=== PATIENT | male | born 1950 | race Caucasian/White ===

== ENCOUNTER 2020-08-09 09:41 | Outpatient (REF) | payer MEDICARE, BC, SELFPAY ==
[2020-08-09 11:31] LABS: Hematocrit 39.2 % (42-52); Hemoglobin 12.5 g/dl (14.0-18.0); Mean Corpuscular HGB Conc 31.9 g/dl (31.0-36.0); Mean Corpuscular Hemoglobin 31.5 pg (27.0-33.0); Mean Corpuscular Volume 98.7 fL (80-98); Mean Platelet Volume 10.5 fL (9.4-12.4); Platelet Count 257 X10*3/uL (160-400); Red Blood Count 3.97 X10*6/uL (4.60-5.80); Red Cell Distribution Width 12.1 % (11.0-16.0); White Blood Count 5.3 X10*3/uL (4.8-10.8)
[2020-08-09 11:50] LABS: Alanine Aminotransferase 38 U/L (0-40); Albumin Level 4.2 g/dL (3.5-5.0); Alkaline Phosphatase 61 U/L (39-117); Anion Gap 13 (12-20); Aspartate Amino Transferase 34 U/L (5-37); Bilirubin Direct 0.3 mg/dL (0.0-0.5); Bilirubin Total 0.7 mg/dL (0.0-1.0); Blood Urea Nitrogen 16 mg/dL (9-16); Calcium 8.5 mg/dL (8.4-10.2); Carbon Dioxide 27 mmol/L (22-29); Chloride 103 mmol/L (96-108); Cholesterol 158 mg/dL; Estimated Glomerular Filt Rate > 60; Glucose Random 93 mg/dL (60-115); HDL Cholesterol 24 mg/dL; LDL Cholesterol Calculated 118 mg/dl; Potassium 4.4 mmol/l (3.3-5.1); Sodium 139 mmol/L (135-145); Total Protein 7.1 g/dL (6.5-8.0); Triglycerides 84 mg/dL
[2020-08-09 11:52] LABS: SARS COV2 IgG Negative (Negative)
== END 2020-08-09 09:42 | disposition home or self-care (01) ==
LOC: HO.HMGCLDS 09:41
PROVIDERS: PCP Internal Medicine; Visit Provider Internal Medicine
DX: Z11.9 Encounter for screening for infectious and parasitic diseases, unspecified (principal); Z01.84 Encounter for antibody response examination
CPT/HCPCS: 36415; 80048; 80061; 80076; 85027; 86769

== ENCOUNTER 2021-02-05 09:47 | Outpatient (REF) | payer MEDICARE, BC, SELFPAY ==
[2021-02-05 11:51] LABS: Hematocrit 37.4 % (42-52); Hemoglobin 12.2 g/dl (14.0-18.0); Mean Corpuscular HGB Conc 32.6 g/dl (31.0-36.0); Mean Corpuscular Hemoglobin 31.9 pg (27.0-33.0); Mean Corpuscular Volume 97.9 fL (80-98); Mean Platelet Volume 10.1 fL (9.4-12.4); Platelet Count 296 X10*3/uL (160-400); Red Blood Count 3.82 X10*6/uL (4.60-5.80); Red Cell Distribution Width 12.6 % (11.0-16.0); White Blood Count 5.7 X10*3/uL (4.8-10.8)
[2021-02-05 12:05] LABS: Alanine Aminotransferase 31 U/L (0-40); Albumin Level 4.4 g/dL (3.5-5.0); Alkaline Phosphatase 57 U/L (39-117); Anion Gap 14 (12-20); Aspartate Amino Transferase 28 U/L (5-37); Bilirubin Direct 0.3 mg/dL (0.0-0.5); Bilirubin Total 0.8 mg/dL (0.0-1.0); Blood Urea Nitrogen 18 mg/dL (9-16); Calcium 9.1 mg/dL (8.4-10.2); Carbon Dioxide 27 mmol/L (22-29); Chloride 105 mmol/L (96-108); Cholesterol 160 mg/dL; Estimated Glomerular Filt Rate > 60; Glucose Random 94 mg/dL (60-115); HDL Cholesterol 26 mg/dL; LDL Cholesterol Calculated 118 mg/dl; Sodium 142 mmol/L (135-145); Total Protein 7.4 g/dL (6.5-8.0); Triglycerides 84 mg/dL
== END 2021-02-05 09:48 | disposition home or self-care (01) ==
LOC: HO.HMGCLDS 09:47
PROVIDERS: PCP Internal Medicine; Visit Provider Internal Medicine
DX: I10 Essential (primary) hypertension (principal)
CPT/HCPCS: 36415; 80048; 80061; 80076; 85027

== ENCOUNTER 2021-05-09 09:13 | Outpatient (REF) | payer MEDICARE, BC, SELFPAY ==
[2021-05-09 11:33] LABS: Cholesterol 157 mg/dL; HDL Cholesterol 28 mg/dL; LDL Cholesterol Calculated 115 mg/dl; Triglycerides 72 mg/dL
== END 2021-05-09 09:14 | disposition home or self-care (01) ==
LOC: HO.HMGCLDS 09:13
PROVIDERS: PCP Internal Medicine; Visit Provider Internal Medicine
DX: I10 Essential (primary) hypertension (principal)
CPT/HCPCS: 36415; 80061

== ENCOUNTER 2021-05-24 13:12 | Outpatient (REF) | payer MEDICARE, BC, SELFPAY ==
--- NOTE | ~2021-05-24 | US_ITS ---
EXAMINATION: US EXTRACRANIAL CAROTID DUPLEX, BILATERAL CLINICAL INFORMATION: Amaurosis fugax COMPARISON: None TECHNIQUE: Real-time ultrasound and Doppler techniques (integrating B-mode 2-D vascular images, Doppler spectral analysis and color-flow Doppler imaging) were utilized to interrogate the extracranial carotid arteries, the vertebral arteries and proximal subclavian arteries bilaterally. The degree of stenosis is determined by criteria similar to NASCET. FINDINGS: Right Side: 1. There is mild atherosclerotic plaque seen in the bifurcation/proximal ICA region. 2. The common carotid artery PSV proximally is 87 cm/s and distally 76 cm/s. 3. The proximal internal carotid artery velocities are 49 cm/s systolic and 15 cm/s diastolic. 4. The proximal external carotid artery PSV is 108 cm/s. 5. The vertebral artery shows antegrade flow. Left Side: 1. There is no atherosclerotic plaque seen in the bifurcation/proximal ICA region. 2. The common carotid artery PSV proximally is 99 cm/s and distally 73 cm/s. 3. The proximal internal carotid artery velocities are 55 cm/s systolic and 13 cm/s diastolic. 4. The proximal external carotid artery PSV is 108 cm/s. 5. The vertebral artery shows antegrade flow. US/US carotid duplex BI IMPRESSION: 1. RIGHT: Minimal, non-hemodynamically significant stenosis of the proximal right internal carotid artery corresponding to a 0-49% stenosis by velocity criteria. 2. LEFT: Normal left internal carotid artery without atherosclerotic plaque or hemodynamically significant stenosis.
== END 2021-05-24 13:13 | disposition home or self-care (01) ==
LOC: HO.US 13:12
PROVIDERS: PCP Internal Medicine; Visit Provider Internal Medicine
DX: G45.3 Amaurosis fugax (principal)
CPT/HCPCS: 93880

== ENCOUNTER → 2021-06-12 13:57 | Outpatient (REF) | payer MEDICARE, BC, SELFPAY ==
--- NOTE | 2021-06-12 13:59 | CA_ITS ---
Transthoracic Echocardiogram Patient (Last, First, Middle): Stuart Zavala S Gender: Male Date of : 1950 Age: 70 Procedure Date: 06/12/2021 Procedure Type: Transthoracic Echocardiogram Location: S3W Height: 172.72 cm Weight: 73.94 kg BSA: 1.87 m2 Heart Rate: bpm BP: 120 / 80 mmHg Porcelain Enamel Laborer: Karoline MD: Angel Rosales MD Ticker Maintainer: Ben Jimenez MD Symptoms: G45.3 - Amaurosis fugax Study Quality: Fair ECG Rhythm: Sinus Conclusions: - 1. Normal LV systolic function with grade 1 diastolic dysfunction 2. Normal cardiac valvular Doppler 3. Normal RV systolic pressure 4. No pericardial effusion Findings Procedure Information The patient receives contrast. Left Ventricle Normal left ventricular size, thickness, and systolic function. The visually estimated ejection fraction is between 60-65%. Spectral Doppler is indicative of an impaired relaxation filling pattern. E/E prime ratio is <8, consistent with normal filling pressures. Evidence suggests grade I (mild) diastolic dysfunction. Right Ventricle Normal right ventricular cavity size and systolic function. Atria The left atrium is normal in size. Interatrial shunt cannot be excluded. The right atrium is normal in size. Aortic Valve There is mild calcification of the aortic valve. There is no aortic valve stenosis. There is no aortic valve regurgitation. Mitral Valve Likely normal mitral valve structure and function. There is trace mitral valve regurgitation. There is no mitral valve stenosis. Pulmonic Valve The pulmonic valve was not well visualized. Tricuspid Valve Likely normal tricuspid valve structure and function. There is trace tricuspid valve regurgitation. The right ventricular systolic pressure is normal. The right ventricular systolic pressure is 30 mmHg. Normal right atrial pressure. There is no evidence of pulmonary hypertension. Great Vessels All visible segments of the aorta are normal in size. The pulmonary artery was not well visualized. Venous The inferior vena cava is normal in size and collapses greater than 50% with inspiration. Pericardium/Pleural There is no evidence of pericardial effusion. Prior Study Comparison No prior study available for comparison. Recommendations, Care & Conclusions Recommend contrast study to evaluate intracardiac shunting. Measurements 2D Linear Measurements RVIDd: 3.34 RVIDd Index: 1.79 IVSd: 0.94 0.6-0.9/0.6-1.0 cm LVIDd: 5.41 3.9-5.3/4.2-5.9 cm LVIDd Index: 2.89 2.4-3.2/2.2-3.1 cm/m2 LVIDs: 3.92 2.0-3.6 cm LVPWd: 0.92 0.7-1.1 cm Ao Root: 3.90 2.1-3.5 cm LA Diam: 4.10 2.7-3.8/3.0-4.0 cm LAIDs Index: 2.19 1.5-2.3 cm/m2 LV Mass: 235.27 67-162/88-224 g LV Mass Index: 125.81 43-95/49-115 g/m2 LVOT Diam: 2.10 3.0+(-)1.3 cm 2D Systolic Function EF 4C: 51.20 >55% EF 2C: 69.80 >55% EF BiP: 61.80 >55% Mitral Valve MV Pk E: 0.50 MV PK A: 0.77 MV Decel Time: 349.00 E/A: 0.70 E'Lateral: 11.90 E'Medial: 6.53 E/E' Med: 7.70 E/E' Lat: 4.20 Aortic Valve AoV Pk Sid: 1.29 AoV Mn Sid: 1.02 AoV VTI: 0.33 AoV Pk Grad: 7.00 Aov Mn Grad: 5.00 FELA Cont.VTI: 2.47 LVOT LVOT Pk Sid: 1.13 LVOT Mn Sid: 0.68 LVOT VTI: 0.23 LVOT Pk Grad: 5.00 LVOT Mn Grad: 2.00 LVOT Diam: 2.10 LVOT Area: 3.46 Diastolic Function MV Pk E: 0.50 MV Pk A: 0.77 E/A: 0.70 E'Medial: 6.53 E/E' Med: 7.70 E' Laterial: 11.90 E/E' Lat: 4.20 Right Ventricle TAPSE (mm): 18.00 TVS' Sid: 8.01 Tricuspid Valve TR Pk Sid: 2.34 TR Pk Grad: 22.00 RA Press: 8.00 RVSP: 30.00 Great Vessels Aorta Ao Root-2D: 3.90 2.0-3.7 cm Ao Asc: 3.90 2.1-3.4 cm Ao Arch: 3.50 Updated in Other Vendor System with Status of Final Ben Jimenez MD electronically signed on 06/12/2021 4:01:16 PM with status of Final
== END ==
LOC: HO.CARD 13:57
PROVIDERS: PCP Internal Medicine; Visit Provider Internal Medicine
DX: G45.3 Amaurosis fugax (principal)
CPT/HCPCS: 93306; Q9957

== ENCOUNTER 2021-08-23 09:00 | Outpatient (REF) | payer MEDICARE, BC, SELFPAY ==
[2021-08-23 10:12] LABS: Hematocrit 33.6 % (42.0-52.0); Hemoglobin 11.2 g/dl (14.0-18.0); Mean Corpuscular HGB Conc 33.3 g/dl (31.0-36.0); Mean Platelet Volume 9.9 fL (9.4-12.4); Platelet Count 295 X10*3/uL (160-400); Red Cell Distribution Width 12.2 % (11.0-16.0); White Blood Count 7.1 X10*3/uL (4.8-10.8)
[2021-08-23 10:22] LABS: Estimated Average Glucose 97 mg/dL
[2021-08-23 10:54] LABS: Alanine Aminotransferase 54 U/L (0-40); Alkaline Phosphatase 60 U/L (39-117); Anion Gap 10 (12-20); Aspartate Amino Transferase 48 U/L (5-37); Bilirubin Direct 0.4 mg/dL (0.0-0.5); Bilirubin Total 1.1 mg/dL (0.0-1.0); Blood Urea Nitrogen 17 mg/dL (9-16); Calcium 8.7 mg/dL (8.4-10.2); Carbon Dioxide 28 mmol/L (22-29); Chloride 104 mmol/L (96-108); Cholesterol 94 mg/dL; Estimated Glomerular Filt Rate > 60; Glucose Random 96 mg/dL (60-115); HDL Cholesterol 21 mg/dL; LDL Cholesterol Calculated 61 mg/dl; Potassium 4.4 mmol/L (3.3-5.1); Sodium 138 mmol/L (135-145); Total Protein 6.8 g/dL (6.5-8.0); Triglycerides 61 mg/dL
[2021-08-23 11:07] LABS: Thyroid Stimulating Hormone 0.98 uIU/mL (0.32-4.0)
== END 2021-08-23 09:01 | disposition home or self-care (01) ==
LOC: HO.LAB 09:00
PROVIDERS: PCP Internal Medicine; Visit Provider Internal Medicine
DX: G45.3 Amaurosis fugax (principal); I10 Essential (primary) hypertension
CPT/HCPCS: 36415; 80048; 80061; 80076; 83036; 84443; 85027; 86900; 86901

== ENCOUNTER 2021-12-28 10:50 | Outpatient (REF) | payer MEDICARE, BC, SELFPAY ==
[2021-12-28 12:53] LABS: Alanine Aminotransferase 44 U/L (0-40); Alkaline Phosphatase 59 U/L (39-117); Aspartate Amino Transferase 36 U/L (5-37); Bilirubin Direct 0.2 mg/dL (0.0-0.5); Bilirubin Total 0.5 mg/dL (0.0-1.0); Total Protein 6.9 g/dL (6.5-8.0)
[2021-12-31 16:26] LABS: Transglutaminase Ab IgG 1.1 U/mL; Transglutaminase IgA >250.0 U/mL
== END 2021-12-28 10:51 | disposition home or self-care (01) ==
LOC: HO.LAB 10:50
PROVIDERS: PCP Internal Medicine; Referring Provider Internal Medicine; Visit Provider Nurse Practitioner Family
DX: Z01.818 Encounter for other preprocedural examination (principal); R10.11 Right upper quadrant pain; R14.0 Abdominal distension (gaseous)
CPT/HCPCS: 36415; 80076; 86364; 99202

== ENCOUNTER 2022-01-29 10:00 | Outpatient (REF) | payer MEDICARE, BC, SELFPAY ==
[2022-01-29 11:55] LABS: Hemoglobin 11.6 g/dl (14.0-18.0); Mean Corpuscular HGB Conc 32.2 g/dl (31.0-36.0); Mean Corpuscular Hemoglobin 31.4 pg (27.0-33.0); Mean Corpuscular Volume 97.6 fL (80.0-98.0); Mean Platelet Volume 10.4 fL (9.4-12.4); Platelet Count 325 X10*3/uL (160-400); Red Blood Count 3.69 X10*6/uL (4.60-5.80); Red Cell Distribution Width 12.3 % (11.0-16.0)
[2022-01-29 12:02] LABS: Alanine Aminotransferase 46 U/L (0-40); Albumin Level 4.1 g/dL (3.5-5.0); Alkaline Phosphatase 55 U/L (39-117); Anion Gap 13 (12-20); Aspartate Amino Transferase 38 U/L (5-37); Bilirubin Direct 0.3 mg/dL (0.0-0.5); Bilirubin Total 0.8 mg/dL (0.0-1.0); Blood Urea Nitrogen 20 mg/dL (9-16); Calcium 9.2 mg/dL (8.4-10.2); Carbon Dioxide 27 mmol/L (22-29); Chloride 104 mmol/L (96-108); Cholesterol 107 mg/dL; Estimated Glomerular Filt Rate > 60; Glucose Random 104 mg/dL (60-115); HDL Cholesterol 25 mg/dL; LDL Cholesterol Calculated 71 mg/dl; Sodium 140 mmol/L (135-145); Total Protein 7.1 g/dL (6.5-8.0); Triglycerides 59 mg/dL
[2022-01-29 12:12] LABS: Appearance Urine CLEAR; Color Urine YELLOW; Glucose Urine UA NEG (NEG); Leukocyte Esterase Urine NEG (NEG); Nitrite Urine NEG (NEG); PH 5.5 (5.0-8.0); Specific Gravity - Urine 1.025 (1.005-1.025); Urine Blood 2+ (NEG); Urine Ketones NEG (NEG); Urine Protein NEG (NEG-TRACE)
[2022-01-29 12:24] LABS: Thyroid Stimulating Hormone 1.29 uIU/mL (0.32-4.0)
[2022-01-29 12:38] LABS: WBC Urine 0 /HPF (0-4)
== END 2022-01-29 10:01 | disposition home or self-care (01) ==
LOC: HO.HMGCLDS 10:00
PROVIDERS: Visit Provider Internal Medicine
DX: I10 Essential (primary) hypertension (principal)
CPT/HCPCS: 36415; 80048; 80061; 80076; 81001; 81003; 84443; 85027

== ENCOUNTER 2022-06-18 08:11 | Day surgery (SDC) | payer MEDICARE, BC, SELFPAY ==
[2022-02-01 12:40] VITALS: BMI 25.0
--- NOTE | 2022-06-14 12:31 | HO.ANESPROP2 ---
Documented by User: Kate Rosenberg NP 06/14/22 12:32 HPI - Anesthesia Eval Consult details Narrative: 71yo M for Upper Endoscopy and Colonoscopy PMF Active Problems Active Problems: All Active Problems (Updated 06/12/22 @ 14:55 by Ksenia Arriaga RN) Screening examination for infectious disease (Acute) Encounter for other general examination (Acute) Screening for colon cancer (Acute) Essential (primary) hypertension (Acute) Amaurosis fugax (Acute) Past Medical History Medical History Amaurosis fugax Essential (primary) hypertension Screening for colon cancer Family History Family History Father No problems noted. Mother Liver problem Surgical History Surgical History H/O hand surgery H/O right knee surgery History of colonoscopy History of endoscopy History of excision of pilonidal cyst History of tonsillectomy History of umbilical hernia repair Social History Social History Housing: House Alcohol intake: current Alcohol intake frequency: holidays/special occasions only Patient Tobacco Use Status: Never used Tobacco e-Cigarette/Vaping Use: Never Used Second Hand Smoke Exposure: No Advance Directives: No Advance Directives Information Provided: Yes service: No Current occupational status: retired Cognitive needs: No Hearing needs: No Vision needs: Yes (Glasses) Meds Allergies Allergy/AdvReac Type Severity Reaction Status Date / Time Penicillins [PENICILLINS] Allergy Unknown UNK Verified 12/28/21 11:01 Home Medications Medication Instructions Recorded Confirmed Last Taken Type naproxen 500 mg tablet 500 mg PO BID PRN 09/18/20 05/07/21 Unknown History Exam Exam Date and Time: June 14, 2022 1231 Height,Weight and Vital Signs: Height 5 ft 8 in Weight 74.843 kg Pertinent Lab Results Pertinent Lab Results: Laboratory Tests 01/29/22 01/29/22 10:07 10:07 WBC 7.0 Hgb 11.6 L Hct 36.0 L Plt Count 325 Sodium 140 Potassium 4.0 Chloride 104 Carbon Dioxide 27 BUN 20 H Creatinine 0.84 Narrative Narrative: ECHO 2020 Conclusions: - 1. Normal LV systolic function with grade 1 diastolic? dysfunction? 2. Normal cardiac valvular Doppler ? 3. Normal RV systolic pressure ? 4. No pericardial effusion ? Assessment and Plan Assessment Anesthesia Assessment: Chart Reviewed Documented by User: Eder Stern MD 06/18/22 08:51 PMFSH Past Medical History Medical History Amaurosis fugax Essential (primary) hypertension Screening for colon cancer Family History Family History Father No problems noted. Mother Liver problem Family history of problems with anesthesia: No Surgical History Surgical History H/O hand surgery H/O right knee surgery History of colonoscopy History of endoscopy History of excision of pilonidal cyst History of tonsillectomy History of umbilical hernia repair History of Problems with Anesthesia: No Social History Social History Housing: House Alcohol intake: current Alcohol intake frequency: holidays/special occasions only Patient Tobacco Use Status: Never used Tobacco e-Cigarette/Vaping Use: Never Used Second Hand Smoke Exposure: No Advance Directives: No Advance Directives Information Provided: Yes service: No Current occupational status: retired Cognitive needs: No Hearing needs: No Vision needs: Yes (Glasses) Meds Allergies Allergy/AdvReac Type Severity Reaction Status Date / Time Penicillins [PENICILLINS] Allergy Unknown UNK Verified 12/28/21 11:01 Home Medications Medication Instructions Recorded Confirmed Last Taken Type naproxen 500 mg tablet 500 mg PO BID PRN 09/18/20 05/07/21 Unknown History Exam Airway Mallampati Class: IV TM Dist: >3cm Neck ROM: Full Loose/Missing/Broken Teeth: No (Rrr) Heart: rrr Lungs: clear Assessment and Plan Final Anesthetic Review Family History of Problems with Anesthesia: No History of Problems with Anesthesia: No NPO: Yes ASA Class: II Final Preanesthetic Review: No Changes in Pt Med Stat, Meds/Allgs Chart Reviewed, Consent Obtained/Reviewed and Anes Risks/Benef Reviewed Patient Risk: Intermediate Procedure Risk: Low Anesthetic Plan Anesthetic Plan: MAC: Disposition: Standard PACU
[2022-06-18 08:27] VITALS: BP 119/62; PULSE 84; RESP 16; TEMP 36.3; O2SAT 98; BMI 24.5
[2022-06-18] MEDS: Lactated Ringers 1,000 ML 100 ML IVCONT (09:01)
--- NOTE | 2022-06-18 09:07 | P.HPSUR_ITS ---
Pre-Procedural Eval Section A Date of Service: 06/18/22 Section B Chief Complaint: screening,celiac disease Relevant Family History (Specify if Yes): No Relevant Social History: None Present Medications: see Short Stay Collaborative assessment Medical History: Significant History (Amaurosis fugax Essential (primary) hypertension Screening for colon cancer) History of Previous Operations: Relevant previous surgery/procedure and date(s) (H/O hand surgery H/O right knee surgery History of colonoscopy History of endoscopy History of excision of pilonidal cyst History of tonsillectomy History of umbilical hernia repair) Allergies: Allergies Allergy/AdvReac Type Severity Reaction Status Date / Time Penicillins [PENICILLINS] Allergy Unknown UNK Verified 12/28/21 11:01 Review of Systems Sugical H&P ROS: Negative: Constitution, Cardiovascular, Respiratory, N eurological, Psychiatric, Hem-Onc, Allergic/Immunologic, Gastrointestinal, Genitourinary, Musculoskeletal, Integumentary, Endocrine and Eyes/Ears/Nose/Throat Exam Surgical H&P Exam: Normal: HEENT, Normal: Heart, Normal: Lungs, Normal: Extremities, Normal: Abdomen, Normal: Skin and Normal: Neurological Plan Diagnosis/Plan: Unchanged I have reviewed the history and physical and performed a pertinent physical examination on my patient. No changes have occurred unless specified. He said he was told 10 yrs ago he had celiac and saw Dr Garcia in past but has never adhered to a celiac diet
--- NOTE | 2022-06-18 09:09 | W.PM.OPN ---
Operative Note Operative Note Date of Service: 06/18/22 Narrative: Operative Information Procedure Description: EGD, Colonoscopy Indication: celiac disease, screening colonoscopy Anesthesia: MAC FLEXIBLE TRANSORAL UPPER GASTROINTESTINAL ENDOSCOPY AND COLONOSCOPY PROCEDURE NOTE UPPER ENDOSCOPY Consent: Indications for the procedure and potential complications of bleeding, perforation, reaction to medications and missed diagnosis were discussed with the patient and informed consent was obtained. Instrument: Olympus GIF H 190 J mid size upper endoscope Monitoring: Vital signs and clinical assessment, continuous EKG monitoring, Pulse oximetry, Carbon Dioxide monitoring and blood pressure monitoring were done throughout the procedure. Procedure: The patient was placed in the left lateral decubitis position and pre-procedure medications were administered and a bite block was placed. The endoscope was inserted into the mouth and advanced under direct vision to the third part of duodenum. A careful inspection was made as the upper endoscope was withdrawn including a retroflexed examination of the proximal stomach; Findings and interventions are described below. Findings: Larynx:normal Esophagus: GE junction at 37 cm, diaphragm hiatus at 37 cm, esophagitis noted, bx taken from GEJ and random esophagus Stomach: Normal mucosa. Biopsies were obtained. Grade 2 flap valve on retroflexed examination of the cardia. Duodenum: erosive duodenitis in bulb with flattened and atrophic mucosa in second part of duodenum, bx taken Intervention: Biopsies as noted above COLONOSCOPY Instrument: Olympus variable stiffness pediatric scope 190L Colonoscopy Monitoring: Vital signs and clinical assessment, continuous EKG monitoring, Pulse oximetry, Carbon Dioxide monitoring and blood pressure monitoring were done throughout the procedure. Colon withdrawal time was 12 minutes. Procedure: The patient was placed in the left lateral decubitis position and pre-procedure medications were administered. After a digital rectal examination of the ano-rectum, the video colonoscope was inserted into the rectum and advanced through the colon to the cecum/TI. The colonoscope was slowly withdrawn in a retrograde panoramic fashion and the colon mucosa was carefully examined including a retroflexed view of the rectum. Findings and interventions are described below. Procedure Difficulty: moderate due to looping Findings: Terminal Ileum-not intubated Cecum: 6-8 mm sessile polyp removed with cold forceps Ascending Colon: normal Transverse Colon -normal Descending Colon:normal Sigmoid Colon: moderate diverticular disease Rectum: Retroflexion with small internal hemorrhoids, grade I, 5-7 mm sessile polyp removed with cold forceps, distal rectum with erythema, bx taken Anorectum - normal Colon preparation: Norman Bowel Preparation Scale Right colon; 1 Transverse colon: 2 Left colon; 1 (0 = Unprepared colon segment with mucosa not seen due to solid stool that cannot be cleared. 1 = Portion of mucosa of the colon segment seen, but other areas of the colon segment not well seen due to staining, residual stool and/or opaque liquid. 2 = Minor amount of residual staining, small fragments of stool and/or opaque liquid, but mucosa of colon segment seen well. 3 = Entire mucosa of colon segment seen well with no residual staining, small fragments of stool or opaque liquid) Impression and Post Procedure Diagnosis: Endoscopy Findings: erosive duodenitis esophagitis Colonoscopy Findings: polyps internal hemorrhoids diverticular disease Plan: Await Pathology results Repeat Colonoscopy in 1 year due to prep or earlier if clinically indicated High fiber diet leaflet avoid straining at stool, epsom salts and sitz bath, anusol supps or cream needs compliance with celiac diet Above findings were reviewed with the patient and relevant handouts were provided if indicated.
[2022-06-18 09:55] VITALS: BP 93/56; PULSE 55; RESP 16; TEMP 37.1; O2SAT 98
[2022-06-18 10:10] VITALS: BP 104/59; PULSE 50; RESP 16; O2SAT 97
[2022-06-18 10:25] VITALS: BP 103/61; PULSE 50; RESP 16; TEMP 36.5; O2SAT 97
== END 2022-06-18 10:53 | disposition home or self-care (01) ==
PROVIDERS: PCP Internal Medicine; Visit Provider Internal Medicine Gastroenterology
PROC: (CPT 45380; principal; 2022-06-18 09:20)
DX: Z12.11 Encounter for screening for malignant neoplasm of colon (principal); K63.5 Polyp of colon; K62.1 Rectal polyp; K57.30 Diverticulosis of large intestine without perforation or abscess without bleeding; K90.0 Celiac disease; G45.3 Amaurosis fugax; R10.11 Right upper quadrant pain; R14.0 Abdominal distension (gaseous); K20.80 Other esophagitis without bleeding; K29.80 Duodenitis without bleeding; K44.9 Diaphragmatic hernia without obstruction or gangrene; I10 Essential (primary) hypertension; Z79.82 Long term (current) use of aspirin; Z79.899 Other long term (current) drug therapy; Z88.0 Allergy status to penicillin; K64.0 First degree hemorrhoids
CPT/HCPCS: 45380; 43239; 88300; 88305; 88342

== ENCOUNTER → 2022-07-02 11:58 | Outpatient (BNVA) | payer MEDICARE, BC, SELFPAY | PROVIDERS: PCP Internal Medicine; Referring Provider Internal Medicine; Visit Provider Nurse Practitioner Family | DX: D12.0 Benign neoplasm of cecum (principal); K57.30 Diverticulosis of large intestine without perforation or abscess without bleeding; K21.9 Gastro-esophageal reflux disease without esophagitis; K90.0 Celiac disease; Z98.890 Other specified postprocedural states | CPT/HCPCS: 99212 ==

== ENCOUNTER 2022-08-30 09:20 | Outpatient (REF) | payer MEDICARE, BC, SELFPAY ==
[2022-08-30 11:47] LABS: Hematocrit 37.3 % (42.0-52.0); Hemoglobin 11.8 g/dl (14.0-18.0); Mean Corpuscular HGB Conc 31.6 g/dl (31.0-36.0); Mean Corpuscular Hemoglobin 31.4 pg (27.0-33.0); Mean Corpuscular Volume 99.2 fL (80.0-98.0); Mean Platelet Volume 10.8 fL (9.4-12.4); Platelet Count 311 X10*3/uL (160-400); Red Blood Count 3.76 X10*6/uL (4.60-5.80); Red Cell Distribution Width 12.4 % (11.0-16.0); White Blood Count 6.4 X10*3/uL (4.8-10.8)
[2022-08-30 12:01] LABS: Alanine Aminotransferase 41 U/L (0-40); Alkaline Phosphatase 67 U/L (39-117); Anion Gap 16 (12-20); Aspartate Amino Transferase 33 U/L (5-37); Bilirubin Direct 0.3 mg/dL (0.0-0.5); Bilirubin Total 0.5 mg/dL (0.0-1.0); Blood Urea Nitrogen 16 mg/dL (9-16); C Reactive Protein 0.02 mg/dL (< or = 0.50); Calcium 8.8 mg/dL (8.4-10.2); Carbon Dioxide 26 mmol/L (22-29); Chloride 105 mmol/L (96-108); Cholesterol 100 mg/dL; Estimated Glomerular Filt Rate > 60; Glucose Random 94 mg/dL (60-115); HDL Cholesterol 26 mg/dL; LDL Cholesterol Calculated 64 mg/dl; Potassium 4.6 mmol/L (3.3-5.1); Sodium 142 mmol/L (135-145); Total Protein 7.1 g/dL (6.5-8.0); Triglycerides 54 mg/dL
[2022-08-30 12:28] LABS: Thyroid Stimulating Hormone 1.11 uIU/mL (0.32-4.0)
[2022-08-30 12:56] LABS: Albumin Level 4.2 g/dL (3.5-5.0)
== END 2022-08-30 09:21 | disposition home or self-care (01) ==
LOC: HO.HMGCLDS 09:20
PROVIDERS: PCP Internal Medicine; Visit Provider Internal Medicine
DX: I10 Essential (primary) hypertension (principal)
CPT/HCPCS: 36415; 80048; 80061; 80076; 84443; 85027; 86140

== ENCOUNTER 2023-02-13 09:41 | Outpatient (REF) | payer MEDICARE, BC, SELFPAY ==
[2023-02-13 10:24] LABS: Hematocrit 36.9 % (42.0-52.0); Hemoglobin 11.9 g/dl (14.0-18.0); Mean Corpuscular HGB Conc 32.2 g/dl (31.0-36.0); Mean Corpuscular Hemoglobin 31.2 pg (27.0-33.0); Mean Corpuscular Volume 96.6 fL (80.0-98.0); Mean Platelet Volume 9.5 fL (9.4-12.4); Platelet Count 284 X10*3/uL (160-400); Red Blood Count 3.82 X10*6/uL (4.60-5.80); Red Cell Distribution Width 12.3 % (11.0-16.0); White Blood Count 5.8 X10*3/uL (4.8-10.8)
[2023-02-13 11:19] LABS: Alanine Aminotransferase 36 U/L (0-40); Albumin Level 4.1 g/dL (3.5-5.0); Alkaline Phosphatase 62 U/L (39-117); Anion Gap 13 (12-20); Aspartate Amino Transferase 34 U/L (5-37); Bilirubin Direct 0.3 mg/dL (0.0-0.5); Bilirubin Total 0.9 mg/dL (0.0-1.0); Blood Urea Nitrogen 17 mg/dL (9-16); Calcium 8.9 mg/dL (8.4-10.2); Carbon Dioxide 27 mmol/L (22-29); Chloride 108 mmol/L (96-108); Cholesterol 104 mg/dL; Estimated Glomerular Filt Rate > 60; Glucose Random 94 mg/dL (60-115); HDL Cholesterol 23 mg/dL; LDL Cholesterol Calculated 71 mg/dl; Potassium 4.5 mmol/L (3.3-5.1); Prostate Specific Antigen Scr 1.12 ng/mL (<0.05-4.0); Sodium 143 mmol/L (135-145); Thyroid Stimulating Hormone 1.86 uIU/mL (0.32-4.0); Total Protein 6.9 g/dL (6.5-8.0); Triglycerides 54 mg/dL
== END 2023-02-13 09:42 | disposition home or self-care (01) ==
LOC: HO.LAB 09:41
PROVIDERS: Visit Provider Internal Medicine
DX: I10 Essential (primary) hypertension (principal); G45.3 Amaurosis fugax; Z12.5 Encounter for screening for malignant neoplasm of prostate
CPT/HCPCS: 36415; 80048; 80061; 80076; 84153; 84443; 85027

== ENCOUNTER → 2023-03-03 11:57 | Outpatient (BNVA) | payer MEDICARE, BC, SELFPAY | PROVIDERS: PCP Internal Medicine; Visit Provider Nurse Practitioner Family | DX: Z01.818 Encounter for other preprocedural examination (principal) | CPT/HCPCS: 99212 ==

== ENCOUNTER 2023-07-02 11:20 | Outpatient (AMB) | payer MEDICARE, BC, SELFPAY ==
[2023-07-02 12:12] VITALS: BP 110/64; PULSE 70; TEMP 36.6; O2SAT 97; BMI 24.3
--- NOTE | 2023-07-02 12:12 | AM.OFFWIN_ITS ---
Intake Vital Signs 07/02/23 12:12 Height 5 ft 8 in Weight 160 lb BMI 24.3 BP 110/64 Blood Pressure Location Rt brachial Position Sitting Pulse 70 Pulse Source Pulse Oximeter Temp 97.8 F Temp Source Temporal Artery Scan Pulse Oximetry (%) 97 Intake Visit Reasons: EST/right thumb swelling couple weeks Intake Note: pt is here for c/o right thumb swelling for a few weeks, denies injury Patient Tobacco Use Status: Never used Tobacco Allergies Penicillins [PENICILLINS] Allergy (Unknown, Verified 07/02/23 13:00) UNK Medication List - Last Reconciled 07/02/23 by Angel Rosales MD aspirin (Aspirin Childrens) 81 mg PO DAILY atorvastatin 10 mg PO BEDTIME fluticasone propionate 50 mcg/actuation (Flonase Allergy Relief) 1 spray intranasal DAILY lorazepam 0.5 mg PO DAILY 30 days naproxen 500 mg PO BID PRN pantoprazole 40 mg PO DAILY sildenafil 100 mg PO DAILY telmisartan-hydrochlorothiazid 40-12.5 mg 1 tab PO DAILY Do you need a note to return to daycare/school/sports/work: Yes HPI EST/right thumb swelling couple weeks HPI Details 72-year-old male presents to the office for a sick visit. Patient is having pain in the left hand. Cannot recall any fall or injury. Symptoms are mostly around the thumb. [facility], [facility] Medical History Amaurosis fugax Celiac disease Essential (primary) hypertension Screening for colon cancer Surgical History H/O hand surgery H/O right knee surgery History of colonoscopy History of endoscopy History of excision of pilonidal cyst History of tonsillectomy History of umbilical hernia repair Family History Father No problems noted. Mother Liver problem Social History Housing: House Alcohol intake: current Alcohol intake frequency: holidays/special occasions only Patient Tobacco Use Status: Never used Tobacco e-Cigarette/Vaping Use: Never Used Second Hand Smoke Exposure: No service: No Current occupational status: retired Cognitive needs: No Hearing needs: Yes Vision needs: Yes (Glasses) Physical Exam Vital Signs: Last Vital Signs Temp 97.8 F 07/02/23 12:12 Pulse 70 07/02/23 12:12 BP 110/64 07/02/23 12:12 Pulse Ox 97 07/02/23 12:12 BMI result Body Mass Index 24.3 Extrem Other: Left hand: Pain at the base of the 1st MCP joint. Heberdens nodules are tender. Assessment & Plan Assessment & Plan (1) Osteoarthritis of hand: Code(s): M19.049 - Primary osteoarthritis, unspecified hand Qualifiers: Osteoarthritis type: primary Laterality: left Qualified Code(s): M19.042 - Primary osteoarthritis, left hand Plan: X-ray images were personally reviewed by me. Osteoarthritis. Meloxicam called in. If symptoms do not improve to follow-up here. Orders: Orders XR hand LT min 3V Today M19.049 - Primary osteoarthritis, unspecified hand Coding Level of Care Code Est Pt Level 4 (13435) Diagnoses Primary osteoarthritis of left hand M19.042 Osteoarthritis type: primary Laterality: left
== END 2023-07-02 13:29 | disposition home or self-care (01) ==
PROVIDERS: PCP Internal Medicine; Visit Provider Internal Medicine
DX: M19.042 Primary osteoarthritis, left hand (principal)
CPT/HCPCS: 99214

== ENCOUNTER 2023-07-02 12:48 | Outpatient (REF) | payer MEDICARE, BC, SELFPAY ==
--- NOTE | ~2023-07-02 | XR_ITS ---
EXAMINATION: XR HAND, LEFT CLINICAL INFORMATION: Primary osteoarthritis, left hand. COMPARISON: None available. TECHNIQUE: PA, lateral, and oblique views of the left hand. FINDINGS: Bones are osteopenic. Moderate osteoarthritis at the 1st CMC joint is characterized by non-uniform joint space narrowing and marginal osteophytes. More mild and [id number] degrees of osteoarthritis are noted in the other joints including the thumb and index finger MCP joints, thumb IP joint, DIP joints, and triscaphe joint. No erosions. Soft tissues are unremarkable. No fracture or malalignment. XR/XR hand LT min 3V IMPRESSION: [id number] multifocal osteoarthritis in the left hand, most notably at the 1st CMC joint.
== END 2023-07-02 12:49 | disposition home or self-care (01) ==
LOC: HO.HMGCX 12:48
PROVIDERS: Visit Provider Internal Medicine
DX: M19.042 Primary osteoarthritis, left hand (principal)
CPT/HCPCS: 73130

== ENCOUNTER 2023-08-21 08:58 | Outpatient (AMB) | payer MEDICARE, BC, SELFPAY ==
--- NOTE | 2023-08-21 09:00 | A.OFFPC_ITS ---
Vital Signs 08/21/23 09:02 Height 5 ft 8 in Weight 154 lb 2 oz BMI 23.4 BP 130/78 Blood Pressure Location Lt brachial Position Sitting Pulse 71 Pulse Source Pulse Oximeter Pulse Oximetry (%) 98 Oxygen Delivery Method Room Air Intake Visit Reasons: 6mth f/u Intake Note: Patient is here to follow up on HTN, Celiac disease. Architectural Administrative Assistant Required: No Laundry Attendant: Not Required per policy Accompanied by: Self / Same As Patient Allergies Penicillins [PENICILLINS] Allergy (Unknown, Verified 08/21/23 09:56) UNK Medication List - Last Reconciled 08/21/23 by Angel Rosales MD aspirin (Aspirin Childrens) 81 mg PO DAILY atorvastatin 10 mg PO BEDTIME fluticasone propionate 50 mcg/actuation (Flonase Allergy Relief) 1 spray intranasal DAILY lorazepam 0.5 mg PO DAILY 30 days meloxicam 15 mg PO DAILY pantoprazole 40 mg PO DAILY sildenafil 100 mg PO DAILY telmisartan-hydrochlorothiazid 40-12.5 mg 1 tab PO DAILY Tobacco use date assessed: 08/21/23 Fall risk assessment: No Falls in past year Last assessed Fall Risk: 08/21/23 Dental Screening Dental Screen Date: 08/21/23 Did you have a dental visit in the last 12 months?: Yes Did you have a dental problem in the last 6 months where you did not have access to dental care?: No Was dental information given to patient?: Patient has dentist HPI 6mth f/u HPI Details 72-year-old male presents to the office to discuss his chronic medical conditions. Patient was seen at the walk-in clinic for osteoarthritis in his hand. He was given NSAIDs to which he responded very well. He is requesting a refill on the medication. Compliant with medications and reporting no side effects. He is able to function and do activities of daily living. 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 [facility] Medical History Celiac disease Screening for colon cancer Amaurosis fugax Essential (primary) hypertension Surgical History History of endoscopy History of colonoscopy H/O right knee surgery History of excision of pilonidal cyst History of umbilical hernia repair H/O hand surgery History of tonsillectomy Family History Father No problems noted. Mother Liver problem Social History Housing: House Alcohol intake: current Alcohol intake frequency: holidays/special occasions only Patient Tobacco Use Status: Never used Tobacco e-Cigarette/Vaping Use: Never Used Second Hand Smoke Exposure: No service: No Current occupational status: retired Cognitive needs: No Hearing needs: Yes Vision needs: Yes (Glasses) Questionnaire PHQ-9 Over the last 2 weeks, how often have you been bothered by any of the following problems? Depression Screening Interpretation: Negative Depression Screening Done: Yes Source: Developed by Drs. Lopez Tang, Rosalva Otoole, Marcellus Gunn and colleagues, with an educational darvin from [employer]. Thrive Questionnaire Date Thrive assessed: 02/13/23 REYNOLD-7 AMB Questionnaire REYNOLD-7 Date REYNOLD - 7 assessed: 02/13/23 Source: Developed by Drs. Lopez Tang, Rosalva Otoloe, Marcellus Gunn and colleagues, with an educational darvin from [employer]. Physical exam (Primary Care) Vital Signs: Last Vital Signs Pulse 71 08/21/23 09:02 BP 130/78 08/21/23 09:02 Pulse Ox 98 08/21/23 09:02 Oxygen Delivery Method Room Air 08/21/23 09:02 Care Plan Goal for BP management: Blood pressure is in range. Continue current medications. BMI result Body Mass Index 23.4 Tobacco/Smoking Status: Tobacco use Status Tobacco use date assessed 08/21/23 08/21/23 09:17 Patient Tobacco Use Status Never used Tobacco 08/21/23 09:17 e-Cigarette/Vaping Use Never Used 08/21/23 09:17 Depression Screening Interpretation: Negative Thrive Assessment: Date of Thrive Assessment Date Thrive assessed 02/13/23 08/21/23 09:17 Advance Care Planning discussion: Exists, not on file Date of discussion: 08/21/23 Forms completed: Health Care Proxy and MOLST Time spent: 1-15 minutes, not on file Const General: cooperative and healthy appearing Nutritional Appearance: well nourished Orientation/consciousness: patient oriented x3 Limitations: no limitations HENMT Head: Yes normal to inspection Eyes General: appearance normal, both eyes and all related structures Neck Neck: Yes normal visual inspection Chest Chest palpation & inspection: normal palpation of entire chest wall Resp Effort & Inspection: normal respiratory effort Neuro General: patient oriented x3 Assessment and Plan Assessment & Plan (1) Osteoarthritis of hand: Code(s): M19.049 - Primary osteoarthritis, unspecified hand Qualifiers: Osteoarthritis type: primary Laterality: left Qualified Code(s): M19.042 - Primary osteoarthritis, left hand Plan: Patient was advised to take extra-strength Tylenol every day. To use the meloxicam only for breakthrough pain. (2) Essential (primary) hypertension: Code(s): I10 - Essential (primary) hypertension Plan: Blood pressure is in range. Continue current medications. Medications: Refilled meloxicam 15 mg PO DAILY 14 tabs 0RF Coding Level of Care Code Est Pt Level 4 (47179) Diagnoses Primary osteoarthritis of left hand M19.042 Osteoarthritis type: primary Laterality: left Essential (primary) hypertension I10 Additional Codes Vital Signs *Quality* - Advance Care Planning discussion: Exists, not on file ([id number]) Vital Signs *Quality* - Time spent: 1-15 minutes, not on file ([id number])
[2023-08-21 09:02] VITALS: BP 130/78; PULSE 71; O2SAT 98; BMI 23.4
== END 2023-08-21 09:49 | disposition home or self-care (01) ==
PROVIDERS: Visit Provider Internal Medicine
DX: M19.042 Primary osteoarthritis, left hand (principal); I10 Essential (primary) hypertension; Z00.00 Encounter for general adult medical examination without abnormal findings
CPT/HCPCS: 1123F; 1124F; 99214

== ENCOUNTER 2023-08-29 09:55 | Outpatient (REF) | payer MEDICARE, BC, SELFPAY ==
[2023-08-29 13:38] LABS: Appearance Urine Clear; Color Urine Yellow; Glucose Urine UA Negative (Negative); Leukocyte Esterase Urine Negative (Negative); Nitrite Urine Negative (Negative); Specific Gravity - Urine 1.015 (1.005-1.025); UMIC TRIGGER UA YES; Urine Blood Trace (Negative); Urine Ketones Negative (Negative); Urine Protein Negative (Neg-Trace)
[2023-08-29 13:43] LABS: Bacteria Urine None Seen (None Seen); Hyaline Casts Urine 0-2 /LPF (0-2); RBC Urine 0-2 /HPF (0-2); Squamous Epithelial Cell Urine 0-2 /HPF (0-2); WBC Urine 0-5 /HPF (0-5)
[2023-08-29 13:52] LABS: Hemoglobin 12.1 g/dl (14.0-18.0); Mean Corpuscular HGB Conc 32.7 g/dl (31.0-36.0); Mean Corpuscular Hemoglobin 32.2 pg (27.0-33.0); Mean Corpuscular Volume 98.4 fL (80.0-98.0); Mean Platelet Volume 10.4 fL (9.4-12.4); Platelet Count 294 X10*3/uL (160-400); Red Blood Count 3.76 X10*6/uL (4.60-5.80); Red Cell Distribution Width 12.3 % (11.0-16.0); White Blood Count 6.1 X10*3/uL (4.8-10.8)
[2023-08-29 14:16] LABS: Alanine Aminotransferase 53 U/L (0-40); Albumin Level 3.9 g/dL (3.5-5.0); Alkaline Phosphatase 66 U/L (39-117); Anion Gap 11 (12-20); Aspartate Amino Transferase 51 U/L (5-37); Bilirubin Direct 0.3 mg/dL (0.0-0.5); Bilirubin Total 0.6 mg/dL (0.0-1.0); Blood Urea Nitrogen 15 mg/dL (9-16); Calcium 8.8 mg/dL (8.4-10.2); Carbon Dioxide 26 mmol/L (22-29); Chloride 108 mmol/L (96-108); Cholesterol 83 mg/dL (<200); Estimated Glomerular Filt Rate > 60; Glucose Random 92 mg/dL (60-115); HDL Cholesterol 21 mg/dL (>40); LDL Cholesterol Calculated 53 mg/dL (<100); Potassium 4.6 mmol/L (3.3-5.1); Sodium 140 mmol/L (135-145); Total Protein 7.2 g/dL (6.5-8.0); Triglycerides 48 mg/dL (<150)
[2023-08-29 14:21] LABS: Prostate Specific Antigen Scr 0.98 ng/mL (<0.05-4.0)
[2023-08-29 14:22] LABS: Thyroid Stimulating Hormone 1.45 uIU/mL (0.32-4.0)
== END 2023-08-29 09:56 | disposition home or self-care (01) ==
LOC: HO.HMGCLDS 09:55
PROVIDERS: PCP Internal Medicine; Visit Provider Internal Medicine
DX: Z12.5 Encounter for screening for malignant neoplasm of prostate (principal); I10 Essential (primary) hypertension
CPT/HCPCS: 36415; 80048; 80061; 80076; 81001; 84153; 84443; 85027

== ENCOUNTER 2023-10-02 10:52 | Outpatient (AMB) | payer MEDICARE, BC, SELFPAY ==
--- NOTE | 2023-10-02 10:54 | A.OFFPC_ITS ---
Vital Signs 10/02/23 11:07 Height 5 ft 8 in Weight 159 lb BMI 24.2 BP 120/70 Blood Pressure Location Lt brachial Position Sitting Pulse 63 Pulse Source Pulse Oximeter Pulse Oximetry (%) 98 Oxygen Delivery Method Room Air Intake Visit Reasons: Annual Exam Intake Note: Patient is here today for a physical. 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 Mother Liver problem Social History Housing: House Alcohol intake: current Alcohol intake frequency: holidays/special occasions only Patient Tobacco Use Status: Never used Tobacco e-Cigarette/Vaping Use: Never Used Second Hand Smoke Exposure: No service: No Current occupational status: retired Cognitive needs: No Hearing needs: Yes Vision needs: Yes (Glasses) Questionnaire Thrive Questionnaire Date Thrive assessed: 02/13/23 REYNOLD-7 AMB Questionnaire REYNOLD-7 Date REYNOLD - 7 assessed: 02/13/23 Source: Developed by Drs. Lopez Tang, Rosalva Otoole, Marcellus Gunn and colleagues, with an educational darvin from [employer]. Physical exam (Primary Care) Vital Signs: Last Vital Signs Pulse 63 10/02/23 11:07 BP 120/70 10/02/23 11:07 Pulse Ox 98 10/02/23 11:07 Oxygen Delivery Method Room Air 10/02/23 11:07 BMI result Body Mass Index 24.2 Tobacco/Smoking Status: Tobacco use Status Tobacco use date assessed 08/21/23 10/02/23 10:54 Patient Tobacco Use Status Never used Tobacco 10/02/23 10:54 e-Cigarette/Vaping Use Never Used 10/02/23 10:54 Thrive Assessment: Date of Thrive Assessment Date Thrive assessed 02/13/23 10/02/23 10:54 Const General: cooperative and healthy appearing Nutritional Appearance: well nourished Orientation/consciousness: patient oriented x3 Limitations: no limitations HENMT Head: Yes normal to inspection Eyes General: appearance normal, both eyes and all related structures Neck Neck: Yes normal visual inspection Chest Chest palpation & inspection: normal palpation of entire chest wall Resp Effort & Inspection: normal respiratory effort Neuro General: patient oriented x3 Assessment and Plan Assessment & Plan (1) Encounter for other general examination: Code(s): Z00.8 - Encounter for other general examination Plan: Blood work reviewed. PSA added to the regimen. Orders: Orders Prostate Specific Antigen Scr Today Z12.5 - Encounter for screening for malignant neoplasm of prostate Medications: New triamcinolone acetonide 0.5% 1 appl topical DAILY 60 grams 0RF Refilled lorazepam 0.5 mg PO DAILY 30 days 30 tabs 0RF telmisartan-hydrochlorothiazid 40-12.5 mg 1 tab PO DAILY 90 tabs 1RF Coding Level of Care Code Est Pt Prev Care >65y(43724) Diagnoses Encounter for other general examination Z00.8
[2023-10-02 11:07] VITALS: BP 120/70; PULSE 63; O2SAT 98; BMI 24.2
== END 2023-10-02 11:53 | disposition home or self-care (01) ==
PROVIDERS: Visit Provider Internal Medicine
DX: Z00.00 Encounter for general adult medical examination without abnormal findings (principal)
CPT/HCPCS: 99397

== ENCOUNTER 2023-10-08 14:32 | Outpatient (REF) | payer MEDICARE, BC, SELFPAY ==
[2023-10-08 17:19] LABS: Prostate Specific Antigen Scr 1.35 ng/mL (<0.05-4.0)
== END 2023-10-08 14:33 | disposition home or self-care (01) ==
LOC: HO.HMGCLDS 14:32
PROVIDERS: PCP Internal Medicine; Visit Provider Internal Medicine
DX: Z12.5 Encounter for screening for malignant neoplasm of prostate (principal)
CPT/HCPCS: 36415; 84153

== ENCOUNTER 2023-12-14 13:41 | Emergency (ER) | payer MEDICARE, BC, SELFPAY ==
--- NOTE | ~2023-12-14 | XR_ITS ---
EXAMINATION: XR LUMBOSACRAL SPINE CLINICAL INFORMATION: Lower back pain COMPARISON: X-ray lumbar spine from 12/11/2018 TECHNIQUE: Three views of the lumbosacral spine. FINDINGS: Bones are osteopenic. Age indeterminant compression fractures seen of the L1 vertebral body. This is new compared to the prior exam from 2019. Normal vertebral body alignment seen otherwise. Degenerative disc disease seen at L5/S1 XR/XR lumbar spine 2-3V IMPRESSION: Age-indeterminate compression fracture of the L1 vertebral body. Further evaluation with MRI may be useful
--- NOTE | ~2023-12-14 | XR_ITS ---
EXAMINATION: XR THORACOLUMBAR SPINE CLINICAL INFORMATION: Mid back pain COMPARISON: 2 view chest x-ray from 05/05/2016 TECHNIQUE: AP, lateral and swimmer's lateral view of the thoracic spine FINDINGS: Bones are osteopenic. Age-indeterminate compression fractures are seen of the T12 and L1 vertebral bodies. There is 50-75% loss of the vertebral body height in the T12 level. There is less than 25% loss of the vertebral body height in the L1 level. No significant retropulsed bony fragments or subluxation. Kyphosis is seen of the thoracic spine. Degenerative disc disease is seen through the mid and lower thoracic spine XR/XR thoracic spine 2V IMPRESSION: Age-indeterminate compression fractures of the T12 and L1 vertebral bodies.
[2023-12-14 14:05] VITALS: BP 126/77; PULSE 114; RESP 16; TEMP 37.1; O2SAT 94; BMI 24.3
--- NOTE | 2023-12-14 14:12 | ED.GENADULT ---
HPI - General Adult General Chief complaint: Back Pain/Injury Stated complaint: Back pain Time Seen by Provider: 12/14/23 15:40 Source: patient Mode of arrival: ambulatory Limitations: no limitations History of Present Illness HPI narrative: Patient is a 73 yo assigned male at with a history of amaurosis fugax, HTN, previous compression fracture of T12 & L1, and kyphosis presents to the ED with a 12 hour history of lower back pain after a fall last night. Patient reports he was drying off after getting out the shower when he slipped and fell backwards into the tub. Patient reports his back struck a hand rail inside of the tub. Patient denies feeling dizzy or lightheaded prior to fall and denies head trauma, LOC, numbness, tingling, pain radiation, urinary/bowel incontinence. MD complaint: Low back pain Onset (ago): hour(s) (12) Location: back (low back) Radiation: non-radiation Severity: mild Severity scale (1-10): 4 Quality: aching Pain Consistency: intermittent Relieving factors: none Exacerbating factors: movement Associated symptoms: denies other symptoms Treatments prior to arrival: none Related Data Previous Rx's Medication Instructions Recorded fluticasone propionate 50 1 spray intranasal DAILY #9.9 mL 08/30/21 mcg/actuation nasal spray,suspension (Flonase Allergy Relief) pantoprazole 40 mg tablet,delayed 40 mg PO DAILY #30 tabs 09/04/22 release sildenafil 100 mg tablet 100 mg PO DAILY #8 tabs 09/04/22 meloxicam 15 mg tablet 15 mg PO DAILY #14 tabs 08/21/23 atorvastatin 10 mg tablet 10 mg PO BEDTIME #90 tabs 08/28/23 triamcinolone acetonide 0.5 % 1 appl topical DAILY #60 grams 10/02/23 topical ointment telmisartan 40 1 tab PO DAILY #90 tabs 10/04/23 mg-hydrochlorothiazide 12.5 mg tablet aspirin 81 mg chewable tablet 81 mg PO DAILY #90 tabs 12/08/23 (Aspirin Childrens) lorazepam 0.5 mg tablet 0.5 mg PO DAILY 30 days #30 tabs 12/10/23 cyclobenzaprine 5 mg tablet 5 mg PO TID PRN muscle spasm 7 12/14/23 days #21 tabs Allergies Allergy/AdvReac Type Severity Reaction Status Date / Time Penicillins [PENICILLINS] Allergy Unknown UNK Verified 10/02/23 10:54 Review of Systems Constitutional: Constitutional: Reports no additional constitutional complaints, Denies chills, Denies fever(s) and Denies night sweats Eyes: Eyes: Reports no additional eye complaints, Denies blurry vision, Denies change in vision, Denies diplopia, Denies eye discharge, Denies loss of vision and Denies eye pain ENT: Denies dizziness Cardiovascular: Cardiovascular: Reports no additional cardiovascular complaints, Denies chest pain, Denies lightheadedness, Denies Loss of Consciousness and Denies dyspnea Respiratory: Respiratory: Reports no additional respiratory complaints and Denies dyspnea Gastrointestinal: Gastrointestinal: Reports no additional gastrointestinal complaints, Denies abdominal pain, Denies melena, Denies hematochezia, Denies change in bowel habits and Denies change in stool character Genitourinary: Genitourinary: Reports no additional male genitourinary complaints, Denies hematuria, Denies oliguria, Denies difficulty urinating, Denies dysuria, Denies urinary frequency, Denies urinary hesitancy, Denies urinary incontinence and Denies urinary urgency Musculoskeletal: Musculoskeletal: Reports no additional musculoskeletal complaints, Reports back pain, Denies numbness and Denies tingling Neurologic: Denies dizziness, Denies loss of vision, Denies numbness and Denies tingling Psychiatric: Psychiatric: Reports no additional psychiatric complaints Endocrine: Endocrine: Reports no additional endocrine complaints Hematologic/Lymphatic: Hematologic/Lymphatic: Reports no additional hematologic/lymphatic complaints Allergic/Immunologic: Allergic/Immunologic: Reports no additional allergic/immunologic complaints [facility] Past Medical History Attestation statement: The following information was validated with the patient. Source: old records reviewed and nursing notes reviewed Medical History Celiac disease Screening for colon cancer Amaurosis fugax Essential (primary) hypertension Surgical History History of endoscopy History of colonoscopy H/O right knee surgery History of excision of pilonidal cyst History of umbilical hernia repair H/O hand surgery History of tonsillectomy Family History Family History Father No problems noted. Mother Liver problem Social History Social History Housing: House Alcohol intake: current Alcohol intake frequency: holidays/special occasions only Patient Tobacco Use Status: Never used Tobacco Smoked in Last 30 Days: No e-Cigarette/Vaping Use: Never Used Second Hand Smoke Exposure: No Use of substances other than those prescribed or required for medical reasons: No Advance Directives: No Advance Directives Information Provided: No service: No Current occupational status: retired Cognitive needs: No Hearing needs: Yes Vision needs: Yes (Glasses) Physical Exam ED Vital Signs: Vital Signs - 24 hr 12/14/23 14:05 12/14/23 16:00 Temperature 98.7 F 98.2 F Pulse Rate 114 H 108 H Respiratory Rate 16 18 Blood Pressure 126/77 105/79 Pulse Oximetry 94 98 Oxygen Delivery Method Room Air Room Air BMI result Body Mass Index 24.3 Const General: cooperative, alert, awake and in distress Nutritional Appearance: well nourished Orientation/consciousness: patient oriented x3 Limitations: no limitations HENMT Head: Yes normal to inspection Ears: hearing grossly normal bilaterally General nose exam: Normal external nose present, no nasal discharge noted and no epistaxis Face and sinus: Yes normal facial exam, No abrasion and No laceration Mouth: Normal oral and palatal mucosa present, no drooling and no muffled voice Eyes General: appearance normal, both eyes and all related structures Periorbital: periorbital findings normal Eyelids: Yes eyelids normal Conjunctivae: conjunctivae normal Pupils: Equal, round and reactive pupils present EOM: EOMs intact bilaterally Neck Neck: Yes normal visual inspection Chest Chest palpation & inspection: normal inspection of the chest Resp Effort & Inspection: normal respiratory effort and able to speak in complete sentences Auscultation: clear to auscultation bilaterally Cardio Jugular venous distension: no JVD Palpation: normal PMI Rate: regular rate Rhythm: regular rhythm GI Inspection: Yes normal to inspection General: Yes no CVA tenderness Back/Spine/Pelvis Back: no CVA tenderness and No back tenderness (Negative point tenderness) Thoracic/Lumbar Spine: straight leg raise negative bilaterally, kyphosis, pain with thoraco-lumbar ROM, paraspinal muscle tenderness (No point tenderness), No thoracic spinal tenderness (No point tenderness) and No lumbar spinal tenderness (No point tenderness) Neuro General: patient oriented x3 Cranial nerves: Yes Equal, round and reactive pupils present Cognition (Neuro): normal cognition Motor exam (neuro): 5/5 motor strength present throughout Sensory Exam: Normal double simultaneous stimulation for sensation Coordination: [id number] test normal Extrem Other: kyphosis present General: Yes full ROM and Yes capillary refill normal Psych Appearance: grossly normal Mental Status: mental status grossly normal Affect: normal affect Attitude: cooperative Thought process: Normal thought process present Thought content: Normal thought content present Insight: Good insight present (Psych) Course Course Course Narrative: RME- 73 year old male presents for evaluation of mid back pain after slipping and falling back into the bath tub earlier today. Plan for x-rays. No head strike, no anticoagulation. Medical Decision Making Medical Decision Making MDM Narrative: Patient is a 73 year old assigned male at with a history of kyphosis and previous L1+T12 fractures presenting to the emergency department today with back pain after a slip and fall. Patient's physical exam was as noted in the physical exam portion of this note. Patient's lumbar and thoracic x-rays showed the previously known T12 and L1 fractures but were otherwise unremarkable. I explained my physical exam findings as well as all test results to the patient. I answered all questions asked by the patient. I stressed the importance of the patient taking his medication as prescribed. I stressed the importance of the patient following up with his primary care provider. I stressed the importance of the patient returning to the emergency department immediately if his symptoms were to worsen or if he were to develop any dizziness, shortness of breath, difficulty breathing, chest pain, blurry vision, loss of vision, nausea, vomiting, abdominal pain, fever, chills, back pain, or any other complaints. Patient verbalized agreement and understanding with this treatment plan and discharge. Differential Diagnosis Differential Diagnoses: The differential diagnosis associated with the presentation includes Back pain Fall T12 and L1 compression fractures Admission/Observation Consideration of admission/observation: Escalation of care including admission/observation considered Patient would have been admitted to the hospital had his work up had any findings where hospital admission was appropriate and his clinical presentation warranted hospital admission. Independent Interpretation I performed an independent interpretation of an: Plain X-Ray Interpretation: My interpretation is in agreement with the radiologist's impression of these imaging studies. EXAMINATION: XR THORACOLUMBAR SPINE CLINICAL INFORMATION: Mid back pain COMPARISON: 2 view chest x-ray from 05/05/2016 TECHNIQUE: AP, lateral and swimmer's lateral view of the thoracic spine FINDINGS: Bones are osteopenic. Age-indeterminate compression fractures are seen of the T12 and L1 vertebral bodies. There is 50-75% loss of the vertebral body height in the T12 level. There is less than 25% loss of the vertebral body height in the L1 level. No significant retropulsed bony fragments or subluxation. Kyphosis is seen of the thoracic spine. Degenerative disc disease is seen through the mid and lower thoracic spine XR/XR thoracic spine 2V IMPRESSION: Age-indeterminate compression fractures of the T12 and L1 vertebral bodies. Dictated By: Saleem Mcduffie MD Signed By: Electronically signed by Saleem Mcduffie MD 12/14/23 1545 EXAMINATION: XR LUMBOSACRAL SPINE CLINICAL INFORMATION: Lower back pain COMPARISON: X-ray lumbar spine from 12/11/2018 TECHNIQUE: Three views of the lumbosacral spine. FINDINGS: Bones are osteopenic. Age indeterminant compression fractures seen of the L1 vertebral body. This is new compared to the prior exam from 2019. Normal vertebral body alignment seen otherwise. Degenerative disc disease seen at L5/S1 XR/XR lumbar spine 2-3V IMPRESSION: Age-indeterminate compression fracture of the L1 vertebral body. Further evaluation with MRI may be useful Dictated By: Saleem Mcduffie MD Signed By: Electronically signed by Saleem Mcduffie MD 12/14/23 [id number] Radiology Impression Discussion of test interpretation with radiology: I have reviewed the radiologist's reading. Tests considered The following testing was considered but not selected: CT of the head and c-spine where considered however, the patient refused them stating he did not strike his head and does not think they are necessary. Prescription Management I considered prescription management with: Pain Medication (patient prescribed pain medication.) Discharge Plan Discharge Clinical Impression: Back pain Patient Disposition: Home, Self-Care Instructions: Back Pain (ED) Additional Instructions: Follow up with your primary care provider. Return to the emergency department immediately if your symptoms worsen or if you develop any dizziness, shortness of breath, difficulty breathing, chest pain, blurry vision, loss of vision, nausea, vomiting, abdominal pain, fever, chills, back pain, or any other complaints. Prescriptions: New cyclobenzaprine 5 mg tablet 5 mg PO TID PRN (Reason: muscle spasm) 7 Days Qty: 21 0RF No Action atorvastatin 10 mg tablet 10 mg PO BEDTIME Qty: 90 1RF telmisartan-hydrochlorothiazid 40-12.5 mg tablet 1 tab PO DAILY Qty: 90 1RF aspirin [Aspirin Childrens] 81 mg tablet,chewable 81 mg PO DAILY Qty: 90 0RF lorazepam 0.5 mg tablet 0.5 mg PO DAILY 30 Days Qty: 30 0RF fluticasone propionate [Flonase Allergy Relief] 50 mcg/actuation spray,suspension 1 spray intranasal DAILY Qty: 9.9 1RF Rx Instructions: administer into each nostril pantoprazole 40 mg tablet,delayed release (DR/EC) 40 mg PO DAILY Qty: 30 2RF Rx Instructions: take one tablet half an hour before breakfast sildenafil 100 mg tablet 100 mg PO DAILY Qty: 8 0RF triamcinolone acetonide 0.5 % ointment 1 appl topical DAILY Qty: 60 0RF meloxicam 15 mg tablet 15 mg PO DAILY Qty: 14 0RF Referrals: Angel Rosales MD [Primary Care Provider] - Interventions: ED Discharge Assessment Last Done: 12/14/23 16:34 Discharge Date/Time: 12/14/23 16:34 Print Language: Tamazight
[2023-12-14 16:00] VITALS: BP 105/79; PULSE 108; RESP 18; TEMP 36.8; O2SAT 98
== END 2023-12-14 16:34 | disposition home or self-care (01) ==
PROVIDERS: Emergency Provider Student in an Organized Health Care Education/Training Program; PCP Internal Medicine
DX: M54.50 Low back pain, unspecified (principal); M54.6 Pain in thoracic spine
CPT/HCPCS: 72070; 72100; 99283; 99284

== ENCOUNTER 2024-02-04 06:51 | Day surgery (SDC) | payer MEDICARE, BC, SELFPAY ==
--- NOTE | 2024-02-03 10:38 | HO.ANESPROP2 ---
Documented by User: Kate Rosenberg NP 02/03/24 10:39 HPI - Anesthesia Eval Consult details Narrative: 73yo M for Upper Endoscopy and Colonoscopy PMFSH Active Problems Active Problems: All Active Problems Osteoarthritis of hand (Acute) Generalized anxiety disorder (Acute) Encounter for other general examination (Acute) Screening examination for infectious disease (Acute) Celiac disease (Acute) Screening for colon cancer (Acute) Essential (primary) hypertension (Acute) Amaurosis fugax (Acute) Past Medical History Medical History Celiac disease Screening for colon cancer Amaurosis fugax Essential (primary) hypertension Family History Family History Father No problems noted. Mother Liver problem Family history of problems with anesthesia: No Surgical History Surgical History History of endoscopy History of colonoscopy H/O right knee surgery History of excision of pilonidal cyst History of umbilical hernia repair H/O hand surgery History of tonsillectomy History of Problems with Anesthesia: No Social History Social History Housing: House Alcohol intake: current Alcohol intake frequency: holidays/special occasions only Patient Tobacco Use Status: Never used Tobacco e-Cigarette/Vaping Use: Never Used Second Hand Smoke Exposure: No Use of substances other than those prescribed or required for medical reasons: No Are you DNR?: No Advance Directives: No Advance Directives Information Provided: Yes service: No Current occupational status: retired Cognitive needs: No Hearing needs: Yes Vision needs: Yes (Glasses) Meds Allergies Allergy/AdvReac Type Severity Reaction Status Date / Time Penicillins [PENICILLINS] Allergy Unknown UNK Verified 10/02/23 10:54 Exam Height,Weight and Vital Signs: Height 5 ft 8 in Assessment and Plan Assessment Anesthesia Assessment: Chart Reviewed Final Anesthetic Review Family History of Problems with Anesthesia: No History of Problems with Anesthesia: No Documented by User: Cynthia Velarde MD 02/04/24 07:54 [facility] Active Problems Active Problems: All Active Problems Osteoarthritis of hand (Acute) Generalized anxiety disorder (Acute) Encounter for other general examination (Acute) Screening examination for infectious disease (Acute) Celiac disease (Acute) Screening for colon cancer (Acute) Essential (primary) hypertension (Acute) Amaurosis fugax (Acute) about 4 years ago. Happened twice. No episodes since he was started on aspirin and atorvastatin No use of sildenafil for several months Past Medical History Medical History Celiac disease Screening for colon cancer Amaurosis fugax Essential (primary) hypertension Family History Family History Father No problems noted. Mother Liver problem Family history of problems with anesthesia: No Surgical History Surgical History History of endoscopy History of colonoscopy H/O right knee surgery History of excision of pilonidal cyst History of umbilical hernia repair H/O hand surgery History of tonsillectomy History of Problems with Anesthesia: No Social History Social History Housing: House Alcohol intake: current Alcohol intake frequency: holidays/special occasions only Patient Tobacco Use Status: Never used Tobacco e-Cigarette/Vaping Use: Never Used Second Hand Smoke Exposure: No Use of substances other than those prescribed or required for medical reasons: No Are you DNR?: No Advance Directives: No Advance Directives Information Provided: Yes service: No Current occupational status: retired Cognitive needs: No Hearing needs: Yes Vision needs: Yes (Glasses) Meds Allergies Allergy/AdvReac Type Severity Reaction Status Date / Time Penicillins [PENICILLINS] Allergy Unknown UNK Verified 10/02/23 10:54 Exam Height,Weight and Vital Signs: Height 5 ft 7 in Weight 68.266 kg Vital Signs Temp Pulse Resp BP Pulse Ox O2 Del Method 02/04/24 07:21 98.0 F 61 16 118/66 97 Room Air Airway Mallampati Class: III (Small mouth. Permanent bridge top 4 front. Overbite) TM Dist: >3cm Neck ROM: Full Loose/Missing/Broken Teeth: No (Denies broken, loose, missing teeth) Heart: RRR Lungs: CTAB Assessment and Plan Assessment Anesthesia Assessment: Anesthesia Plan Discussed and Chart Reviewed Final Anesthetic Review Family History of Problems with Anesthesia: No History of Problems with Anesthesia: No NPO: Yes ASA Class: III Final Preanesthetic Review: No Changes in Pt Med Stat, Meds/Allgs Chart Reviewed, Consent Obtained/Reviewed and Anes Risks/Benef Reviewed Patient Risk: Intermediate Procedure Risk: Intermediate Anesthetic Plan Anesthetic Plan: MAC: and TIVA
[2024-02-04 07:06] VITALS: BMI 23.6
[2024-02-04 07:21] VITALS: BP 118/66; PULSE 61; RESP 16; TEMP 36.7; O2SAT 97
[2024-02-04] MEDS: Lactated Ringers 1,000 ML 100 ML IVCONT (07:31)
--- NOTE | 2024-02-04 08:28 | MHC.SHP ---
Pre-Procedural Eval Section A - 24 Hr Update-Section A only Date of Service: 02/04/24 Section B - Complete if H&P > 30 days Chief Complaint: screening,celiac disease Relevant Family History (Specify if Yes): No Relevant Social History: None Present Medications: see Short Stay Collaborative assessment Medical History: Significant History (Celiac disease Screening for colon cancer Amaurosis fugax Essential (primary) hypertension) History of Previous Operations: Relevant previous surgery/procedure and date(s) (History of endoscopy History of colonoscopy H/O right knee surgery History of excision of pilonidal cyst History of umbilical hernia repair H/O hand surgery History of tonsillectomy) Allergies: Allergies Allergy/AdvReac Type Severity Reaction Status Date / Time Penicillins [PENICILLINS] Allergy Unknown UNK Verified 10/02/23 10:54 Review of Systems Sugical H&P ROS: Negative: Constitution, Cardiovascular, Respiratory, Neurological, Psychiatric, Hem-Onc, Allergic/Immunologic, Gastrointestinal, Genitourinary, Musculoskeletal, Integumentary, Endocrine and Eyes/Ears/Nose/Throat Exam Surgical H&P Exam: Normal: HEENT, Normal: Heart, Normal: Lungs, Normal: Extremities, Normal: Abdomen, Normal: Skin and Normal: Neurological Plan Diagnosis/Plan: Unchanged I have reviewed the history and physical and performed a pertinent physical examination on my patient. No changes have occurred unless specified. EGD being added due to concern for celiac disease, patient non compliant with gluten free diet Time Spent With Patient Time: Total time managing care of this patient today ____ minutes.
--- NOTE | 2024-02-04 08:29 | W.PM.OPN ---
Operative Note Operative Note Date of Service: 02/04/24 Narrative: Operative Information Procedure Description: EGD, Colonoscopy Indication: colon screening and suspected celiac diease Anesthesia: MAC FLEXIBLE TRANSORAL UPPER GASTROINTESTINAL ENDOSCOPY AND COLONOSCOPY PROCEDURE NOTE UPPER ENDOSCOPY Consent: Indications for the procedure and potential complications of bleeding, perforation, reaction to medications and missed diagnosis were discussed with the patient and informed consent was obtained. Instrument: Olympus GIF H 190 J mid size upper endoscope Monitoring: Vital signs and clinical assessment, continuous EKG monitoring, Pulse oximetry, Carbon Dioxide monitoring and blood pressure monitoring were done throughout the procedure. Procedure: The patient was placed in the left lateral decubitis position and pre-procedure medications were administered and a bite block was placed. The endoscope was inserted into the mouth and advanced under direct vision to the third part of duodenum. A careful inspection was made as the upper endoscope was withdrawn including a retroflexed examination of the proximal stomach; Findings and interventions are described below. Findings: Larynx:normal Esophagus: GE junction at 38 cm, diaphragm hiatus at 38 cm, normal mucosa Stomach: Patchy erythema and pallor. Biopsies were obtained. Grade 2 flap valve on retroflexed examination of the cardia. Duodenum: flattened mucosa, bx taken Intervention: Biopsies as noted above, COLONOSCOPY Instrument: Olympus variable stiffness pediatric scope 190L Colonoscopy Monitoring: Vital signs and clinical assessment, continuous EKG monitoring, Pulse oximetry, Carbon Dioxide monitoring and blood pressure monitoring were done throughout the procedure. Colon withdrawal time was 11 minutes. Procedure: The patient was placed in the left lateral decubitis position and pre-procedure medications were administered. After a digital rectal examination of the ano-rectum, the video colonoscope was inserted into the rectum and advanced through the colon to the cecum/TI. The colonoscope was slowly withdrawn in a retrograde panoramic fashion and the colon mucosa was carefully examined including a retroflexed view of the rectum. Findings and interventions are described below. Procedure Difficulty:moderate Findings: Terminal Ileum-normal Cecum:normal Ascending Colon: normal Transverse Colon -normal Descending Colon:normal Sigmoid Colon: moderate diverticulosis Rectum: Retroflexion with small internal hemorrhoids, grade I Anorectum - normal Colon preparation: [place] Bowel Preparation Scale Right colon; 1-2 Transverse colon: 2 Left colon; 2 (0 = Unprepared colon segment with mucosa not seen due to solid stool that cannot be cleared. 1 = Portion of mucosa of the colon segment seen, but other areas of the colon segment not well seen due to staining, residual stool and/or opaque liquid. 2 = Minor amount of residual staining, small fragments of stool and/or opaque liquid, but mucosa of colon segment seen well. 3 = Entire mucosa of colon segment seen well with no residual staining, small fragments of stool or opaque liquid) Impression and Post Procedure Diagnosis: Endoscopy Findings: enteropathy Colonoscopy Findings: diverticulosis internal hemorrhoids Plan: Await Pathology results Repeat Colonoscopy in 5 years if health allows due to fair prep on right or earlier if clinically indicated High fiber diet leaflet avoid straining at stool, epsom salts and sitz bath, anusol supps or cream if celiac markers pos recommend gluten free diet adherence Above findings were reviewed with the patient and relevant handouts were provided if indicated.
[2024-02-04 09:21] VITALS: BP 87/54; PULSE 90; RESP 16; TEMP 36.1; O2SAT 97
[2024-02-04 09:36] VITALS: BP 104/70; PULSE 76; RESP 16; TEMP 36.1; O2SAT 98
== END 2024-02-04 10:34 | disposition home or self-care (01) ==
PROVIDERS: PCP Internal Medicine; Visit Provider Internal Medicine Gastroenterology
PROC: 0DJD8ZZ Inspection of Lower Intestinal Tract, Via Natural or Artificial Opening Endoscopic (ICD-10-PCS; CPT 45378; principal; 2024-02-04 08:30)
DX: Z12.11 Encounter for screening for malignant neoplasm of colon (principal); K57.30 Diverticulosis of large intestine without perforation or abscess without bleeding; K64.0 First degree hemorrhoids; K90.0 Celiac disease; K29.50 Unspecified chronic gastritis without bleeding; K63.9 Disease of intestine, unspecified; K44.9 Diaphragmatic hernia without obstruction or gangrene; Z88.0 Allergy status to penicillin
CPT/HCPCS: 43239; G0121; 88305; 88313; 88342; J2704

== ENCOUNTER → 2024-02-04 06:51 | Outpatient (BNV) | payer MEDICARE, BC, SELFPAY | PROVIDERS: PCP Internal Medicine; Visit Provider Internal Medicine Gastroenterology | DX: K29.70 Gastritis, unspecified, without bleeding (principal); K90.0 Celiac disease; K57.30 Diverticulosis of large intestine without perforation or abscess without bleeding; K64.0 First degree hemorrhoids | CPT/HCPCS: 43239; 45378 ==

== ENCOUNTER 2024-02-18 10:08 | Outpatient (AMB) | payer MEDICARE, BC, SELFPAY ==
--- NOTE | 2024-02-18 10:19 | A.OFFVIS_ITS ---
Vital Signs 02/18/24 10:25 Height 5 ft 7 in Weight 152 lb BMI 23.8 BP 114/63 Blood Pressure Location Lt brachial Position Sitting Pulse 72 Intake Visit Reasons: S/P Allergies Penicillins [PENICILLINS] Allergy (Unknown, Verified 02/18/24 10:18) [facility] Medical History Celiac disease Screening for colon cancer Amaurosis fugax Essential (primary) hypertension Surgical History History of endoscopy History of colonoscopy H/O right knee surgery History of excision of pilonidal cyst History of umbilical hernia repair H/O hand surgery History of tonsillectomy Family History Father No problems noted. Mother Liver problem Social History Housing: House Alcohol intake: current Alcohol intake frequency: holidays/special occasions only Patient Tobacco Use Status: Never used Tobacco e-Cigarette/Vaping Use: Never Used Second Hand Smoke Exposure: No service: No Current occupational status: retired Cognitive needs: No Hearing needs: Yes Vision needs: Yes (Glasses) Physical Exam Vital Signs: Last Vital Signs Pulse 72 02/18/24 10:25 BP 114/63 02/18/24 10:25 BMI result Body Mass Index 23.8 Assessment & Plan Assessment & Plan Medications: Refilled pantoprazole take one tablet half an hour before breakfast 40 mg PO DAILY 90 tabs 2RF K21.9 - Gastro-esophageal reflux disease without esophagitis Discontinued bisacodyl (Dulcolax (bisacodyl)) take 4 tabs at noon the day before your colonoscopy Discontinued Reason: Patient no longer taking 20 mg (4 x 5 mg) PO ONCE 1 day 4 tabs 0RF Z12.11 - Encounter for screening for malignant neoplasm of colon peg 3350-electrolytes 236-22.74-6.74 -5.86 gram Refer to prep instructions given/ mailed to you from GI OFFICE. until fecal effluent is clear Discontinued Reason: Patient no longer taking 240 mL PO Q10M 4,000 mL 0RF Coding
--- NOTE | 2024-02-18 10:21 | A.OFFVIS_ITS ---
Vital Signs 02/18/24 10:25 Height 5 ft 7 in Weight 152 lb BMI 23.8 BP 114/63 Blood Pressure Location Lt brachial Position Sitting Pulse 72 Intake Visit Reasons: S/P Intake Note: Patient follow up for Colonoscopy /EGD results. Patient denies any GI issues and needed Pantoprazole refill. Speaking Unit Assembler Required: No Accompanied by: Self / Same As Patient Allergies Penicillins [PENICILLINS] Allergy (Unknown, Verified 02/18/24 10:18) UNK HPI HPI S/P: Details: LAST VISIT: Screening for colon cancer Patient denies any issues with anesthesia in the past. Will change his prep to GoLYTELY. Patient is aware of what to expect before during and after the procedure. Denies any cardiac or respiratory symptoms. Patient is on low dose aspirin. Clear liquid diet day before procedure discussed with patient. I will see him after the procedure, sooner on as needed basis. Patient is agreeable to this plan and verbalizes understanding of instructions. He was given the opportunity to ask questions and all questions answered. ? Thank you for allowing me to participate in his care Plan Medications New peg 3350-electrolytes 227.1-21.5-6.36 gram until fecal effluent is clear; do not exceed a total volume [id number] mL 240 mL PO Q10M 1 ea 0RF UPPER ENDOSCOPY AND COLONOSCOPY Upper endoscopy Findings: Larynx:normal Esophagus: GE junction at 38 cm, diaphragm hiatus at 38 cm, normal mucosa Stomach: Patchy erythema and pallor. Biopsies were obtained. Grade 2 flap valve on retroflexed examination of the cardia. Duodenum: flattened mucosa, bx taken Intervention: Biopsies as noted above, Colonoscopy Findings: Terminal Ileum-normal Cecum:normal Ascending Colon: normal Transverse Colon -normal Descending Colon:normal Sigmoid Colon: moderate diverticulosis Rectum: Retroflexion with small internal hemorrhoids, grade I Anorectum - normal Colon preparation: [place] Bowel Preparation Scale Right colon; 1-2 Transverse colon: 2 Left colon; 2 (0 = Unprepared colon segment with mucosa not seen due to solid stool that cannot be cleared. 1 = Portion of mucosa of the colon segment seen, but other areas of the colon segment not well seen due to staining, residual stool and/or opaque liquid. 2 = Minor amount of residual staining, small fragments of stool and/or opaque liquid, but mucosa of colon segment seen well. 3 = Entire mucosa of colon segment seen well with no residual staining, small fragments of stool or opaque liquid) Impression and Post Procedure Diagnosis: Endoscopy Findings: enteropathy Colonoscopy Findings: diverticulosis internal hemorrhoids Plan: Await Pathology results Repeat Colonoscopy in 5 years if health allows due to fair prep on right or earlier if clinically indicated High fiber diet leaflet avoid straining at stool, epsom salts and sitz bath, anusol supps or cream if celiac markers pos recommend gluten free diet adherence PATHOLOGY RESULTS Diagnosis A. Duodenum, biopsy: Duodenal mucosa with flattened villi, increased intraepithelial lymphocytes, and mild active inflammation, consistent with the patient's known celiac disease. B. Stomach, biopsy: Gastric body mucosa with minimal chronic inactive gastritis; negative for H pylori, intestinal metaplasia and dysplasia TODAY'S VISIT Patient is here today for follow-up and to discuss upper endoscopy and colonoscopy. Patient denies any ill effects from the prep, anesthesia or procedure itself patient reports that he has been feeling well. He continues to take pantoprazole and reports that it is working well. Patient denies any abdominal pain or discomfort. Denies any melena, hematochezia, unintentional weight loss or ribbon like stools. Patient denies any dyspepsia, dysphagia or odynophagia. Biopsy results discussed with patient. Patient is aware that he has celiac disease, however for the last 10 years he has not been following gluten free diet and is not planning on doing so. Patient reports that he has been feeling well, denies any GI concerning symptoms. [facility] Medical History Celiac disease Screening for colon cancer Amaurosis fugax Essential (primary) hypertension Surgical History History of endoscopy History of colonoscopy H/O right knee surgery History of excision of pilonidal cyst History of umbilical hernia repair H/O hand surgery History of tonsillectomy Family History Father No problems noted. Mother Liver problem Social History Housing: House Alcohol intake: current Alcohol intake frequency: holidays/special occasions only Patient Tobacco Use Status: Never used Tobacco e-Cigarette/Vaping Use: Never Used Second Hand Smoke Exposure: No service: No Current occupational status: retired Cognitive needs: No Hearing needs: Yes Vision needs: Yes (Glasses) Physical Exam Vital Signs: Last Vital Signs Pulse 72 02/18/24 10:25 BP 114/63 02/18/24 10:25 BMI result Body Mass Index 23.8 Const General: healthy appearing, no acute distress and well developed Nutritional Appearance: well nourished Orientation/consciousness: patient oriented x3 Resp Effort & Inspection: normal respiratory effort, able to speak in complete sentences, no tracheal deviation and symmetric chest movement Auscultation: clear to auscultation bilaterally Cardio Rate: regular rate GI Inspection: Yes normal to inspection and No distended Palpation (GI): Soft to palpation, not firm, nontender and No hepatosplenomegaly present Auscultation: normal bowel sounds General: Yes no CVA tenderness Back/Spine/Pelvis Back: no CVA tenderness Skin General skin exam: elasticity normal, turgor normal and dry skin Neuro General: patient oriented x3 Psych Appearance: grossly normal Mental Status: mental status grossly normal Assessment & Plan Assessment & Plan (1) Celiac disease: Code(s): K90.0 - Celiac disease Category: Medical (2) GERD (gastroesophageal reflux disease): Code(s): K21.9 - Gastro-esophageal reflux disease without esophagitis Qualifiers: Esophagitis presence: without esophagitis Qualified Code(s): K21.9 - Gastro-esophageal reflux disease without esophagitis (3) Status post colonoscopy: Code(s): Z98.890 - Other specified postprocedural states Plan Colonoscopy in 5 years, sooner if clinically necessary. Patient had no polyps found, however he had suboptimal prep to right side of his colon. Upper endoscopy biopsy consistent with celiac disease. Patient reports that he is aware of that was told that several years ago, however patient is not planning on to staying away from gluten. Script for pantoprazole refilled. Patient reports that it is working well for him. Patient denies any dyspepsia, dysphagia or odynophagia. No trouble after anesthesia or procedure itself. Patient will follow-up in the office on as needed basis. He is agreeable to this plan and verbalizes understanding of instructions. He was given the opportunity to ask questions and all questions answered. Thank you for allowing me to participate in his care Medications: Refilled pantoprazole take one tablet half an hour before breakfast 40 mg PO DAILY 90 tabs 2RF K21.9 - Gastro-esophageal reflux disease without esophagitis Discontinued bisacodyl (Dulcolax (bisacodyl)) take 4 tabs at noon the day before your colonoscopy Discontinued Reason: Patient no longer taking 20 mg (4 x 5 mg) PO ONCE 1 day 4 tabs 0RF Z12.11 - Encounter for screening for malignant neoplasm of colon peg 3350-electrolytes 236-22.74-6.74 -5.86 gram Refer to prep instructions given/ mailed to you from GI OFFICE. until fecal effluent is clear Discontinued Reason: Patient no longer taking 240 mL PO Q10M 4,000 mL 0RF Coding Level of Care Code Est Pt Level 3 (92498) Diagnoses Celiac disease K90.0 Gastroesophageal reflux disease without esophagitis K21.9 Esophagitis presence: without esophagitis Status post colonoscopy Z98.890 Time Spent (min) 30 Comment 20 minutes spent with patient and additional 10 minutes spent reviewing his records
[2024-02-18 10:25] VITALS: BP 114/63; PULSE 72; BMI 23.8
== END 2024-02-18 10:40 | disposition home or self-care (01) ==
LOC: HO.HGI 10:08
PROVIDERS: PCP Internal Medicine; Visit Provider Nurse Practitioner Family
DX: K90.0 Celiac disease (principal); K21.9 Gastro-esophageal reflux disease without esophagitis; Z98.890 Other specified postprocedural states
CPT/HCPCS: 99213

== ENCOUNTER → 2024-02-18 10:08 | Outpatient (BNVA) | payer MEDICARE, BC, SELFPAY | PROVIDERS: PCP Internal Medicine; Visit Provider Nurse Practitioner Family | DX: K21.9 Gastro-esophageal reflux disease without esophagitis (principal); K90.0 Celiac disease; Z98.890 Other specified postprocedural states | CPT/HCPCS: 99212 ==

== ENCOUNTER 2024-03-16 14:58 | Outpatient (AMB) | payer MEDICARE, BC, SELFPAY ==
[2024-03-16 14:59] VITALS: BP 102/62; PULSE 67; TEMP 36.9; O2SAT 98; BMI 23.2
--- NOTE | 2024-03-16 14:59 | AM.OFFWIN_ITS ---
Intake Vital Signs 03/16/24 14:59 Height 5 ft 7 in Weight 148 lb BMI 23.2 BP 102/62 Blood Pressure Location Rt brachial Position Sitting Pulse 67 Pulse Source Pulse Oximeter Temp 98.5 F Temp Source Oral Pulse Oximetry (%) 98 Oxygen Delivery Method Room Air Intake Visit Reasons: EP LT side pain due to fall Intake Note: pt here for left side pain. Fell Wednesday 03/14. No bruising. Some abrasions on left arm/wrist. Patient Tobacco Use Status: Never used Tobacco Allergies Penicillins [PENICILLINS] Allergy (Unknown, Verified 03/16/24 15:21) UNK Do you need a note to return to daycare/school/sports/work: No HPI EP LT side pain due to fall HPI Details 73-year-old male presents to the office for a sick visit. Patient was clearing Rubble when he slipped over a brick. He stretched the left side of his chest to avoid a fall. Complaining of pain on the left side of the chest, worse on lifting the left arm over the shoulder level. Taking deep breaths cause discomfort on the left side of the chest. No shortness a breath. [facility] Medical History Celiac disease Screening for colon cancer Amaurosis fugax Essential (primary) hypertension Surgical History History of endoscopy History of colonoscopy H/O right knee surgery History of excision of pilonidal cyst History of umbilical hernia repair H/O hand surgery History of tonsillectomy Family History Father No problems noted. Mother Liver problem Social History Housing: House Alcohol intake: current Alcohol intake frequency: holidays/special occasions only Patient Tobacco Use Status: Never used Tobacco e-Cigarette/Vaping Use: Never Used Second Hand Smoke Exposure: No service: No Current occupational status: retired Cognitive needs: No Hearing needs: Yes Vision needs: Yes (Glasses) Physical Exam Vital Signs: Last Vital Signs Temp 98.5 F 03/16/24 14:59 Pulse 67 03/16/24 14:59 BP 102/62 03/16/24 14:59 Pulse Ox 98 03/16/24 14:59 Oxygen Delivery Method Room Air 03/16/24 14:59 BMI result Body Mass Index 23.2 Const General: cooperative and healthy appearing Nutritional Appearance: well nourished Orientation/consciousness: patient oriented x3 Limitations: no limitations HEENT Head: Yes normal to inspection Eyes General: appearance normal, both eyes and all related structures Neck Neck: Yes normal visual inspection Chest Other: Discomfort on palpation over the 10th 11th and 12th rib laterally on the left side. No visible bruising. Resp Effort & Inspection: normal respiratory effort Neuro General: patient oriented x3 Assessment & Plan Assessment & Plan (1) Contusion, chest wall: Code(s): S20.219A - Contusion of unspecified front wall of thorax, initial encounter Plan: Rib series was personally reviewed by me. No fractures seen. Meloxicam added to the regimen. Orders: Orders XR ribs LT min 3V w CXR1V Today S20.219A - Contusion of unspecified front wall of thorax, initial encounter Coding Level of Care Code Est Pt Level 4 (24876) Diagnoses Contusion, chest wall S20.219A
== END 2024-03-16 16:09 | disposition home or self-care (01) ==
PROVIDERS: PCP Internal Medicine; Visit Provider Internal Medicine
DX: S20.219A Contusion of unspecified front wall of thorax, initial encounter (principal)
CPT/HCPCS: 99214

== ENCOUNTER 2024-03-16 15:17 | Outpatient (REF) | payer MEDICARE, BC, SELFPAY ==
--- NOTE | ~2024-03-16 | XR_ITS ---
EXAMINATION: XR RIBS, LEFT CLINICAL INFORMATION: Contusion of unspecified front wall of the thorax. Initial encounter. COMPARISON: Chest x-ray dated 05/15/2016 and 05/06/2016. Thoracic spine films dated 12/14/2023. TECHNIQUE: Frontal view of the chest and 3 views of the left ribs were obtained. FINDINGS: CHEST AND LEFT RIBS: The cardiomediastinal silhouette is within normal limits in size. There is some linear areas of atelectasis in the left lung base. No focal consolidation, effusion or pneumothorax seen. Diffuse osteopenia, convex left thoracolumbar scoliosis and vertebroplasty changes of the T12 vertebral body seen. Evaluation of the ribs is limited given the degree of osteopenia. There is a possible subtle nondisplaced fracture of the anterolateral left seventh rib, though this is difficult to confirm a normal the images obtained. XR/XR ribs LT min 3V w CXR1V IMPRESSION: * Evaluation of the left ribs is limited given the degree of osteopenia. There is a possible subtle nondisplaced fracture of the anterolateral left seventh rib. Close clinical correlation is requested. If clinical level of suspicion is high, CT scan of the chest is recommended for more sensitive assessment. * No pneumothorax or pleural effusion. * Mild linear atelectasis in left lung base.
== END 2024-03-16 15:18 | disposition home or self-care (01) ==
LOC: HO.HMGCX 15:17
PROVIDERS: PCP Internal Medicine; Visit Provider Internal Medicine
DX: S20.212D Contusion of left front wall of thorax, subsequent encounter (principal)
CPT/HCPCS: 71101

== ENCOUNTER 2024-03-24 09:43 | Outpatient (REF) | payer MEDICARE, BC, SELFPAY ==
[2024-03-24 13:43] LABS: Hematocrit 35.1 % (42.0-52.0); Hemoglobin 11.6 g/dl (14.0-18.0); Mean Corpuscular Hemoglobin 32.2 pg (27.0-33.0); Mean Corpuscular Volume 97.5 fL (80.0-98.0); Mean Platelet Volume 10.1 fL (9.4-12.4); Platelet Count 360 X10*3/uL (160-400); Red Cell Distribution Width 11.9 % (11.0-16.0); White Blood Count 5.7 X10*3/uL (4.8-10.8)
[2024-03-24 13:51] LABS: Appearance Urine Turbid; Color Urine Yellow; Glucose Urine UA Negative (Negative); Leukocyte Esterase Urine Negative (Negative); Nitrite Urine Negative (Negative); PH 5.5 (5.0-9.0); Urine Blood Negative (Negative); Urine Ketones Negative (Negative); Urine Protein Negative (Neg-Trace)
[2024-03-24 13:59] LABS: Alanine Aminotransferase 36 U/L (0-40); Albumin Level 3.9 g/dL (3.5-5.0); Alkaline Phosphatase 72 U/L (39-117); Anion Gap 9 (12-20); Aspartate Amino Transferase 42 U/L (5-37); Bilirubin Direct 0.3 mg/dL (0.0-0.5); Bilirubin Total 0.7 mg/dL (0.0-1.0); Blood Urea Nitrogen 24 mg/dL (9-16); Carbon Dioxide 29 mmol/L (22-29); Chloride 106 mmol/L (96-108); Cholesterol 88 mg/dL (<200); Estimated Glomerular Filt Rate > 60; Glucose Random 96 mg/dL (60-115); HDL Cholesterol 22 mg/dL (>40); LDL Cholesterol Calculated 57 mg/dL (<100); Potassium 4.7 mmol/L (3.3-5.1); Sodium 139 mmol/L (135-145); Triglycerides 47 mg/dL (<150)
== END 2024-03-24 09:44 | disposition home or self-care (01) ==
LOC: HO.HMGCLDS 09:43
PROVIDERS: PCP Internal Medicine; Visit Provider Internal Medicine
DX: I10 Essential (primary) hypertension (principal)
CPT/HCPCS: 36415; 80048; 80061; 80076; 81003; 85027

== ENCOUNTER 2024-03-31 10:51 | Outpatient (REF) | payer MEDICARE, BC, SELFPAY ==
--- NOTE | ~2024-03-31 | MM_ITS ---
EXAMINATION: BONE DENSITOMETRY CLINICAL INDICATION: Age-related osteoporosis without current pathological fracture. COMPARISON: This is the patient's baseline examination. TECHNIQUE: Using a [employer] DXA System (software version: 13.1) manufactured by [employer], dual-energy x-ray absorptiometry was performed of the lumbar spine and left hip. The images are of good technical quality. Summary results are attached. FINDINGS: AP SPINE L2-L4 (excluding L1): The data of L1-L4 has been changed to exclude the L1 vertebral body, because kyphoplasty at this level may cause overestimation of lumbar spine density. BMD 0.753 g/cm2, Z-score -3.1, T-score -4.1, osteoporosis. LEFT FEMUR, NECK: BMD 0.756 g/cm2, Z-score -0.8, T-score -2.4, osteopenia. LEFT FEMUR, TOTAL: BMD 0.720 g/cm2, Z-score -1.6, T-score -2.6, osteoporosis. IDENTIFIED RISK FACTORS: History of adult fracture. Height loss. Parental hip fracture. Thiazide. HISTORY OF FRACTURE: Spine. Other. MEDICATIONS: Calcium supplement and/or multivitamin. Vitamin D. MM/XR DEXA axial skeleton IMPRESSION: 1. DIAGNOSIS: Severe osteoporosis based on the lowest T-score value of -4.1 in the lumbar spine and the prior history of fracture applying World Health Organization criteria. 2. 10-YEAR FRACTURE RISK PREDICTION, FRAX: According to the guidelines, FRAX calculation should only be performed on patients in the osteopenia bone density category.?Therefore, FRAX was not performed on this patient.? 3. Treatment Recommendations: NOF guidelines recommend consideration for treatment in postmenopausal women and men age 50 and older presenting with the following: -A hip or vertebral (clinical or morphometric) fracture. -T-score less than or equal to -2.5 at the femoral neck or spine after appropriate evaluation to exclude secondary causes. -Low bone mass at the hip or spine and a 10-year fracture probability by FRAX of greater than or equal to 3% for hip fracture or greater than or equal to 20% for major osteoporotic fracture based on the [place] adapted WHO algorithm. 4. Other Recommendations: All treatment decisions require clinical judgment and consideration of individual patient factors, including patient preferences, comorbidities, previous drug use, risk factors not captured in the FRAX model (e.g. frailty, falls, vitamin D deficiency, increased bone turnover, interval significant decline in bone density) and possible under or overestimation of fracture risk by FRAX. Additional medical evaluation for secondary cause of low bone mineral density may be appropriate. FUTURE SCAN RECOMMENDATION: People with diagnosed cases of osteoporosis or at high risk for fracture should have regular bone mineral density tests. For patients eligible for Medicare, routine testing is allowed once every 2 years. The testing frequency can be increased to one year for patients who have rapidly progressing disease, those who are receiving or discontinuing medical therapy to restore bone mass, or have additional risk factors.
== END 2024-03-31 10:52 | disposition home or self-care (01) ==
LOC: HO.MAMMO 10:51
PROVIDERS: PCP Internal Medicine; Visit Provider Internal Medicine
DX: M81.0 Age-related osteoporosis without current pathological fracture (principal)
CPT/HCPCS: 77080

== ENCOUNTER 2024-04-01 10:17 | Outpatient (AMB) | payer MEDICARE, BC, SELFPAY ==
--- NOTE | 2024-04-01 10:21 | A.OFFPC_ITS ---
Vital Signs 04/01/24 10:23 Height 5 ft 3.5 in Weight 151 lb 2 oz BMI 26.3 BP 134/60 Blood Pressure Location Lt brachial Position Sitting Pulse 74 Pulse Source Pulse Oximeter Pulse Oximetry (%) 96 Oxygen Delivery Method Room Air Intake Visit Reasons: 6mth f/u Intake Note: Patient is here to follow up on HTN, Osteoarthritis. 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 Accompanied by: Self / Same As Patient Allergies Penicillins [PENICILLINS] Allergy (Unknown, Verified 04/02/24 15:06) UNK Medication List - Last Reconciled 04/02/24 by Angel Rosales MD aspirin (Aspirin Childrens) 81 mg PO DAILY atorvastatin 10 mg PO BEDTIME cyclobenzaprine 5 mg PO TID PRN 7 days lorazepam 0.5 mg PO DAILY 30 days meloxicam 15 mg PO DAILY sildenafil 100 mg PO DAILY PRN telmisartan-hydrochlorothiazid 40-12.5 mg 1 tab PO DAILY triamcinolone acetonide 0.5% 1 appl topical DAILY Tobacco use date assessed: 04/01/24 Fall risk assessment: 1 Fall in past year Last assessed Fall Risk: 04/01/24 Dental Screening Dental Screen Date: 04/01/24 Did you have a dental visit in the last 12 months?: Yes Did you have a dental problem in the last 6 months where you did not have access to dental care?: No Was dental information given to patient?: Patient has dentist HPI 6mth f/u HPI Details 73-year-old male presents to the office to discuss his chronic medical conditions. At baseline state of health. Able to function and do activities of daily living. He was seen at the walk-in recently for a fall. His injuries and symptoms have improved. [facility] Medical History Celiac disease Screening for colon cancer Amaurosis fugax Essential (primary) hypertension Surgical History History of endoscopy History of colonoscopy H/O right knee surgery History of excision of pilonidal cyst History of umbilical hernia repair H/O hand surgery History of tonsillectomy Family History Father No problems noted. Mother Liver problem Social History Housing: House Alcohol intake: current Alcohol intake frequency: holidays/special occasions only Patient Tobacco Use Status: Never used Tobacco e-Cigarette/Vaping Use: Never Used Second Hand Smoke Exposure: No service: No Current occupational status: retired Cognitive needs: No Hearing needs: Yes Vision needs: Yes (Glasses) Questionnaire PHQ-9 Over the last 2 weeks, how often have you been bothered by any of the following problems? 1. Little interest or pleasure in doing things: not at all 2. Feeling down, depressed, or hopeless: not at all 3. Trouble falling or staying asleep, or sleeping too much: not at all 4. Feeling tired or having little energy: not at all 5. Poor appetite or overeating: not at all 6. Feeling bad about yourself - or that you are a failure or have let yourself or your family down: not at all 7. Trouble concentrating on things, such as reading the newspaper or watching television: not at all 8. Moving or speaking so slowly that other people could have noticed. Or the opposite - being so fidgety or restless that you have been moving around a lot more than usual: not at all 9. Thoughts that you would be better off or of hurting yourself in some way: not at all Total score: 0 Depression Screening Interpretation: Negative Depression Screening Done: Yes Source: Developed by Drs. Lopez Tang, Rosalva Otoole, Marcellus Gunn and colleagues, with an educational darvin from [employer]. Thrive Questionnaire Date Thrive assessed: 04/01/24 I am a: Patient What is your living situation today?: I have a steady place to live Within the past 12 months, did the food you bought not last and you didn't have the money to get more?: Never true Within the past 12 months, did you worry whether your food would run out before you got money to buy more?: Never true Do you have trouble paying for medicines?: No Do you have trouble getting transportation to medical appointments?: No Do you have trouble paying your heating and electricity bill?: No Do you have trouble taking care of your child, family member or friend?: No Do you have trouble with day-to-day activities such as bathing, preparing meals, shopping, managing finances, etc.?: No Are you currently unemployed and looking for a job?: No Are you interested in more education?: No Currently or been in a relationship where the following occur: no concerns reported THRIVE Score: 0 AUDIT C Alcohol Use Questionnaire (AUDIT-C) 1. How often do you have a drink containing alcohol?: Monthly or less 2. How many drinks containing alcohol do you have on a typical day when you are drinking?: 1 or 2 Total Score: 1 REYNOLD-7 AMB Questionnaire REYNOLD-7 Date REYNOLD - 7 assessed: 04/01/24 Feeling nervous, anxious, or on edge: 0 = Not at all Not being able to stop or control worryin = Not at all Worrying too much about different things: 0 = Not at all Trouble relaxin = Not at all Being so restless that it is hard to sit still: 0 = Not at all Becoming easily annoyed or irritable: 0 = Not at all Feeling afraid as if something awful might happen: 0 = Not at all Total REYNOLD-7 score (0-4 normal; 5-9 mild; 10-14 moderate; 15-21 severe): 0 Source: Developed by Drs. Lopez Tang, Rosalva Otoole, Marcellus Gunn and colleagues, with an educational darvin from [employer]. Physical exam (Primary Care) Vital Signs: Last Vital Signs Pulse 74 04/01/24 10:23 BP 134/60 04/01/24 10:23 Pulse Ox 96 04/01/24 10:23 Oxygen Delivery Method Room Air 04/01/24 10:23 BMI result Body Mass Index 26.3 Tobacco/Smoking Status: Tobacco use Status Tobacco use date assessed 04/01/24 04/01/24 10:30 Patient Tobacco Use Status Never used Tobacco 04/01/24 10:30 e-Cigarette/Vaping Use Never Used 04/01/24 10:30 PHQ-9: PHQ-9 Score PHQ-9: Total score 0 04/02/24 15:03 Depression Screening Interpretation: Negative Thrive Assessment: Date of Thrive Assessment Date Thrive assessed 04/01/24 04/01/24 10:30 Currently or been in a relationship where the following occur: no concerns reported Const General: cooperative and healthy appearing Nutritional Appearance: well nourished Orientation/consciousness: patient oriented x3 Limitations: no limitations HENMT Head: Yes normal to inspection Eyes General: appearance normal, both eyes and all related structures Neck Neck: Yes normal visual inspection Chest Chest palpation & inspection: normal palpation of entire chest wall Resp Effort & Inspection: normal respiratory effort Neuro General: patient oriented x3 Assessment and Plan Assessment & Plan (1) Osteoarthritis of hand: Code(s): M19.049 - Primary osteoarthritis, unspecified hand Qualifiers: Osteoarthritis type: primary Laterality: left Qualified Code(s): M19.042 - Primary osteoarthritis, left hand Plan: Patient has osteoarthritis in the hand, knees and in the spine. Stretching exercises and use of meloxicam judiciously. Medications: Refilled lorazepam 0.5 mg PO DAILY 30 tabs 0RF 30 days meloxicam 15 mg PO DAILY 14 tabs 0RF Coding Level of Care Code Est Pt Level 3 (80516) Diagnoses Primary osteoarthritis of left hand M19.042 Osteoarthritis type: primary Laterality: left
[2024-04-01 10:23] VITALS: BP 134/60; PULSE 74; O2SAT 96; BMI 26.3
== END 2024-04-01 11:01 | disposition home or self-care (01) ==
PROVIDERS: PCP Internal Medicine; Visit Provider Internal Medicine
DX: M19.042 Primary osteoarthritis, left hand (principal)
CPT/HCPCS: 99213

== ENCOUNTER 2024-04-20 08:42 | Outpatient (AMB) | payer MEDICARE, BC, SELFPAY ==
--- NOTE | 2024-04-20 08:50 | MHC.PC.OV ---
Vital Signs 04/20/24 08:52 Height 5 ft 3.5 in Weight 152 lb BMI 26.5 BP 120/60 Blood Pressure Location Lt brachial Position Sitting Pulse 52 Pulse Source Pulse Oximeter Pulse Oximetry (%) 95 Oxygen Delivery Method Room Air Intake Visit Reasons: ? Infusion vs injection for Osteoporosis Intake Note: Patient is here to follow up on Bone density results, ?infusion vs injection for Osteoporosis. 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 Infusion vs injection for Osteoporosis HPI Details 73-year-old male presents to the office to discuss his medical condition. Patient had a bone density testing which showed he had osteoporosis of the spine. Patient has reduced height in the past few years and has had a few broken ribs. He would like to begin pharmaceutical treatment. [facility] Medical History (Updated 04/20/24 @ 09:18 by Angel Rosales MD) Osteoporosis Celiac disease Screening for colon cancer Amaurosis fugax Essential (primary) hypertension Surgical History History of endoscopy History of colonoscopy H/O right knee surgery History of excision of pilonidal cyst History of umbilical hernia repair H/O hand surgery History of tonsillectomy Family History Father No problems noted. Mother Liver problem Social History Housing: House Alcohol intake: current Alcohol intake frequency: holidays/special occasions only Patient Tobacco Use Status: Never used Tobacco e-Cigarette/Vaping Use: Never Used Second Hand Smoke Exposure: No service: No Current occupational status: retired Cognitive needs: No Hearing needs: Yes Vision needs: Yes (Glasses) Questionnaire Thrive Questionnaire Date Thrive assessed: 04/01/24 REYNOLD-7 AMB Questionnaire REYNOLD-7 Date REYNOLD - 7 assessed: 04/01/24 Source: Developed by Drs. Lopez Tang, Rosalva Otoole, Marcellus Gunn and colleagues, with an educational darvin from [employer]. Physical exam (Primary Care) Vital Signs: Last Vital Signs Pulse 52 04/20/24 08:52 BP 120/60 04/20/24 08:52 Pulse Ox 95 04/20/24 08:52 Oxygen Delivery Method Room Air 04/20/24 08:52 BMI result Body Mass Index 26.5 Tobacco/Smoking Status: Tobacco use Status Tobacco use date assessed 04/20/24 04/20/24 08:56 Patient Tobacco Use Status Never used Tobacco 04/20/24 08:56 e-Cigarette/Vaping Use Never Used 04/20/24 08:56 Thrive Assessment: Date of Thrive Assessment Date Thrive assessed 04/01/24 04/20/24 08:56 Const General: cooperative and healthy appearing Nutritional Appearance: well nourished Orientation/consciousness: patient oriented x3 Limitations: no limitations HENMT Head: Yes normal to inspection Eyes General: appearance normal, both eyes and all related structures Neck Neck: Yes normal visual inspection Chest Chest palpation & inspection: normal palpation of entire chest wall Resp Effort & Inspection: normal respiratory effort Neuro General: patient oriented x3 Assessment and Plan Assessment & Plan (1) Osteoporosis: Code(s): M81.0 - Age-related osteoporosis without current pathological fracture Plan: 20 minutes spent on discussing the bone density report. Patient has osteoporosis in the spine. He wanted infusion treatment. I informed him that I have no expertise in it and he should consider taking a weekly tablet of alendronate. Patient has agreed for the same. Medications: New alendronate 70 mg PO QWEEK 14 tabs 0RF Coding Level of Care Code Est Pt Level 4 (72261) Complex EM visit Add On G2211 Diagnoses Osteoporosis M81.0 Time Spent (min) 20
[2024-04-20 08:52] VITALS: BP 120/60; PULSE 52; O2SAT 95; BMI 26.5
== END 2024-04-20 10:09 | disposition home or self-care (01) ==
PROVIDERS: PCP Internal Medicine; Visit Provider Internal Medicine
DX: M81.0 Age-related osteoporosis without current pathological fracture (principal)
CPT/HCPCS: 99214; G2211

== ENCOUNTER 2024-09-13 09:52 | Inpatient (IN) | payer MEDICARE, BC, SELFPAY ==
[2024-09-13] VITALS (14 sets, daily range): BP systolic 71–150; BP diastolic 50–94; PULSE 101–119; RESP 18–24; TEMP 36.5–37.3; O2SAT 91–98; BMI 25.2
--- NOTE | 2024-09-13 | ECG_ITS ---
Test Reason : TACHY Blood Pressure : / mmHG Vent. Rate : 118 BPM Atrial Rate : 118 BPM P-R Int : 168 ms QRS Dur : 134 ms QT Int : 330 ms P-R-T Axes : 040 -39 005 degrees QTc Int : 462 ms Sinus tachycardia Left axis deviation Right bundle branch block Abnormal ECG No previous ECGs available Referred By: Generic ED Physician Electronically Signed By:Amor Pinon
--- NOTE | ~2024-09-13 | CT_ITS ---
EXAMINATION: CT ABDOMEN AND PELVIS WITH CONTRAST CLINICAL INFORMATION: Lower abdominal pain. COMPARISON: None available. TECHNIQUE: Multidetector volumetric images were obtained from the superior aspect of the liver through the pubic symphysis following administration 85 mL of Omnipaque 350 intravenous contrast. Sagittal and coronal reformatted images were obtained on the technologist's workstation. Oral contrast: No This CT examination was performed using dose optimization techniques as appropriate, variously including the following: *Automated exposure control *Adjustment of mA and/or kV according to patient size (this includes techniques or standardized protocols for targeted exams where dose is matched to indication/reason for exam; i.e. extremities or head) *Use of iterative reconstruction technique DLP: 431 mGy-cm FINDINGS: LUNG BASES: No acute airspace disease in the included lungs. Calcified plaques in the coronary arteries. LIVER, GALLBLADDER, AND BILIARY TREE: Liver measures 13 cm. No focal mass. Main portal veins, hepatic veins and intrahepatic portion of the IVC are patent. Multiple layering hyperdensities in the gallbladder lumen. No gross pericholecystic fluid collection or gallbladder wall thickening. Common bile duct measures 5 mm. PANCREAS: No focal mass. No peripancreatic fluid collection. No main pancreatic ductal dilatation. SPLEEN: 7 cm. No focal mass. ADRENAL GLANDS: No nodular lesions. KIDNEYS AND URETERS: 1 cm exophytic low density lesion in the posterior upper pole left kidney with questionable septation versus nodular component. 2.5 cm exophytic simple cyst, lower pole/midportion junction left kidney. No hydronephrosis in either kidney. No gross masses in the right kidney. BLADDER: Fluid-filled. GASTROINTESTINAL TRACT: Segmental areas of gas and fluid-filled prominent small bowel loops with segmental areas of concentric wall thickening and likely air-fluid levels in the left hemiabdomen. Ascites, moderate volume. No pneumoperitoneum. No pneumatosis intestinalis. Abundant stool in the large intestine. I do not see the appendix. ABDOMINAL WALL: Focal mass, periumbilical with diastases abdominal rectus muscles. LYMPH NODES: Nonspecific prominent lymph nodes, retroperitoneum and mesentery and. VASCULAR: Tortuosity abdominal aorta and iliac arteries. Calcified plaques throughout the abdominal aorta wall and iliac arteries. No aneurysm or dissection. Calcified plaques in the origin of the mesenteric arteries. PELVIC VISCERA: Prominent, 5 cm prostate gland. OSSEOUS STRUCTURES: Kyphoplasty procedure, L1 vertebra. Superior endplate compression deformity at representing 70% volume loss and 4 mm retropulsion upon central canal at T12 likely old. Multilevel thoracolumbar spondylosis. Osteopenia versus osteoporosis. Degenerative changes in the hips and sacroiliac joints. S-shaped curvature of the thoracolumbar spine. CT/CT abdomen pelvis w IV con IMPRESSION: Concerning partial/intermittent mid to distal small bowel obstruction. Superimposed inflammatory process cannot be excluded. Cholelithiasis. Ascites, moderate volume. Atherosclerosis and coronary artery disease. Complex cystic lesion, left kidney. Osteopenia versus osteoporosis. Multilevel thoracolumbar spondylosis. Ankylosis spondylitis, thoracic spine cannot be excluded. Fleischner guidelines were followed. Electronically signed by: Cole Benjamin MD 09/13/2024 01:37 PM [facility]
--- NOTE | ~2024-09-13 | FL_ITS ---
EXAMINATION: FLUORO GUIDANCE IN OR CLINICAL INFORMATION: ERCP. COMPARISON: None available. TECHNIQUE: Fluoroscopy supervised by: Dr. Earlene Maldonado. Fluoroscopy time: 1.6 minutes. Cumulative Dose: 26.8 mGy. DAP: 7.32 Gy-cm2 (lange-centimeter squared). Images: 15. FINDINGS: An endoscope is present and the common bile duct was cannulated and contrast was injected. Intrahepatic bile ducts do not appear dilated. Final imaging shows a plastic biliary stent in place. FL/FL guidance in OR IMPRESSION: Fluoroscopy during procedure. Please see procedure report for additional information. Electronically signed by: Denver Cuevas MD 11/10/2024 04:44 PM [facility] [place]
--- NOTE | ~2024-09-13 | NM_ITS ---
HEPATOBILIARY IMAGING - INPATIENTS CLINICAL HISTORY: 73 years old Male with cholecystectomy recently, persistent bilious output from TUSHAR drain TECHNIQUE: 5 mCi Tc-99m Mebrofenin was injected intravenously, dynamic planar images of the abdomen were obtained in the anterior view for 60 minutes. COMPARISON: Abdominal ultrasound on 12-24 FINDINGS: There is prompt liver uptake of radiotracer and prompt excretion of radiotracer. Radiotracer. Within the gallbladder fossa and then extends into the region of the right abdomen/right lower quadrant. NM/NM hepatobiliary wo pharm IMPRESSION: Excretion of radiotracer into the gallbladder fossa and right lower quadrant suspicious for bile leak. The common bile duct is not visualized. Electronically signed by: Katherine Adams MD 09/16/2024 08:39 PM EST
--- NOTE | ~2024-09-13 | US_ITS ---
EXAMINATION: US ABDOMEN LIMITED CLINICAL INFORMATION: Abdominal pain. COMPARISON: CT scan of the abdomen and pelvis performed same day TECHNIQUE: Real-time imaging of the right upper quadrant abdominal viscera. Exam is limited to the liver and gallbladder prior request FINDINGS: LIVER: The liver is normal in size. The liver contour is normal. Parenchymal echogenicity is normal. No focal hepatic lesion. There is no intrahepatic biliary duct dilatation seen. GALLBLADDER: The gallbladder wall is thickened measuring 5 mm with some edema and/or fluid within the gallbladder wall. There are multiple nodular foci within the gallbladder wall which could reflect a combination of multiple gallstones and adenomyomatosis CT demonstrates multiple calcified gallstones. No definite pericholecystic fluid COMMON BILE DUCT: Normal in caliber measuring 0.2 cm in diameter. FREE FLUID: There is a small amount of free fluid accession ascites noted. US/US abdomen limited IMPRESSION: Cholelithiasis seen on CT and possible concomitant adenomyomatosis Findings in the gallbladder wall indeterminant given patient's ascites and possible hypoalbuminemic state. Concomitant Cholecystitis remains in the differential diagnosis Electronically signed by: Constantin San MD 09/13/2024 04:41 PM [facility] [place]
--- NOTE | 2024-09-13 10:19 | ED.GENADULT ---
HPI - General Adult General Chief complaint: Abdominal Pain Stated complaint: ABD PAIN,FEVER,SOB 95% RA PER EMS Time Seen by Provider: 09/13/24 10:18 Source: patient, EMS and RN notes reviewed Mode of arrival: EMS Limitations: no limitations History of Present Illness ED Provider: Daniel HPI narrative: Patient is a 73-year-old male with history of celiac disease, HTN, anxiety, osteoporosis presenting to the emergency department with complaint of abdominal pain which began yesterday morning after he woke up. Reports some nausea but denies vomiting, diarrhea or constipation. Denies fevers. States pain begins in the left in radiates to the right. He reports that he is not compliant with the celiac diet. Pain denies any urinary symptoms, though does note that he did have some mild dysuria upon providing a urine specimen in the ED. denies hematochezia or melena. Prior history of umbilical hernia repair. MD complaint: abdominal pain Onset (ago): day(s) Location: abdomen Severity: severe Pain Consistency: constant Associated symptoms: nausea/vomiting Treatments prior to arrival: none Related Data Home Medications ?Medication ?Instructions ?Recorded ?Confirmed sildenafil 100 mg tablet 100 mg PO DAILY PRN 03/16/24 Previous Rx's ?Medication ?Instructions ?Recorded triamcinolone acetonide 0.5 % 1 appl topical DAILY #60 grams 10/02/23 topical ointment cyclobenzaprine 5 mg tablet 5 mg PO TID PRN muscle spasm 7 12/14/23 days #21 tabs alendronate 70 mg tablet 70 mg PO QWEEK #14 tabs 04/20/24 atorvastatin 10 mg tablet 10 mg PO BEDTIME #90 tabs 08/18/24 aspirin 81 mg chewable tablet 81 mg PO DAILY #90 tabs 09/04/24 (Aspirin Childrens) telmisartan 40 1 tab PO DAILY #90 tabs 09/04/24 mg-hydrochlorothiazide 12.5 mg tablet lorazepam 0.5 mg tablet 0.5 mg PO DAILY 30 days #30 tabs 09/07/24 meloxicam 15 mg tablet 15 mg PO DAILY #14 tabs 09/08/24 Allergies Allergy/AdvReac Type Severity Reaction Status Date / Time Penicillins [PENICILLINS] Allergy Unknown UNK Verified 09/13/24 10:01 Review of Systems Review of Systems: As per HPI Yes all other systems are reviewed and are negative Constitutional: Constitutional: Reports as per [facility] Past Medical History Medical History (Updated 09/13/24 @ 14:31 by Ami Sanchez NP) Osteoporosis Celiac disease Screening for colon cancer Amaurosis fugax Essential (primary) hypertension Surgical History History of endoscopy History of colonoscopy H/O right knee surgery History of excision of pilonidal cyst History of umbilical hernia repair H/O hand surgery History of tonsillectomy Family History Family History Father No problems noted. Mother Liver problem Social History Social History Housing: House Alcohol intake: current Alcohol intake frequency: holidays/special occasions only Patient Tobacco Use Status: Never used Tobacco Smoked in Last 30 Days: No e-Cigarette/Vaping Use: Never Used Second Hand Smoke Exposure: No Use of substances other than those prescribed or required for medical reasons: No Advance Directives: No Advance Directives Information Provided: Yes Do you have a plan to hurt others: No Plan service: No Current occupational status: retired Cognitive needs: No Hearing needs: Yes Vision needs: Yes (Glasses) Physical Exam ED Vital Signs: Vital Signs - 24 hr 09/13/24 10:00 09/13/24 10:06 09/13/24 10:50 Temperature 98.2 F 98.2 F Pulse Rate 117 H 117 H Respiratory Rate 18 18 20 Blood Pressure 138/80 138/80 Pulse Oximetry 94 94 Oxygen Delivery Method Room Air Room Air 09/13/24 12:12 Temperature 99.2 F Pulse Rate 108 H Respiratory Rate 20 Blood Pressure 117/74 Pulse Oximetry 94 Oxygen Delivery Method Room Air BMI result Body Mass Index 25.2 Vital signs have been reviewed and appear to be correct. Blood pressure normal. Heart rate tachycardic. Respiratory rate normal. Temperature normal. Oxygen saturation normal. Const General: cooperative, healthy appearing and no acute distress Orientation/consciousness: oriented to person, oriented to place, oriented to time and patient oriented x3 Limitations: no limitations HENMT Head: Yes normocephalic and Yes atraumatic Ears: external ears normal General nose exam: Normal external nose present Face and sinus: Yes face symmetric Mouth: oropharynx normal and moist mucous membranes Throat: Yes uvula midline Eyes Pupils: Equal, round and reactive pupils present Neck Neck: Yes normal visual inspection and Yes supple Resp Effort & Inspection: normal respiratory effort and able to speak in complete sentences Auscultation: clear to auscultation bilaterally Cardio Rate: regular rate Rhythm: regular rhythm Heart sounds: S1 normal heart sound present and S2 normal heart sound present GI Palpation (GI): Soft to palpation, Tenderness to palpation present (GI) in the LLQ and in the RLQ, no guarding and No Rebound tenderness present Auscultation: normoactive bowel sounds General: Yes no CVA tenderness Back/Spine/Pelvis Back: no CVA tenderness Skin General skin exam: elasticity normal and turgor normal Neuro General: oriented to person, oriented to place, oriented to time, patient oriented x3, moves all extremities, no focal motor deficits and CN's II-XI intact bilaterally Cranial nerves: Yes Equal, round and reactive pupils present Cognition (Neuro): normal cognition Extrem General: Yes full ROM, Yes no pedal edema and Yes no calf tenderness Psych Mental Status: mental status grossly normal Affect: normal affect Thought process: Normal thought process present Medications Administered Discontinued Medications Generic Name Dose Route Start Last Admin Trade Name Freq PRN Reason Stop Dose Admin Sodium Chloride 1,000 mls @ 999 mls/hr 09/13/24 10:30 09/13/24 13:34 Ns IV 09/13/24 11:30 Infused .Q1H1M RENAE Infusion Iohexol 85 ml 09/13/24 11:26 09/13/24 11:27 Iohexol 350 Mg/Ml 100 Ml Infus..Btl IV 09/13/24 11:27 85 ml ONCE ONE Administration Morphine Sulfate 4 mg 09/13/24 10:27 09/13/24 10:50 Morphine Sulfate 4 Mg/Ml Cartridge IVPUSH 09/13/24 10:28 4 mg ONCE ONE Administration Protocol Ondansetron HCl 4 mg 09/13/24 10:27 09/13/24 10:50 Ondansetron Hcl 4 Mg/2 Ml Vial IVPUSH 09/13/24 10:28 4 mg ONCE ONE Administration Medical Decision Making Medical Decision Making MDM Narrative: Patient is a 73-year-old male with history of celiac disease, HTN, anxiety, osteoporosis presenting to the emergency department with complaint of abdominal pain which began yesterday morning after he woke up. On exam patient is awake, A+Ox3, tachycardic, VS otherwise WNL, afebrile, normal neurological exam without focal deficits, physical exam findings as above. Given reported symptoms and physical exam findings, initial differential includes diverticulitis, appendicitis, obstruction, inflammatory bowel disease, UTI. EKG shows sinus tachycardia, RBBB. Labs notable for leukocytosis with left shift, elevated transaminases with elevated Tbili. CT notable for partial/intermittent small bowel obstruction. My interpretation is in agreement with the radiologist's interpretation. Case discussed with Dr. Rob who accepts admission, requesting liver and GB ultrasound. Differential Diagnosis Differential Diagnoses: The differential diagnosis associated with the presentation includes As per [facility] Admission/Observation Consideration of admission/observation: Escalation of care including admission/observation considered Consult Healthcare Provider Management of the patient was discussed with: Price Checker (Dr. Rob) Lab Data [facility] Lab Attestation statement: I reviewed the patient's lab results. As per [facility] 09/13/24 10:40 09/13/24 10:40 Labs: Lab Results 09/13/24 09/13/24 Range/Units 10:18 10:40 WBC 13.2 H (4.8-10.8) X10*3/uL RBC 4.00 L (4.60-5.80) X10*6/uL Hgb 12.9 L (14.0-18.0) g/dl Hct 38.0 L (42.0-52.0) % MCV 95.0 (80.0-98.0) fL MCH 32.3 (27.0-33.0) pg MCHC 33.9 (31.0-36.0) g/dl RDW 12.2 (11.0-16.0) % Plt Count 320 (160-400) X10*3/uL MPV 9.3 L (9.4-12.4) fL Immature Gran % (Auto) 0.5 H (0.0-0.4) % Neut % (Auto) 88.7 H (45-73) % Lymph % (Auto) 3.6 L (20-40) % [place] % (Auto) 7.0 (2-11) % Eos % (Auto) 0.0 (0-4) % Baso % (Auto) 0.2 (0-2) % Lymph # (Auto) 0.5 L (1.2-4.9) X10*3/uL [place] # (Auto) 0.9 (0.1-1.2) X10*3/uL Eos # (Auto) 0.0 (0.0-0.4) X10*3/uL Baso # (Auto) 0.0 (0.0-0.2) X10*3/uL Abs Immat Gran (auto) 0.07 H (0.00-0.03) X10*3/uL Absolute Neuts (auto) 11.7 H (2.0-8.3) x10*3/uL Absolute Nucleated RBC 0.000 (0.0-0.012) X10*3/uL Nucleated RBC % (auto) 0.0 (0.0-0.2) /100WBC Sodium 136 (135-145) mmol/L Potassium 4.9 (3.3-5.1) mmol/L Chloride 106 (96-108) mmol/L Carbon Dioxide 23 (22-29) mmol/L Anion Gap 12 (12-20) BUN 19 H (9-16) mg/dL Creatinine 1.04 (0.5-1.4) mg/dL Estim Creat Clear Calc 57.0 Estimated GFR > 60 Random Glucose 205 H (60-115) mg/dL Calcium 8.9 (8.4-10.2) mg/dL Total Bilirubin 1.7 H (0.0-1.0) mg/dL AST 137 H (5-37) U/L ALT 102 H (0-40) U/L Alkaline Phosphatase 75 (39-117) U/L Total Protein 7.1 (6.5-8.0) g/dL Albumin 3.9 (3.5-5.0) g/dL Lipase 22 (8-78) U/L Urine Color Dark Yellow Urine Appearance Cloudy Urine pH 5.0 (5.0-9.0) Ur Specific Levan 1.020 (1.005-1.025) Urine Protein 100 (2+) H (Neg-Trace) mg/dL Urine Glucose (UA) Negative (Negative) mg/dL Urine Ketones 15 (Negative) mg/dL Urine Blood Moderate (2+) H (Negative) Urine Nitrite Negative (Negative) Ur Leukocyte Esterase Trace H (Negative) Urine RBC 3-5 H (0-2) /HPF Urine WBC 0-5 (0-5) /HPF Ur Squamous Epith Cells 0-2 (0-2) /HPF Urine Bacteria None Seen (None Seen) Hyaline Casts 3-5 (0-2) /LPF Granular Casts Present Independent Interpretation I performed an independent interpretation of an: EKG (sinus tachycardia with RBBB, rate 118bpm, normal CA interval) and CT Scan Interpretation: CT A/P shows partial/intermittent small bowel obstruction Radiology Impression Discussion of test interpretation with radiology: I have reviewed the radiologist's reading. Radiologist Impression: CT/CT abdomen pelvis w IV con IMPRESSION: Concerning partial/intermittent mid to distal small bowel obstruction. Superimposed inflammatory process cannot be excluded. Cholelithiasis. Ascites, moderate volume. Atherosclerosis and coronary artery disease. Complex cystic lesion, left kidney. Osteopenia versus osteoporosis. Multilevel thoracolumbar spondylosis. Ankylosis spondylitis, thoracic spine cannot be excluded. External Record Review External record reviewed: Inpatient record, Office record and Outpatient record Prescription Management I considered prescription management with: Pain Medication Discharge Plan Discharge Patient Disposition: Admitted As Inpatient Prescriptions: No Action atorvastatin 10 mg tablet 10 mg PO BEDTIME Qty: 90 1RF telmisartan-hydrochlorothiazid 40-12.5 mg tablet 1 tab PO DAILY Qty: 90 1RF aspirin [Aspirin Childrens] 81 mg tablet,chewable 81 mg PO DAILY Qty: 90 0RF lorazepam 0.5 mg tablet 0.5 mg PO DAILY 30 Days Qty: 30 0RF meloxicam 15 mg tablet 15 mg PO DAILY Qty: 14 0RF cyclobenzaprine 5 mg tablet 5 mg PO TID PRN (Reason: muscle spasm) 7 Days Qty: 21 0RF sildenafil 100 mg tablet 100 mg PO DAILY PRN alendronate 70 mg tablet 70 mg PO QWEEK Qty: 14 0RF triamcinolone acetonide 0.5 % ointment 1 appl topical DAILY Qty: 60 0RF Print Language: Amharic
[2024-09-13 10:35] LABS: Appearance Urine Cloudy; Color Urine Dark Yellow; Glucose Urine UA Negative (Negative); Leukocyte Esterase Urine Trace (Negative); Nitrite Urine Negative (Negative); UMIC TRIGGER UACC YES; Urine Blood Moderate (2+) (Negative); Urine Ketones 15 mg/dL (Negative); Urine Protein 100 (2+) mg/dL (Neg-Trace)
[2024-09-13 10:47] LABS: MANUAL DIFF FLAG NO
[2024-09-13] MEDS: Morphine Sulfate 4 MG/ML CARTRIDGE IVPUSH ×2 (10:50→14:34)
[2024-09-13] MEDS: ondansetron HCL 4 MG/2 ML VIAL IVPUSH (10:50)
[2024-09-13 10:51] LABS: Basophils Percent Auto 0.2 % (0-2); Hemoglobin 12.9 g/dl (14.0-18.0); Imm Gran Abs Auto 0.07 X10*3/uL (0.00-0.03); Imm Gran Pct Auto 0.5 % (0.0-0.4); Lymphocytes Absolute Auto 0.5 X10*3/uL (1.2-4.9); Lymphocytes Percent Auto 3.6 % (20-40); Mean Corpuscular HGB Conc 33.9 g/dl (31.0-36.0); Mean Corpuscular Hemoglobin 32.3 pg (27.0-33.0); Mean Platelet Volume 9.3 fL (9.4-12.4); Monocytes Absolute Auto 0.9 X10*3/uL (0.1-1.2); Neutrophils Absolute Auto 11.7 x10*3/uL (2.0-8.3); Neutrophils Percent Auto 88.7 % (45-73); Platelet Count 320 X10*3/uL (160-400); Red Cell Distribution Width 12.2 % (11.0-16.0); White Blood Count 13.2 X10*3/uL (4.8-10.8)
[2024-09-13] MEDS: 0.9 % Sodium Chloride 1,000 ML 999 ML IV ×3 (10:52→18:16)
[2024-09-13 10:57] LABS: Bacteria Urine None Seen (None Seen); Granular Casts Urine Present; Squamous Epithelial Cell Urine 0-2 /HPF (0-2); WBC Urine 0-5 /HPF (0-5)
[2024-09-13 11:09] LABS: Alanine Aminotransferase 102 U/L (0-40); Albumin Level 3.9 g/dL (3.5-5.0); Alkaline Phosphatase 75 U/L (39-117); Anion Gap 12 (12-20); Aspartate Amino Transferase 137 U/L (5-37); Bilirubin Total 1.7 mg/dL (0.0-1.0); Blood Urea Nitrogen 19 mg/dL (9-16); Calcium 8.9 mg/dL (8.4-10.2); Carbon Dioxide 23 mmol/L (22-29); Chloride 106 mmol/L (96-108); Estimated Glomerular Filt Rate > 60; Glucose Random 205 mg/dL (60-115); Lipase 22 U/L (8-78); Potassium 4.9 mmol/L (3.3-5.1); Sodium 136 mmol/L (135-145); Total Protein 7.1 g/dL (6.5-8.0)
[2024-09-13] MEDS: iohexoL 350 MG/ML 100 ML INFUS..BTL 85 ML IV (11:27)
--- NOTE | 2024-09-13 14:28 | P.HPGS_ITS ---
History of Present Illness History of Present Illness Date of Service: 09/13/24 Chief complaint: Partial Small Bowel Obstruction Narrative: Stuart Zavala is a 73 year old male presenting with complaints of abdominal pain which began on Friday after eating pizza. The pain was intermittent and occasionally quite sharp and severe located in the lower abdomen. The pain was associated with nausea and dry heaves. He has been having normal bowel movements without any change in his abdominal pain. The pain seemed to increase in severity this morning therefore he presented to the emergency department for further evaluation. He denies a previous history of similar symptoms. He previ ously underwent an umbilical hernia repair with mesh and also underwent colonoscopy in January this year. He denies a previous history of similar symptoms. Workup in the emergency department revealed diffuse tenderness in his abdomen. CT abdomen and pelvis revealed some dilated loops of proximal small bowel suggestive of a partial small-bowel obstruction. He is admitted to the surgical service for further management of this partial small-bowel obstruction. Review of Systems Review of Systems: Yes all other systems are reviewed and are negative Constitutional: Constitutional: Reports fever(s), Denies night sweats and Reports poor appetite ENT: Reports dry mouth Cardiovascular: Cardiovascular: Reports rapid heart rate Gastrointestinal: Gastrointestinal: Reports abdominal pain, Denies hematochezia, Denies change in bowel habits, Denies constipation, Reports nausea and Denies vomiting PMFSH Past Medical History Medical History (Updated 09/13/24 @ 14:31 by Ami Sanchez NP) Osteoporosis Celiac disease Screening for colon cancer Amaurosis fugax Essential (primary) hypertension Family History Family History Father No problems noted. Mother Liver problem Surgical History Surgical History History of endoscopy History of colonoscopy H/O right knee surgery History of excision of pilonidal cyst History of umbilical hernia repair H/O hand surgery History of tonsillectomy Social History Social History Housing: House Alcohol intake: current Alcohol intake frequency: holidays/special occasions only Patient Tobacco Use Status: Never used Tobacco Smoked in Last 30 Days: No e-Cigarette/Vaping Use: Never Used Second Hand Smoke Exposure: No Use of substances other than those prescribed or required for medical reasons: No Advance Directives: No Advance Directives Information Provided: Yes Do you have a plan to hurt others: No Plan service: No Current occupational status: retired Cognitive needs: No Hearing needs: Yes Vision needs: Yes (Glasses) Meds Allergies Allergy/AdvReac Type Severity Reaction Status Date / Time Penicillins [PENICILLINS] Allergy Unknown UNK Verified 09/13/24 10:01 Active Medications: Current Medications Acetaminophen (Acetaminophen 325 Mg Tablet) 650 mg PO Q6H PRN PRN Reason: Pain, Mild (Pain Scale 1-3), fever or headache Acetaminophen (Acetaminophen Supp 650 Mg Supp.Rect) 650 mg SC Q6H PRN PRN Reason: Pain, Mild (Pain Scale 1-3), fever or headache Calcium Carbonate (Calcium Carbonate 750 Mg Tab.Chew) 750 mg PO Q4H PRN PRN Reason: Heartburn Enoxaparin Sodium (Enoxaparin Sodium 40 Mg/0.4 Ml Syringe) 40 mg SUBCUT Q24H [facility] Hydromorphone HCl (Hydromorphone Hcl 0.5 Mg/0.5 Ml Syringe) 0.5 mg IVPUSH Q3H PRN; Protocol PRN Reason: Pain, Severe (Pain Scale 7-10) Dextrose/Lactated Ringer's (D5lr) 1,000 mls @ 125 mls/hr IVCONT .Q8H [facility] Magnesium Hydroxide (Milk Of Magnesia 30 Ml Oral.Susp) 30 ml PO DAILY PRN PRN Reason: Constipation Ondansetron HCl (Ondansetron Hcl 4 Mg/2 Ml Vial) 4 mg IVPUSH QID PRN PRN Reason: Nausea Sodium Chloride (0.9 % Sodium Chloride Flush 3 Ml Syringe) 3 ml IVFLUSH QSHIFT [facility] Zolpidem Tartrate (Zolpidem Tartrate 5 Mg Tablet) 5 mg PO BEDTIME PRN PRN Reason: Insomnia Home Medications ?Medication ?Instructions ?Recorded ?Confirmed ?Last Taken ?Type sildenafil 100 mg tablet 100 mg PO DAILY PRN 03/16/24 Unknown History Physical Exam Vital Signs: Vital Signs: Last Vital Signs Temp 99.2 F 09/13/24 12:12 Pulse 108 H 09/13/24 12:12 Resp 20 09/13/24 12:12 BP 117/74 09/13/24 12:12 Pulse Ox 94 09/13/24 12:12 O2 Del Method Room Air 09/13/24 12:12 BMI result Body Mass Index 25.2 Const: General: cooperative and no acute distress Nutritional Appearance: well nourished Orientation/consciousness: patient oriented x3 Limitations: no limitations HEENT: Head: Yes normocephalic and Yes atraumatic Ears: hearing grossly normal bilaterally Resp: Effort & Inspection: normal respiratory effort, no audible wheezes, no cough and no respiratory distress Cardio: Jugular venous distension: no JVD GI: Other: Soft, tender in all 4 quadrants without rebound, guarding or rigidity. There is a positive Callahan sign. Well-healed umbilical incision with a previous hernia repair. Inspection: Yes normal to inspection Skin: Other: Warm, dry, no rash Neuro: General: patient oriented x3 Extrem: General: Yes no clubbing, cyanosis or edema Results Results Labs: Short CBC 09/13/24 Range/Units 10:40 WBC 13.2 H (4.8-10.8) X10*3/uL Hgb 12.9 L (14.0-18.0) g/dl Hct 38.0 L (42.0-52.0) % Plt Count 320 (160-400) X10*3/uL BMP 09/13/24 10:40 Sodium 136 Potassium 4.9 Chloride 106 Carbon Dioxide 23 BUN 19 H Creatinine 1.04 Calcium 8.9 Liver Function 09/13/24 Range/Units 10:40 Total Bilirubin 1.7 H (0.0-1.0) mg/dL AST 137 H (5-37) U/L ALT 102 H (0-40) U/L Alkaline Phosphatase 75 (39-117) U/L Albumin 3.9 (3.5-5.0) g/dL Urine 09/13/24 Range/Units 10:18 Urine Color Dark Yellow Urine Appearance Cloudy Urine pH 5.0 (5.0-9.0) Ur Specific [place] 1.020 (1.005-1.025) Urine Protein 100 (2+) H (Neg-Trace) mg/dL Urine Glucose (UA) Negative (Negative) mg/dL Assessment and Plan (1) Small bowel obstruction: Status: Acute Plan 73-year-old male patient presenting with a several day history of episodic abdominal pain found to have dilated loops of small bowel suggestive of a p artial small-bowel obstruction. There is stool in the colon extending into the rectal vault. Also of note on the CT is multiple gallstones within the gallbladder with surrounding ascitic fluid. Patient does seem to have a positive Callahan sign which could suggest acute cholecystitis as well. An ultrasound of the abdomen with the obtained today. He will be admitted to the surgical service for further management of the small-bowel obstruction. If he is not improved by tomorrow morning, a small-bowel follow-through may be helpful to determine the site of obstruction. Findings were discussed in detail with the patient and his family; they expressed understanding and agrees with the plan. Quality Stroke Does the patient have a stroke diagnosis?: No VTE Prior VTE?: No VTE Risk Level:: Surgical - moderate VTE Device Contraindication: N/A - Device Ordered VTE Drug Contraindication: N/A - Med Ordered Procedures Date of Service Date of Service: 09/13/24
--- NOTE | 2024-09-13 15:23 | PHA.MEDREC ---
Addendum entered by Nurys Segal RPh 09/13/24 15:29: Reviewed by [facility] Original Note: Pharmacy Consult ? Medication Reconciliation Pharmacy has completed the medication reconciliation. Spoke to patent to confirm med list. Patient states he is no longer taking Alendronate 70 mg, and Pantoprazole 40 mg. The last time he took his medications was 09/12/24
[2024-09-13] MEDS: Dextrose 5 % and Lactated Ring 1,000 ML 125 ML IVCONT (16:21)
--- NOTE | 2024-09-13 16:26 | PC.NURSE ---
BP 71/50 (55) - Taisha Boles MD aware of BP. No new orders at this time
--- NOTE | 2024-09-13 16:26 | PC.NURSE ---
Per MD Ramana- 1L NS bolus
--- NOTE | 2024-09-13 17:28 | PC.NURSE ---
BP 85/64 with maintenance fluids and appx. 1/2 of NS bolus infused so far. Taisha Rob MD notified.
--- NOTE | 2024-09-13 17:33 | PC.NURSE ---
Octavia Livingston MD to bedside. MD aware of soft BPs and is ordering an additional L of fluids
--- NOTE | 2024-09-13 17:55 | PM.IMCN ---
History of Present Illness Data of Consult Service Date: 09/13/24 Primary Care Provider: Angel Rosales MD HPI Reason for consult: hypotension A 73 years old male with PMH of anxiety, Celiac disease, HTN among others presenting to the hospital with abdominal pain for 2 days. In ED was found to have partial obstruction based on CT result and evaluated by surgery team who admitted him for close monitoring. Noted to have a drop in his blood pressure. He reports mild abd pain, not passing gas but No chest pain, palpitations, SOB, nausea, vomiting, diarrhea or urinary symptoms. Hospitalist team asked to evaluate the patient for low BP and medical problems. Review of Systems Review of Systems: No fever, chills or weakness No chest pain, palpitation can not take deep breath mild abdominal pain,no nausea or vomiting No urinary symptoms No any rash or wounds PMFSH Medical History Osteoporosis Celiac disease Screening for colon cancer Amaurosis fugax Essential (primary) hypertension Family History Father No problems noted. Mother Liver problem Surgical History History of endoscopy History of colonoscopy H/O right knee surgery History of excision of pilonidal cyst History of umbilical hernia repair H/O hand surgery History of tonsillectomy Social History Housing: House Alcohol intake: current Alcohol intake frequency: holidays/special occasions only Patient Tobacco Use Status: Never used Tobacco Smoked in Last 30 Days: No e-Cigarette/Vaping Use: Never Used Second Hand Smoke Exposure: No Use of substances other than those prescribed or required for medical reasons: No Advance Directives: No Advance Directives Information Provided: Yes Do you have a plan to hurt others: No Plan service: No Current occupational status: retired Cognitive needs: No Hearing needs: Yes Vision needs: Yes (Glasses) Meds Allergies Allergy/AdvReac Type Severity Reaction Status Date / Time Penicillins [PENICILLINS] Allergy Unknown UNK Verified 09/13/24 10:01 Active Medications: Current Medications Acetaminophen (Acetaminophen 325 Mg Tablet) 650 mg PO Q6H PRN PRN Reason: Pain, Mild (Pain Scale 1-3), fever or headache Calcium Carbonate (Calcium Carbonate 750 Mg Tab.Chew) 750 mg PO Q4H PRN PRN Reason: Heartburn Enoxaparin Sodium (Enoxaparin Sodium 40 Mg/0.4 Ml Syringe) 40 mg SUBCUT Q24H [facility] Hydromorphone HCl (Hydromorphone Hcl 0.5 Mg/0.5 Ml Syringe) 0.5 mg IVPUSH Q3H PRN; Protocol PRN Reason: Pain, Severe (Pain Scale 7-10) Dextrose/Lactated Ringer's (D5lr) 1,000 mls @ 125 mls/hr IVCONT .Q8H [facility] Last Admin: 09/13/24 16:21 Dose: 125 mls/hr Magnesium Hydroxide (Milk Of Magnesia 30 Ml Oral.Susp) 30 ml PO DAILY PRN PRN Reason: Constipation Ondansetron HCl (Ondansetron Hcl 4 Mg/2 Ml Vial) 4 mg IVPUSH QID PRN PRN Reason: Nausea Sodium Chloride (0.9 % Sodium Chloride Flush 3 Ml Syringe) 3 ml IVFLUSH QSHIFT [facility] Last Admin: 09/13/24 15:36 Dose: Not Given Zolpidem Tartrate (Zolpidem Tartrate 5 Mg Tablet) 5 mg PO BEDTIME PRN PRN Reason: Insomnia Home Medications ?Medication ?Instructions ?Recorded ?Confirmed ?Last Taken ?Type calcium 315 mg (as 1 tab PO BID 09/13/24 09/13/24 09/12/24 History citrate)-vitamin D3 6.25 mcg (250 unit) tablet Physical Exam Vital Signs and Narrative: Vital Signs: Last Vital Signs Temp 99.2 F 09/13/24 12:12 Pulse 101 H 09/13/24 17:28 Resp 19 09/13/24 16:25 BP 85/64 L 09/13/24 17:28 Pulse Ox 92 09/13/24 16:25 O2 Del Method Room Air 09/13/24 16:25 BMI result Body Mass Index 25.2 Const: Other: Constitutional : Awake, interactive, not in distress Neck : Normal inspection, Supple Cardiovascular : RRR, no JVP, no lower extremity edema Respiratory : good bilateral air entry, no crackles, wheezes or rhonchi Gastrointestinal: soft, lax, decreased bowel sounds, Non tender Skin : Warm, Dry Neurological : Alert & oriented x3, No focal deficit = Results Labs 09/13/24 10:40 09/13/24 10:40 Labs: Laboratory Results - last 24 hr 09/13/24 09/13/24 10:18 10:40 MCV 95.0 MCH 32.3 MCHC 33.9 RDW 12.2 Plt Count 320 MPV 9.3 L Immature Gran % (Auto) 0.5 H Neut % (Auto) 88.7 H Lymph % (Auto) 3.6 L Barnes % (Auto) 7.0 Eos % (Auto) 0.0 Baso % (Auto) 0.2 Lymph # (Auto) 0.5 L Barnes # (Auto) 0.9 Eos # (Auto) 0.0 Baso # (Auto) 0.0 Abs Immat Gran (auto) 0.07 H Absolute Neuts (auto) 11.7 H Absolute Nucleated RBC 0.000 Nucleated RBC % (auto) 0.0 Anion Gap 12 Estim Creat Clear Calc 57.0 Estimated GFR > 60 Random Glucose 205 H Calcium 8.9 Total Bilirubin 1.7 H AST 137 H ALT 102 H Alkaline Phosphatase 75 Total Protein 7.1 Albumin 3.9 Lipase 22 Urine Color Dark Yellow Urine Appearance Cloudy Urine pH 5.0 Ur Specific [place] 1.020 Urine Protein 100 (2+) H Urine Glucose (UA) Negative Urine Ketones 15 Urine Blood Moderate (2+) H Urine Nitrite Negative Ur Leukocyte Esterase Trace H Urine RBC 3-5 H Urine WBC 0-5 Ur Squamous Epith Cells 0-2 Urine Bacteria None Seen Hyaline Casts 3-5 Granular Casts Present Imaging Radiologist's Impressions: Impressions Abdomen/Pelvis CT 09/13/24 11:15 IMPRESSION: Concerning partial/intermittent mid to distal small bowel obstruction. Superimposed inflammatory process cannot be excluded. Cholelithiasis. Ascites, moderate volume. Atherosclerosis and coronary artery disease. Complex cystic lesion, left kidney. Osteopenia versus osteoporosis. Multilevel thoracolumbar spondylosis. Ankylosis spondylitis, thoracic spine cannot be excluded. Fleischner guidelines were followed. Electronically signed by: Cole Benjamin MD 09/13/2024 01:37 PM [facility] [place] Abdomen Ultrasound 09/13/24 15:02 IMPRESSION: Cholelithiasis seen on CT and possible concomitant adenomyomatosis Findings in the gallbladder wall indeterminant given patient's ascites and possible hypoalbuminemic state. Concomitant Cholecystitis remains in the differential diagnosis Electronically signed by: Constantin San MD 09/13/2024 04:41 PM EST Assessment and Plan (1) Small bowel obstruction: Status: Acute Plan A 73 years old male with PMH of anxiety, Celiac disease, HTN among others presenting to the hospital with abdominal pain for 2 days. Partial SBO bowel rest IVF pain control surgery team following Hypotension Hold BP medications give IV bolus, no evidence of bleeding Keep on IV maintenance monitor BP HLD on Statin Thank you for the consult will continue to follow the patient with you.
[2024-09-13] MEDS: 0.9 % Sodium Chloride 500 ML 999 ML IV (22:39)
[2024-09-14] VITALS (27 sets, daily range): BP systolic 78–123; BP diastolic 53–81; PULSE 77–120; RESP 10–26; TEMP 36.3–37.2; O2SAT 91–96
[2024-09-14] MEDS: Dextrose 5 % and Lactated Ring 1,000 ML 125 ML IVCONT ×2 (01:14→09:28)
--- NOTE | 2024-09-14 01:58 | MHC.EDTECH ---
Assisted patient with urinal. urine is very dark, RN aware
[2024-09-14] MEDS: Midodrine HCl 10 MG TABLET PO (02:31)
[2024-09-14] MEDS: Morphine Sulfate 2 MG/ML CARTRIDGE IVPUSH (02:32)
[2024-09-14] MEDS: 0.9 % Sodium Chloride 500 ML 999 ML IV (02:37)
[2024-09-14 05:07] LABS: MANUAL DIFF FLAG NO
[2024-09-14 05:08] LABS: Basophils Percent Auto 0.2 % (0-2); Hematocrit 39.5 % (42.0-52.0); Hemoglobin 13.1 g/dl (14.0-18.0); Imm Gran Abs Auto 0.04 X10*3/uL (0.00-0.03); Imm Gran Pct Auto 0.3 % (0.0-0.4); Lymphocytes Absolute Auto 0.9 X10*3/uL (1.2-4.9); Lymphocytes Percent Auto 7.4 % (20-40); Mean Corpuscular HGB Conc 33.2 g/dl (31.0-36.0); Mean Corpuscular Hemoglobin 31.8 pg (27.0-33.0); Mean Corpuscular Volume 95.9 fL (80.0-98.0); Mean Platelet Volume 9.9 fL (9.4-12.4); Monocytes Absolute Auto 0.8 X10*3/uL (0.1-1.2); Monocytes Percent Auto 6.4 % (2-11); Neutrophils Absolute Auto 10.3 x10*3/uL (2.0-8.3); Neutrophils Percent Auto 85.7 % (45-73); Platelet Count 323 X10*3/uL (160-400); Red Blood Count 4.12 X10*6/uL (4.60-5.80); Red Cell Distribution Width 12.5 % (11.0-16.0); White Blood Count 12.1 X10*3/uL (4.8-10.8)
[2024-09-14 05:33] LABS: Anion Gap 10 (12-20); Blood Urea Nitrogen 26 mg/dL (9-16); Calcium 7.1 mg/dL (8.4-10.2); Carbon Dioxide 19 mmol/L (22-29); Chloride 113 mmol/L (96-108); Estimated Glomerular Filt Rate > 60; Glucose Random 211 mg/dL (60-115); Potassium 4.7 mmol/L (3.3-5.1); Sodium 137 mmol/L (135-145)
--- NOTE | 2024-09-14 07:44 | P.PNGS_ITS ---
Subjective Subjective Date of Service: 09/14/24 Interval history: Patient continues with abdominal pain both left and right lower quadrants. Denies any need nausea or vomiting. Physical Exam 2 Vital Signs: Vital Signs: Last Vital Signs Temp 98.3 F 09/14/24 04:15 Pulse 107 H 09/14/24 04:15 Resp 21 H 09/14/24 04:15 BP 91/62 09/14/24 04:15 Pulse Ox 93 09/14/24 04:15 O2 Del Method Nasal Cannula 09/14/24 04:15 O2 Flow Rate 2 09/14/24 04:15 BMI result Body Mass Index 25.2 Const: General: ill appearing Nutritional Appearance: well nourished O rientation/consciousness: patient oriented x3 Eyes: Sclerae: sclerae normal (Nonicteric) GI: Palpation (GI): Soft to palpation and Tenderness to palpation present (GI) in the LLQ, in the RLQ, in the LUQ, in the RUQ and Callahan's sign positive; with no rebound tenderness Percussion: Yes tympanic to percussion Skin: Other: Normal color, warm and dry Neuro: General: patient oriented x3 Objective Data Active Medications Acetaminophen (Acetaminophen 325 Mg Tablet) 650 mg PO Q6H PRN PRN Reason: Pain, Mild (Pain Scale 1-3), fever or headache Calcium Carbonate (Calcium Carbonate 750 Mg Tab.Chew) 750 mg PO Q4H PRN PRN Reason: Heartburn Enoxaparin Sodium (Enoxaparin Sodium 40 Mg/0.4 Ml Syringe) 40 mg SUBCUT Q24H [facility] Hydromorphone HCl (Hydromorphone Hcl 0.5 Mg/0.5 Ml Syringe) 0.5 mg IVPUSH Q3H PRN; Protocol PRN Reason: Pain, Severe (Pain Scale 7-10) Dextrose/Lactated Ringer's (D5lr) 1,000 mls @ 125 mls/hr IVCONT .Q8H [facility] Last Admin: 09/14/24 01:14 Dose: 125 mls/hr Documented By: RANDY Magnesium Hydroxide (Milk Of Magnesia 30 Ml Oral.Susp) 30 ml PO DAILY PRN PRN Reason: Constipation Ondansetron HCl (Ondansetron Hcl 4 Mg/2 Ml Vial) 4 mg IVPUSH QID PRN PRN Reason: Nausea Sodium Chloride (0.9 % Sodium Chloride Flush 3 Ml Syringe) 3 ml IVFLUSH QSHIFT [facility] Last Admin: 09/14/24 00:06 Dose: Not Given Documented By: DANILO Non-Admin Reason: IV Running Zolpidem Tartrate (Zolpidem Tartrate 5 Mg Tablet) 5 mg PO BEDTIME PRN PRN Reason: Insomnia Labs 09/14/24 04:34 09/14/24 04:34 Labs: Laboratory Results - last 24 hr 09/13/24 09/13/24 09/14/24 10:18 10:40 04:34 MCV 95.0 95.9 MCH 32.3 31.8 MCHC 33.9 33.2 RDW 12.2 12.5 Plt Count 320 323 MPV 9.3 L 9.9 Immature Gran % (Auto) 0.5 H 0.3 Neut % (Auto) 88.7 H 85.7 H Lymph % (Auto) 3.6 L 7.4 L [place] % (Auto) 7.0 6.4 Eos % (Auto) 0.0 0.0 Baso % (Auto) 0.2 0.2 Lymph # (Auto) 0.5 L 0.9 L [place] # (Auto) 0.9 0.8 Eos # (Auto) 0.0 0.0 Baso # (Auto) 0.0 0.0 Abs Immat Gran (auto) 0.07 H 0.04 H Absolute Neuts (auto) 11.7 H 10.3 H Absolute Nucleated RBC 0.000 0.000 Nucleated RBC % (auto) 0.0 0.0 Anion Gap 12 10 L Estim Creat Clear Calc 57.0 57.0 Estimated GFR > 60 > 60 Random Glucose 205 H 211 H Calcium 8.9 7.1 L D Total Bilirubin 1.7 H AST 137 H ALT 102 H Alkaline Phosphatase 75 Total Protein 7.1 Albumin 3.9 Lipase 22 Urine Color Dark Yellow Urine Appearance Cloudy Urine pH 5.0 Ur Specific [place] 1.020 Urine Protein 100 (2+) H Urine Glucose (UA) Negative Urine Ketones 15 Urine Blood Moderate (2+) H Urine Nitrite Negative Ur Leukocyte Esterase Trace H Urine RBC 3-5 H Urine WBC 0-5 Ur Squamous Epith Cells 0-2 Urine Bacteria None Seen Hyaline Casts 3-5 Granular Casts Present Procedures Date of Service Date of Service: 09/14/24 Progress Note: A&P Assessment and plan (1) Small bowel obstruction: Status: Acute (2) Acute cholecystitis due to biliary calculus: Status: Acute Plan 73-year-old male patient with continued abdominal pain in all quadrants. Ultrasound confirmed a thickened gallbladder wall with multiple gallstones. Normal common bile duct. Wound the patient also has abundant intraperitoneal fluid possibly ascites. Prep left discussed with proceeding to laparoscopy for laparoscopic or possible open cholecystectomy. After discussion of the procedure, risks, and alternatives, he consents to a laparoscopic or possible open cholecystectomy. He has been added onto to the operative schedule for today. Time Spent With Patient Time: Total time managing care of this patient today ____ minutes. Quality Stroke Does the patient have a stroke diagnosis?: No VTE Prior VTE?: No VTE Risk Level:: Surgical - moderate VTE Device Contraindication: N/A - Device Ordered VTE Drug Contraindication: N/A - Med Ordered
--- NOTE | 2024-09-14 09:13 | MHC.CM.PN ---
PT REPORTS HE LIVES WITH HIS AND IS INDEPENDENT WITH CARE HE HAS NO DME AND NO SERVICES COPY OF HCP REQUESTED PCP: [facility]I ASKEW IMM DELIVERED DCP: HOME NO SERVICES VIA PRIVATE TRANSPORT
--- NOTE | 2024-09-14 09:33 | PC.NURSE ---
Addendum entered by Lara Ramos RN 09/14/24 09:38: pts bowel sounds are hypo Original Note: this nurse took over pt care from [facility] at 9am, pt currently a&ox3, rr equal/non labored, lungs diminished throughout, abd firm/distended- pt c/o 05/22 mid abd pain, ivf D5LR@125 running per order, pt NPO at this time, classroom monitor intact sinus tach on monitor, call garcia within reach, will continue to monitor
[2024-09-14] MEDS: HYDROmorphone HCl 0.5 MG/0.5 ML SYRINGE IVPUSH ×2 (09:36→20:42)
--- NOTE | 2024-09-14 09:37 | PC.NURSE ---
pt medicated for 8 mid abd pain
--- NOTE | 2024-09-14 09:53 | PC.NURSE ---
per Dr Rob, pt should have 2 sets of blood cultures drawn, tech notified
--- NOTE | 2024-09-14 13:27 | HO.ANESPROP2 ---
HPI - Anesthesia Eval Consult details Narrative: 73 yo male patient with Acute cholecystitis secondary to biliary calculi. For Laparoscopic Cholecystectomy PMFSH Active Problems Active Problems: All Active Problems Acute cholecystitis due to biliary calculus (Acute) Small bowel obstruction (Acute) Osteoporosis (Acute) Osteoarthritis of hand (Acute) Generalized anxiety disorder (Acute) Encounter for other general examination (Acute) Screening examination for infectious disease (Acute) Celiac disease (Acute) Screening for colon cancer (Acute) Essential (primary) hypertension (Acute) Amaurosis fugax (Acute) x2 Past Medical History Medical History Osteoporosis Celiac disease Screening for colon cancer Amaurosis fugax Essential (primary) hypertension Family History Family History Father No problems noted. Mother Liver problem Family history of problems with anesthesia: No Surgical History Surgical History History of endoscopy History of colonoscopy H/O right knee surgery History of excision of pilonidal cyst History of umbilical hernia repair H/O hand surgery History of tonsillectomy History of Problems with Anesthesia: No Social History Social History Housing: House Alcohol intake: current Alcohol intake frequency: holidays/special occasions only Patient Tobacco Use Status: Never used Tobacco e-Cigarette/Vaping Use: Never Used Second Hand Smoke Exposure: No service: No Current occupational status: retired Cognitive needs: No Hearing needs: Yes Vision needs: Yes (Glasses) Meds Allergies Allergy/AdvReac Type Severity Reaction Status Date / Time Penicillins [PENICILLINS] Allergy Unknown UNK Verified 09/13/24 10:01 Active Medications: Current Medications Acetaminophen (Acetaminophen 325 Mg Tablet) 650 mg PO Q6H PRN PRN Reason: Pain, Mild (Pain Scale 1-3), fever or headache Calcium Carbonate (Calcium Carbonate 750 Mg Tab.Chew) 750 mg PO Q4H PRN PRN Reason: Heartburn Enoxaparin Sodium (Enoxaparin Sodium 40 Mg/0.4 Ml Syringe) 40 mg SUBCUT Q24H [facility] Hydromorphone HCl (Hydromorphone Hcl 0.5 Mg/0.5 Ml Syringe) 0.5 mg IVPUSH Q3H PRN; Protocol PRN Reason: Pain, Severe (Pain Scale 7-10) Last Admin: 09/14/24 09:36 Dose: 0.5 mg Dextrose/Lactated Ringer's (D5lr) 1,000 mls @ 125 mls/hr IVCONT .Q8H [facility] Last Admin: 09/14/24 09:28 Dose: 125 mls/hr Magnesium Hydroxide (Milk Of Magnesia 30 Ml Oral.Susp) 30 ml PO DAILY PRN PRN Reason: Constipation Ondansetron HCl (Ondansetron Hcl 4 Mg/2 Ml Vial) 4 mg IVPUSH QID PRN PRN Reason: Nausea Sodium Chloride (0.9 % Sodium Chloride Flush 3 Ml Syringe) 3 ml IVFLUSH QSHIFT [facility] Last Admin: 09/14/24 09:28 Dose: Not Given Zolpidem Tartrate (Zolpidem Tartrate 5 Mg Tablet) 5 mg PO BEDTIME PRN PRN Reason: Insomnia Home Medications ?Medication ?Instructions ?Recorded ?Confirmed ?Last Taken ?Type calcium 315 mg (as 1 tab PO BID 09/13/24 09/13/24 09/12/24 History citrate)-vitamin D3 6.25 mcg (250 unit) tablet Exam Height,Weight and Vital Signs: Height 5 ft 6 in Weight 70.7 kg Last Vital Signs Temp 98.2 F 09/14/24 12:21 Pulse 97 09/14/24 12:21 Resp 14 09/14/24 12:21 BP 97/70 09/14/24 12:21 Pulse Ox 93 09/14/24 12:21 O2 Del Method Nasal Cannula 09/14/24 12:21 O2 Flow Rate 2 09/14/24 12:21 Temp Pulse Resp BP Pulse Ox O2 Del Method O2 Flow Rate 99.0 F 120 H 24 H 123/81 93 Nasal Cannula 3 09/14/24 14:24 09/14/24 14:04 09/14/24 14:04 09/14/24 14:04 09/14/24 14:04 09/14/24 14:04 09/14/24 14:04 Pertinent Lab Results Pertinent Lab Results: Laboratory Tests 09/13/24 09/13/24 09/14/24 10:18 10:40 04:34 WBC 13.2 H 12.1 H RBC 4.00 L 4.12 L Hgb 12.9 L 13.1 L Hct 38.0 L 39.5 L MCV 95.0 95.9 MCH 32.3 31.8 MCHC 33.9 33.2 RDW 12.2 12.5 Plt Count 320 323 MPV 9.3 L 9.9 Immature Gran % (Auto) 0.5 H 0.3 Neut % (Auto) 88.7 H 85.7 H Lymph % (Auto) 3.6 L 7.4 L [place] % (Auto) 7.0 6.4 Eos % (Auto) 0.0 0.0 Baso % (Auto) 0.2 0.2 Lymph # (Auto) 0.5 L 0.9 L [place] # (Auto) 0.9 0.8 Eos # (Auto) 0.0 0.0 Baso # (Auto) 0.0 0.0 Abs Immat Gran (auto) 0.07 H 0.04 H Absolute Neuts (auto) 11.7 H 10.3 H Absolute Nucleated RBC 0.000 0.000 Nucleated RBC % (auto) 0.0 0.0 Sodium 136 137 Potassium 4.9 4.7 Chloride 106 113 H Carbon Dioxide 23 19 L Anion Gap 12 10 L BUN 19 H 26 H Creatinine 1.04 1.04 Estim Creat Clear Calc 57.0 57.0 Estimated GFR > 60 > 60 Random Glucose 205 H 211 H Calcium 8.9 7.1 L D Total Bilirubin 1.7 H AST 137 H ALT 102 H Alkaline Phosphatase 75 Total Protein 7.1 Albumin 3.9 Lipase 22 Urine Color Dark Yellow Urine Appearance Cloudy Urine pH 5.0 Ur Specific [place] 1.020 Urine Protein 100 (2+) H Urine Glucose (UA) Negative Urine Ketones 15 Urine Blood Moderate (2+) H Urine Nitrite Negative Ur Leukocyte Esterase Trace H Urine RBC 3-5 H Urine WBC 0-5 Ur Squamous Epith Cells 0-2 Urine Bacteria None Seen Hyaline Casts 3-5 Granular Casts Present Airway Mallampati Class: III (Small mouth opening. Small chin. Overbite. 4 Top front teeth capped) TM Dist: >3cm Neck ROM: Full Loose/Missing/Broken Teeth: No Heart: RRR Lungs: CTAB Other: Peritoneal signs Assessment and Plan Assessment Anesthesia Assessment: Anesthesia Plan Discussed and Chart Reviewed Final Anesthetic Review Family History of Problems with Anesthesia: No History of Problems with Anesthesia: No NPO: Yes ASA Class: III and Emergency Final Preanesthetic Review: No Changes in Pt Med Stat, Meds/Allgs Chart Reviewed, Consent Obtained/Reviewed and Anes Risks/Benef Reviewed Patient Risk: High Procedure Risk: Intermediate Assessment/Block/Sedation in SS: Assess/Block/Sedation-SS Anesthetic Plan Anesthetic Plan: GA Disposition: Standard PACU and Inp. Admit - Standard Bed (Possible ICU admission )
--- NOTE | 2024-09-14 13:44 | PC.NURSE ---
report given to short stay
--- NOTE | 2024-09-14 13:46 | PC.NURSE ---
called [facility] to tell them the patient is going to the OR and will need a post ob bed
--- NOTE | 2024-09-14 14:26 | PC.NURSE ---
both iv #20 left and right patent
--- NOTE | 2024-09-14 14:47 | PC.NURSE ---
prior to going to or ngtube inserted placement will be verified in the or pt able to talk with ngtube no wheezing noted
[2024-09-14] MEDS: metroNIDAZOLE/NS 500 MG/100 ML PIGGYBACK 100 MG IV ×2 (15:05→23:25)
--- NOTE | 2024-09-14 16:37 | P.OP_ITS ---
Operative Note Operative Note Date of Service: 09/14/24 Narrative: Preoperative diagnosis: Acute cholecystitis, cholelithiasis Postoperative diagnosis: Acute gangrenous cholecystitis, cholelithiasis with obstructing gallstone, perforation of gallbladder, bile peritonitis Procedure: Laparoscopic converted to open cholecystectomy, open fenestration technique, drainage of gallbladder, drainage of peritoneal fluid (3 L). Surgeon: Stuart Rob MD Engine Head Repairer: Yoli Hernández PA-C Anesthesia: General endotracheal Indications for procedure: 73-year-old male patient presenting with acute onset of abdominal pain over 2 day. Presenting to the emergency department found to have evidence of a small-bowel obstruction by CT. Examination of the CT also revealed inflammatory changes around the gallbladder as well as gallstones. Subsequent ultrasound confirmed a thickened gallbladder wall as well as a large amount of peritoneal fluid. Operative findings: Extensive gangrene of gallbladder with perforation and a large collection of intraperitoneal bile, 3 L with bile peritonitis and surrounding phlegmon. Specimen: Gallbladder with gallstones Estimated blood loss: 10 mL Complications: None Drains: 10. Wilbert-Pillai drain to bulb suction Procedure details: Patient was brought to the OR placed in a supine position. After administering general anesthesia the patient's abdomen was prepped with ChloraPrep and draped in a sterile fashion. A surgical time-out was called the consent confirmed. Patient received preoperative antibiotics and Venodyne boots were in place. Local anesthesia was infiltrated in a periumbilical location. Incision was then made just above the umbilicus and a Veress needle attempted to be inserted. Resistance was met due to a hernia mesh. A 2nd incision was made slightly higher in the midline above the umbilicus and the Veress needle inserted while elevating the abdominal cavity with towel clips. After a positive drop test the abdomen was insufflated to pressure 15 mmHg. A 5 mm trocar was then inserted in the abdomen explored. A large amount of peritoneal fluid was identified in the gallbladder gangrene was identified immediately. A 12 mm trocar was then placed in the epigastrium under direct vision and 2 5 mm trocars placed in the right upper quadrant. The gallbladder was grasped at the fundus however due to the gangrene of the wall dissection was not possible laparoscopically. The decision was made to convert to an open procedure. A Rachel incision was then made with a scalpel and carried out through subcutaneous tissue through the anterior rectus sheath, passed the rectus muscle and the superior oblique muscles. The abdominal cavity was then entered and a bowel for retractor placed. The gallbladder was grasped with a Denisa clamp and brought up close to the incision. Lap pads were placed to protect the stomach and colon. A tonsil clamp was then used to dissect the peritoneum off the gallbladder about in a retrograde manner. Dissection was continued down along the gallbladder fossa. Unfortunately the gallbladder wall was very gangrenous and difficult to retract. The decision was made to perform a fenestration technique to avoid injury to the common bile duct. The gallbladder was dissected as far down as safely possible and excised. This was sent to pathology for further examination. All gallstones within the gallbladder removed with a forceps. The gallbladder and gallbladder fossa were then irrigated copiously with saline solution. A large 10. Wilbert-Pillai drain was then placed into the gallbladder fossa. The abdomen was then thoroughly irrigated with saline solution and suctioned dry. Additional L of bilious fluid was evacuated from the abdominal cavity. The TUSHAR was brought out through a separate stab wound in the right upper quadrant. This was secured in place using a 3-0 nylon suture. Peritoneum was then closed using a running 0 Polysorb suture. Oblique muscles were reapproximated using a running 0 Polysorb suture. Anterior rectus sheath was then closed using a running 0 Polysorb suture. Radhika's fashion dermis reapproximated using interrupted 3-0 Polysorb sutures and skin closed with skin sin in all incisions. The midline trocar incision was closed in the fascia using a 0 Polysorb suture in skin closed with skin sin. Sterile dressings were then applied. A Tripp catheter was placed while the patient was in the operating room. The patient was awoken from anesthesia and brought to the PACU in stable condition. Sponge, instrument, and needle counts reported as correct.
[2024-09-14] MEDS: levoFLOXacin/D5W 500 MG/100 ML PIGGYBACK 100 MG IV (18:14)
[2024-09-14] MEDS: Lactated Ringers 1,000 ML 100 ML IVCONT (20:27)
[2024-09-14] MEDS: Acetaminophen 1,000 MG/100 ML PIGGYBACK 400 MG IV (23:22)
[2024-09-15] MEDS: Dextrose 5 % and Lactated Ring 1,000 ML 125 ML IVCONT ×3 (02:36→17:09)
[2024-09-15 03:26] VITALS: BP 106/59; PULSE 72; RESP 18; TEMP 36.1; O2SAT 99
[2024-09-15] MEDS: Acetaminophen 1,000 MG/100 ML PIGGYBACK 400 MG IV ×3 (05:19→17:15)
[2024-09-15] MEDS: metroNIDAZOLE/NS 500 MG/100 ML PIGGYBACK 100 MG IV ×3 (06:46→22:42)
[2024-09-15 07:24] VITALS: BP 102/58; PULSE 72; RESP 16; TEMP 36.3; O2SAT 99
--- NOTE | 2024-09-15 08:14 | PM.PNGS ---
Subjective Subjective Date of Service: 09/15/24 Patient reports: feels better Interval history: Pod 1 following open cholecystectomy with fenestration technique, drainage of large peritoneal bile collection. Patient feels improved with mainly incisional pain in the right upper quadrant. Physical Exam Vital Signs: Vital Signs: Last Vital Signs Temp 97.3 F 09/15/24 07:24 Pulse 72 09/15/24 07:24 Resp 16 09/15/24 07:24 BP 102/58 L 09/15/24 07:24 Pulse Ox 99 09/15/24 07:24 O2 Del Method Nasal Cannula 09/15/24 07:24 O2 Flow Rate 2 09/15/24 07:24 BMI result Body Mass Index 25.2 Const: General: alert and awake Nutritional Appearance: well nourished Orientation/consciousness: patient oriented x3 Resp: Effort & Inspection: normal respiratory effort and no cough GI: Other: TUSHAR producing mainly bilious fluid. Wounds are clean and intact. Neuro: General: patient oriented x3 Extrem: General: Yes no clubbing, cyanosis or edema Objective Data Active Medications Calcium Carbonate (Calcium Carbonate 750 Mg Tab.Chew) 750 mg PO Q4H PRN PRN Reason: Heartburn Hydromorphone HCl (Hydromorphone Hcl 0.5 Mg/0.5 Ml Syringe) 0.5 mg IVPUSH Q3H PRN; Protocol PRN Reason: Pain, Severe (Pain Scale 7-10) Last Admin: 09/14/24 20:42 Dose: 0.5 mg Documented By: LARISA Dextrose/Lactated Ringer's (D5lr) 1,000 mls @ 125 mls/hr IVCONT .Q8H [facility] Last Admin: 09/15/24 02:36 Dose: 125 mls/hr Documented By: LARISA Lactated Ringer's (Lr) 1,000 mls @ 100 mls/hr IVCONT .Q10H [facility] Last Infusion: 09/15/24 06:55 Dose: Infused Documented By: LARISA Levofloxacin (Levaquin) 500 mg in 100 mls @ 100 mls/hr IV Q24H [facility] Last Infusion: 09/14/24 20:19 Dose: Infused Documented By: LARISA Acetaminophen (Ofirmev) 1,000 mg in 100 mls @ 400 mls/hr IV Q6H [facility] Stop: 09/15/24 17:14 Last Infusion: 09/15/24 06:09 Dose: Infused Documented By: LARISA Metronidazole (Flagyl) 500 mg in 100 mls @ 100 mls/hr IV Q8H [facility] Last Infusion: 09/15/24 08:06 Dose: Infused Documented By: MEHDI Ondansetron HCl (Ondansetron Hcl 4 Mg/2 Ml Vial) 4 mg IVPUSH QID PRN PRN Reason: Nausea Oxycodone HCl (Oxycodone Hcl Immed Release 5 Mg Tablet) 5 mg PO Q6H PRN PRN Reason: Pain, Moderate(Pain Scale 4-6) Sodium Chloride (0.9 % Sodium Chloride Flush 3 Ml Syringe) 3 ml IVFLUSH QSHIFT [facility] Last Admin: 09/15/24 00:19 Dose: Not Given Documented By: LARISA Non-Admin Reason: IV Running Zolpidem Tartrate (Zolpidem Tartrate 5 Mg Tablet) 5 mg PO BEDTIME PRN PRN Reason: Insomnia Labs 09/14/24 04:34 09/14/24 04:34 Procedures Date of Service Date of Service: 09/15/24 Progress Note: A&P Assessment and plan (1) Acute gangrenous cholecystitis: Status: Acute (2) Bile peritonitis: Status: Acute Plan 73-year-old male patient pod 1 following laparoscopic converted to open cholecystectomy for gangrenous perforated appendicitis with bile peritonitis and phlegmon. Overall patient is much improved this morning but does report some incisional pain. His wounds are clean and intact. We will continue TUSHAR drainage, IV antibiotics, clear liquid diet. Encourage incentive spirometry and out of bed to chair today. Time Spent With Patient Time: Total time managing care of this patient today ____ minutes. Quality Stroke Does the patient have a stroke diagnosis?: No VTE Prior VTE?: No VTE Risk Level:: Surgical - moderate VTE Device Contraindication: N/A - Device Ordered VTE Drug Contraindication: N/A - Med Ordered
[2024-09-15] MEDS: HYDROmorphone HCl 0.5 MG/0.5 ML SYRINGE IVPUSH ×2 (08:37→23:33)
[2024-09-15] MEDS: 0.9 % Sodium Chloride Flush 3 ML SYRINGE IVFLUSH ×3 (08:38→19:53)
[2024-09-15 09:34] LABS: Anion Gap 7 (12-20); Blood Urea Nitrogen 39 mg/dL (9-16); Calcium 6.6 mg/dL (8.4-10.2); Carbon Dioxide 23 mmol/L (22-29); Chloride 110 mmol/L (96-108); Creatinine Clr Calc Pharmacy 48.2; Estimated Glomerular Filt Rate 58; Glucose Random 125 mg/dL (60-115); Potassium 4.4 mmol/L (3.3-5.1); Sodium 136 mmol/L (135-145)
--- NOTE | 2024-09-15 09:39 | HO.POSTANES ---
Post Anesthesia Evaluation Post Anesthesia Evaluation Date of Service: 09/15/24 Vital Signs: Vital Signs Temp Pulse Resp BP Pulse Ox O2 Del Method O2 Flow Rate 09/15/24 07:24 97.3 F 72 16 102/58 L 99 Nasal Cannula 2 09/15/24 03:26 96.9 F 72 18 106/59 L 99 Nasal Cannula 2 Anesthesia: General Mental Status: Awake Pain Control: Satisfactory Nausea/Vomiting: None Hydration: Adequate Anesthesia-Related Issues: No Anes. Related Issues
--- NOTE | 2024-09-15 11:08 | HO.PM.IMPN ---
Subjective Subjective Date of Service: 09/15/24 Interval History: seen and evaluated this morning feels little better POD1 post CCY passing gas Cr mildly elevated Review of Systems No fever, chills or weakness No chest pain, palpitation can not take deep breath mild abdominal pain,no nausea or vomiting No urinary symptoms No any rash or wounds Physical Exam Vital Signs: Vital Signs: Last Vital Signs Temp 97.3 F 09/15/24 07:24 Pulse 72 09/15/24 07:24 Resp 16 09/15/24 07:24 BP 102/58 L 09/15/24 07:24 Pulse Ox 99 09/15/24 07:24 O2 Del Method Nasal Cannula 09/15/24 07:24 O2 Flow Rate 2 09/15/24 07:24 BMI result Body Mass Index 25.2 Const: Other: Constitutional : Awake, interactive, not in distress Neck : Normal inspection, Supple Cardiovascular : RRR, no JVP, no lower extremity edema Respiratory : good bilateral air entry, no crackles, wheezes or rhonchi Gastrointestinal: soft, lax, decreased bowel sounds, Non tender, surgical site covered with dressing Skin : Warm, Dry Neurological : Alert & oriented x3, No focal deficit = Objective Data Active Medications Calcium Carbonate (Calcium Carbonate 750 Mg Tab.Chew) 750 mg PO Q4H PRN PRN Reason: Heartburn Hydromorphone HCl (Hydromorphone Hcl 0.5 Mg/0.5 Ml Syringe) 0.5 mg IVPUSH Q3H PRN; Protocol PRN Reason: Pain, Severe (Pain Scale 7-10) Last Admin: 09/15/24 08:37 Dose: 0.5 mg Documented By: MEHDI Dextrose/Lactated Ringer's (D5lr) 1,000 mls @ 125 mls/hr IVCONT .Q8H [facility] Last Admin: 09/15/24 08:37 Dose: 125 mls/hr Documented By: MEHDI Lactated Ringer's (Lr) 1,000 mls @ 100 mls/hr IVCONT .Q10H [facility] Last Infusion: 09/15/24 06:55 Dose: Infused Documented By: LARISA Levofloxacin (Levaquin) 500 mg in 100 mls @ 100 mls/hr IV Q24H [facility] Last Infusion: 09/14/24 20:19 Dose: Infused Documented By: LARISA Acetaminophen (Ofirmev) 1,000 mg in 100 mls @ 400 mls/hr IV Q6H [facility] Stop: 09/15/24 17:14 Last Infusion: 09/15/24 06:09 Dose: Infused Documented By: LARISA Metronidazole (Flagyl) 500 mg in 100 mls @ 100 mls/hr IV Q8H [facility] Last Infusion: 09/15/24 08:06 Dose: Infused Documented By: MEHDI Ondansetron HCl (Ondansetron Hcl 4 Mg/2 Ml Vial) 4 mg IVPUSH QID PRN PRN Reason: Nausea Oxycodone HCl (Oxycodone Hcl Immed Release 5 Mg Tablet) 5 mg PO Q6H PRN PRN Reason: Pain, Moderate(Pain Scale 4-6) Sodium Chloride (0.9 % Sodium Chloride Flush 3 Ml Syringe) 3 ml IVFLUSH QSHIFT [facility] Last Admin: 09/15/24 08:38 Dose: 3 ml Documented By: MEHDI Zolpidem Tartrate (Zolpidem Tartrate 5 Mg Tablet) 5 mg PO BEDTIME PRN PRN Reason: Insomnia Labs 09/14/24 04:34 09/15/24 08:05 Labs: Laboratory Results - last 24 hr 09/15/24 08:05 Anion Gap 7 L Estim Creat Clear Calc 48.2 Estimated GFR 58 Random Glucose 125 H Calcium 6.6 L D Assessment and Plan (1) Bile peritonitis: Status: Acute (2) Acute gangrenous cholecystitis: Status: Acute (3) Small bowel obstruction: Status: Acute (4) Acute kidney injury: Status: Acute Plan A 73 years old male with PMH of anxiety, Celiac disease, HTN among others presenting to the hospital with abdominal pain for 2 days. Acute cholecystitis complicated with Partial SBO POD 1 CCY start clears IVF pain control surgery team following Acute kidney injury Cr up to 1.2 from baseline around 0.8 likely from dehydration and possible hypotension IVF monitor BP follow BMP Hypotension Not due to sepsis Hold BP medications Keep on IV maintenance monitor BP HLD on Statin Thank you for the consult will continue to follow the patient with you as needed. Quality Stroke Does the patient have a stroke diagnosis?: No VTE Prior VTE?: No VTE Risk Level:: Surgical - moderate VTE Device Contraindication: N/A - Device Ordered VTE Drug Contraindication: N/A - Med Ordered
[2024-09-15 15:03] VITALS: BP 101/57; PULSE 73; RESP 18; TEMP 36.7; O2SAT 95
[2024-09-15 17:05] VITALS: O2SAT 95
[2024-09-15] MEDS: levoFLOXacin/D5W 500 MG/100 ML PIGGYBACK 100 MG IV (18:07)
[2024-09-15 19:10] VITALS: BP 103/62; PULSE 89; RESP 18; TEMP 37; O2SAT 95
[2024-09-15] MEDS: oxyCODONE HCl Immed Release 5 MG TABLET PO (19:50)
[2024-09-16] MEDS: Dextrose 5 % and Lactated Ring 1,000 ML 125 ML IVCONT (01:27)
[2024-09-16 03:16] VITALS: BP 102/59; PULSE 76; RESP 18; TEMP 36.9; O2SAT 94
[2024-09-16] MEDS: metroNIDAZOLE/NS 500 MG/100 ML PIGGYBACK 100 MG IV ×3 (05:58→22:20)
[2024-09-16 07:17] VITALS: BP 103/67; PULSE 100; RESP 18; TEMP 36.9; O2SAT 93
[2024-09-16] MEDS: 0.9 % Sodium Chloride Flush 3 ML SYRINGE IVFLUSH ×2 (07:33→17:15)
[2024-09-16 07:38] LABS: MANUAL DIFF FLAG NO
--- NOTE | 2024-09-16 07:44 | PM.PNGS ---
Subjective Subjective Date of Service: 09/16/24 <Yoli Hernández PA-C - Last Filed: 09/16/24 07:49> 09/16/24 <Stuart Rob MD - Last Filed: 09/16/24 07:53> Interval history: Feeling better, mild incisional pain. Ambulating to bathroom. Passing flatus. Tolerating clear liquids but does not feel quite ready for solids yet. <Yoli Hernández PA-C - Last Filed: 09/16/24 07:49> Physical Exam Vital Signs: Vital Signs: Last Vital Signs Temp 98.4 F 09/16/24 07:17 Pulse 100 09/16/24 07:17 Resp 18 09/16/24 07:17 BP 103/67 09/16/24 07:17 Pulse Ox 93 09/16/24 07:17 O2 Del Method Room Air 09/16/24 07:17 O2 Flow Rate 2 09/15/24 07:24 BMI result Body Mass Index 25.2 <Yoli Hernández PA-C - Last Filed: 09/16/24 07:49> Const: General: comfortable, no acute distress and alert <Yoli Hernández PA-C - Last Filed: 09/16/24 07:49> Orientation/consciousness: patient oriented x3 <Yoli Hernández PA-C - Last Filed: 09/16/24 07:49> Resp: Effort & Inspection: normal respiratory effort <Yoli Hernández PA-C - Last Filed: 09/16/24 07:49> Skin: General skin exam: no rashes or lesions noted and no jaundice <Yoli Hernández PA-C - Last Filed: 09/16/24 07:49> Neuro: General: patient oriented x3 <NIKA Schmitt Last Filed: 09/16/24 07:49> Objective Data Active Medications Calcium Carbonate (Calcium Carbonate 750 Mg Tab.Chew) 750 mg PO Q4H PRN PRN Reason: Heartburn Hydromorphone HCl (Hydromorphone Hcl 0.5 Mg/0.5 Ml Syringe) 0.5 mg IVPUSH Q3H PRN; Protocol PRN Reason: Pain, Severe (Pain Scale 7-10) Last Admin: 12/04/24 23:33 Dose: 0.5 mg Documented By: JOURDAN Dextrose/Lactated Ringer's (D5lr) 1,000 mls @ 125 mls/hr IVCONT .Q8H [facility] Last Admin: 09/16/24 01:27 Dose: 125 mls/hr Documented By: JOURDAN Levofloxacin (Levaquin) 500 mg in 100 mls @ 100 mls/hr IV Q24H [facility] Last Infusion: 09/15/24 19:33 Dose: Infused Documented By: EVELIO Metronidazole (Flagyl) 500 mg in 100 mls @ 100 mls/hr IV Q8H [facility] Last Infusion: 09/16/24 07:26 Dose: Infused Documented By: JAMES Ondansetron HCl (Ondansetron Hcl 4 Mg/2 Ml Vial) 4 mg IVPUSH QID PRN PRN Reason: Nausea Oxycodone HCl (Oxycodone Hcl Immed Release 5 Mg Tablet) 5 mg PO Q6H PRN PRN Reason: Pain, Moderate(Pain Scale 4-6) Last Admin: 09/15/24 19:50 Dose: 5 mg Documented By: JOURDAN Sodium Chloride (0.9 % Sodium Chloride Flush 3 Ml Syringe) 3 ml IVFLUSH QSHIFT [facility] Last Admin: 09/16/24 07:33 Dose: 3 ml Documented By: JAMES Zolpidem Tartrate (Zolpidem Tartrate 5 Mg Tablet) 5 mg PO BEDTIME PRN PRN Reason: Insomnia <Yoli Hernández PA-C - Last Filed: 09/16/24 07:49> Labs CBC & Chem 7: 09/14/24 04:34 09/15/24 08:05 <Yoli Hernández PA-C - Last Filed: 09/16/24 07:49> Labs: Laboratory Results - last 24 hr 09/15/24 08:05 Anion Gap 7 L Estim Creat Clear Calc 48.2 Estimated GFR 58 Random Glucose 125 H Calcium 6.6 L D <Yoli Hernández PA-C - Last Filed: 09/16/24 07:49> Microbiology Microbiology Results: Microbiology 09/14/24 10:07 Blood Culture - Preliminary Blood - Venous No growth after 24 hours. 09/14/24 10:07 Blood Culture - Preliminary Blood - Venous No growth after 24 hours. <Yoli Hernández PA-C - Last Filed: 09/16/24 07:49> Procedures Date of Service Date of Service: 09/16/24 <Yoli Hernández PA-C - Last Filed: 09/16/24 07:49> 09/16/24 <Stuart Rob MD - Last Filed: 09/16/24 07:53> Progress Note: A&P Assessment and plan (1) Bile peritonitis: Status: Acute <Yoli Hernández PA-C - Last Filed: 09/16/24 07:49> (2) Acute gangrenous cholecystitis: Status: Acute <Yoli Hernández PA-C - Last Filed: 09/16/24 07:49> Assessment and Plan: 73-year-old male patient pod 2 following laparoscopic converted to open cholecystectomy for gangrenous perforated cholecystitis with bile peritonitis and phlegmon. Patient doing well post op, abd benign. TUSHAR continues with high output. LFTs pending. Switch to gravity bag, consult GI for possible stent placement. Advance to full liquids. Encourage incentive spirometry and ambulation, increasing activity today. Cont IVF, IV abx. <Yoli Hernández PA-C - Last Filed: 09/16/24 07:49> 73-year-old male patient pod 2 following laparoscopic converted to open cholecystectomy for gangrenous perforated cholecystitis with bile peritonitis and phlegmon. Patient doing well post op, abd benign. TUSHAR continues with high output. LFTs pending. Switch to gravity bag, consult GI for possible stent placement. Advance to full liquids. Encourage incentive spirometry and ambulation, increasing activity today. Cont IVF, IV abx. Patient seen and examined and I agree with the above assessment and plan. Morning labs pending. Patient mainly complains of incisional pain. No BM yet. Agree with advancing diet slowly. Patient will need continued hospitalization for antibiotics and management of perforated gallbladder/peroitonitis. <Stuart Rob MD - Last Filed: 09/16/24 07:53> Time Spent With Patient Time: Total time managing care of this patient today ____ minutes. <NIKA Schmitt Last Filed: 09/16/24 07:49> Quality Stroke Does the patient have a stroke diagnosis?: No <Yoli Hernández PA-C - Last Filed: 09/16/24 07:49> VTE Prior VTE?: No <Yoli Hernández PA-C - Last Filed: 09/16/24 07:49> VTE Risk Level:: Surgical - moderate <Yoli Hernández PA-C - Last Filed: 09/16/24 07:49> VTE Device Contraindication: N/A - Device Ordered <Yoli Hernández PA-C - Last Filed: 09/16/24 07:49> VTE Drug Contraindication: N/A - Med Ordered <Yoli Hernández PA-C - Last Filed: 09/16/24 07:49>
[2024-09-16] MEDS: oxyCODONE HCl Immed Release 5 MG TABLET PO (07:45)
[2024-09-16 08:00] LABS: Basophils Percent Auto 0.3 % (0-2); Eosinophils Absolute Auto 0.1 X10*3/uL (0.0-0.4); Eosinophils Percent Auto 1.1 % (0-4); Hematocrit 30.7 % (42.0-52.0); Hemoglobin 10.2 g/dl (14.0-18.0); Imm Gran Abs Auto 0.04 X10*3/uL (0.00-0.03); Imm Gran Pct Auto 0.4 % (0.0-0.4); Lymphocytes Absolute Auto 0.9 X10*3/uL (1.2-4.9); Lymphocytes Percent Auto 9.7 % (20-40); Mean Corpuscular HGB Conc 33.2 g/dl (31.0-36.0); Mean Corpuscular Hemoglobin 32.4 pg (27.0-33.0); Mean Corpuscular Volume 97.5 fL (80.0-98.0); Mean Platelet Volume 9.8 fL (9.4-12.4); Monocytes Absolute Auto 0.7 X10*3/uL (0.1-1.2); Monocytes Percent Auto 7.1 % (2-11); Neutrophils Absolute Auto 7.6 x10*3/uL (2.0-8.3); Neutrophils Percent Auto 81.4 % (45-73); Platelet Count 258 X10*3/uL (160-400); Red Blood Count 3.15 X10*6/uL (4.60-5.80); Red Cell Distribution Width 12.8 % (11.0-16.0); White Blood Count 9.3 X10*3/uL (4.8-10.8)
[2024-09-16 08:32] LABS: Alanine Aminotransferase 64 U/L (0-40); Albumin Level 2.3 g/dL (3.5-5.0); Alkaline Phosphatase 56 U/L (39-117); Anion Gap 10 (12-20); Aspartate Amino Transferase 52 U/L (5-37); Bilirubin Direct 0.4 mg/dL (0.0-0.5); Bilirubin Total 0.6 mg/dL (0.0-1.0); Blood Urea Nitrogen 20 mg/dL (9-16); Calcium 7.3 mg/dL (8.4-10.2); Carbon Dioxide 25 mmol/L (22-29); Chloride 111 mmol/L (96-108); Creatinine Clr Calc Pharmacy 57.6; Estimated Glomerular Filt Rate > 60; Glucose Random 128 mg/dL (60-115); Potassium 4.5 mmol/L (3.3-5.1); Sodium 141 mmol/L (135-145); Total Protein 4.5 g/dL (6.5-8.0)
[2024-09-16] MEDS: Dextrose 5 % and Lactated Ring 1,000 ML 80 ML IVCONT (10:16)
--- NOTE | 2024-09-16 13:30 | HO.PM.IMPN ---
Subjective Subjective Date of Service: 09/16/24 Interval History: seen and evaluated this morning feels little better POD2 post CCY passing gas Cr improving Review of Systems Review of Systems: Yes all other systems are reviewed and are negative Physical Exam Vital Signs: Vital Signs: Last Vital Signs Temp 98.4 F 09/16/24 07:17 Pulse 100 09/16/24 07:17 Resp 18 09/16/24 07:17 BP 103/67 09/16/24 07:17 Pulse Ox 93 09/16/24 07:17 O2 Del Method Room Air 09/16/24 07:17 O2 Flow Rate 2 09/15/24 07:24 BMI result Body Mass Index 25.2 Const: Other: Constitutional : Awake, interactive, not in distress Neck : Normal inspection, Supple Cardiovascular : RRR, no JVP, no lower extremity edema Respiratory : good bilateral air entry, no crackles, wheezes or rhonchi Gastrointestinal: soft, lax, improving bowel sounds, Non tender, surgical site covered with dressing Skin : Warm, Dry Neurological : Alert & oriented x3, No focal deficit = Objective Data Active Medications Calcium Carbonate (Calcium Carbonate 750 Mg Tab.Chew) 750 mg PO Q4H PRN PRN Reason: Heartburn Hydromorphone HCl (Hydromorphone Hcl 0.5 Mg/0.5 Ml Syringe) 0.5 mg IVPUSH Q3H PRN; Protocol PRN Reason: Pain, Severe (Pain Scale 7-10) Last Admin: 09/15/24 23:33 Dose: 0.5 mg Documented By: JOURDAN Dextrose/Lactated Ringer's (D5lr) 1,000 mls @ 60 mls/hr IVCONT .[id number] [facility] Last Admin: 09/16/24 10:16 Dose: 80 mls/hr Documented By: AJMES Levofloxacin (Levaquin) 500 mg in 100 mls @ 100 mls/hr IV Q24H [facility] Last Infusion: 09/15/24 19:33 Dose: Infused Documented By: EVELIO Metronidazole (Flagyl) 500 mg in 100 mls @ 100 mls/hr IV Q8H [facility] Last Infusion: 09/16/24 07:26 Dose: Infused Documented By: JAMES Ondansetron HCl (Ondansetron Hcl 4 Mg/2 Ml Vial) 4 mg IVPUSH QID PRN PRN Reason: Nausea Oxycodone HCl (Oxycodone Hcl Immed Release 5 Mg Tablet) 5 mg PO Q6H PRN PRN Reason: Pain, Moderate(Pain Scale 4-6) Last Admin: 09/16/24 07:45 Dose: 5 mg Documented By: JAMES Sodium Chloride (0.9 % Sodium Chloride Flush 3 Ml Syringe) 3 ml IVFLUSH QSHIFT [facility] Last Admin: 09/16/24 07:33 Dose: 3 ml Documented By: JAMES Zolpidem Tartrate (Zolpidem Tartrate 5 Mg Tablet) 5 mg PO BEDTIME PRN PRN Reason: Insomnia Labs 09/16/24 05:46 09/16/24 05:46 Labs: Laboratory Results - last 24 hr 09/16/24 05:46 MCV 97.5 MCH 32.4 MCHC 33.2 RDW 12.8 Plt Count 258 MPV 9.8 Immature Gran % (Auto) 0.4 Neut % (Auto) 81.4 H Lymph % (Auto) 9.7 L [place] % (Auto) 7.1 Eos % (Auto) 1.1 Baso % (Auto) 0.3 Lymph # (Auto) 0.9 L [place] # (Auto) 0.7 Eos # (Auto) 0.1 Baso # (Auto) 0.0 Abs Immat Gran (auto) 0.04 H Absolute Neuts (auto) 7.6 Absolute Nucleated RBC 0.000 Nucleated RBC % (auto) 0.0 Anion Gap 10 L Estim Creat Clear Calc 57.6 Estimated GFR > 60 Random Glucose 128 H Calcium 7.3 L D Total Bilirubin 0.6 Direct Bilirubin 0.4 AST 52 H ALT 64 H Alkaline Phosphatase 56 Total Protein 4.5 L Albumin 2.3 L Microbiology Microbiology Results: Microbiology 09/14/24 10:07 Blood Culture - Preliminary Blood - Venous No growth after 48 hours. 09/14/24 10:07 Blood Culture - Preliminary Blood - Venous No growth after 48 hours. Assessment and Plan (1) Acute kidney injury: Status: Acute Plan A 73 years old male with PMH of anxiety, Celiac disease, HTN among others presenting to the hospital with abdominal pain for 2 days. Acute cholecystitis complicated with Partial SBO POD 2 CCY advanced diet IVF pain control surgery team following Acute kidney injury Cr trending down IVF monitor BP follow BMP Hypotension resolved Hold BP medications, can be restarted upon discharge monitor BP HLD on Statin Thank you for the consult will sign off for now. contact hospitalist team as needed Quality Stroke Does the patient have a stroke diagnosis?: No VTE Prior VTE?: No VTE Risk Level:: Surgical - moderate VTE Device Contraindication: N/A - Device Ordered VTE Drug Contraindication: N/A - Med Ordered
--- NOTE | 2024-09-16 14:08 | P.CNGI_ITS ---
History of Present Illness Data of Consult Service Date: 09/16/24 Requesting physician: Stuart Rob Primary Care Provider: Angel Rosales MD [facility] Reason for consult: Question bile leak This is a 73-year-old gentleman with past medical history of celiac disease, osteoporosis, hypertension, who presented to the hospital over the weekend for severe abdominal pain and was found to have partial SBO secondary to for ferritin gangrenous gallbladder. He is status post open cholecystectomy with drainage of gallbladder as well as drainage of copious bilious peritoneal fluid. Gastroenterology has been consulted this morning for persistent bilious output from his TUSHAR drain that is placed in the gallbladder fossa. Pt seen at bedside and reports marked improvement since day of admission but has persistent RUQ pain. Not asociated with nausea or vomiting. Trialed full liquid diet this morning and did not think that aggravated the pain. Currently drainage bag is to gravity and has accumulated almost 20 cc in the past 2 h. Laboratory Tests 09/14/24 09/15/24 09/16/24 04:34 08:05 05:46 WBC 12.1 H 9.3 Hgb 10.2 L D Hct 30.7 L D Plt Count 258 BUN 20 H Creatinine 1.23 1.03 Total Bilirubin 0.6 AST 52 H ALT 64 H Alkaline Phosphatase 56 Review of Systems 2 Review of Systems: Yes all other systems are reviewed and are negative [facility] Past Medical History Medical History (Updated 09/15/24 @ 11:12 by Analia Livingston MD) Bile peritonitis Acute gangrenous cholecystitis Osteoporosis Celiac disease Screening for colon cancer Amaurosis fugax Essential (primary) hypertension Family History Family History Father No problems noted. Mother Liver problem Surgical History Surgical History History of endoscopy History of colonoscopy H/O right knee surgery History of excision of pilonidal cyst History of umbilical hernia repair H/O hand surgery History of tonsillectomy Social History Social History Household Members: Spouse Housing: House Do you presently have visiting nurse or other home services: No Alcohol intake: current Alcohol intake frequency: holidays/special occasions only Patient Tobacco Use Status: Never used Tobacco e-Cigarette/Vaping Use: Never Used Second Hand Smoke Exposure: No service: No Current occupational status: retired Cognitive needs: No Hearing needs: Yes Vision needs: Yes (Glasses) Meds Allergies Allergy/AdvReac Type Severity Reaction Status Date / Time Penicillins [PENICILLINS] Allergy Unknown UNK Verified 09/13/24 10:01 Active Medications: Current Medications Calcium Carbonate (Calcium Carbonate 750 Mg Tab.Chew) 750 mg PO Q4H PRN PRN Reason: Heartburn Hydromorphone HCl (Hydromorphone Hcl 0.5 Mg/0.5 Ml Syringe) 0.5 mg IVPUSH Q3H PRN; Protocol PRN Reason: Pain, Severe (Pain Scale 7-10) Last Admin: 09/15/24 23:33 Dose: 0.5 mg Dextrose/Lactated Ringer's (D5lr) 1,000 mls @ 60 mls/hr IVCONT .[id number] [facility] Last Infusion: 09/16/24 14:02 Dose: 60 mls/hr Levofloxacin (Levaquin) 500 mg in 100 mls @ 100 mls/hr IV Q24H [facility] Last Infusion: 09/15/24 19:33 Dose: Infused Metronidazole (Flagyl) 500 mg in 100 mls @ 100 mls/hr IV Q8H [facility] Last Infusion: 09/16/24 07:26 Dose: Infused Ondansetron HCl (Ondansetron Hcl 4 Mg/2 Ml Vial) 4 mg IVPUSH QID PRN PRN Reason: Nausea Oxycodone HCl (Oxycodone Hcl Immed Release 5 Mg Tablet) 5 mg PO Q6H PRN PRN Reason: Pain, Moderate(Pain Scale 4-6) Last Admin: 09/16/24 07:45 Dose: 5 mg Sodium Chloride (0.9 % Sodium Chloride Flush 3 Ml Syringe) 3 ml IVFLUSH QSHIFT [facility] Last Admin: 09/16/24 07:33 Dose: 3 ml Zolpidem Tartrate (Zolpidem Tartrate 5 Mg Tablet) 5 mg PO BEDTIME PRN PRN Reason: Insomnia Home Medications ?Medication ?Instructions ?Recorded ?Confirmed ?Last Taken ?Type calcium 315 mg (as 1 tab PO BID 09/13/24 09/13/24 09/12/24 History citrate)-vitamin D3 6.25 mcg (250 unit) tablet Physical Exam 2 Vital Signs: Vital Signs: Last Vital Signs Temp 98.4 F 09/16/24 07:17 Pulse 100 09/16/24 07:17 Resp 18 09/16/24 07:17 BP 103/67 09/16/24 07:17 Pulse Ox 93 09/16/24 07:17 O2 Del Method Room Air 09/16/24 07:17 O2 Flow Rate 2 09/15/24 07:24 BMI result Body Mass Index 25.2 Elderly male No acute distress Able to provide complete history Abdomen soft, mildly distended, tender in right upper quadrant with guarding No respiratory distress Mild pitting lower extremity edema Results Labs 09/16/24 05:46 09/16/24 05:46 Labs: Short CBC 09/16/24 Range/Units 05:46 WBC 9.3 (4.8-10.8) X10*3/uL Hgb 10.2 L D (14.0-18.0) g/dl Hct 30.7 L D (42.0-52.0) % Plt Count 258 (160-400) X10*3/uL BMP 09/16/24 05:46 Sodium 141 Potassium 4.5 Chloride 111 H Carbon Dioxide 25 BUN 20 H Creatinine 1.03 Calcium 7.3 L D Liver Function 09/16/24 Range/Units 05:46 Total Bilirubin 0.6 (0.0-1.0) mg/dL Direct Bilirubin 0.4 (0.0-0.5) mg/dL AST 52 H (5-37) U/L ALT 64 H (0-40) U/L Alkaline Phosphatase 56 (39-117) U/L Albumin 2.3 L (3.5-5.0) g/dL Microbiology Microbiology Results: Microbiology 09/14/24 10:07 Blood - Venous Blood Culture - Preliminary No growth after 48 hours. 09/14/24 10:07 Blood - Venous Blood Culture - Preliminary No growth after 48 hours. Assessment and Plan (1) Acute gangrenous cholecystitis: Status: Acute (2) Bile peritonitis: Status: Acute (3) Acute kidney injury: Status: Acute (4) Acute cholecystitis due to biliary calculus: Status: Acute Plan Pt with persistent abd pain and bilious drainage from GB fossa drain in the context of fenestrating subtotal kasandra. While the risk of bile leak with fenestrating subtotal kasandra is relatively higher, most cases tend to resolve spontaneously within 4-10 days and ERCP is needed <10% of the cases. Plan: - Monitor drain output - HIDA scan to determine extent of the leak - Decision re ERCP contingent on results of the HIDA and clinical course. Thank you for allowing me to participate in her care. Please do not hesitate to reach out for any questions or concerns. Procedures Date of Service Date of Service: 09/16/24
[2024-09-16 15:33] VITALS: BP 108/57; PULSE 84; RESP 20; TEMP 36.9; O2SAT 94
[2024-09-16] MEDS: levoFLOXacin/D5W 500 MG/100 ML PIGGYBACK 100 MG IV (17:13)
[2024-09-16] MEDS: Dextrose 5 % and Lactated Ring 1,000 ML 60 ML IVCONT (17:26)
[2024-09-16 19:51] VITALS: BP 105/62; PULSE 92; RESP 20; TEMP 37.1; O2SAT 96
[2024-09-16] MEDS: HYDROmorphone HCl 0.5 MG/0.5 ML SYRINGE IVPUSH (22:25)
[2024-09-17 03:34] VITALS: BP 119/63; PULSE 73; RESP 18; TEMP 36.9; O2SAT 94
[2024-09-17] MEDS: HYDROmorphone HCl 0.5 MG/0.5 ML SYRINGE IVPUSH ×2 (03:58→21:08)
[2024-09-17] MEDS: metroNIDAZOLE/NS 500 MG/100 ML PIGGYBACK 100 MG IV ×3 (06:29→22:44)
[2024-09-17 07:15] VITALS: BP 115/63; PULSE 78; RESP 12; TEMP 37.4; O2SAT 92
--- NOTE | 2024-09-17 07:48 | PM.PNGS ---
Subjective Subjective Date of Service: 09/17/24 Interval history: Overall feels improved. Incisional pain improving. Tolerating full liquids. No BM. Drainage ~200cc to gravity bag, over 300cc total in 24 h. Physical Exam Vital Signs: Vital Signs: Last Vital Signs Temp 99.3 F 09/17/24 07:15 Pulse 78 09/17/24 07:15 Resp 12 09/17/24 07:15 BP 115/63 09/17/24 07:15 Pulse Ox 92 09/17/24 07:15 O2 Del Method Room Air 09/17/24 07:15 O2 Flow Rate 2 09/15/24 07:24 BMI result Body Mass Index 25.2 Const: General: comfortable, no acute distress and alert Orientation/consciousness: patient oriented x3 Resp: Effort & Inspection: normal respiratory effort Skin: General skin exam: no rashes or lesions noted and no jaundice Neuro: General: patient oriented x3 and moves all extremities Objective Data Active Medications Calcium Carbonate (Calcium Carbonate 750 Mg Tab.Chew) 750 mg PO Q4H PRN PRN Reason: Heartburn Hydromorphone HCl (Hydromorphone Hcl 0.5 Mg/0.5 Ml Syringe) 0.5 mg IVPUSH Q3H PRN; Protocol PRN Reason: Pain, Severe (Pain Scale 7-10) Last Admin: 09/17/24 03:58 Dose: 0.5 mg Documented By: JOURDAN Dextrose/Lactated Ringer's (D5lr) 1,000 mls @ 60 mls/hr IVCONT .[id number] [facility] Last Infusion: 09/16/24 17:26 Dose: Infused Documented By: JAMES Levofloxacin (Levaquin) 500 mg in 100 mls @ 100 mls/hr IV Q24H [facility] Last Infusion: 09/16/24 18:15 Dose: Infused Documented By: JAMES Metronidazole (Flagyl) 500 mg in 100 mls @ 100 mls/hr IV Q8H [facility] Last Admin: 09/17/24 06:29 Dose: 100 mls/hr Documented By: JOURDAN Ondansetron HCl (Ondansetron Hcl 4 Mg/2 Ml Vial) 4 mg IVPUSH QID PRN PRN Reason: Nausea Oxycodone HCl (Oxycodone Hcl Immed Release 5 Mg Tablet) 5 mg PO Q6H PRN PRN Reason: Pain, Moderate(Pain Scale 4-6) Last Admin: 09/16/24 07:45 Dose: 5 mg Documented By: JAMES Sodium Chloride (0.9 % Sodium Chloride Flush 3 Ml Syringe) [facility] Last Admin: 09/17/24 00:04 Dose: Not Given Documented By: JOURDAN Non-Admin Reason: Previously Administered Zolpidem Tartrate (Zolpidem Tartrate 5 Mg Tablet) 5 mg PO BEDTIME PRN PRN Reason: Insomnia Labs 09/16/24 05:46 09/16/24 05:46 Labs: Laboratory Results - last 24 hr 09/16/24 05:46 MCV 97.5 MCH 32.4 MCHC 33.2 RDW 12.8 Plt Count 258 MPV 9.8 Immature Gran % (Auto) 0.4 Neut % (Auto) 81.4 H Lymph % (Auto) 9.7 L [place] % (Auto) 7.1 Eos % (Auto) 1.1 Baso % (Auto) 0.3 Lymph # (Auto) 0.9 L [place] # (Auto) 0.7 Eos # (Auto) 0.1 Baso # (Auto) 0.0 Abs Immat Gran (auto) 0.04 H Absolute Neuts (auto) 7.6 Absolute Nucleated RBC 0.000 Nucleated RBC % (auto) 0.0 Anion Gap 10 L Estim Creat Clear Calc 57.6 Estimated GFR > 60 Random Glucose 128 H Calcium 7.3 L D Total Bilirubin 0.6 Direct Bilirubin 0.4 AST 52 H ALT 64 H Alkaline Phosphatase 56 Total Protein 4.5 L Albumin 2.3 L Microbiology Microbiology Results: Microbiology 09/14/24 10:07 Blood Culture - Preliminary Blood - Venous No growth after 48 hours. 09/14/24 10:07 Blood Culture - Preliminary Blood - Venous No growth after 48 hours. Procedures Date of Service Date of Service: 09/17/24 Progress Note: A&P Assessment and plan (1) Acute gangrenous cholecystitis: Status: Acute (2) Bile peritonitis: Status: Acute Plan 73-year-old male patient pod 3 following laparoscopic converted to open cholecystectomy for gangrenous perforated cholecystitis with bile peritonitis and phlegmon. Overall he is well appearing and improving. VSS. Abd exam benign, soft, clean incision. Drain output remains high and bilious even with gravity bag. LFTs improving. Keep NPO for now, await GI input regarding ERCP. Will advance diet if no plan for intervention. Patient comfortable with plan. Time Spent With Patient Time: Total time managing care of this patient today ____ minutes. Quality Stroke Does the patient have a stroke diagnosis?: No VTE Prior VTE?: No VTE Risk Level:: Surgical - moderate VTE Device Contraindication: N/A - Device Ordered VTE Drug Contraindication: N/A - Med Ordered
[2024-09-17] MEDS: 0.9 % Sodium Chloride Flush 3 ML SYRINGE IVFLUSH (08:44)
[2024-09-17] MEDS: Dextrose 5 % and Lactated Ring 1,000 ML 60 ML IVCONT ×2 (08:44→15:36)
--- NOTE | 2024-09-17 14:58 | MHC.CM.PN ---
PT NOT YET MEDICALLY CLEARED DCP HOME NO SERVICES VIA PRIVATE TRANSPORT
[2024-09-17 15:01] VITALS: BP 120/69; PULSE 81; RESP 16; TEMP 36.5; O2SAT 97
--- NOTE | 2024-09-17 15:11 | P.PNGI_ITS ---
Subjective Subjective Date of Service: 09/17/24 Interval History: no abdominal pain managing PO well passing gas HIDA pos for bile leak Critical Care Time (minutes): 0 Physical Exam 2 Vital Signs: Vital Signs: Last Vital Signs Temp 97.7 F 09/17/24 15:01 Pulse 81 09/17/24 15:01 Resp 16 09/17/24 15:01 BP 120/69 09/17/24 15:01 Pulse Ox 97 09/17/24 15:01 O2 Del Method Room Air 09/17/24 15:01 O2 Flow Rate 2 09/15/24 07:24 BMI result Body Mass Index 25.2 EXAM: GENERAL: The patient is well developed and nontoxic. VITAL SIGNS:see workflow HEENT: Nonicteric sclerae, PERRLA, EOMI. Oropharynx clear. Moist mucous membranes. Conjunctivae appear well perfused. No thyroid mass. CHEST: Chest wall is nontender. HEART: Regular rate and rhythm without murmurs. LUNGS: Clear to auscultation bilaterally. ABDOMEN: Soft, positive bowel sounds, nontender, no organomegaly.no flank tenderness--banadages noted SKIN: No rash, no excessive bruising, petechiae, or purpura. NEUROLOGIC: Cranial nerves II-XII intact without motor/sensory deficit. Psych: normal affect Objective Data Labs 09/16/24 05:46 09/16/24 05:46 Microbiology Microbiology Results: Microbiology 09/14/24 10:07 Blood - Venous Blood Culture - Preliminary No growth after 48 hours. 09/14/24 10:07 Blood - Venous Blood Culture - Preliminary No growth after 48 hours. Procedures Date of Service Date of Service: 09/17/24 Progress Note: A&P Assessment and plan (1) Bile peritonitis: Status: Acute Plan 1/ S/p cholecystectomy, with bile leak PLAN: 1/ Follow TUSHAR drain o/p if starts to reduce and < 200 can hold off ercp, if remains high then ERCP on Friday Time Spent With Patient Time: Total time managing care of this patient today ____ minutes. Quality Stroke Does the patient have a stroke diagnosis?: No VTE Prior VTE?: No VTE Risk Level:: Surgical - moderate VTE Device Contraindication: N/A - Device Ordered VTE Drug Contraindication: N/A - Med Ordered
[2024-09-17] MEDS: oxyCODONE HCl Immed Release 5 MG TABLET PO (16:06)
[2024-09-17] MEDS: polyethylene glycoL 3350 17 GM POWD.PACK PO (16:08)
[2024-09-17] MEDS: Docusate Sodium 100 MG CAPSULE PO (16:08)
[2024-09-17] MEDS: levoFLOXacin/D5W 500 MG/100 ML PIGGYBACK 100 MG IV (18:20)
[2024-09-17 18:57] VITALS: BP 103/60; PULSE 98; RESP 15; TEMP 37.3; O2SAT 96
[2024-09-18] MEDS: HYDROmorphone HCl 0.5 MG/0.5 ML SYRINGE IVPUSH ×2 (02:48→19:37)
[2024-09-18 03:12] VITALS: BP 125/69; PULSE 73; RESP 16; TEMP 36.7; O2SAT 95
[2024-09-18] MEDS: metroNIDAZOLE/NS 500 MG/100 ML PIGGYBACK 100 MG IV ×3 (06:20→22:42)
[2024-09-18 07:22] VITALS: BP 123/74; PULSE 76; RESP 16; TEMP 37.1; O2SAT 94
--- NOTE | 2024-09-18 07:44 | P.PNGS_ITS ---
Subjective Subjective Date of Service: 09/18/24 Interval history: Patient denies any new symptoms this morning. Was able to sleep on his side. Still has not had a bowel movement despite MiraLax and Colace. We will try again today. Physical Exam 2 Vital Signs: Vital Signs: Last Vital Signs Temp 98.7 F 09/18/24 07:22 Pulse 76 09/18/24 07:22 Resp 16 09/18/24 07:22 BP 123/74 09/18/24 07:22 Pulse Ox 94 09/18/24 07:22 O2 Del Method Room Air 09/18/24 07:22 O2 Flow Rate 2 09/15/24 07:24 BMI result Body Mass Index 25.2 Const: General: comfortable, no acute distress and alert O rientation/consciousness: patient oriented x3 Resp: Effort & Inspection: normal respiratory effort GI: Other: Incision clean, dry, and intact. TUSHAR drain connected to gravity bag with bilious discharge. Palpation (GI): Soft to palpation Skin: General skin exam: no rashes or lesions noted and no jaundice Neuro: General: patient oriented x3 and moves all extremities Objective Data Active Medications Calcium Carbonate (Calcium Carbonate 750 Mg Tab.Chew) 750 mg PO Q4H PRN PRN Reason: Heartburn Docusate Sodium (Docusate Sodium 100 Mg Capsule) 100 mg PO BID PRN PRN Reason: Constipation Last Admin: 09/17/24 16:08 Dose: 100 mg Documented By: BYRON Hydromorphone HCl (Hydromorphone Hcl 0.5 Mg/0.5 Ml Syringe) 0.5 mg IVPUSH Q3H PRN; Protocol PRN Reason: Pain, Severe (Pain Scale 7-10) Last Admin: 09/18/24 02:48 Dose: 0.5 mg Documented By: JI Levofloxacin (Levaquin) 500 mg in 100 mls @ 100 mls/hr IV Q24H [facility] Last Infusion: 09/17/24 19:21 Dose: Infused Documented By: JI Metronidazole (Flagyl) 500 mg in 100 mls @ 100 mls/hr IV Q8H [facility] Last Infusion: 09/18/24 07:38 Dose: Infused Documented By: PHIL Ondansetron HCl (Ondansetron Hcl 4 Mg/2 Ml Vial) 4 mg IVPUSH QID PRN PRN Reason: Nausea Oxycodone HCl (Oxycodone Hcl Immed Release 5 Mg Tablet) 5 mg PO Q6H PRN PRN Reason: Pain, Moderate(Pain Scale 4-6) Last Admin: 09/17/24 16:06 Dose: 5 mg Documented By: BYRON Polyethylene Glycol (Polyethylene Glycol 3350 17 Gm Powd.Pack) 17 gm PO DAILY PRN PRN Reason: Constipation Last Admin: 09/17/24 16:08 Dose: 17 gm Documented By: BYRON Sodium Chloride (0.9 % Sodium Chloride Flush 3 Ml Syringe) 3 ml IVFLUSH QSHIFT [facility] Last Admin: 09/17/24 23:39 Dose: Not Given Documented By: JI Non-Admin Reason: IV Running Zolpidem Tartrate (Zolpidem Tartrate 5 Mg Tablet) 5 mg PO BEDTIME PRN PRN Reason: Insomnia Labs 09/16/24 05:46 09/16/24 05:46 Procedures Date of Service Date of Service: 09/18/24 Progress Note: A&P Assessment and plan (1) Acute gangrenous cholecystitis: Status: Acute (2) Bile peritonitis: Status: Acute Plan 73-year-old male patient pod 4 following laparoscopic converted to open cholecystectomy for gangrenous perforated cholecystitis with bile peritonitis and phlegmon. Overall he is well appearing and improving. VSS. Abd exam benign, soft, clean incision. Drain output remains high and bilious even with gravity bag. LFTs improving. Continue regular low-fat diet and follow TUSHAR output. He continues to have high output. If greater than 200 mL for 24 hours by Friday, we will need ERCP. Patient understands and agrees with the plan. Time Spent With Patient Time: Total time managing care of this patient today ____ minutes. Quality Stroke Does the patient have a stroke diagnosis?: No VTE Prior VTE?: No VTE Risk Level:: Surgical - moderate VTE Device Contraindication: N/A - Device Ordered VTE Drug Contraindication: N/A - Med Ordered
--- NOTE | 2024-09-18 10:24 | PC.NURSE ---
08- Dressing at drain site saturated in bile colored fluid. Dr. Rob notified and arrive to bedside. Dressing changed by provider and drain connected to bulb suction. Drain patent and draining bile colored fluid- secured to clean hospital gown. Skin cleansed to prevent irritation. Patient tolerated well.
--- NOTE | 2024-09-18 14:51 | P.PNGI_ITS ---
Subjective Subjective Date of Service: 09/18/24 Interval History: He is feeling better finally had a bowel motion no major abdominal pain no n/ has high o/p from TUSHAR still Critical Care Time (minutes): 0 Physical Exam 2 Vital Signs: Vital Signs: Last Vital Signs Temp 98.7 F 09/18/24 07:22 Pulse 76 09/18/24 07:22 Resp 16 09/18/24 07:22 BP 123/74 09/18/24 07:22 Pulse Ox 94 09/18/24 07:22 O2 Del Method Room Air 09/18/24 07:22 O2 Flow Rate 2 09/15/24 07:24 BMI result Body Mass Index 25.2 EXAM: GENERAL: The patient is well developed and nontoxic. VITAL SIGNS:see workflow HEENT: Nonicteric sclerae, PERRLA, EOMI. Oropharynx clear. Moist mucous membranes. Conjunctivae appear well perfused. No thyroid mass. CHEST: Chest wall is nontender. HEART: Regular rate and rhythm without murmurs. LUNGS: Clear to auscultation bilaterally. ABDOMEN: Soft, positive bowel sounds, nontender, no organomegaly.no flank tenderness --TUSHAR drain noted with bile SKIN: No rash, no excessive bruising, petechiae, or purpura. NEUROLOGIC: Cranial nerves II-XII intact without motor/sensory deficit. Psych: normal affect Objective Data Labs 09/16/24 05:46 09/16/24 05:46 Microbiology Microbiology Results: Microbiology 09/14/24 10:07 Blood - Venous Blood Culture - Preliminary No growth after 48 hours. 09/14/24 10:07 Blood - Venous Blood Culture - Preliminary No growth after 48 hours. Procedures Date of Service Date of Service: 09/18/24 Progress Note: A&P Assessment and plan (1) Acute gangrenous cholecystitis: Status: Acute Plan 1/ Cholecystectomy with bile leak PLAN: 1/ ERCP on Friday, NPO Friday night 2/ ok to cont laxatives Time Spent With Patient Time: Total time managing care of this patient today ____ minutes. Quality Stroke Does the patient have a stroke diagnosis?: No VTE Prior VTE?: No VTE Risk Level:: Surgical - moderate VTE Device Contraindication: N/A - Device Ordered VTE Drug Contraindication: N/A - Med Ordered
[2024-09-18 16:00] VITALS: BP 119/71; PULSE 71; RESP 16; TEMP 36.9; O2SAT 97
[2024-09-18] MEDS: levoFLOXacin/D5W 500 MG/100 ML PIGGYBACK 100 MG IV (17:27)
[2024-09-18] MEDS: 0.9 % Sodium Chloride Flush 3 ML SYRINGE IVFLUSH (19:37)
[2024-09-18 19:47] VITALS: BP 103/60; PULSE 87; RESP 18; TEMP 36.8; O2SAT 98
[2024-09-19] MEDS: HYDROmorphone HCl 0.5 MG/0.5 ML SYRINGE IVPUSH ×2 (01:27→20:11)
[2024-09-19 03:51] VITALS: BP 113/64; PULSE 83; RESP 18; TEMP 36.3; O2SAT 97
[2024-09-19] MEDS: metroNIDAZOLE/NS 500 MG/100 ML PIGGYBACK 100 MG IV ×3 (06:06→23:11)
[2024-09-19 07:25] VITALS: BP 109/68; PULSE 73; RESP 16; TEMP 37.1; O2SAT 94
--- NOTE | 2024-09-19 08:12 | PM.PNGS ---
Subjective Subjective Date of Service: 09/19/24 Interval history: Overall patient feels improved this morning with less abdominal pain. TUSHAR continues to drain bilious fluid with a small amount of leaking around the drain. Drain approximately 430 mL the past 24 hours. Physical Exam Vital Signs: Vital Signs: Last Vital Signs Temp 98.8 F 09/19/24 07:25 Pulse 73 09/19/24 07:25 Resp 16 09/19/24 07:25 BP 109/68 09/19/24 07:25 Pulse Ox 94 09/19/24 07:25 O2 Del Method Room Air 09/19/24 07:25 O2 Flow Rate 2 09/15/24 07:24 BMI result Body Mass Index 25.2 Const: General: comfortable, no acute distress and alert Orientation/consciousness: patient oriented x3 Resp: Effort & Inspection: normal respiratory effort GI: Other: Incision clean, dry, and intact. TUSHAR drain connected to gravity bag with bilious discharge. Palpation (GI): Soft to palpation Skin: General skin exam: no rashes or lesions noted and no jaundice Neuro: General: patient oriented x3 and moves all extremities Objective Data Active Medications Calcium Carbonate (Calcium Carbonate 750 Mg Tab.Chew) 750 mg PO Q4H PRN PRN Reason: Heartburn Docusate Sodium (Docusate Sodium 100 Mg Capsule) 100 mg PO BID PRN PRN Reason: Constipation Last Admin: 09/17/24 16:08 Dose: 100 mg Documented By: BYRON Hydromorphone HCl (Hydromorphone Hcl 0.5 Mg/0.5 Ml Syringe) 0.5 mg IVPUSH Q3H PRN; Protocol PRN Reason: Pain, Severe (Pain Scale 7-10) Last Admin: 09/19/24 01:27 Dose: 0.5 mg Documented By: JI Levofloxacin (Levaquin) 500 mg in 100 mls @ 100 mls/hr IV Q24H [facility] Last Infusion: 09/18/24 18:32 Dose: Infused Documented By: PHIL Metronidazole (Flagyl) 500 mg in 100 mls @ 100 mls/hr IV Q8H [facility] Last Infusion: 09/19/24 07:29 Dose: Infused Documented By: PHIL Ondansetron HCl (Ondansetron Hcl 4 Mg/2 Ml Vial) 4 mg IVPUSH QID PRN PRN Reason: Nausea Oxycodone HCl (Oxycodone Hcl Immed Release 5 Mg Tablet) 5 mg PO Q6H PRN PRN Reason: Pain, Moderate(Pain Scale 4-6) Last Admin: 09/17/24 16:06 Dose: 5 mg Documented By: BYRON Polyethylene Glycol (Polyethylene Glycol 3350 17 Gm Powd.Pack) 17 gm PO DAILY PRN PRN Reason: Constipation Last Admin: 09/17/24 16:08 Dose: 17 gm Documented By: BYRON Sodium Chloride (0.9 % Sodium Chloride Flush 3 Ml Syringe) 3 ml IVFLUSH QSHIFT [facility] Last Admin: 09/19/24 07:29 Dose: Not Given Documented By: PHIL Non-Admin Reason: Previously Administered Zolpidem Tartrate (Zolpidem Tartrate 5 Mg Tablet) 5 mg PO BEDTIME PRN PRN Reason: Insomnia Labs 09/16/24 05:46 09/16/24 05:46 Procedures Date of Service Date of Service: 09/19/24 Progress Note: A&P Assessment and plan (1) Acute gangrenous cholecystitis: Status: Acute (2) Bile peritonitis: Status: Acute Plan 73-year-old male patient pod 5 following laparoscopic converted to open cholecystectomy for gangrenous perforated cholecystitis with bile peritonitis and phlegmon. Overall he is well appearing and improving. VSS. Abd exam benign, soft, clean incision. Drain output remains high with 430 mL last 24 hour. Patient was leaking around the tube yesterday therefore he was switched back to a bulb suctioned device. Continue regular low-fat diet today and NPO after midnight in preparation for ERCP on Friday. Patient understands and agrees with the plan. Time Spent With Patient Time: Total time managing care of this patient today ____ minutes. Quality Stroke Does the patient have a stroke diagnosis?: No VTE Prior VTE?: No VTE Risk Level:: Surgical - moderate VTE Device Contraindication: N/A - Device Ordered VTE Drug Contraindication: N/A - Med Ordered
[2024-09-19] MEDS: 0.9 % Sodium Chloride Flush 3 ML SYRINGE IVFLUSH ×2 (15:14→20:10)
[2024-09-19 15:42] VITALS: BP 130/65; PULSE 77; RESP 16; TEMP 36.7; O2SAT 97
[2024-09-19] MEDS: levoFLOXacin/D5W 500 MG/100 ML PIGGYBACK 100 MG IV (17:08)
[2024-09-19 19:43] VITALS: BP 130/74; PULSE 74; RESP 18; TEMP 37.4; O2SAT 96
[2024-09-19 20:11] VITALS: RESP 18
[2024-09-19 20:44] VITALS: RESP 16
[2024-09-20] VITALS (11 sets, daily range): BP systolic 110–131; BP diastolic 60–76; PULSE 60–85; RESP 16–20; TEMP 36.7–37.9; O2SAT 92–96
[2024-09-20] MEDS: HYDROmorphone HCl 0.5 MG/0.5 ML SYRINGE IVPUSH ×3 (00:14→18:39)
[2024-09-20] MEDS: metroNIDAZOLE/NS 500 MG/100 ML PIGGYBACK 100 MG IV ×3 (06:31→22:40)
[2024-09-20] MEDS: 0.9 % Sodium Chloride Flush 3 ML SYRINGE IVFLUSH ×2 (08:13→23:37)
--- NOTE | 2024-09-20 08:19 | PM.PNGS ---
Subjective Subjective Date of Service: 09/20/24 Interval history: Awaiting ERCP this morning. Physical Exam Vital Signs: Vital Signs: Last Vital Signs Temp 98.6 F 09/20/24 07:31 Pulse 72 09/20/24 07:31 Resp 18 09/20/24 07:31 BP 110/67 09/20/24 07:31 Pulse Ox 93 09/20/24 07:31 O2 Del Method Room Air 09/20/24 07:31 O2 Flow Rate 2 09/15/24 07:24 BMI result Body Mass Index 25.2 Const: General: comfortable, no acute distress and alert Orientation/consciousness: patient oriented x3 Resp: Effort & Inspection: normal respiratory effort GI: Other: TUSHAR drain with bilious output Inspection: No distended and Yes incision (clean) Palpation (GI): Soft to palpation and nontender Skin: General skin exam: no rashes or lesions noted and no jaundice Neuro: General: patient oriented x3 Objective Data Active Medications Calcium Carbonate (Calcium Carbonate 750 Mg Tab.Chew) 750 mg PO Q4H PRN PRN Reason: Heartburn Docusate Sodium (Docusate Sodium 100 Mg Capsule) 100 mg PO BID PRN PRN Reason: Constipation Last Admin: 09/17/24 16:08 Dose: 100 mg Documented By: BYRON Hydromorphone HCl (Hydromorphone Hcl 0.5 Mg/0.5 Ml Syringe) 0.5 mg IVPUSH Q3H PRN; Protocol PRN Reason: Pain, Severe (Pain Scale 7-10) Last Admin: 09/20/24 00:14 Dose: 0.5 mg Documented By: GRAY Levofloxacin (Levaquin) 500 mg in 100 mls @ 100 mls/hr IV Q24H [facility] Last Infusion: 09/19/24 18:08 Dose: Infused Documented By: PHIL Metronidazole (Flagyl) 500 mg in 100 mls @ 100 mls/hr IV Q8H [facility] Last Infusion: 09/20/24 08:01 Dose: Infused Documented By: GAGAN Ondansetron HCl (Ondansetron Hcl 4 Mg/2 Ml Vial) 4 mg IVPUSH QID PRN PRN Reason: Nausea Oxycodone HCl (Oxycodone Hcl Immed Release 5 Mg Tablet) 5 mg PO Q6H PRN PRN Reason: Pain, Moderate(Pain Scale 4-6) Last Admin: 09/17/24 16:06 Dose: 5 mg Documented By: BYRON Polyethylene Glycol (Polyethylene Glycol 3350 17 Gm Powd.Pack) 17 gm PO DAILY PRN PRN Reason: Constipation Last Admin: 09/17/24 16:08 Dose: 17 gm Documented By: BYRON Sodium Chloride (0.9 % Sodium Chloride Flush 3 Ml Syringe) 3 ml IVFLUSH QSHIFT [facility] Last Admin: 09/20/24 08:13 Dose: 3 ml Documented By: GAGAN Zolpidem Tartrate (Zolpidem Tartrate 5 Mg Tablet) 5 mg PO BEDTIME PRN PRN Reason: Insomnia Labs 09/16/24 05:46 09/16/24 05:46 Microbiology Microbiology Results: Microbiology 09/14/24 10:07 Blood Culture - Final Blood - Venous No growth after 5 days. 09/14/24 10:07 Blood Culture - Final Blood - Venous No growth after 5 days. Procedures Date of Service Date of Service: 09/20/24 Progress Note: A&P Assessment and plan (1) Bile peritonitis: Status: Acute (2) Acute gangrenous cholecystitis: Status: Acute Plan 73-year-old male patient pod 6 following laparoscopic converted to open cholecystectomy for gangrenous perforated cholecystitis with bile peritonitis and phlegmon. Continues with high amount of bilious output from TUSHAR drain suggestive of persistent bile leak. Plan for ERCP today. Patient understands and agrees with the plan. Time Spent With Patient Time: Total time managing care of this patient today ____ minutes. Quality Stroke Does the patient have a stroke diagnosis?: No VTE Prior VTE?: No VTE Risk Level:: Surgical - moderate VTE Device Contraindication: N/A - Device Ordered VTE Drug Contraindication: N/A - Med Ordered
--- NOTE | 2024-09-20 11:06 | MHC.CM.PN ---
PT NOT YET CLEARED FOR DC, PER SURGERY NOTE, ERCP PLANNED FOR TODAY DCP: HOME VIA PRIVATE TRANSPORT
--- NOTE | 2024-09-20 12:24 | P.PNGI_ITS ---
Subjective Subjective Date of Service: 09/20/24 Interval History: feels well still having high bile o/p from drain no abdominal pain Critical Care Time (minutes): 0 Physical Exam 2 Vital Signs: Vital Signs: Last Vital Signs Temp 98.6 F 09/20/24 07:31 Pulse 72 09/20/24 07:31 Resp 18 09/20/24 07:31 BP 110/67 09/20/24 07:31 Pulse Ox 93 09/20/24 07:31 O2 Del Method Room Air 09/20/24 07:31 O2 Flow Rate 2 09/15/24 07:24 BMI result Body Mass Index 25.2 EXAM: GENERAL: The patient is well developed and nontoxic. VITAL SIGNS:see workflow HEENT: Nonicteric sclerae, PERRLA, EOMI. Oropharynx clear. Moist mucous membranes. Conjunctivae appear well perfused. No thyroid mass. CHEST: Chest wall is nontender. HEART: Regular rate and rhythm without murmurs. LUNGS: Clear to auscultation bilaterally. ABDOMEN: Soft, positive bowel sounds, nontender, no organomegaly.no flank tenderness-- TUSHAR drain noted with bilious fluid SKIN: No rash, no excessive bruising, petechiae, or purpura. NEUROLOGIC: Cranial nerves II-XII intact without motor/sensory deficit. Psych: normal affect Objective Data Labs 09/16/24 05:46 09/16/24 05:46 Microbiology Microbiology Results: Microbiology 09/14/24 10:07 Blood - Venous Blood Culture - Final No growth after 5 days. 09/14/24 10:07 Blood - Venous Blood Culture - Final No growth after 5 days. Procedures Date of Service Date of Service: 09/20/24 Progress Note: A&P Assessment and plan (1) Bile peritonitis: Status: Acute Plan 1/ Concern for bile leak, otherwise well, will arrange ERCP today for assessment Time Spent With Patient Time: Total time managing care of this patient today ____ minutes. Quality Stroke Does the patient have a stroke diagnosis?: No VTE Prior VTE?: No VTE Risk Level:: Surgical - moderate VTE Device Contraindication: N/A - Device Ordered VTE Drug Contraindication: N/A - Med Ordered
--- NOTE | 2024-09-20 12:25 | MHC.SHP ---
Pre-Procedural Eval Section A - 24 Hr Update-Section A only Date of Service: 09/20/24 The patient is an INPATIENT: Yes The patient has been examined within 24 hours of the surgical procedure. The History & Physical has been completed within 30 days and I have reviewed it.: Yes Section B - Complete if H&P > 30 days Chief Complaint: Partial Small Bowel Obstruction Allergies: Allergies Allergy/AdvReac Type Severity Reaction Status Date / Time Penicillins [PENICILLINS] Allergy Unknown UNK Verified 09/13/24 10:01 Plan Diagnosis/Plan: Unchanged I have reviewed the history and physical and performed a pertinent physical examination on my patient. No changes have occurred unless specified. Time Spent With Patient Time: Total time managing care of this patient today ____ minutes.
[2024-09-20] MEDS: Indomethacin 50 MG SUPP.RECT 100 MG PR (12:46)
--- NOTE | 2024-09-20 14:56 | P.CONAN_ITS ---
[facility] Active Problems Active Problems: All Active Problems Acute kidney injury (Acute) Bile peritonitis (Acute) Acute gangrenous cholecystitis (Acute) Acute cholecystitis due to biliary calculus (Acute) Small bowel obstruction (Acute) Osteoporosis (Acute) Osteoarthritis of hand (Acute) Generalized anxiety disorder (Acute) Encounter for other general examination (Acute) Screening examination for infectious disease (Acute) Celiac disease (Acute) Screening for colon cancer (Acute) Essential (primary) hypertension (Acute) Amaurosis fugax (Acute) Past Medical History Medical History Bile peritonitis Acute gangrenous cholecystitis Osteoporosis Celiac disease Screening for colon cancer Amaurosis fugax Essential (primary) hypertension Functional capacity: independent ambulation Family History Family History Father No problems noted. Mother Liver problem Family history of problems with anesthesia: No Surgical History Surgical History History of endoscopy History of colonoscopy H/O right knee surgery History of excision of pilonidal cyst History of umbilical hernia repair H/O hand surgery History of tonsillectomy History of Problems with Anesthesia: No Social History Social History Household Members: Spouse Housing: House Do you presently have visiting nurse or other home services: No Alcohol intake: current Alcohol intake frequency: holidays/special occasions only Patient Tobacco Use Status: Never used Tobacco e-Cigarette/Vaping Use: Never Used Second Hand Smoke Exposure: No service: No Current occupational status: retired Cognitive needs: No Hearing needs: Yes Vision needs: Yes (Glasses) Meds Allergies Allergy/AdvReac Type Severity Reaction Status Date / Time Penicillins [PENICILLINS] Allergy Unknown UNK Verified 09/20/24 14:02 Active Medications: Current Medications Calcium Carbonate (Calcium Carbonate 750 Mg Tab.Chew) 750 mg PO Q4H PRN PRN Reason: Heartburn Docusate Sodium (Docusate Sodium 100 Mg Capsule) 100 mg PO BID PRN PRN Reason: Constipation Last Admin: 09/17/24 16:08 Dose: 100 mg Hydromorphone HCl (Hydromorphone Hcl 0.5 Mg/0.5 Ml Syringe) 0.5 mg IVPUSH Q3H PRN; Protocol PRN Reason: Pain, Severe (Pain Scale 7-10) Last Admin: 09/20/24 08:22 Dose: 0.5 mg Levofloxacin (Levaquin) 500 mg in 100 mls @ 100 mls/hr IV Q24H [facility] Last Infusion: 09/19/24 18:08 Dose: Infused Metronidazole (Flagyl) 500 mg in 100 mls @ 100 mls/hr IV Q8H [facility] Last Infusion: 09/20/24 08:01 Dose: Infused Ondansetron HCl (Ondansetron Hcl 4 Mg/2 Ml Vial) 4 mg IVPUSH QID PRN PRN Reason: Nausea Oxycodone HCl (Oxycodone Hcl Immed Release 5 Mg Tablet) 5 mg PO Q6H PRN PRN Reason: Pain, Moderate(Pain Scale 4-6) Last Admin: 09/17/24 16:06 Dose: 5 mg Polyethylene Glycol (Polyethylene Glycol 3350 17 Gm Powd.Pack) 17 gm PO DAILY PRN PRN Reason: Constipation Last Admin: 09/17/24 16:08 Dose: 17 gm Sodium Chloride (0.9 % Sodium Chloride Flush 3 Ml Syringe) 3 ml IVFLUSH [facility] Last Admin: 09/20/24 08:13 Dose: 3 ml Zolpidem Tartrate (Zolpidem Tartrate 5 Mg Tablet) 5 mg PO BEDTIME PRN PRN Reason: Insomnia Home Medications ?Medication ?Instructions ?Recorded ?Confirmed ?Last Taken ?Type calcium 315 mg (as 1 tab PO BID 09/13/24 09/13/24 09/12/24 History citrate)-vitamin D3 6.25 mcg (250 unit) tablet Exam Height,Weight and Vital Signs: Height 5 ft 6 in Weight 70.7 kg Last Vital Signs Temp 100.3 F 09/20/24 14:09 Pulse 61 09/20/24 14:09 Resp 16 09/20/24 14:09 BP 130/73 09/20/24 14:09 Pulse Ox 95 09/20/24 14:09 O2 Del Method Room Air 09/20/24 14:09 O2 Flow Rate 2 09/15/24 07:24 Pertinent Lab Results Pertinent Lab Results: Laboratory Tests 09/13/24 09/13/24 09/14/24 10:18 10:40 04:34 WBC 13.2 H 12.1 H RBC 4.00 L 4.12 L Hgb 12.9 L 13.1 L Hct 38.0 L 39.5 L MCV 95.0 95.9 MCH 32.3 31.8 MCHC 33.9 33.2 RDW 12.2 12.5 Plt Count 320 323 MPV 9.3 L 9.9 Immature Gran % (Auto) 0.5 H 0.3 Neut % (Auto) 88.7 H 85.7 H Lymph % (Auto) 3.6 L 7.4 L Dixon % (Auto) 7.0 6.4 Eos % (Auto) 0.0 0.0 Baso % (Auto) 0.2 0.2 Lymph # (Auto) 0.5 L 0.9 L Dixon # (Auto) 0.9 0.8 Eos # (Auto) 0.0 0.0 Baso # (Auto) 0.0 0.0 Abs Immat Gran (auto) 0.07 H 0.04 H Absolute Neuts (auto) 11.7 H 10.3 H Absolute Nucleated RBC 0.000 0.000 Nucleated RBC % (auto) 0.0 0.0 Sodium 136 137 Potassium 4.9 4.7 Chloride 106 113 H Carbon Dioxide 23 19 L Anion Gap 12 10 L BUN 19 H 26 H Creatinine 1.04 1.04 Estim Creat Clear Calc 57.0 57.0 Estimated GFR > 60 > 60 Random Glucose 205 H 211 H Calcium 8.9 7.1 L D Total Bilirubin 1.7 H Direct Bilirubin AST 137 H ALT 102 H Alkaline Phosphatase 75 Total Protein 7.1 Albumin 3.9 Lipase 22 Urine Color Dark Yellow Urine Appearance Cloudy Urine pH 5.0 Ur Specific [place] 1.020 Urine Protein 100 (2+) H Urine Glucose (UA) Negative Urine Ketones 15 Urine Blood Moderate (2+) H Urine Nitrite Negative Ur Leukocyte Esterase Trace H Urine RBC 3-5 H Urine WBC 0-5 Ur Squamous Epith Cells 0-2 Urine Bacteria None Seen Hyaline Casts 3-5 Granular Casts Present 09/15/24 09/16/24 08:05 05:46 WBC 9.3 RBC 3.15 L D Hgb 10.2 L D Hct 30.7 L D MCV 97.5 MCH 32.4 MCHC 33.2 RDW 12.8 Plt Count 258 MPV 9.8 Immature Gran % (Auto) 0.4 Neut % (Auto) 81.4 H Lymph % (Auto) 9.7 L Dixon % (Auto) 7.1 Eos % (Auto) 1.1 Baso % (Auto) 0.3 Lymph # (Auto) 0.9 L Dixon # (Auto) 0.7 Eos # (Auto) 0.1 Baso # (Auto) 0.0 Abs Immat Gran (auto) 0.04 H Absolute Neuts (auto) 7.6 Absolute Nucleated RBC 0.000 Nucleated RBC % (auto) 0.0 Sodium 136 141 Potassium 4.4 4.5 Chloride 110 H 111 H Carbon Dioxide 23 25 Anion Gap 7 L 10 L BUN 39 H 20 H Creatinine 1.23 1.03 Estim Creat Clear Calc 48.2 57.6 Estimated GFR 58 > 60 Random Glucose 125 H 128 H Calcium 6.6 L D 7.3 L D Total Bilirubin 0.6 Direct Bilirubin 0.4 AST 52 H ALT 64 H Alkaline Phosphatase 56 Total Protein 4.5 L Albumin 2.3 L Lipase Urine Color Urine Appearance Urine pH Ur Specific [place] Urine Protein Urine Glucose (UA) Urine Ketones Urine Blood Urine Nitrite Ur Leukocyte Esterase Urine RBC Urine WBC Ur Squamous Epith Cells Urine Bacteria Hyaline Casts Granular Casts Airway Mallampati Class: III TM Dist: >3cm Neck ROM: Full Heart: RRR Lungs: CTA Assessment and Plan Assessment Anesthesia Assessment: Anesthesia Plan Discussed and Chart Reviewed Final Anesthetic Review Family History of Problems with Anesthesia: No History of Problems with Anesthesia: No NPO: Yes ASA Class: III Final Preanesthetic Review: Meds/Allgs Chart Reviewed, Consent Obtained/Reviewed and Anes Risks/Benef Reviewed Patient Risk: Intermediate Procedure Risk: Intermediate Anesthetic Plan Anesthetic Plan: GA Disposition: Standard PACU
--- NOTE | 2024-09-20 16:13 | P.OP_ITS ---
Operative Note Operative Note Date of Service: 09/20/24 Narrative: Description:?Endoscopic retrograde cholangiopancreatography (ERCP) PROCEDURE:?Endoscopic retrograde cholangiopancreatography with sphincterotomy, balloon sweep, with stent placement and intra op cholangiogram with interpretation INDICATION FOR THE PROCEDURE:?Patient with a history of cholecystectomy, concern for bile leak with high output MEDICATIONS:?General anesthesia. The risks of the procedure were made aware to the patient and consisted of medication reaction, bleeding, perforation, aspiration, and post ERCP pancreat itis. DESCRIPTION OF PROCEDURE:?After informed consent and appropriate sedation, the duodenoscope was inserted into the oropharynx, down the esophagus, and into the stomach. The scope was then advanced through the pylorus to the ampulla. The tome was angled and immediately entered the CBD with the wire and confirmed by cholangiogram. No obvious leak was seen but there was considerable bowel gas limiting visualization and also the TUSHAR drain was not clipped. A sphincterotomy was performed and a 12 mm balloon was swept without any debris or sludge noted. The wire was reangled as it was suspected to be in the remnant cystic duct. It went into the left hepatic duct. A 10Fr x 9 cm stent was then placed with good bile flow noted. The stomach was decompressed and the scope removed. FINDINGS: 1. sphincterotomy, s/p balloon swepp and stent placement RECOMMENDATIONS: 1. NPO except ice chips today. 2. Advance diet tomorrow. 3. Stent removal in 8-12 weeks
[2024-09-20] MEDS: levoFLOXacin/D5W 500 MG/100 ML PIGGYBACK 100 MG IV (17:32)
[2024-09-21] MEDS: HYDROmorphone HCl 0.5 MG/0.5 ML SYRINGE IVPUSH ×5 (01:43→23:38)
[2024-09-21] MEDS: metroNIDAZOLE/NS 500 MG/100 ML PIGGYBACK 100 MG IV (06:01)
[2024-09-21 07:24] VITALS: BP 124/74; PULSE 78; RESP 18; TEMP 37; O2SAT 92
[2024-09-21] MEDS: 0.9 % Sodium Chloride Flush 3 ML SYRINGE IVFLUSH ×3 (07:28→19:22)
--- NOTE | 2024-09-21 08:21 | P.PNGS_ITS ---
Subjective Subjective Date of Service: 09/21/24 <Yoli Hernández PA-C - Last Filed: 09/21/24 08:27> 09/21/24 <Stuart Rob MD - Last Filed: 09/21/24 10:16> Interval history: Feels well this morning. Tolerated small amount of food yesterday. Reports mild incisional pain. Had BM yesterday. Due to wifes medical issues does not feel comfortable going home today. <Yoli Hernández PA-C - Last Filed: 09/21/24 08:27> Physical Exam 2 Vital Signs: Vital Signs: Last Vital Signs Temp 98.6 F 09/21/24 07:24 Pulse 78 09/21/24 07:24 Resp 18 09/21/24 07:24 BP 124/74 09/21/24 07:24 Pulse Ox 92 09/21/24 07:24 O2 Del Method Room Air 09/21/24 07:24 O2 Flow Rate 2 09/15/24 07:24 BMI result Body Mass Index 25.2 <Yoli Hernández PA-C - Last Filed: 09/21/24 08:27> Const: General: comfortable, no acute distress and alert <NIKA Schmitt Last Filed: 09/21/24 08:27> Resp: Effort & Inspection: normal respiratory effort and able to speak in complete sentences <Yoli Hernández PA-C - Last Filed: 09/21/24 08:27> GI: Other: TUSHAR drain serous output, scant <Yoli Hernández PA-C - Last Filed: 09/21/24 08:27> Inspection: No distended and Yes incision (clean) <Yoli Hernández PA-C - Last Filed: 09/21/24 08:27> Palpation (GI): Soft to palpation, Tenderness to palpation present (GI) (mild incisional) and no guarding <NIKA Schmitt Last Filed: 09/21/24 08:27> Skin: General skin exam: no rashes or lesions noted and no jaundice < NIKA Schmitt Last Filed: 09/21/24 08:27> Objective Data Active Medications Calcium Carbonate (Calcium Carbonate 750 Mg Tab.Chew) 750 mg PO Q4H PRN PRN Reason: Heartburn Docusate Sodium (Docusate Sodium 100 Mg Capsule) 100 mg PO BID PRN PRN Reason: Constipation Last Admin: 09/17/24 16:08 Dose: 100 mg Documented By: BYRON Hydromorphone HCl (Hydromorphone Hcl 0.5 Mg/0.5 Ml Syringe) 0.5 mg IVPUSH Q3H PRN; Protocol PRN Reason: Pain, Severe (Pain Scale 7-10) Last Admin: 09/21/24 07:28 Dose: 0.5 mg Documented By: DARRIAN Levofloxacin (Levofloxacin 500 Mg Tablet) 500 mg PO Q24H RENAE Metronidazole (Metronidazole 500 Mg Tablet) 500 mg PO Q8H RENAE Naloxone HCl (Naloxone Hcl 0.4 Mg/Ml Vial) 0.04 mg IVPUSH Q5M PRN PRN Reason: Excessive sedation or RR < 8 Ondansetron HCl (Ondansetron Hcl 4 Mg/2 Ml Vial) 4 mg IVPUSH QID PRN PRN Reason: Nausea Oxycodone HCl (Oxycodone Hcl Immed Release 5 Mg Tablet) 5 mg PO Q6H PRN PRN Reason: Pain, Moderate(Pain Scale 4-6) Last Admin: 09/17/24 16:06 Dose: 5 mg Documented By: BYRON Polyethylene Glycol (Polyethylene Glycol 3350 17 Gm Powd.Pack) 17 gm PO DAILY PRN PRN Reason: Constipation Last Admin: 09/17/24 16:08 Dose: 17 gm Documented By: BYRON Sodium Chloride (0.9 % Sodium Chloride Flush 3 Ml Syringe) 3 ml IVFLUSH [facility] Last Admin: 09/21/24 07:28 Dose: 3 ml Documented By: DARRIAN Zolpidem Tartrate (Zolpidem Tartrate 5 Mg Tablet) 5 mg PO BEDTIME PRN PRN Reason: Insomnia <Yoli Hernández PA-C - Last Filed: 09/21/24 08:27> Labs CBC & Chem 7: 09/16/24 05:46 09/16/24 05:46 <Yoli Hernández PA-C - Last Filed: 09/21/24 08:27> Procedures Date of Service Date of Service: 09/21/24 <Yoli Hernández PA-C - Last Filed: 09/21/24 08:27> 09/21/24 <Stuart Rob MD - Last Filed: 09/21/24 10:16> Progress Note: A&P Assessment and plan (1) Bile peritonitis: Status: Acute <Yoli Hernández PA-C - Last Filed: 09/21/24 08:27> Assessment and Plan: 73-year-old male patient pod 7 following laparoscopic converted to open cholecystectomy for gangrenous perforated cholecystitis with bile peritonitis and phlegmon. Had persistent bile leak post op now s/p ERCP with stent placement. VSS. Abd exam benign, incision clean, TUSHAR output nonbilious. Does not feel ready for dc today, will plan for tomorrow. Will remove TUSHAR drain prior. Encouraged increasing PO intake, activity today. Patient comfortable with plan. <Yoli Hernández PA-C - Last Filed: 09/21/24 08:27> 73-year-old male patient pod 7 following laparoscopic converted to open cholecystectomy for gangrenous perforated cholecystitis with bile peritonitis and phlegmon. Had persistent bile leak post op now s/p ERCP with stent placement. VSS. Abd exam benign, incision clean, TUSHAR output nonbilious. Does not feel ready for dc today, will plan for tomorrow. Will remove TUSHAR drain prior. Encouraged increasing PO intake, activity today. Patient comfortable with plan. Patient seen and examined, agree with the above assessment and plan. <Stuart Rob MD - Last Filed: 09/21/24 10:16> Time Spent With Patient Time: Total time managing care of this patient today ____ minutes. <Yoli Hernández PA-C - Last Filed: 09/21/24 08:27> Quality Stroke Does the patient have a stroke diagnosis?: No <Yoli Hernández PA-C - Last Filed: 09/21/24 08:27> VTE Prior VTE?: No <Yoli Hernández PA-C - Last Filed: 09/21/24 08:27> VTE Risk Level:: Surgical - moderate <Yoli Hernández PA-C - Last Filed: 09/21/24 08:27> VTE Device Contraindication: N/A - Device Ordered <Yoli Hernández PA-C - Last Filed: 09/21/24 08:27> VTE Drug Contraindication: N/A - Med Ordered <Yoli Hernández PA-C - Last Filed: 09/21/24 08:27>
--- NOTE | 2024-09-21 10:04 | HO.POSTANES ---
Post Anesthesia Evaluation Post Anesthesia Evaluation Date of Service: 09/21/24 Vital Signs: Vital Signs Temp Pulse Resp BP Pulse Ox O2 Del Method 09/21/24 07:24 98.6 F 78 18 124/74 92 Room Air 09/20/24 23:31 98.7 F 73 20 116/63 92 Room Air Anesthesia: General Mental Status: Awake Pain Control: Satisfactory Nausea/Vomiting: None Hydration: Adequate Anesthesia-Related Issues: No Anes. Related Issues
[2024-09-21] MEDS: metroNIDAZOLE 500 MG TABLET PO ×2 (14:20→21:55)
[2024-09-21 15:45] VITALS: BP 117/71; PULSE 80; RESP 16; TEMP 37.1; O2SAT 93
[2024-09-21 15:48] VITALS: O2SAT 93
--- NOTE | 2024-09-21 16:00 | PC.NURSE ---
Pt instructed on phase I diet out of bed ambulating
[2024-09-21] MEDS: levoFLOXacin 500 MG TABLET PO (17:13)
--- NOTE | 2024-09-21 18:52 | P.PNGI_ITS ---
Subjective Subjective Date of Service: 09/21/24 Interval History: doing well s/p ercp and stent bilious fluid in TUSHAR is much less no abdo pain no fever Critical Care Time (minutes): 0 Physical Exam 2 Vital Signs: Vital Signs: Last Vital Signs Temp 98.7 F 09/21/24 15:45 Pulse 80 09/21/24 15:45 Resp 16 09/21/24 15:45 BP 117/71 09/21/24 15:45 Pulse Ox 93 09/21/24 15:48 O2 Del Method Room Air 09/21/24 15:48 O2 Flow Rate 2 09/15/24 07:24 BMI result Body Mass Index 25.2 EXAM: GENERAL: The patient is well developed and nontoxic. VITAL SIGNS:see workflow HEENT: Nonicteric sclerae, PERRLA, EOMI. Oropharynx clear. Moist mucous membranes. Conjunctivae appear well perfused. No thyroid mass. CHEST: Chest wall is nontender. HEART: Regular rate and rhythm without murmurs. LUNGS: Clear to auscultation bilaterally. ABDOMEN: Soft, positive bowel sounds, nontender, no organomegaly.no flank tenderness--TUSHAR drain noted SKIN: No rash, no excessive bruising, petechiae, or purpura. NEUROLOGIC: Cranial nerves II-XII intact without motor/sensory deficit. Psych: normal affect Objective Data Labs 09/16/24 05:46 09/16/24 05:46 Microbiology Microbiology Results: Microbiology 09/14/24 10:07 Blood - Venous Blood Culture - Final No growth after 5 days. 09/14/24 10:07 Blood - Venous Blood Culture - Final No growth after 5 days. Procedures Date of Service Date of Service: 09/21/24 Progress Note: A&P Assessment and plan (1) Bile peritonitis: Status: Acute Plan 1/ Cholecystectomy with bile leak, s/p ERCP and stent placement PLAN: 1/ Remove stent in about 8-12 weeks --if any jaundice, fever, or signs of biliary obstruction would need it taken out earlier Time Spent With Patient Time: Total time managing care of this patient today ____ minutes. Quality Stroke Does the patient have a stroke diagnosis?: No VTE Prior VTE?: No VTE Risk Level:: Surgical - moderate VTE Device Contraindication: N/A - Device Ordered VTE Drug Contraindication: N/A - Med Ordered
[2024-09-21 19:17] VITALS: BP 139/74; PULSE 98; RESP 18; TEMP 36.8; O2SAT 95
[2024-09-21] MEDS: ondansetron HCL 4 MG/2 ML VIAL IVPUSH (19:22)
[2024-09-21 23:34] VITALS: BP 121/77; PULSE 102; RESP 18; TEMP 37.2; O2SAT 94
[2024-09-22 00:05] VITALS: RESP 18
[2024-09-22] MEDS: metroNIDAZOLE 500 MG TABLET PO (06:19)
[2024-09-22 07:03] VITALS: BP 114/71; PULSE 88; RESP 14; TEMP 37.1; O2SAT 91
[2024-09-22 08:02] VITALS: O2SAT 94
[2024-09-22] MEDS: 0.9 % Sodium Chloride Flush 3 ML SYRINGE IVFLUSH (08:07)
--- NOTE | 2024-09-22 08:21 | PM.PNGS ---
Subjective Subjective Date of Service: 09/22/24 Interval history: Feels better. Reports some occasional sharp incisional pains but overall improved. Ambulating without difficulty. WAnts to go home. Tolerating solid diet but appetite minimal. Physical Exam Vital Signs: Vital Signs: Last Vital Signs Temp 98.8 F 09/22/24 07:03 Pulse 88 09/22/24 07:03 Resp 14 09/22/24 07:03 BP 114/71 09/22/24 07:03 Pulse Ox 94 09/22/24 08:02 O2 Del Method Room Air 09/22/24 08:02 O2 Flow Rate 2 09/15/24 07:24 BMI result Body Mass Index 25.2 Const: General: comfortable, no acute distress and alert Orientation/consciousness: patient oriented x3 Resp: Effort & Inspection: normal respiratory effort GI: Other: TUSHAR drain serous Inspection: No distended and Yes incision (clean) Palpation (GI): Soft to palpation, Tenderness to palpation present (GI) (mild incisional) and no guarding Skin: General skin exam: no rashes or lesions noted and no jaundice Neuro: General: patient oriented x3 and moves all extremities Objective Data Active Medications Calcium Carbonate (Calcium Carbonate 750 Mg Tab.Chew) 750 mg PO Q4H PRN PRN Reason: Heartburn Docusate Sodium (Docusate Sodium 100 Mg Capsule) 100 mg PO BID PRN PRN Reason: Constipation Last Admin: 09/17/24 16:08 Dose: 100 mg Documented By: CALITC Hydromorphone HCl (Hydromorphone Hcl 0.5 Mg/0.5 Ml Syringe) 0.5 mg IVPUSH Q3H PRN; Protocol PRN Reason: Pain, Severe (Pain Scale 7-10) Last Admin: 09/21/24 23:38 Dose: 0.5 mg Documented By: YOUSIF Levofloxacin (Levofloxacin 500 Mg Tablet) 500 mg PO Q24H [facility] Last Admin: 09/21/24 17:13 Dose: 500 mg Documented By: CONOR Metronidazole (Metronidazole 500 Mg Tablet) 500 mg PO Q8H [facility] Last Admin: 09/22/24 06:19 Dose: 500 mg Documented By: YOUSIF Naloxone HCl (Naloxone Hcl 0.4 Mg/Ml Vial) 0.04 mg IVPUSH Q5M PRN PRN Reason: Excessive sedation or RR < 8 Ondansetron HCl (Ondansetron Hcl 4 Mg/2 Ml Vial) 4 mg IVPUSH QID PRN PRN Reason: Nausea Last Admin: 09/21/24 19:22 Dose: 4 mg Documented By: DAMON Oxycodone HCl (Oxycodone Hcl Immed Release 5 Mg Tablet) 5 mg PO Q6H PRN PRN Reason: Pain, Moderate(Pain Scale 4-6) Last Admin: 09/17/24 16:06 Dose: 5 mg Documented By: BYRON Polyethylene Glycol (Polyethylene Glycol 3350 17 Gm Powd.Pack) 17 gm PO DAILY PRN PRN Reason: Constipation Last Admin: 09/17/24 16:08 Dose: 17 gm Documented By: BYRON Sodium Chloride (0.9 % Sodium Chloride Flush 3 Ml Syringe) [address] [facility] Last Admin: 09/22/24 08:07 Dose: 3 ml Documented By: KASEY Zolpidem Tartrate (Zolpidem Tartrate 5 Mg Tablet) 5 mg PO BEDTIME PRN PRN Reason: Insomnia Labs 09/16/24 05:46 09/16/24 05:46 Procedures Date of Service Date of Service: 09/22/24 Progress Note: A&P Assessment and plan (1) Acute gangrenous cholecystitis: Status: Acute (2) Bile peritonitis: Status: Acute Plan 73-year-old male patient pod 8 following laparoscopic converted to open cholecystectomy for gangrenous perforated cholecystitis with bile peritonitis and phlegmon. Had persistent bile leak post op now s/p ERCP with stent placement. VSS. Abd exam benign, incision clean, TUSHAR output nonbilious. TUSHAR drain removed uneventfully. Stable for dc to home today with f/u in 1 week, outpatient GI f/u. Patient comfortable with plan. Time Spent With Patient Time: Total time managing care of this patient today ____ minutes. Quality Stroke Does the patient have a stroke diagnosis?: No VTE Prior VTE?: No VTE Risk Level:: Surgical - moderate VTE Device Contraindication: N/A - Device Ordered VTE Drug Contraindication: N/A - Med Ordered
--- NOTE | 2024-09-22 09:06 | MHC.CM.PN ---
pt dcd home self care
--- NOTE | 2024-09-22 09:38 | PM.DS ---
DS: Providers Provider Date of Service: 09/22/24 Date of admission: 09/13/24 14:22 Date of discharge: 09/22/24 Primary care physician: Angel Rosales MD Attending physician on admission: Stuart Rob Consults: 09/13/24 16:39 Consult to Hospitalist Routine Comment: Consulting Provider: [facility] Hospitalists Reason For Exam: Ned Rob MD 09/16/24 07:41 Consult to Gastroenterology Routine Consulting Provider: Shameka Felix Reason for consultation: s/p partial cholecystectomy, ruptured GB, high bilious TUSHAR output, ?stent Has provider been notified: No Attending physician on discharge: Stuart Rob DS: Diagnosis Discharge Diagnosis (1) Acute gangrenous cholecystitis: Status: Acute (2) Bile peritonitis: Status: Acute DS: Summary Hospital Course Hospital Course: HPI AT ADMISSION: Stuart Zavala is a 73 year old male presenting with complaints of abdominal pain which began on Friday after eating pizza. The pain was intermittent and occasionally quite sharp and severe located in the lower abdomen. The pain was associated with nausea and dry heaves. He has been having normal bowel movements without any change in his abdominal pain. The pain seemed to increase in severity this morning therefore he presented to the emergency department for further evaluation. He denies a previous history of similar symptoms. He previously underwent an umbilical hernia repair with mesh and also underwent colonoscopy in January this year. He denies a previous history of similar symptoms. Workup in the emergency department revealed diffuse tenderness in his abdomen. CT abdomen and pelvis showed revealed some dilated loops of proximal small bowel suggestive of a partial small-bowel obstruction. HOSPITAL COURSE: He is admitted to the surgical service for further management of this partial small-bowel obstruction. He had a leukocytosis and CT scan also noted multiple gallstones within the gallbladder with surrounding ascitic fluid with a positive Callahan sign which could suggest acute cholecystitis as well. An ultrasound of the abdomen was also ordered which confirmed a thickened gallbladder wall with multiple gallstones with abundant intraperitoneal fluid. He remained significantly tender in the RUQ and it was therefore recommended to proceed with laparoscopic or possible open cholecystectomy and was added onto to the operative schedule for that day. On 09/14/24, Laparoscopic converted to open cholecystectomy, open fenestration technique, drainage of gallbladder, drainage of peritoneal fluid (3 L) was performed by Dr. Rob without immediate complications. Patient was found to have acute gangrenous cholecystitis, cholelithiasis with obstructing gallstone, perforation of gallbladder, bile peritonitis. He was started on IV flagyl and levaquin post operatively. He had a slow recovery course and his diet was advanced slowly as tolerated. His TUSHAR drain had continued high bilious output which was monitored and had no improvement. GI was consulted and HIDA scan was performed and confirmed bile leak. He therefore underwent endoscopic retrograde cholangiopancreatography with sphincterotomy, balloon sweep, with stent placement and intra op cholangiogram with interpretation on 09/20/[address] Maldonado. His diet was advanced following. His TUSHAR drain output was nonbilious and became scant. On the day of discharge, he was tolerating a solid diet, his incisional pain was mild and well controlled, he was ambulating, he had good GI function. He was hemodynamically stable. His abdomen was benign with clean incisions. His TUSHAR output was serous and scant and removed. He was discharged to home on 09/22/24 in stable condition. He is to follow up in the office in 1 week. He is to follow up with Dr. Maldonado in 6-8 weeks for stent removal. Status at Discharge Functional status at discharge: independent ambulation Overall status at discharge: patient is progressing back to baseline Time Attestation Discharge Coordination Time (in mins): 50 Quality: Safe Use of Opioids Does Pt have an Active Cancer Diagnosis on the Problem List?: No Quality: Stroke Does the patient have a stroke diagnosis?: No Physical Exam Vital Signs: Vital Signs: Last Vital Signs Temp 98.8 F 09/22/24 07:03 Pulse 88 09/22/24 07:03 Resp 14 09/22/24 07:03 BP 114/71 09/22/24 07:03 Pulse Ox 94 09/22/24 08:02 O2 Del Method Room Air 09/22/24 08:02 O2 Flow Rate 2 09/15/24 07:24 BMI result Body Mass Index 25.2 Const: General: comfortable, no acute distress and alert Orientation/consciousness: patient oriented x3 Resp: Effort & Inspection: normal respiratory effort and able to speak in complete sentences GI: Other: incisions clean TUSHAR drain removed mild incisional tenderness, abd soft Skin: General skin exam: no rashes or lesions noted and no jaundice Neuro: General: patient oriented x3 and moves all extremities DS: Data Data Completed and Pending Completed studies during hospitalization [Text1]: 09/14/24 15:59 Surgical [PTH] Routine Gallbladder, cholecystectomy: Gallbladder with mucosal and transmural necrosis; cholelithiasis. Discharge Plan Discharge Anticipated Discharge Date/Time: 09/22/24 07:58 Patient Disposition: Home, Self-Care Discharge Diagnosis: perforated acute cholecystitis Referrals: Earlene Maldonado MD [Physician] - 1 Month Stuart Rob MD [Physician] - 1 Week Angel Rosales MD [Primary Care Provider] - 1 Week Discharge Medications: New oxycodone 5 mg tablet 5 mg PO Q4H PRN (Reason: pain (scale score 7-10)) Qty: 20 0RF Rx Instructions: Partial Fill upon patient request. Continued atorvastatin 10 mg tablet 10 mg PO BEDTIME Qty: 90 1RF telmisartan-hydrochlorothiazid 40-12.5 mg tablet 1 tab PO DAILY Qty: 90 1RF aspirin [Aspirin Childrens] 81 mg tablet,chewable 81 mg PO DAILY Qty: 90 0RF lorazepam 0.5 mg tablet 0.5 mg PO DAILY 30 Days Qty: 30 0RF meloxicam 15 mg tablet 15 mg PO DAILY Qty: 14 0RF calcium citrate-vitamin D3 315 mg-6.25 mcg (250 unit) tablet 1 tab PO BID Discharge Orders: Discharge Order (Routine); Ordered 09/22/24 Ordered By: Yoli Hernández Diet: Advance to usual diet Activity on Discharge: No heavy lifting Stand Alone Forms: Patient Portal Discharge page Print Language: Guatemalan Activity Restrictions/Additional Instructions: If the incision area is tender, you may apply an ice pack for short intervals (No more than 20 minutes on, followed by at least 20 minutes off). Do not apply heat. Do not use creams, lotions, or topical antibiotics. No heavy lifting (>10lbs) or strenuous activity! Take Tylenol Extra-strength 1-2 tabs every 6 hours as needed. Oxycodone every 6-8 hours as needed for pain. Colace 100 mg every day as needed for constipation. Follow up in office with Dr. Rob in 1 week. ([phone]) Follow up with Dr. Maldonado for stent removal. Call Your Doctor If: -Your temperature exceeds 101.5? F -You experience excessive pain or swelling -You have an unexpected reaction to medication -You have excessive bleeding -You experience continued vomiting/nausea -Your incision begins to separate -Your incision shows signs of infection such as increased redness, swelling, excessive pain, drainage (light blood or clear fluid is normal) or heat Care Plan Goals: Return to baseline health and resume normal activities following recovery period. Stent removal. Health Concerns: perforated gangrenous acute cholecystitis bile peritonitis bile leak Plan of Treatment: s/p open cholecystectomy s/p ERCP, stent placement Assessment: Doing well post op
== END 2024-09-22 11:48 | disposition home or self-care (01) | DRG 414 ==
LOC: HO.ED 14:31 → HO.EDOVER 14:33 → HO.S3 09-14 17:17
PROVIDERS: Internal Medicine Gastroenterology; Student in an Organized Health Care Education/Training Program; Admitting Provider Surgery; Emergency Provider Emergency Medicine; PCP Internal Medicine; Visit Provider Surgery
PROC: 0FT44ZZ Resection of Gallbladder, Percutaneous Endoscopic Approach (ICD-10-PCS; CPT 47562; principal; 2024-09-14 14:00)
PROC: 0F798DZ Dilation of Common Bile Duct with Intraluminal Device, Via Natural or Artificial Opening Endoscopic (ICD-10-PCS; CPT 43260; principal; 2024-09-20 14:00)
DX: K80.01 Calculus of gallbladder with acute cholecystitis with obstruction (principal); K65.3 Choleperitonitis; K82.A2 Perforation of gallbladder in cholecystitis; N17.9 Acute kidney failure, unspecified; K91.89 Other postprocedural complications and disorders of digestive system; K82.A1 Gangrene of gallbladder in cholecystitis; K90.0 Celiac disease; E86.0 Dehydration; E78.5 Hyperlipidemia, unspecified; I10 Essential (primary) hypertension; I95.9 Hypotension, unspecified; Z79.82 Long term (current) use of aspirin; Z79.899 Other long term (current) drug therapy
CPT/HCPCS: 36415; 74177; 76705; 78226; 80048; 80053; 80076; 81001; 83690; 85025; 87040; 88304; 93005; 99285; A9537; C1758; C2625; J0131; J0330; J1100; J1171; J1610; J1836; J1956; J2003; J2250; J2270; J2371; J2405; J2704; J2795; J3010; J7120; Q9967

== ENCOUNTER → 2024-09-13 10:20 | Outpatient (BNV) | payer MEDICARE, BC, SELFPAY | PROVIDERS: Admitting Provider Surgery; Emergency Provider Emergency Medicine; PCP Internal Medicine; Visit Provider Internal Medicine Cardiovascular Disease | DX: R94.31 Abnormal electrocardiogram [ECG] [EKG] (principal) | CPT/HCPCS: 93010 ==

== ENCOUNTER → 2024-09-13 10:27 | Outpatient (BNV) | payer MEDICARE, BC, SELFPAY | PROVIDERS: Emergency Provider Emergency Medicine; PCP Internal Medicine; Visit Provider Radiology Diagnostic Radiology | DX: K56.600 Partial intestinal obstruction, unspecified as to cause (principal); R18.8 Other ascites; N28.1 Cyst of kidney, acquired; I25.10 Atherosclerotic heart disease of native coronary artery without angina pectoris | CPT/HCPCS: 74177 ==

== ENCOUNTER → 2024-09-13 14:22 | Outpatient (BNV) | payer MEDICARE, BC, SELFPAY | PROVIDERS: Admitting Provider Surgery; Emergency Provider Emergency Medicine; PCP Internal Medicine; Visit Provider Surgery | DX: K65.3 Choleperitonitis (principal) | CPT/HCPCS: 47600; 99024; 99222; 99232 ==

== ENCOUNTER → 2024-09-13 14:22 | Outpatient (BNV) | payer MEDICARE, BC, SELFPAY | PROVIDERS: Admitting Provider Surgery; Emergency Provider Emergency Medicine; PCP Internal Medicine; Visit Provider Student in an Organized Health Care Education/Training Program | DX: I95.9 Hypotension, unspecified (principal); R79.89 Other specified abnormal findings of blood chemistry; N17.9 Acute kidney failure, unspecified | CPT/HCPCS: 99222; 99231; 99232 ==

== ENCOUNTER → 2024-09-13 14:22 | Outpatient (BNV) | payer MEDICARE, BC, SELFPAY | PROVIDERS: Admitting Provider Surgery; Emergency Provider Emergency Medicine; PCP Internal Medicine; Visit Provider Internal Medicine | DX: K65.3 Choleperitonitis (principal) | CPT/HCPCS: 99222; 99232 ==

== ENCOUNTER 2024-10-01 08:43 | Outpatient (AMB) | payer MEDICARE, BC, SELFPAY ==
--- OUTSIDE RECORDS SUMMARY | 2024-10-01 08:46 | XMS_ITS ---
Author [facility] Address [address] [facility] [address] [place] [address] Care Team Providers Care Reed Cleaner Name Role Phone Angel Rosales Primary Care Provider Black, Rosa Unavailable [phone] Allergies Allergen (clinical drug ingredient) Drug/Non Drug Allergy documented on EMR Reaction Allergy Type Onset Date Status Substance with penicillin structure and antibacterial mechanism of action (substance) Penicillins Unknown Drug Allergy Active REASON FOR VISIT Pcp-03/05, nail issue, Skin problem(s) Medications Medication SIG (Take, Route, Frequency, Duration) Notes Start Date End Date Status Telmisartan-HCTZ 40-12.5 MG 1 tablet Ora lly Once a day Active LORazepam 0.5 MG 1 tablet at bedtime as needed Orally Once a day Active Atorvastatin Calcium 10 MG 1 tablet Oral ly Once a day Active Meloxicam 15 MG 1 tablet Orally Once a day Active Aspirin 81 MG 1 tablet Orally Once a day Active Ammonium Lactate 12 % 1 application Exte rnally to affected areas of dry skin to feet except for between the toes Twice a day for 30 days Active Reclast 5 MG/100ML as directed Intravenous Active Calcium Citrate + D3 Active Reclast 5 MG/100ML as directed Intravenous Active Social History Tobacco Use: Social History Observation Description Date Details (start date - stop date) Never Smoker NA - NA Tobacco use other than smoking: Question Answer Notes Are you an other tobacco user? No Tobacco Control (Standard) Question Answer Notes Tobacco use: Nonsmoker AUDIT-C (Standard) Question Answer Notes Did you have a drink contain ing alcohol in the past year? Yes How often did you have six o r more drinks on one occasion in the past year? Declined to specify (0 point) How many drinks did you have on a typical day when you were drinking in the past year? Declined to specify (0 point) How often did you have a dri nk containing alcohol in the past year? Declined to specify (0 point) Points 0 Interpretation Negative Vital Signs Height 5 ft 5 in in 08/30/2024 Weight 150 lbs 08/30/2024 BMI 24.96 kg/m2 08/30/2024 Blood pressure systolic 120 mm Hg 08/30/20 Blood pressure diastolic 70 mm Hg 024 Encounters Encounter Location Date Provider Diagnosis [facility] [address] [place] [address] 08/30/2024 Rosa Zhao Xerosis of skin L85.3 and Tinea unguium B35.1 Assessments Encounter Date Diagnosis (ICD Code) Assessment Notes Treatment Notes Treatment Clinical Notes Section Notes 08/30/2024 Xerosis of skin (ICD-10 - L85.3) i 08/30/2024 Tinea unguium (ICD-10 - B35.1) i Plan Of Treatment Medication Medication Name Sig Start Date Stop Date Notes Ammonium Lactate 12 % 1 application Exte rnally to affected areas of dry skin to feet except for between the toes Twice a day for 30 days Next Appt Details Follow Up: prn, Reason: Progress Notes * Stuart CARTER SDOB:1950 (73 yo M)Acc No.[id number]:08/30/2024 Progress Notes Patient:?Stuart CARTER Provider:?Rosa Zhao DPM :1950???Age:73 Y???Sex:Male Tulio e:08/30/2024 Address:[address] [place] [address] Pcp:Angel Rosales Subjective: * Chief Complaints: * ???Pcp-03/05Nail Parvin connell(s) * HPI: ???Painful Nails:?Nature:?discolored.?Location:?Great toe, Right foot.?Duration:?several months.?Onset/Cause:?Pt relates he has trauma to the nail which resulted in a discolored nail and eventually the nail fell off.?Skin problems:?Nature:?dryness , scaling.?Location:?B/L .?Duration:?several days.?Course:?worse.? * ROS:?General/Constitutional:?Nausea?denies.?Vomiting?denies.?Hunger Thirst?denies.?Loss appetite?denies.?Chills?denies.?Fatigue?denies.?Fever?denies.?Night Sweats?denies.?Unexplained weight loss?denies.?Unexplained weight gain?denies.?HEENTM:?Dentures?denies.?Dizziness?denies.?Glasses/contacts?admits.?Retinopathy?de nies.?Blurred/double vision?denies.?TMJ?denies.?Discharge/drainage?denies.?Implants?denies.?Sore throat?denies.?Dental implants?admits.?Hard of hearing ?denies.?Difficulty chewing/swallowing/speaking?denies.?Nose bleeds?denies.?Sore mouth?denies.?Respiratory:?On Oxygen?denies.?Pneumonia/pleurisy?denies.?Bronchitis?denies.?Emphysema?denies.?C oughing?denies.?Cough blood?denies.?Shortness of breath?denies.?Wheezing?denies.?Cardiovascular:?Pacemaker?denies.?MVP?denies.?WPW?denies.?CHF?denies.?Heart attack?denies.?Septal defect?denies.?Rapid beat?denies.?Chest pain ?denies.?Atrial Fib.?denies.?Murmur/Palpitations?denies.?Gastrointestinal:?Hemorrhoids?admits.?Stomach/Abdominal pain?denies.?Dark blood stool?denies.?Irritable bowel ?denies.?Constipation?denies.?Diarrhea?denies.?Hematology:?Swelling?denies.?Clots?denies.?Varicose Veins?denies.?Bruising?denies.?Bleeding problem?denies.?Genitourinary:?Blood urine?denies.?Frequent/Painfu/urination/bladder control?denies.?Kidney stones?denies.?Infection (UTI)?denies.?Nephropathy?denies.?sex trans dis (STD)?denies.?Prostate?denies.?Musculoskeletal:?Hammertoes?denies.?Bunions?denies.?Back Pain?admits.?Muscle Cramps/ Resting?denies.?Muscle cramps / walking?denies.?Generalized aches and pains?admits.?Weakness?denies.?Integ.:?Delgado?denies.?Scars?denies.?Corns/calluses?denies.?Ingrown nails?denies.?Painful nails?, denies.?Open Sores?denies.?Rashes?denies.?Neurologic:?Difficulty sleeping?denies.?Brain disorder?denies.?Numbness?denies.?Balance trouble?denies.?Confusion?denies.?Fainting/blackouts?denies.?Tingling?denies.?Tr emors?denies.? * Medical History:? * Surgical History:?knee surge ry back surgery hernia * Hospitalization/Major Diagno stic Procedure:?Denies Past Hospitalization * Family History:?Mother: dece ased.?Father: , diagnosed with Unspecified essential hypertension.? * Social History:?Tobacco Use:?Tobacco use other than smoking?Are you an other tobacco user??No ?Tobacco Control (Standard)?Tobacco use:?Nonsmoker ???Drugs/Alcohol:?Drugs?Have you used drugs other than those for medical reasons in the past 12 months??No ???Miscellaneous:?Caffeine: yes, frequency:. ?Marital status: . ?Occupation: Retired. ???Drug/Alcohol:?AUDIT-C (Standard)?Did you have a drink containing alcohol in the past year??Yes ?How often did you have six or more drinks on one occasion in the past year??Declined to specify (0 point) ?How many drinks did you have on a typical day when you were drinking in the past year??Declined to specify (0 point) ?How often did you have a drink containing alcohol in the past year??Declined to specify (0 point) ?Points?0 ?Interpretation?Negative * Medications:?TakingReclast 5 MG/100ML Solution as directed Intravenous Calcium Citrate + D3 Atorvastatin Calcium 10 MG Tablet 1 tablet Orally Once a day Aspirin 81 MG Tablet Chewable 1 tablet Orally Once a day Meloxicam 15 MG Tablet 1 tablet Orally Once a day LORazepam 0.5 MG Tablet 1 tablet at bedtime as needed Orally Once a day Telmisartan-HCTZ 40-12.5 MG Tablet 1 tablet Orally Once a day Reclast 5 MG/100ML Solution as directed Intravenous Medication List reviewed and reconciled with the patientTaking Reclast 5 MG/100ML Solution as directed Intravenous Taking Calcium Citrate + D3 Taking Atorvastatin Calcium 10 MG Tablet 1 tablet Orally Once a day Taking Aspirin 81 MG Tablet Chewable 1 tablet Orally Once a day Taking Meloxicam 15 MG Tablet 1 tablet Orally Once a day Taking LORazepam 0.5 MG Tablet 1 tablet at bedtime as needed Orally Once a day Taking Telmisartan-HCTZ 40-12.5 MG Tablet 1 tablet Orally Once a day Taking Reclast 5 MG/100ML Solution as directed Intravenous Medication List reviewed and reconciled with the patient * Allergies:?Penicillinsyes[Alphonse montejo Verified] Objective: * Vitals:?Ht:5 ft 5 in, Wt:150 , BMI:24.96, Shoe size:9.5, BP:120/70mm Hg, Ht-cm: 165.1 cm, Wt-k.04 kg. * Examination: ???General Examination: ?GENERAL APPEARANCE:?Reveals a pleasant, alert, well nourished, well- developed, well hydrated individual, who demonstrates proper attention to hygiene/body habitus, and is in no acute distress, Pt serves as own historian for office visit today.?ORIENTED:?person, place, and time.?Vascular: ?DP PULSES(B):?2/4, B/L.?PT PULSES(B):?2/4, B/L.?CAPILLARY FILL TIME:?immediate, all digits, B/L.?TROPHIC CONDITION-TEXTURE/ELASTICITY/TURGOR/HAIR GROWTH(B):?normal, B/L.?TEMPERTURE GRADIENT(C):?normal, warm to cool, proximal to distal, B/L, B/L.?PIGMENTATION:?normal, B/L.?EDEMA(C):?absent, B/L.?Neurological: ?SENSORY:?Neurological exam reveals intact sensorium, pain sensation normal, vibration sensation intact, pinprick sensation is normal in the lower extremities, Pt denies, anesthesia, burning, paresthesia, tingling, B/L.?Dermatologic: ?SKIN FINDINGS:?Skin shows sign(s) of, dryness, scaling, in a stocking fashion, no fissure(s) present, B/L.?Nails: ?NAILS are:?TA, T1, T5, T7?Elongated, overgrown, dystrophic, lytic, greater than 3mm thick, discolored and friable with crumbly malodorous subungual debris, with no pain on palpation.? Assessment: * Assessment: 1.?Tinea unguium - B35.1 (Pr imary)???2.?Xerosis of skin - L85.3???Specify :Acute problem, Uncomplicated (3),Rx Management (4)??? i Plan: * Treatment: * Procedure Codes:? * Preventive Medicine:? ??Counseling:?Discussion:?-03: Office or other outpatient visit for the evaluation and management of a new patient, which required a medically appropriate history and/or examination and LOW level of DECISION MAKING for: 1 STABLE ACUTE UNCOMPLICATED PROBLEM, 2 OR MORE MINOR PROBLEMS, OR 1 STABLE CHRONIC PROBLEM, THAT POSE(S) A LOW RISK FOR MORBIDITY/MORTALITY. The visit on the day of the encounter encompassed interpreting the data and educating the patient as to the nature of their condition, treatment options available according to their individual PMH, meds, allergies, and overall health/living conditions, as well as any potential risks or complications that may occur from a failure to adhere to, and participate in, the recommended course of therapy. The discussion included a complete verbal, and/or written explanation of the examination results, any x-rays taken, the proposed diagnosis, and outline of the treatment plan. A schedule for future care needs was also explained. The patient verbalized an understanding of the instructions at this time and agreed to be an active participant in their treatment. If the patient should think of any questions or concerns after the visit, I have encouraged the patient to call the office.?Fungal Nail Counseling:?The patient was counseled on the diagnosis, potential etiologies (including, but not limited to, environmental factors, genetic, immune deficiency), and the multiple treatment options for Onychomycosis. We discussed the risks and benefits of each option from performing no treatment, to ultraviolet light shoe treatment, to laser nail treatment, to applying topical antifungals, to taking oral antifungal medication, to surgical removal of the involved nail(s) with or without performing a matricectomy, or any combination thereof. We discussed the advantages and disadvantages of each of possible treatment and importance for adherence to all the recommended therapies for optimum success. This includes the necessity for weekly emery board self nail home debridements, and control the nail and skin environment as much as possible by only using a fresh, dry pair of shoes/socks each day, as well as keeping the skin as dry as possible through the use of sprays/powders if necessary. The patient was instructed to discard the emery board after use to prevent reinfection of the involved nail(s). We discussed the mycological and visual clinical effectiveness of topical vs oral antifungal treatments as well as each ones potential side effects and/or any patient- specific medication interactions. We discussed the reasons behind the important requirement of regular liver function testing with oral antifungal therapy for safety. Patient questions regarding use, dosage, successful outcomes, blood tests, and possible pharmaceutical interactions were reviewed and the patient verbalized that all answers were clearly understood, Discussed use of tea tree oil, vicks vaporub and vinegar soaks.?Xerosis:?The patient was counseled on the diagnosis, potential etiologies, and treatment options for their skin condition. We discussed the risks and benefits of each option from performing no treatment, to utilizing OTC topical skin creams/ointments, to utilizing prescription topical creams/ointments, to utilizing customized compounded topical medications and use of nocturnal occlusion with any/all previously detailed therapies. We discussed the advantages and disadvantages of each possible treatment and importance for adherence to all the recommended therapies for optimum success and avoid potential complications such as open sore/infection/possible hospitalization. We discussed the potential effectiveness of each topical preparation as well as each ones possible side effects and/or patient medication interactions. Patient questions re: use, dosage, successful outcomes, and application consistency were reviewed and the patient verbalized that all answers were clearly understood. The patient has decided to apply Rx skin creams to their feet save the interspaces while paying special attention to the heels. Such was sent to their pharmacy at the time of visit.? * Follow Up:?prn * Images: * Sign off status: Completed true * Provider:?Rosa Zhao DPM Date:?2023 Generated for Smooth rankin/Miquel/Bj on:?10/01/2024 08:45 AM EST History and Physical Notes * HPI (History of Present Illness) Category Sub-Category Detail Notes Category Not es Painful Nails Onset/Cause: Pt relates he carson s trauma to the nail which resulted in a discolored nail and eventually the nail fell off Duration: several months Location: Great toe, Right dante t Nature: discolored Skin problems Nature: dryness , scaling Location: B/L Duration: several days Course: worse Examination Category Sub-Category Detail Notes Category Not es Neurological SENSORY: Neurological exa m reveals intact sensorium, pain sensation normal, vibration sensation intact, pinprick sensation is normal in the lower extremities, Pt denies, anesthesia, burning, paresthesia, tingling, B/L Dermatologic SKIN FINDINGS: Skin shows sign( s) of, dryness, scaling, in a stocking fashion, no fissure(s) present, B/L General Examination GENERAL APPEARANCE: Reveals a pleasant, alert, well nourished, well-developed, well hydrated individual, who demonstrates proper attention to hygiene/body habitus, and is in no acute distress, Pt serves as own historian for office visit today ORIENTED: person, place, and t cate Vascular DP PULSES (B): 2/4, B/L PT PULSES (B): 2/4, B/L CAPILLARY FILL TIME: immediate, all digi ts, B/L TEMPERTURE GRADIENT (C): normal, warm to cool, proximal to distal, B/L, B/L TROPHIC CONDITION-TEXTURE/ELASTICITY/TURGOR/HAIR GROWTH (B): normal, B/L EDEMA (C): absent, B/L PIGMENTATION: normal, B/L Nails NAILS are: TA, T1, T5, T7 E longated, overgrown, dystrophic, lytic, greater than 3mm thick, discolored and friable with crumbly malodorous subungual debris, with no pain on palpation
--- OUTSIDE RECORDS SUMMARY | 2024-10-01 08:46 | XMS_ITS | Patient Health Record ---
Author Organization [facility] Address [address] [facility] [place] [address] Care Team Providers Care Preschool Disability Teacher Name Role Phone Angel Rosales Primary Care Provider Black, Rosa Unavailable [phone] Allergies Allergen (clinical drug ingredient) Drug/Non Drug Allergy documented on EMR Reaction Allergy Type Onset Date Status Substance with penicillin structure and antibacterial mechanism of action (substance) Penicillins Unknown Drug Allergy Active Reason For Referral No Information Medications Medication SIG (Take, Route, Frequency, Duration) Notes Start Date End Date Status Ammonium Lactate 12 % 1 application Exte rnally to affected areas of dry skin to feet except for between the toes Twice a day for 30 days Active Reclast 5 MG/100ML as directed Intravenous Active Telmisartan-HCTZ 40-12.5 MG 1 tablet Ora lly Once a day Active LORazepam 0.5 MG 1 tablet at bedtime as needed Orally Once a day Active Calcium Citrate + D3 Active Reclast 5 MG/100ML as directed Intravenous Active Atorvastatin Calcium 10 MG 1 tablet Oral ly Once a day Active Meloxicam 15 MG 1 tablet Orally Once a day Active Aspirin 81 MG 1 tablet Orally Once a day Active Social History Tobacco Use: Social History [...] point) Points 0 Interpretation Negative Vital Signs Blood pressure diastolic 70 mm Hg 08/30/2024 Height 5 ft 5 in in 08/30/2024 Blood pressure systolic 120 mm Hg 08/30/2024 Weight 150 lbs 08/30/2024 BMI 24.96 kg/m2 08/30/2024 Encounters Encounter Location Date Provider Diagnosis [facility] [address] [place] [address] 08/30/2024 Rosa Black Xerosis of skin L85.3 and Tinea unguium B35.1 Assessments Encounter Date Diagnosis (ICD Code) Assessment Notes Treatment Notes Treatment Clinical Notes Section Notes 08/30/2024 Tinea unguium (ICD-10 - B35.1) i 08/30/2024 Xerosis of skin (ICD-10 - L85.3) i Plan Of Treatment No Information Insurance Providers Payer Name Payer Address Payer Phone Subscriber Number Group Number Insured Name Patient Relationship to Insured Coverage Start Date Coverage End Date Medicare National [employer] [address] [facility] [place] [address] [id number] Stuart Zavala Self - patient is the insured [facility] [address] [place] [address] [id number] Stuart Zavala Self - patient is the insured Medical (General) History Medical History History ICD Code Back,Hip,and Knee pain Broken bones covid-19 Hiatal hernia High Blood Pressure Osteoporosis Measles Mumps Chicken pox Surgical History Surgery Date(Month/Year) knee surgery back surgery hernia
--- NOTE | 2024-10-01 09:11 | MHC.OFFVIS ---
Intake Visit Reasons: open cholecystectomy Intake Note: Patient is seen in office for post op assessment post open cholecystectomy. Pt c/o: tenderness along incisions. Still taking rx pain meds as needed. 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: No Accompanied by: Self / Same As Patient Allergies Penicillins [PENICILLINS] Allergy (Unknown, Verified 10/01/24 09:14) UNK Medication List - Last Reconciled 10/01/24 by Stuart Rob MD aspirin (Aspirin Childrens) 81 mg PO DAILY atorvastatin 10 mg PO BEDTIME calcium citrate-vitamin D3 315 mg-6.25 mcg (250 unit) 1 tab PO BID lorazepam 0.5 mg PO DAILY 30 days meloxicam 15 mg PO DAILY oxycodone 5 mg PO Q4H PRN telmisartan-hydrochlorothiazid 40-12.5 mg 1 tab PO DAILY HPI Comments Details: 73-year-old male patient returning 1 week following discharge following a laparoscopic converted to open cholecystectomy for a gangrenous perforated acute cholecystitis due to cholelithiasis. He subsequently underwent ERCP with stent placement returns today for wound check. He reports some [facility] Medical History (Updated 10/01/24 @ 09:32 by Stuart Rob MD) [place] syndrome Bile peritonitis Acute gangrenous cholecystitis Osteoporosis Celiac disease Screening for colon cancer Amaurosis fugax Essential (primary) hypertension Surgical History (Updated 09/29/24 @ 15:40 by Keyla Restrepo Chandler) Hx of cholecystectomy (09/14/24) History of endoscopy History of colonoscopy H/O right knee surgery History of excision of pilonidal cyst History of umbilical hernia repair H/O hand surgery History of tonsillectomy Family History Father No problems noted. Mother Liver problem Social History Household Members: Spouse Housing: House Do you presently have visiting nurse or other home services: No Alcohol intake: current Alcohol intake frequency: holidays/special occasions only Patient Tobacco Use Status: Never used Tobacco e-Cigarette/Vaping Use: Never Used Second Hand Smoke Exposure: No service: No Current occupational status: retired Cognitive needs: No Hearing needs: Yes Vision needs: Yes (Glasses) Physical Exam Const General: no acute distress Nutritional Appearance: well nourished GI Other: Right upper quadrant and trocar incisions are clean, dry, and intact without redness or discharge. No hernia noted with Valsalva maneuver. Pinnacle were removed and wounds found to be well healed. Extrem Other: No edema Assessment & Plan Assessment & Plan (1) Acute gangrenous cholecystitis: Code(s): K81.0 - Acute cholecystitis Category: Medical Plan Status post open cholecystectomy for gangrenous perforated cholecystitis. Patient is much improved in his wounds are healing nicely. He continues to have some catching pain in the incision but there is no evidence of infection or hernia. He should continue to avoid lifting greater than 10 lb and return in 1 month for follow-up examination. Medications: Refilled oxycodone Partial Fill upon patient request. 5 mg PO Q4H PRN 14 tabs 0RF pain (scale score 7-10) Coding Level of Care Code Global (31977) Diagnoses Acute gangrenous cholecystitis K81.0
== END 2024-10-01 09:29 | disposition home or self-care (01) ==
PROVIDERS: PCP Internal Medicine; Visit Provider Surgery
DX: K81.0 Acute cholecystitis (principal)
CPT/HCPCS: 99024

== ENCOUNTER 2024-10-01 09:52 | Outpatient (REF) | payer MEDICARE, BC, SELFPAY ==
[2024-10-01 13:42] LABS: Estimated Average Glucose 94 mg/dL; Hemoglobin A1C 78.5974 umol/L; Hemoglobin A1c % 4.9 % (<6.0); Total Hemoglobin (HGBA1C) 2606.3155 umol/L
[2024-10-01 14:01] LABS: Alanine Aminotransferase 53 U/L (0-40); Albumin Level 3.4 g/dL (3.5-5.0); Alkaline Phosphatase 106 U/L (39-117); Anion Gap 11 (12-20); Aspartate Amino Transferase 55 U/L (5-37); Bilirubin Direct 0.3 mg/dL (0.0-0.5); Bilirubin Total 0.8 mg/dL (0.0-1.0); Blood Urea Nitrogen 12 mg/dL (9-16); Calcium 8.1 mg/dL (8.4-10.2); Carbon Dioxide 31 mmol/L (22-29); Chloride 103 mmol/L (96-108); Cholesterol 136 mg/dL (<200); Estimated Glomerular Filt Rate > 60; Glucose Random 102 mg/dL (60-115); HDL Cholesterol 25 mg/dL (>40); LDL Cholesterol Calculated 94 mg/dL (<100); Potassium 4.4 mmol/L (3.3-5.1); Sodium 141 mmol/L (135-145); Total Protein 6.4 g/dL (6.5-8.0); Triglycerides 85 mg/dL (<150)
== END 2024-10-01 09:53 | disposition home or self-care (01) ==
LOC: HO.HMGCLDS 09:52
PROVIDERS: PCP Internal Medicine; Visit Provider Internal Medicine
DX: I10 Essential (primary) hypertension (principal); K81.0 Acute cholecystitis; Z13.1 Encounter for screening for diabetes mellitus
CPT/HCPCS: 36415; 80048; 80061; 80076; 83036; 99212

== ENCOUNTER 2024-10-07 10:21 | Outpatient (AMB) | payer MEDICARE, BC, SELFPAY ==
--- OUTSIDE RECORDS SUMMARY | 2024-10-07 10:23 | XMS_ITS ---
Author Organization [facility] Address [address] [facility] [place] [address] Care Team Providers Care Car Wash Attendant Automatic Name Role Phone Angel Rosales Primary Care Provider [phone] Black, Rosa Unavailable [phone] Allergies Allergen (clinical drug ingredient) Drug/Non Drug [...] 024 Encounters Encounter Location Date Provider Diagnosis [facility] [place] [address] [place] [address] 08/30/2024 Rosa Zhao Xerosis of skin L85.3 [...] * Stuart CARTER SDOB:1950 (73 yo M)Acc No.[id number]:08/30/2024 Progress Notes Patient:?Stuart CARTER Provider:?Rosa Zhao DPM :1950???Age:73 Y???Sex:Male Tulio e:08/30/2024 Address:[address] [place] [address] Pcp:Angel Rosales Subjective: * Chief Complaints: * [...] Zhao DPM Date:?2023 Generated for Smooth rankin/Miquel/Bj on:?10/07/2024 10:23 AM EST History and Physical Notes * HPI (History of Present Illness) Category Sub-Category Detail Notes Category Not es Painful Nails Onset/Cause: Pt relates he carson s trauma to the nail which resulted in a discolored nail and eventually the nail fell off Duration: several months Location: Great toe, Right datne t Nature: discolored Skin problems Nature: dryness [...]
--- OUTSIDE RECORDS SUMMARY | 2024-10-07 10:23 | XMS_ITS | Patient Health Record ---
Author Organization [facility] [place] Address [address] [facility] [place] [address] Care Team Providers Care Manager Supply Name Role Phone Angel Rosales Primary Care Provider [phone] Black, Rosa Unavailable [phone] Allergies Allergen (clinical drug ingredient) Drug/Non Drug [...] 08/30/2024 Encounters Encounter Location Date Provider Diagnosis [facility] [place] [address] [place] [address] 08/30/2024 Rosa Black Xerosis of skin L85.3 [...] National [employer] [address] [facility] [address] [id number] Stuart Zavala Self - patient is the insured [address] [facility] [address] [place] [address] [id number] Stuart Zavala Self - patient is the insured Medical (General) History Medical History History ICD Code Back,Hip,and Knee pain Broken bones covid-19 Hiatal hernia High Blood Pressure Osteoporosis Measles Mumps Chicken pox Surgical History Surgery Date(Month/Year) knee surgery back surgery hernia
--- NOTE | 2024-10-07 10:25 | MHC.PC.OV ---
Vital Signs 10/07/24 10:27 Height 5 ft 6 in Weight 132 lb BMI 21.3 BP 124/60 Blood Pressure Location Lt brachial Position Sitting Intake Visit Reasons: TCM [facility] [place] [facility] Intake Note: Patient is here for hospital discharge follow up and TCM. Patient was discharged from [facility] on 09/22/24. Telemetry Tech Required: No Janitor Custodian: Not Required per policy Accompanied by: Self / Same As Patient Allergies Penicillins [PENICILLINS] Allergy (Unknown, Verified 10/07/24 10:26) UNK Tobacco use date assessed: 10/07/24 Fall risk assessment: No Falls in past year Last assessed Fall Risk: 10/07/24 Dental Screening Dental Screen Date: 04/01/24 HPI TCM [facility] [place] [facility] HPI Details Date of Admission: 09/13/2024 Date of Discharge: 09/22/2024 TCM TCM Information Date of Discharge 09/22/24 Discharged From [facility] Interactive Contact Date (Reference documentation from this date) 09/23/24 [facility] Medical History Stacia syndrome Bile peritonitis Acute gangrenous cholecystitis Osteoporosis Celiac disease Screening for colon cancer Amaurosis fugax Essential (primary) hypertension Surgical History (Updated 10/07/24 @ 11:01 by Angel Rosales MD) Hx of cholecystectomy (09/14/24) History of endoscopy History of colonoscopy (~06/18/22) H/O right knee surgery History of excision of pilonidal cyst History of umbilical hernia repair H/O hand surgery History of tonsillectomy Family History Father No problems noted. Mother Liver problem Social History Household Members: Spouse Housing: House Do you presently have visiting nurse or other home services: No Alcohol intake: current Alcohol intake frequency: holidays/special occasions only Patient Tobacco Use Status: Never used Tobacco e-Cigarette/Vaping Use: Never Used Second Hand Smoke Exposure: No service: No Current occupational status: retired Cognitive needs: No Hearing needs: Yes Vision needs: Yes (Glasses) Questionnaire Thrive Questionnaire Date Thrive assessed: 09/14/24 REYNOLD-7 AMB Questionnaire REYNOLD-7 Date REYNOLD - 7 assessed: 04/01/24 Source: Developed by DrsEneida Tang, Rosalva Otoole, Marcellus Gunn and colleagues, with an educational darvin from [employer]. Physical exam (Primary Care) Vital Signs: Last Vital Signs BP 124/60 10/07/24 10:27 BMI result Body Mass Index 21.3 Tobacco/Smoking Status: Tobacco use Status Tobacco use date assessed 10/07/24 10/07/24 10:38 Patient Tobacco Use Status Never used Tobacco 10/07/24 10:38 e-Cigarette/Vaping Use Never Used 10/07/24 10:38 Thrive Assessment: Date of Thrive Assessment Date Thrive assessed 09/14/24 10/07/24 10:38 Coding Level of Care Code TCM Mod MDM <= 14 Days Complex EM visit Add On G2211 Diagnoses Abdominal pain R10.9 Assessment & Plan Assessment & Plan (1) Abdominal pain: Code(s): R10.9 - Unspecified abdominal pain Plan: Status post laproscopic /open cholecystectomy. Surgical scar is healing well. Pantoprazole for GERD symptoms. Oxycodone can cause constipation. Stool softners suggested. Plan History of Present Illness Patient presents for a TCM visit. The patient is a 73-year-old male presenting with postoperative concerns following a gallbladder rupture that required surgical intervention. Initially, after consuming pizza, the patient experienced severe abdominal pain described as a burning arrow. This pain resulted in an emergent call to 911 and subsequent hospitalization. During the hospitalization, he underwent gallbladder surgery, initially attempted laparoscopically on Friday, which required conversion to open surgery to remove the ruptured gallbladder. Postoperatively, the patient reports belching and appetite changes, with weight loss due to decreased intake. He describes intermittent abdominal grab sensations and uses oxycodone primarily at night for pain management. Although he experiences belching, he denies issues with bowel movements, reporting regular gas passage. He expresses concerns about the healing of his surgical scar but indicates overall improvement in his condition. Social History - Marital Status: , resides with . - Nutritional Intake: Reduced appetite post-surgery, with cereal in the morning. - Family Dynamics: Attended a family gathering for [employer]; daughter's residence mentioned. - Activity Level: Able to drive short distances without issue. Review of Systems - Gastrointestinal: Reports belching, otherwise denies constipation. - General: Denies significant changes in urine output. - Appetite: Reports decreased appetite. Physical Exam General: Appearance normal, both eyes and all related structures Nutritional Appearance: Lost a lot of weight Orientation/consciousness: Patient oriented x3 Limitations: No limitations Head: Normal to inspection Neck: Normal visual inspection Chest: Normal palpation of entire chest wall Respiratory: Normal respiratory effort Neurology: Patient oriented x3 Abd: Healing surgical scar. Bowel sounds well heard all over. Results Plan - Reassess belching and abdominal discomfort with potential prescription for acid suppression therapy. - Monitor and reduce oxycodone use for pain management as per patient needs. - Emphasize dietary modifications to aid recovery and improve appetite. - Encourage continuation of regular bowel movements with stool softeners if needed. - Follow up regarding surgical wound healing. Patient was informed and verbally consented to the use of an ambient scribe for clinic note documentation during this visit. Discussion Notes I discussed the patient's progress following the open cholecystectomy due to gallbladder rupture. We reviewed the symptoms of belching and abdominal discomfort, acknowledging potential postoperative gas retention. I provided a prescription to address excess belching and advised the patient to cease the medication once symptoms resolve. We also reviewed the pain management plan, emphasizing minimizing oxycodone use to prevent constipation, and I suggested stool softeners as needed. I explained the importance of adhering to a semi-solid diet and abstaining from heavy foods to facilitate recovery. I mentioned the projected two-week timeframe for full recovery and recommended against forcing larger meals. Upon reviewing his concerns about his surgical scar, I reassured him of the normal healing process. We concluded with anticipatory guidance for any recurrence of symptoms and the importance of keeping scheduled follow-ups. Patient Instructions - Take prescribed medication for belching as directed. Discontinue once symptoms resolve. - Gradually reduce oxycodone use; consider stool softeners if necessary to prevent constipation. - Maintain a semi-solid diet to support recovery. - Monitor surgical wound healing and report any concerning changes. - Follow up with physician if recovery concerns arise. - Reached out for any new or worsening symptoms.
[2024-10-07 10:27] VITALS: BP 124/60; BMI 21.3
== END 2024-10-07 10:58 | disposition home or self-care (01) ==
PROVIDERS: PCP Internal Medicine; Visit Provider Internal Medicine
DX: R10.9 Unspecified abdominal pain (principal)

== ENCOUNTER → 2024-10-07 10:21 | Outpatient (BNVA) | payer MEDICARE, BC, SELFPAY | PROVIDERS: PCP Internal Medicine; Visit Provider Internal Medicine | DX: R10.9 Unspecified abdominal pain (principal); K21.9 Gastro-esophageal reflux disease without esophagitis | CPT/HCPCS: 99495 ==

== ENCOUNTER → 2024-11-05 08:59 | Outpatient (BNVA) | payer MEDICARE, BC, SELFPAY | PROVIDERS: PCP Internal Medicine; Visit Provider Surgery | DX: K81.0 Acute cholecystitis (principal) | CPT/HCPCS: 99212 ==

== ENCOUNTER 2024-12-16 08:27 | Day surgery (SDC) | payer MEDICARE, BC, SELFPAY ==
[2024-12-14 14:59] VITALS: BMI 23.8
--- NOTE | 2024-12-15 09:39 | P.CONAN_ITS ---
Documented by User: Kate Rosenberg NP 12/15/24 09:42 HPI - Anesthesia Eval Consult details Narrative: Upper Endoscopy with stent removal s/p ERCP with stent 09/2024 with GA-ETT 7.5 during inpt. Anesthesia record notes small mouth requiring glidescope. [facility] admit 09/2024 HOSPITAL COURSE: He is admitted to the surgical service for further management of this partial small-bowel obstruction. He had a leukocytosis and CT scan also noted multiple gallstones within the gallbladder with surrounding ascitic fluid with a positive Callahan sign which could suggest acute cholecystitis as well. An ultrasound of the abdomen was also ordered which confirmed a thickened gallbladder wall with multiple gallstones with abundant intraperitoneal fluid. He remained significantly tender in the RUQ and it was therefore recommended to proceed with laparoscopic or possible open cholecystectomy and was added onto to the operative schedule for that day. On 09/14/24, Laparoscopic converted to open cholecystectomy, open fenestration technique, drainage of gallbladder, drainage of peritoneal fluid (3 L) was performed by Dr. Rob without immediate complications. Patient was found to have acute gangrenous cholecystitis, cholelithiasis with obstructing gallstone, perforation of gallbladder, bile peritonitis. He was started on IV flagyl and levaquin post operatively. He had a slow recovery course and his diet was advanced slowly as tolerated. His TUSHAR drain had continued high bilious output which was monitored and had no improvement. GI was consulted and HIDA scan was performed and confirmed bile leak. He therefore underwent endoscopic retrograde cholangiopancreatography with sphincterotomy, balloon sweep, with stent placement and intra op cholangiogram with interpretation on 09/20/[address] Maldonado. His diet was advanced following. His TUSHAR drain output was nonbilious and became scant. On the day of discharge, he was tolerating a solid diet, his incisional pain was mild and well controlled, he was ambulating, he had good GI function. He was hemodynamically stable. His abdomen was benign with clean incisions. His TUSHAR output was serous and scant and removed. He was discharged to home on 09/22/24 in stable condition. He is to follow up in the office in 1 week. He is to follow up with Dr. Maldonado in 6-8 weeks for stent removal. PMFSH Active Problems Active Problems: All Active Problems Osteoarthritis of hand (Acute) Generalized anxiety disorder (Acute) Encounter for other general examination (Acute) Screening examination for infectious disease (Acute) Osteoporosis (Acute) Celiac disease (Acute) Screening for colon cancer (Acute) Essential (primary) hypertension (Acute) Amaurosis fugax (Acute) Past Medical History Medical History Blair syndrome Bile peritonitis Acute gangrenous cholecystitis Osteoporosis Celiac disease Screening for colon cancer Amaurosis fugax Essential (primary) hypertension Family History Family History Father No problems noted. Mother Liver problem Family history of problems with anesthesia: No Surgical History Surgical History History of ERCP Hx of cholecystectomy (09/14/24) History of endoscopy History of colonoscopy (~06/18/22) H/O right knee surgery History of excision of pilonidal cyst History of umbilical hernia repair H/O hand surgery History of tonsillectomy History of Problems with Anesthesia: No Social History Social History Household Members: Spouse Housing: House Are you a primary director of home care hospice to a significant other at home: No Do you presently have visiting nurse or other home services: No Alcohol intake: current Alcohol intake frequency: holidays/special occasions only Patient Tobacco Use Status: Never used Tobacco e-Cigarette/Vaping Use: Never Used Second Hand Smoke Exposure: No Have you been hit, kicked, punched, or otherwise hurt by someone within the past year? If so, by whom?: No Are you DNR?: No Advance Directives: No Advance Directives Information Provided: Yes Nutrition Risks: No Nutritional Risk service: No Current occupational status: retired Cognitive needs: No Hearing needs: Yes Vision needs: Yes (Glasses) Meds Allergies Allergy/AdvReac Type Severity Reaction Status Date / Time Penicillins [PENICILLINS] Allergy Unknown UNK Verified 12/16/24 09:30 Home Medications ?Medication ?Instructions ?Recorded ?Confirmed ?Last Taken ?Type calcium 315 mg (as 1 tab PO BID 09/13/24 12/14/24 09/12/24 History citrate)-vitamin D3 6.25 mcg (250 unit) tablet Exam Height,Weight and Vital Signs: Height 5 ft 7 in Weight 68.946 kg Narrative Narrative: EKG 09/2024 Vent. Rate : 118 BPM Atrial Rate : 118 BPM P-R Int : 168 ms QRS Dur : 134 ms QT Int : 330 ms P-R-T Axes : 040 -39 005 degrees QTc Int : 462 ms Sinus tachycardia Left axis deviation Right bundle branch block Abnormal ECG No previous ECGs available Assessment and Plan Assessment Anesthesia Assessment: Chart Reviewed Final Anesthetic Review Family History of Problems with Anesthesia: No History of Problems with Anesthesia: No Documented by User: Andrews Alcaraz MD 12/16/24 10:39 PMFSH Past Medical History Medical History Stacia syndrome Bile peritonitis Acute gangrenous cholecystitis Osteoporosis Celiac disease Screening for colon cancer Amaurosis fugax Essential (primary) hypertension Narrative: Echo from 05/2021 reviewed. Family History Family History Father No problems noted. Mother Liver problem Surgical History Surgical History History of ERCP Hx of cholecystectomy (09/14/24) History of endoscopy History of colonoscopy (~06/18/22) H/O right knee surgery History of excision of pilonidal cyst History of umbilical hernia repair H/O hand surgery History of tonsillectomy Social History Social History Household Members: Spouse Housing: House Are you a primary director of home care hospice to a significant other at home: No Do you presently have visiting nurse or other home services: No Alcohol intake: current Alcohol intake frequency: holidays/special occasions only Patient Tobacco Use Status: Never used Tobacco e-Cigarette/Vaping Use: Never Used Second Hand Smoke Exposure: No Have you been hit, kicked, punched, or otherwise hurt by someone within the past year? If so, by whom?: No Are you DNR?: No Advance Directives: No Advance Directives Information Provided: Yes Nutrition Risks: No Nutritional Risk service: No Current occupational status: retired Cognitive needs: No Hearing needs: Yes Vision needs: Yes (Glasses) Meds Allergies Allergy/AdvReac Type Severity Reaction Status Date / Time Penicillins [PENICILLINS] Allergy Unknown UNK Verified 12/16/24 09:30 Home Medications ?Medication ?Instructions ?Recorded ?Confirmed ?Last Taken ?Type calcium 315 mg (as 1 tab PO BID 09/13/24 12/14/24 09/12/24 History citrate)-vitamin D3 6.25 mcg (250 unit) tablet Exam Airway Mallampati Class: II TM Dist: <=3cm Neck ROM: Full Partial: Upper (fixed) Heart: ok Lungs: ok Assessment and Plan Assessment Anesthesia Assessment: Anesthesia Plan Discussed Final Anesthetic Review NPO: Yes ASA Class: III Final Preanesthetic Review: No Changes in Pt Med Stat, Meds/Allgs Chart Reviewed, Consent Obtained/Reviewed and Anes Risks/Benef Reviewed Patient Risk: Intermediate Procedure Risk: Intermediate Anesthetic Plan Anesthetic Plan: Agree w/ Assess. and Plan and TIVA Disposition: Standard PACU
[2024-12-16 09:10] VITALS: BMI 20.1
[2024-12-16] MEDS: Lactated Ringers 1,000 ML 100 ML IVCONT (09:17)
[2024-12-16 09:27] VITALS: BP 108/59; PULSE 71; RESP 18; TEMP 36.7; O2SAT 97
--- NOTE | 2024-12-16 10:19 | MHC.SHP ---
Pre-Procedural Eval Section A - 24 Hr Update-Section A only Date of Service: 12/16/24 Section B - Complete if H&P > 30 days Chief Complaint: Choleperitonitis,celiac disease Details of Present Illness: stent removal Relevant Family History (Specify if Yes): No Relevant Social History: None Present Medications: see Short Stay Collaborative assessment Medical History: Significant History (Stacia syndrome Bile peritonitis Acute gangrenous cholecystitis Osteoporosis Celiac disease Screening for colon cancer Amaurosis fugax Essential (primary) hypertension) History of Previous Operations: Relevant previous surgery/procedure and date(s) (History of ERCP Hx of cholecystectomy (09/14/24) History of endoscopy History of colonoscopy (~06/18/22) H/O right knee surgery History of excision of pilonidal cyst History of umbilical hernia repair H/O hand surgery History of tonsillectomy) Allergies: Allergies Allergy/AdvReac Type Severity Reaction Status Date / Time Penicillins [PENICILLINS] Allergy Unknown UNK Verified 12/16/24 09:30 Review of Systems Sugical H&P ROS: Negative: Constitution, Cardiovascular, Respiratory, Neurological, Psychiatric, Hem-Onc, Allergic/Immunologic, Gastrointestinal, Genitourinary, Musculoskeletal, Integumentary, Endocrine and Eyes/Ears/Nose/Throat Exam Surgical H&P Exam: Normal: HEENT, Normal: Heart, Normal: Lungs, Normal: Extremities, Normal: Abdomen, Normal: Skin and Normal: Neurological Plan Diagnosis/Plan: Unchanged I have reviewed the history and physical and performed a pertinent physical examination on my patient. No changes have occurred unless specified. Time Spent With Patient Time: Total time managing care of this patient today ____ minutes.
--- NOTE | 2024-12-16 10:51 | W.PM.OPN ---
Operative Note Operative Note Date of Service: 12/16/24 Narrative: Procedure Description: EGD Indication: stetn removal Anesthesia: MAC FLEXIBLE TRANSORAL UPPER GASTROINTESTINAL ENDOSCOPY UPPER ENDOSCOPY Consent: Indications for the procedure and potential complications of bleeding, perforation, reaction to medications and missed diagnosis were discussed with the patient and informed consent was obtained. Instrument: Olympus GIF H 190 J mid size upper endoscope Monitoring: Vital signs and clinical assessment, continuous EKG monitoring, Pulse oximetry, Carbon Dioxide monitoring and blood pressure monitoring were done throughout the procedure. Procedure: The patient was placed in the left lateral decubitis position and pre-procedure medications were administered and a bite block was placed. The endoscope was inserted into the mouth and advanced under direct vision to the third part of duodenum. A careful inspection was made as the upper endoscope was withdrawn including a retroflexed examination of the proximal stomach; Findings and interventions are described below. Findings: Larynx:normal Esophagus: GE junction at 38 cm, diaphragm hiatus at 38 cm, mild esophagitis at GEJ Stomach: normal . Biopsies were obtained. Grade 2 flap valve on retroflexed examination of the cardia. Duodenum: patchy erythema and granular mucosa, stent noted and removed with snare -- there was good flow of bile noted Intervention: stent removal Impression/Findings: esophagitis duodenitis PLAN: compliance with gluten free diet GERD precautions
[2024-12-16 10:59] VITALS: BP 99/52; PULSE 71; RESP 16; TEMP 37.1; O2SAT 94
[2024-12-16 11:14] VITALS: BP 100/62; PULSE 64; RESP 16; O2SAT 98
== END 2024-12-16 12:25 | disposition home or self-care (01) ==
PROVIDERS: PCP Internal Medicine; Visit Provider Internal Medicine Gastroenterology
PROC: 0DJ08ZZ Inspection of Upper Intestinal Tract, Via Natural or Artificial Opening Endoscopic (ICD-10-PCS; CPT 43235; principal; 2024-12-16 11:00)
DX: K21.00 Gastro-esophageal reflux disease with esophagitis, without bleeding (principal); K29.80 Duodenitis without bleeding; Z46.59 Encounter for fitting and adjustment of other gastrointestinal appliance and device; K65.3 Choleperitonitis; K90.0 Celiac disease; G45.3 Amaurosis fugax; I10 Essential (primary) hypertension; Z79.899 Other long term (current) drug therapy
CPT/HCPCS: 43247; J2003; J2704; J3010

== ENCOUNTER → 2024-12-16 08:27 | Outpatient (BNV) | payer MEDICARE, BC, SELFPAY | PROVIDERS: PCP Internal Medicine; Visit Provider Internal Medicine Gastroenterology | DX: K90.0 Celiac disease (principal); K65.3 Choleperitonitis; K20.90 Esophagitis, unspecified without bleeding; K29.80 Duodenitis without bleeding | CPT/HCPCS: 43239; 43247 ==

== ENCOUNTER 2024-12-22 08:35 | Outpatient (AMB) | payer MEDICARE, BC, SELFPAY ==
--- NOTE | 2024-12-22 08:36 | MHC.OFFVIS ---
Vital Signs 12/22/24 08:50 Height 5 ft 7 in Weight 136 lb 10.986 oz BMI 21.4 BP 110/64 Blood Pressure Location Rt brachial Position Sitting Pulse 76 Pulse Source Pulse Oximeter Pulse Oximetry (%) 97 Oxygen Delivery Method Room Air Intake Visit Reasons: ~8 mos FUV. New sx. Intake Note: ESTABLISHED PATIENT for s/p EGD w/ TH. Stent removal. Chief Complaint; Pt denies any sx at this moment. Pt does report that he had cholecystectomy via Dr. Rob in October. Pt has not had any sx since then. Manufacturing Project Engineer Required: No Accompanied by: Self / Same As Patient Allergies Penicillins [PENICILLINS] Allergy (Unknown, Verified 12/22/24 08:37) UNK HPI HPI ~8 mos FUV. New sx.: Details: LAST VISIT: Celiac disease GERD (gastroesophageal reflux disease) Status post colonoscopy Plan Colonoscopy in 5 years, sooner if clinically necessary. Patient had no polyps found, however he had suboptimal prep to right side of his colon. Upper endoscopy biopsy consistent with celiac disease. Patient reports that he is aware of that was told that several years ago, however patient is not planning on to staying away from gluten. Script for pantoprazole refilled. Patient reports that it is working well for him. Patient denies any dyspepsia, dysphagia or odynophagia. No trouble after anesthesia or procedure itself. Patient will follow-up in the office on as needed basis. He is agreeable to this plan and verbalizes understanding of instructions. He was given the opportunity to ask questions and all questions answered. ? Thank you for allowing me to participate in his care Medications Refilled pantoprazole take one tablet half an hour before breakfast 40 mg PO DAILY 90 tabs 2RF K21.9 Discontinued bisacodyl (Dulcolax (bisacodyl)) take 4 tabs at noon the day before your colonoscopy Discontinued Reason: Patient no longer taking 20 mg (4 x 5 mg) PO ONCE 1 day 4 tabs 0RF Z12.11 peg 3350-electrolytes 236-22.74-6.74 -5.86 gram Refer to prep instructions given/ mailed to you from GI OFFICE. until fecal effluent is clear Discontinued Reason: Patient no longer taking 240 mL PO Q10M 4,000 mL 0RF ENDOSCOPY: Findings: Larynx:normal Esophagus: GE junction at 38 cm, diaphragm hiatus at 38 cm, mild esophagitis at GEJ Stomach: normal . Biopsies were obtained. Grade 2 flap valve on retroflexed examination of the cardia. Duodenum: patchy erythema and granular mucosa, stent noted and removed with snare -- there was good flow of bile noted Intervention: stent removal Impression/Findings: esophagitis duodenitis PLAN: compliance with gluten free diet GERD precautions ADDENDUMalso consider changing telmisartan can be assocaited with celiac like enteropathy TODAY'S VISIT Patient is here today for follow-up and to discuss endoscopy results. Patient reports to be feeling well. Patient had abdominal pain and of August of 2024 and was seen in the ER. Patient had acute cholecystitis. Laparoscopic converted to open cholecystectomy for a gangrenous perforated acute cholecystitis due to cholelithiasis. He subsequently underwent ERCP with stent placement. Stent was removed during endoscopy. Patient reports that he has been doing much better now. No longer is taking pantoprazole stay that he is able to take 3 more and starts to increasing weight. Patient is trying to eat more along with doing protein shakes couple times a week. Patient denies dyspepsia, dysphagia or odynophagia. Patient is trying to avoid gluten, however he is still having trouble as he likes pizza and bread. Message sent to PCP about changing telmisartan to different medication as this could be associated with celiac like enteropathy [facility] Medical History Stacia syndrome Bile peritonitis Acute gangrenous cholecystitis Osteoporosis Celiac disease Screening for colon cancer Amaurosis fugax Essential (primary) hypertension Surgical History History of ERCP Hx of cholecystectomy (09/14/24) History of endoscopy History of colonoscopy (~06/18/22) H/O right knee surgery History of excision of pilonidal cyst History of umbilical hernia repair H/O hand surgery History of tonsillectomy Family History Father No problems noted. Mother Liver problem Social History Household Members: Spouse Housing: House Are you a primary rn acute care to a significant other at home: No Do you presently have visiting nurse or other home services: No Alcohol intake: current Alcohol intake frequency: holidays/special occasions only Patient Tobacco Use Status: Never used Tobacco e-Cigarette/Vaping Use: Never Used Second Hand Smoke Exposure: No service: No Current occupational status: retired Cognitive needs: No Hearing needs: Yes Vision needs: Yes (Glasses) Review of Systems Const Denies weight gain and Denies weight loss ENT Reports no additional complaints, Denies dysphagia and Denies odynophagia Card Reports no additional complaints Resp Reports no additional complaints GI Denies abdominal pain, Denies belching, Denies melena, Denies bloating, Denies change in bowel habits, Denies dysphagia, Denies excessive flatus, Denies dyspepsia, Denies heartburn, Denies diarrhea, Denies loose stools, Denies nausea, Denies odynophagia and Denies vomiting Reports no additional complaints Musc Reports no additional complaints Neuro Reports no additional complaints Psych Reports no additional complaints Endo Reports no additional complaints Physical Exam Vital Signs: Last Vital Signs Pulse 76 12/22/24 08:50 BP 110/64 12/22/24 08:50 Pulse Ox 97 12/22/24 08:50 Oxygen Delivery Method Room Air 12/22/24 08:50 BMI result Body Mass Index 21.4 Const General: healthy appearing, no acute distress and well developed Nutritional Appearance: well nourished Orientation/consciousness: patient oriented x3 Resp Effort & Inspection: normal respiratory effort, able to speak in complete sentences, no tracheal deviation and symmetric chest movement Auscultation: clear to auscultation bilaterally Cardio Rate: regular rate GI Inspection: Yes normal to inspection and No distended Palpation (GI): Soft to palpation, not firm, nontender and No hepatosplenomegaly present Auscultation: normal bowel sounds General: Yes no CVA tenderness Back/Spine/Pelvis Back: no CVA tenderness Skin General skin exam: elasticity normal, turgor normal and dry skin Neuro General: patient oriented x3 Psych Appearance: grossly normal Mental Status: mental status grossly normal Assessment & Plan Assessment & Plan (1) Celiac disease: Code(s): K90.0 - Celiac disease Category: Medical Plan Continue avoiding dietary triggers. Patient will try harder watching ruled in reason will 1 year for re-evaluation. You call our office if he will have any GI concerning symptoms. At this point patient is doing well. No longer taking pantoprazole and his symptoms of acid reflux are suppressed. Patient is agreeable to current plan and verbalizes understanding of instructions. He was given the opportunity to ask questions and all questions answered. Thank you for allowing me to participate in his care Coding Level of Care Code Est Pt Level 3 (33651) Diagnoses Celiac disease K90.0 Time Spent (min) 30 Comment 20 minutes spent with patient and additional 10 minutes spent reviewing his records
[2024-12-22 08:50] VITALS: BP 110/64; PULSE 76; O2SAT 97; BMI 21.4
--- OUTSIDE RECORDS SUMMARY | 2024-12-22 09:07 | XMS_ITS ---
[facility] Address [address] [facility] [place] [address] Care Team Providers Care Program Development Manager Name Role Phone Angel Rosales Primary Care Provider Black, Rosa Unavailable [phone] Allergies Allergen (clinical drug ingredient) Drug/Non Drug [...] 024 Encounters Encounter Location Date Provider Diagnosis [facility] [place] [address] [place] [address] 08/30/2024 Rosa Zhao Xerosis of skin L85.3 [...] * Stuart CARTER SDOB:1950 (73 yo M)Acc No.[id number]:08/30/2024 Progress Notes Patient:?Stuart CARTER Provider:?Rosa Zhao DPM :1950???Age:73 Y???Sex:Male Tulio e:08/30/2024 Address:[address] [place] [address] Pcp:Angel Rosales Subjective: * Chief Complaints: * [...] Zhao DPM Date:?2023 Generated for Smooth rankin/Miquel/Bj on:?12/22/2024 09:07 AM EDT History and Physical Notes * HPI (History [...]
--- OUTSIDE RECORDS SUMMARY | 2024-12-22 09:07 | XMS_ITS | Patient Health Record ---
Author Organization [facility] Address [address] [facility] [place] [address] Care Team Providers Care Director Of Hemophilia Name Role Phone Angel Rosales Primary Care Provider [phone] Black, Orsa Unavailable [phone] Allergies Allergen (clinical drug ingredient) Drug/Non Drug [...] 08/30/2024 Encounters Encounter Location Date Provider Diagnosis [facility] [place] [address] [place] [address] 08/30/2024 Rosa Black Xerosis of skin L85.3 [...] [employer] [address] [place] [address] [id number] Stuart Zavala Self - patient is the insured 6 [facility] [address] [place] [address] [id number] Stuart Zavala Self - patient is the insured Medical (General) History Medical History History ICD Code Back,Hip,and Knee pain Broken bones covid-19 Hiatal hernia High Blood Pressure Osteoporosis Measles Mumps Chicken pox Surgical History Surgery Date(Month/Year) knee surgery back surgery hernia
== END 2024-12-22 09:19 | disposition home or self-care (01) ==
LOC: HO.HGI 08:36
PROVIDERS: PCP Internal Medicine; Visit Provider Nurse Practitioner Family
DX: K90.0 Celiac disease (principal)
CPT/HCPCS: 99213

== ENCOUNTER → 2024-12-22 08:35 | Outpatient (BNVA) | payer MEDICARE, BC, SELFPAY | PROVIDERS: PCP Internal Medicine; Visit Provider Nurse Practitioner Family | DX: K90.0 Celiac disease (principal) | CPT/HCPCS: 99212 ==

== ENCOUNTER 2025-01-13 12:58 | Outpatient (REF) | payer MEDICARE, BC, SELFPAY ==
--- NOTE | ~2025-01-13 | XR_ITS ---
EXAMINATION: XR CHEST 2 VIEWS HISTORY: R05.9 - Cough, unspecified COMPARISON: Comparison is made with the prior examination dated 03/16/2024. FINDINGS: PA and lateral views of the chest are submitted. There is gaseous distention of the stomach with resultant elevation of the left hemidiaphragm. There is subsegmental atelectasis at the left lung base. The lungs are otherwise clear. There is no pleural effusion, pneumothorax, or pulmonary vascular congestion. The heart is normal in size. There is degenerative disc disease of the spine. XR/XR chest 2V IMPRESSION: Gaseous distention of the stomach with elevation of the left hemidiaphragm and adjacent subsegmental atelectasis. Electronically signed by: Lopez Soria MD 01/13/2025 02:26 PM EDT
== END 2025-01-13 12:59 | disposition home or self-care (01) ==
LOC: HO.HMGCX 12:58
PROVIDERS: PCP Internal Medicine; Visit Provider Nurse Practitioner Family
DX: Z13.89 Encounter for screening for other disorder (principal)
CPT/HCPCS: 71046

== ENCOUNTER 2025-01-13 12:58 | Outpatient (AMB) | payer MEDICARE, BC, SELFPAY ==
[2025-01-13 13:06] VITALS: BP 110/70; PULSE 81; TEMP 36.7; O2SAT 95; BMI 21.3
--- NOTE | 2025-01-13 13:06 | MHC.OFFWIV ---
Intake Vital Signs 01/13/25 13:06 Height 5 ft 7 in Weight 136 lb BMI 21.3 BP 110/70 Blood Pressure Location Lt brachial Position Sitting Pulse 81 Pulse Source Pulse Oximeter Temp 98.0 F Temp Source Oral Pulse Oximetry (%) 95 Oxygen Delivery Method Room Air Intake Visit Reasons: EP-cold symptoms over 3 weeks Patient Tobacco Use Status: Never used Tobacco Allergies Penicillins [PENICILLINS] Allergy (Unknown, Verified 01/13/25 13:06) UNK Do you need a note to return to daycare/school/sports/work: No HPI HPI Comments History of Present Illness Details 74 y/o male patient who presents to the walk in clinic with c/o URI symptoms for 1 week. Reports in the past 1 week his cough has been getting worse and very productive. Reports that his sometimes started 3 weeks ago, then he briefly improved. Denies fevers, chills, nausea or vomiting. His was admitted in the Hospital ([facility]) for few days for a Procedure. He has been taking care of her ever since. [facility] Medical History (Updated 01/13/25 @ 13:39 by Breanna Quesada NP) Cough Allergies Stacia syndrome Bile peritonitis Acute gangrenous cholecystitis Osteoporosis Celiac disease Screening for colon cancer Amaurosis fugax Essential (primary) hypertension Surgical History History of ERCP Hx of cholecystectomy (09/14/24) History of endoscopy History of colonoscopy (~06/18/22) H/O right knee surgery History of excision of pilonidal cyst History of umbilical hernia repair H/O hand surgery History of tonsillectomy Family History Father No problems noted. Mother Liver problem Social History Household Members: Spouse Housing: House Are you a primary career counselor to a significant other at home: No Do you presently have visiting nurse or other home services: No Alcohol intake: current Alcohol intake frequency: holidays/special occasions only Patient Tobacco Use Status: Never used Tobacco e-Cigarette/Vaping Use: Never Used Second Hand Smoke Exposure: No service: No Current occupational status: retired Cognitive needs: No Hearing needs: Yes Vision needs: Yes (Glasses) Review of Systems Const All systems reviewed & are unremarkable except as noted in HPI and below Physical Exam Vital Signs: Last Vital Signs Temp 98.0 F 01/13/25 13:06 Pulse 81 01/13/25 13:06 BP 110/70 01/13/25 13:06 Pulse Ox 95 01/13/25 13:06 Oxygen Delivery Method Room Air 01/13/25 13:06 BMI result Body Mass Index 21.3 Const General: no acute distress Orientation/consciousness: patient oriented x3 Resp Effort & Inspection: normal respiratory effort and able to speak in complete sentences Auscultation: clear to auscultation bilaterally, no crackles, no rales, no rhonchi and no wheezes Cardio Rhythm: regular rhythm Heart sounds: S1 normal heart sound present and S2 normal heart sound present Neuro General: patient oriented x3 Assessment & Plan Assessment & Plan (1) Cough: Code(s): R05.9 - Cough, unspecified Qualifiers: Cough type: subacute Qualified Code(s): R05.2 - Subacute cough Plan: Ordered Chest Xray OTC cough remedies Rest and hydrate well with warm fluids and Honey. Orders: Orders XR chest 2V Today R05.9 - Cough, unspecified Coding Level of Care Code Est Pt Level 4 (29312) Diagnoses Subacute cough R05.2 Cough type: subacute Time Spent (min) 20
--- OUTSIDE RECORDS SUMMARY | 2025-01-13 14:09 | XMS_ITS | Continuity of Care Document ---
Author Organization [facility] Address [address] [place] [address]- Care Team Providers Care Trolley Operator Name Role Phone Connie SARMIENTO, Angel Dick Primary Care Physic kadi Encounter [facility] Date(s): 12/10/24 - 01/09/25 [facility] [address] [place] [id number] Encounter Type: Triage Allergies, Adverse Reactions, Alerts Substance Criticality Severity Reaction Reaction Severity Status penicillins Active Medications 18 G needles 18 G needles, See Instructions, # 4 each, Refills 11, Tot. Refills 11, Maintenance, to be used withsyringe to draw up the testosterone every 2 weeks, 12/10/24 4:36:00 PM EST, Supply, 161.5, cm, 12/07/24 11:26:00 EST, Height, 69.9, kg, 06/25/24 13:05:00 EDT, Dry Weight Start Date: 12/10/24 Status: Ordered Quantity: 4.0 Unit: each Repeat number: 12 Indication: Testicular hypofunction 3 CC Syringe with 22G 1 inch Syringe 3 CC Syringe with 22G 1 inch Syringe, See Instructions, # 20 each, Refills 11, Tot. Refills 11, Maintenance, Use every 2 weeks for Testosterone, 12/10/24 4:23:00 PM EST, Compound, 161.5, cm, 12/07/24 11:26:00 EST, Height, 69.9, kg, 06/25/24 13:05:00 EDT, Dry Weight Start Date: 12/10/24 Status: Ordered Quantity: 20.0 Unit: each Repeat number: 12 Indication: Testicular hypofunction Aspirin Low Dose 81 mg oral tablet, chewable CHEW AND SWALLOW ONE TABLET BY MOUTH EVERY DAY Start Date: 06/03/24 Status: Ordered Repeat number: 1 atorvastatin 10 mg oral tablet TAKE ONE TABLET BY MOUTH DAILY AT BEDTIME Start Date: 06/03/24 Status: Ordered Repeat number: 1 Citracal Maximum + D oral tablet 1 tablet, By Mouth, 2 times a day, # 60 tablet, 11 Refills, Maintenance, 06/11/24 3:52:00 PM EDT, Tablet, [facility], Partial fill upon patient request if the prescription is for a schedule II opioid drug., 1 tablet By Mouth 2 times a day,x30 days, 161.5, cm, 06/03/24 7:40:00 EDT, Height Start Date: 06/11/24 Stop Date: 06/06/25 Status: Ordered Quantity: 60.0 Unit: tablet Repeat number: 12 hydrochlorothiazide-telmisartan 12.5 mg-40 mg oral tablet TAKE ONE TABLET BY MOUTH EVERY DAY Start Date: 06/03/24 Status: Ordered Repeat number: 1 LORazepam 0.5 mg oral tablet TAKE ONE TABLET BY MOUTH EVERY DAY Start Date: 06/03/24 Status: Ordered Repeat number: 1 meloxicam 15 mg oral tablet TAKE ONE TABLET BY MOUTH EVERY DAY Start Date: 06/03/24 Status: Ordered Repeat number: 1 pantoprazole 40 mg oral delayed release tablet TAKE ONE TABLET BY MOUTH EVERY DAY HALF AN HOUR BEFORE BREAKFAST Start Date: 06/03/24 Status: Ordered Repeat number: 1 Testosterone Cypionate 200 mg/mL intramuscular solution 1 mL = 200 mg, Intramuscular, Every 14 days, # 2 mL, 5 Refills, Maintenance, 12/10/24 4:22:00 PM EST, [facility], Partial fill upon patient request if the prescription is for a schedule II opioid drug., 161.5, cm, 12/07/24 11:26:00 EST, Height, 69.9, kg, 06/25/24 13:05:00 EDT, Dry Weight Start Date: 12/10/24 Stop Date: 05/27/25 Status: Ordered Quantity: 2.0 Unit: mL Repeat number: 6 Patient Care team information Care Team Personnel Name: Hanh Oconnell RN Position: S RN Member Role: Primary Care Nurse Name: Connie SARMIENTO, Angel Dick Position: Reference Physician Member Role: PCP Address: [address] [place] [address]- Telecom: Care Team Related Persons Name: SURINDER CARTER Insurance Providers Guarantor name: MEGAN CARTER Health Plan Information #: 1 Payer: MEDICARE PART B OUTPT Member Number: NA Policy Number: NA Group Number: NA
--- OUTSIDE RECORDS SUMMARY | 2025-01-13 14:09 | XMS_ITS ---
Author Organization [facility] Address [address] [facility] [place] [address] Care Team Providers Care Bath Mix Operator Name Role Phone Angel Rosales Primary Care Provider Black, Rosa Unavailable [phone] Allergies Allergen (clinical drug ingredient) Drug/Non Drug [...] 024 Encounters Encounter Location Date Provider Diagnosis [facility] [place] [address] [place] [address] 08/30/2024 Rosa Zhao Xerosis of skin L85.3 [...] * Stuart CARTER SDOB:1950 (73 yo M)Acc No.[id number]:08/30/2024 Progress Notes Patient:?Stuart CARTER Provider:?Rosa Zhao DPM :1950???Age:73 Y???Sex:Male Tulio e:08/30/2024 Address:[address] [place] [address] Pcp:Angel Rosales Subjective: * Chief Complaints: * [...] Zhao DPM Date:?2023 Generated for Smooth rankin/Miquel/Bj on:?01/13/2025 02:08 PM EDT History and Physical Notes * HPI [...]
--- OUTSIDE RECORDS SUMMARY | 2025-01-13 14:09 | XMS_ITS | Patient Health Record ---
Author Organization [facility] Address [address] [facility] [place] [address] Care Team Providers Care Camp Tender Name Role Phone Angel Rosales Primary Care Provider [phone] Black, Rosa Unavailable [phone] Allergies Allergen (clinical drug ingredient) Drug/Non Drug [...] 08/30/2024 Encounters Encounter Location Date Provider Diagnosis [facility] [place] [address] [place] [address] 08/30/2024 Rosa Black Xerosis of skin L85.3 [...] [employer] [address] [place] [address] [id number] Stuart Zavala Self - patient is the insured 6 [facility] [address] [place] [address] [id number] Stuart Zavala Self - patient is the insured Medical (General) History Medical History History ICD Code Back,Hip,and Knee pain Broken bones covid-19 Hiatal hernia High Blood Pressure Osteoporosis Measles Mumps Chicken pox Surgical History Surgery Date(Month/Year) knee surgery back surgery hernia
== END 2025-01-13 14:13 | disposition home or self-care (01) ==
PROVIDERS: PCP Internal Medicine; Visit Provider Nurse Practitioner Family
DX: R05.2 Subacute cough (principal)

== ENCOUNTER → 2025-01-13 13:34 | Outpatient (BNV) | payer MEDICARE, BC, SELFPAY | PROVIDERS: PCP Internal Medicine; Visit Provider Radiology Diagnostic Radiology | DX: R14.0 Abdominal distension (gaseous) (principal); J98.11 Atelectasis | CPT/HCPCS: 71046 ==

== ENCOUNTER 2025-01-13 17:51 | Outpatient (REF) | payer MEDICARE, BC, SELFPAY ==
[2025-01-13 18:59] LABS: Influenza A PCR NEGATIVE (Negative); Influenza B PCR NEGATIVE (Negative); Resp Syncy Virus RNA Qual PCR NEGATIVE (Negative); SARS COV2 PCR INHOUSE NEGATIVE (Negative)
== END 2025-01-13 17:52 | disposition home or self-care (01) ==
LOC: HO.LAB 17:51
PROVIDERS: Visit Provider Nurse Practitioner Family
DX: R09.89 Other specified symptoms and signs involving the circulatory and respiratory systems (principal); R05.2 Subacute cough
CPT/HCPCS: 0241U; 71046; 99212

== ENCOUNTER 2025-03-02 11:15 | Outpatient (AMB) | payer MEDICARE, BC, SELFPAY ==
--- NOTE | 2025-03-02 11:19 | AM.OFFWIN_ITS ---
Intake Vital Signs 03/02/25 11:21 Weight 135 lb BP 116/8 L Blood Pressure Location Lt brachial Position Sitting Pulse 66 Pulse Source Pulse Oximeter Pulse Oximetry (%) 95 Oxygen Delivery Method Room Air Intake Visit Reasons: EP-?allergy reaction, swollen hands & feet Intake Note: Patient here for allergic reaction, swollen hands and feet after having some allergy test done yesterday. (penicillin) denies any SOB, throat swelling Patient Tobacco Use Status: Never used Tobacco Allergies Penicillins [PENICILLINS] Allergy (Unknown, Verified 03/02/25 11:37) UNK Do you need a note to return to daycare/school/sports/work: No HPI HPI Comments History of Present Illness Details History of Present Illness - The patient is a 74-year-old male pres enting with a follow-up for an allergic reaction from [facility] yesterday. - Allergy testing for penicillin display ed initial non-reactivity but was followed by itchiness on both hands and feet at 10:00 PM at home last evening. Patient tried to call the allergists office but they are closed today. - History of a childhood penicillin reac tion. - Utilized antihistamines including Ana dryl before symptoms; additional doses taken post-onset of symptoms. - Redness and swelling primarily on the second, third, and fourth digits of the left hand, 4th and 5th toes on right foot with 2-3cm round hives on dorsal aspect of right foot and 3cm round erythematous hives right forearm. Had to remove wedding ring on left hand. - No reported respiratory distress, no s hortness of breath or trouble breathing Physical Exam General: Cooperative, healthy appearing, comfortable, no acute distress and well developed Orientation: Patient oriented x3 Limitations: No limitations Head: Normal to inspection Ears: Hearing grossly normal bilaterally Nose: Normal External nose present Face and sinus: Normal facial exam Eyes: Appearance normal, both eyes and all related structures Neck: Normal visual inspection and Yes full ROM Respiratory: Normal respiratory effort and able to speak in complete sentences. Skin: erythema and edema noted on the left hand's second, third, and fourth digits. Right forearm has a 3cm circular erythematous hive. Right foot's 4th and 5th digits with erythema and edema with 3 hives on the dorsal aspect of right foot. Neuro: Patient oriented x3 Extremities: as above [facility] Medical History (Updated 03/02/25 @ 11:43 by Rahel Elizabeth PA-C) Cough Allergies [place] syndrome Bile peritonitis Acute gangrenous cholecystitis Osteoporosis Celiac disease Screening for colon cancer Amaurosis fugax Essential (primary) hypertension Surgical History History of ERCP Hx of cholecystectomy (09/14/24) History of endoscopy History of colonoscopy (~06/18/22) H/O right knee surgery History of excision of pilonidal cyst History of umbilical hernia repair H/O hand surgery History of tonsillectomy Family History Father No problems noted. Mother Liver problem Social History Household Members: Spouse Housing: House Are you a primary critical care physician to a significant other at home: No Do you presently have visiting nurse or other home services: No Alcohol intake: current Alcohol intake frequency: holidays/special occasions only Patient Tobacco Use Status: Never used Tobacco e-Cigarette/Vaping Use: Never Used Second Hand Smoke Exposure: No service: No Current occupational status: retired Cognitive needs: No Hearing needs: Yes Vision needs: Yes (Glasses) Review of Systems Const All systems reviewed & are unremarkable except as noted in HPI and below Assessment & Plan Assessment & Plan (1) Allergic reaction caused by a drug: Code(s): T78.40XA - Allergy, unspecified, initial encounter Qualifiers: Encounter type: initial encounter Qualified Code(s): T78.40XA - Allergy, unspecified, initial encounter Plan: The treatment plan consists of administering both an H1 antihistamine (Benadryl) and an H2 antagonist (Pepcid) due to their efficacy in reducing elevated histamine levels causing the allergic reaction. I have informed the patient that while Benadryl may cause sedation, it is critical for the effective management of the allergic response. A short course of oral prednisone (40 mg daily for 5 days) is prescribed to further attenuate inflammation and control symptoms. I emphasized complete avoidance of Penicillin (edited his allergies today so there is no confusion) and ensure the patient is aware of the importance of communicating all allergies with healthcare providers. Continual monitoring for resolution of symptoms with particular attention to digit swelling is advised, with further evaluation to be considered if the reaction worsens or does not resolve. Patient was informed and verbally consented to the use of an ambient scribe for clinic note documentation during this visit. Medications: New prednisone 40 mg (2 x 20 mg) PO QAM 10 tabs 0RF Coding Level of Care Code Est Pt Level 3 (95482) Diagnoses Allergic reaction to drug, initial encounter T78.40XA Encounter type: initial encounter
[2025-03-02 11:21] VITALS: BP 116/8; PULSE 66; O2SAT 95
--- OUTSIDE RECORDS SUMMARY | 2025-03-02 12:33 | XMS_ITS | Patient Health Record ---
Author Organization [facility] [place] Address [address] [place] [address] Care Team Providers Care Final Finisher Forging Dies Name Role Phone Angel Rosales Primary Care Provider Black, Rosa Unavailable [phone] Allergies Allergen (clinical drug ingredient) Drug/Non Drug [...] 08/30/2024 Encounters Encounter Location Date Provider Diagnosis [facility] [place] [address] [place] [address] 08/30/2024 Rosa Black Xerosis of skin L85.3 [...] [employer] [address] [place] [address] [id number] Stuart Zavala Self - patient is the insured 6 [facility] [address] [place] [address] [id number] Stuart Zavala Self - patient is the insured Medical (General) History Medical History History ICD Code Back,Hip,and Knee pain Broken bones covid-19 Hiatal hernia High Blood Pressure Osteoporosis Measles Mumps Chicken pox Surgical History Surgery Date(Month/Year) knee surgery back surgery hernia
--- OUTSIDE RECORDS SUMMARY | 2025-03-02 12:33 | XMS_ITS ---
[facility] [address] [facility] [place] [address] Care Team Providers Care Foot Worker Name Role Phone Angel Rosales Primary Care Provider Black, Rosa Unavailable [phone] Allergies Allergen (clinical drug ingredient) Drug/Non Drug [...] 024 Encounters Encounter Location Date Provider Diagnosis [facility] [address] [place] [address] 08/30/2024 Rosa Zhao Xerosis of skin L85.3 [...] * Stuart CARTER SDOB:1950 (73 yo M)Acc No.[id number]:08/30/2024 Progress Notes Patient:?Stuart CARTER Provider:?Rosa Zhao DPM :1950???Age:73 Y???Sex:Male Tulio e:08/30/2024 Address:[address] [place] [address] Pcp:Angel Rosales Subjective: * Chief Complaints: * [...] Zhao DPM Date:?2023 Generated for Smooth rankin/Miquel/Bj on:?03/02/2025 12:32 PM EDT History and Physical Notes * [...]
== END 2025-03-02 12:26 | disposition home or self-care (01) ==
PROVIDERS: PCP Internal Medicine; Visit Provider Physician Assistant
DX: T78.40XA Allergy, unspecified, initial encounter (principal)

== ENCOUNTER → 2025-03-02 11:15 | Outpatient (BNVA) | payer MEDICARE, BC, SELFPAY | PROVIDERS: PCP Internal Medicine; Visit Provider Physician Assistant | DX: T78.40XA Allergy, unspecified, initial encounter (principal) | CPT/HCPCS: 99212 ==

== ENCOUNTER 2025-03-24 09:18 | Outpatient (REF) | payer MEDICARE, BC, SELFPAY ==
--- OUTSIDE RECORDS SUMMARY | 2025-03-24 10:04 | XMS_ITS | Patient Health Record ---
Author [facility] [place] Address [address] [facility] [place] [address] Care Team Providers Care Wheel Borer Name Role Phone Angel Rosales Primary Care Provider Black, Rosa Unavailable [phone] Allergies Allergen (clinical drug ingredient) Drug/Non Drug [...] 08/30/2024 Encounters Encounter Location Date Provider Diagnosis [facility] [place] [address] [place] [address] 08/30/2024 Rosa Black Xerosis of skin L85.3 [...] [employer] [address] [facility] [address] [id number] Stuart Zavala Self - patient is the insured 6 [facility] [address] [place] [address] [id number] Stuart Zavala Self - patient is the insured Medical (General) History Medical History History ICD Code Back,Hip,and Knee pain Broken bones covid-19 Hiatal hernia High Blood Pressure Osteoporosis Measles Mumps Chicken pox Surgical History Surgery Date(Month/Year) knee surgery back surgery hernia
[2025-03-24 10:10] LABS: Hematocrit 39.5 % (42.0-52.0); Hemoglobin 12.9 g/dl (14.0-18.0); Mean Corpuscular HGB Conc 32.7 g/dl (31.0-36.0); Mean Corpuscular Hemoglobin 31.9 pg (27.0-33.0); Mean Corpuscular Volume 97.8 fL (80.0-98.0); Mean Platelet Volume 9.9 fL (9.4-12.4); Platelet Count 365 X10*3/uL (160-400); Red Blood Count 4.04 X10*6/uL (4.60-5.80); Red Cell Distribution Width 12.9 % (11.0-16.0); White Blood Count 6.2 X10*3/uL (4.8-10.8)
[2025-03-24 10:21] LABS: Appearance Urine Clear; Color Urine Yellow; Glucose Urine UA Negative (Negative); Leukocyte Esterase Urine Negative (Negative); Nitrite Urine Negative (Negative); UMIC TRIGGER UA YES; Urine Blood Trace (Negative); Urine Ketones Negative (Negative); Urine Protein Negative (Neg-Trace)
[2025-03-24 10:27] LABS: Bacteria Urine None Seen (None Seen); Hyaline Casts Urine 0-2 /LPF (0-2); RBC Urine 0-2 /HPF (0-2); Squamous Epithelial Cell Urine 0-2 /HPF (0-2); WBC Urine 0-5 /HPF (0-5)
[2025-03-24 13:53] LABS: Alanine Aminotransferase 69 U/L (0-40); Albumin Level 3.7 g/dL (3.5-5.0); Alkaline Phosphatase 242 U/L (39-117); Anion Gap 11 (12-20); Aspartate Amino Transferase 75 U/L (5-37); Bilirubin Direct 0.3 mg/dL (0.0-0.5); Bilirubin Total 0.8 mg/dL (0.0-1.0); Blood Urea Nitrogen 16 mg/dL (9-16); Calcium 8.4 mg/dL (8.4-10.2); Carbon Dioxide 26 mmol/L (22-29); Chloride 106 mmol/L (96-108); Cholesterol 128 mg/dL (<200); Estimated Glomerular Filt Rate > 60; Glucose Random 88 mg/dL (60-115); HDL Cholesterol 29 mg/dL (>40); LDL Cholesterol Calculated 90 mg/dL (<100); Sodium 138 mmol/L (135-145); Total Protein 6.9 g/dL (6.5-8.0); Triglycerides 49 mg/dL (<150)
[2025-03-24 14:10] LABS: Thyroid Stimulating Hormone 0.36 uIU/mL (0.32-4.0)
== END 2025-03-24 09:19 | disposition home or self-care (01) ==
LOC: HO.HMGCLDS 09:18
PROVIDERS: PCP Internal Medicine; Visit Provider Internal Medicine
DX: I10 Essential (primary) hypertension (principal)
CPT/HCPCS: 36415; 80048; 80061; 80076; 81001; 84443; 85027

== ENCOUNTER 2025-03-31 09:57 | Outpatient (AMB) | payer MEDICARE, BC, SELFPAY ==
--- NOTE | 2025-03-31 10:03 | A.OFFPC_ITS ---
Vital Signs 03/31/25 10:04 Height 5 ft 2.6 in Weight 132 lb 6 oz BMI 23.7 BP 110/60 Blood Pressure Location Lt brachial Position Sitting Pulse 89 Pulse Source Pulse Oximeter Temp 97.5 F Temp Source Temporal Artery Scan Pulse Oximetry (%) 93 Oxygen Delivery Method Room Air Intake Visit Reasons: 6mth f/u Intake Note: Patient is here to follow up on HTN. Auditor Supervisor Required: No Clinical Documentation Specialist: Not Required per policy Accompanied by: Self / Same As Patient Allergies Penicillins (PENICILLINS) Allergy (Unknown, Verified 03/31/25 10:04) UNK Tobacco use date assessed: 03/31/25 Fall risk assessment: No Falls in past year Last assessed Fall Risk: 03/31/25 Dental Screening Dental Screen Date: 03/31/25 Did you have a dental visit in the last 12 months?: Yes Did you have a dental problem in the last 6 months where you did not have access to dental care?: No Was dental information given to patient?: Patient has dentist [facility] Medical History (Updated 03/31/25 @ 10:49 by Angel Rosales MD) Kyphosis (acquired) (postural) Cough Allergies Stacia syndrome Bile peritonitis Acute gangrenous cholecystitis Osteoporosis Celiac disease Screening for colon cancer Amaurosis fugax Essential (primary) hypertension Surgical History History of ERCP Hx of cholecystectomy (09/14/24) History of endoscopy History of colonoscopy (~02/04/24) H/O right knee surgery History of excision of pilonidal cyst History of umbilical hernia repair H/O hand surgery History of tonsillectomy Family History Father No problems noted. Mother Liver problem Social History Household Members: Spouse Housing: House Are you a primary critical care transport nurse to a significant other at home: No Do you presently have visiting nurse or other home services: No Alcohol intake: current Alcohol intake frequency: holidays/special occasions only Patient Tobacco Use Status: Never used Tobacco e-Cigarette/Vaping Use: Never Used Second Hand Smoke Exposure: No service: No Current occupational status: retired Cognitive needs: No Hearing needs: Yes Vision needs: Yes (Glasses) Questionnaire PHQ-9 Over the last 2 weeks, how often have you been bothered by any of the following problems? 1. Little interest or pleasure in doing things: not at all 2. Feeling down, depressed, or hopeless: not at all 3. Trouble falling or staying asleep, or sleeping too much: not at all 4. Feeling tired or having little energy: not at all 5. Poor appetite or overeating: not at all 6. Feeling bad about yourself - or that you are a failure or have let yourself or your family down: not at all 7. Trouble concentrating on things, such as reading the newspaper or watching television: not at all 8. Moving or speaking so slowly that other people could have noticed. Or the opposite - being so fidgety or restless that you have been moving around a lot more than usual: not at all 9. Thoughts that you would be better off or of hurting yourself in some way: not at all Total score: 0 Depression Screening Interpretation: Negative Depression Screening Done: Yes Source: Developed by Drs. Lopez Tang, Rosalva Otoole, Marcellus Gunn and colleagues, with an educational darvin from [employer]. Thrive Questionnaire Date Thrive assessed: 03/31/25 I am a: Patient What is your living situation today?: I have a steady place to live Within the past 12 months, did the food you bought not last and you didn't have the money to get more?: Never true Within the past 12 months, did you worry whether your food would run out before you got money to buy more?: Never true Do you have trouble paying for medicines?: No Do you have trouble getting transportation to medical appointments?: No Do you have trouble paying your heating and electricity bill?: No Do you have trouble taking care of your child, family member or friend?: No Do you have trouble with day-to-day activities such as bathing, preparing meals, shopping, managing finances, etc.?: No Are you currently unemployed and looking for a job?: No Are you interested in more education?: No Please select the resources that you would like help with: None Currently or been in a relationship where the following occur: No concerns reported THRIVE Score: 0 AUDIT C Alcohol Use Questionnaire (AUDIT-C) 1. How often do you have a drink containing alcohol?: 2-4 times a month 2. How many drinks containing alcohol do you have on a typical day when you are drinking?: 1 or 2 3. How often do you have six or more drinks on one occasion?: Never Total Score: 2 REYNOLD-7 AMB Questionnaire REYNOLD-7 Date REYNOLD - 7 assessed: 03/31/25 Feeling nervous, anxious, or on edge: 0 = Not at all Not being able to stop or control worryin = Not at all Worrying too much about different things: 0 = Not at all Trouble relaxin = Not at all Being so restless that it is hard to sit still: 0 = Not at all Becoming easily annoyed or irritable: 0 = Not at all Feeling afraid as if something awful might happen: 0 = Not at all Total REYNOLD-7 score (0-4 normal; 5-9 mild; 10-14 moderate; 15-21 severe): 0 Source: Developed by Drs. Lopez Tang, Rosalva Otoole, Marcellus Gunn and colleagues, with an educational darvin from [employer]. Physical exam (Primary Care) Vital Signs: Last Vital Signs Temp 97.5 F 03/31/25 10:04 Pulse 89 03/31/25 10:04 BP 110/60 03/31/25 10:04 Pulse Ox 93 03/31/25 10:04 Oxygen Delivery Method Room Air 03/31/25 10:04 BMI result Body Mass Index 23.7 Tobacco/Smoking Status: Tobacco use Status Tobacco use date assessed 03/31/25 03/31/25 10:06 Patient Tobacco Use Status Never used Tobacco 03/31/25 10:06 e-Cigarette/Vaping Use Never Used 03/31/25 10:06 PHQ-9: PHQ-9 Score PHQ-9: Total score 0 03/31/25 10:06 Depression Screening Interpretation: Negative Thrive Assessment: Date of Thrive Assessment Date Thrive assessed 03/31/25 03/31/25 10:06 Currently or been in a relationship where the following occur: No concerns reported Coding Level of Care Code Est Pt Level 4 (82176) Complex EM visit Add On G2211 Diagnoses Allergic reaction to drug, initial encounter T78.40XA Encounter type: initial encounter Generalized anxiety disorder F41.1 Essential (primary) hypertension I10 Kyphosis (acquired) (postural) M40.00 Assessment & Plan Assessment & Plan (1) Allergic reaction caused by a drug: Code(s): T78.40XA - Allergy, unspecified, initial encounter Category: Medical Qualifiers: Encounter type: initial encounter Qualified Code(s): T78.40XA - Allergy, unspecified, initial encounter Plan: Allergy testing showed patient is allergic to penicillin. (2) Generalized anxiety disorder: Code(s): F41.1 - Generalized anxiety disorder Category: Medical Plan: Condition is stable. (3) Essential (primary) hypertension: Code(s): I10 - Essential (primary) hypertension Category: Medical Plan: Blood pressure in range (4) Kyphosis (acquired) (postural): Code(s): M40.00 - Postural kyphosis, site unspecified Category: Medical Plan: Has an appt with [facility]. Plan History of Present Illness - The patient is a 74-year-old male presenting with evaluation of penicillin allergy and height loss. - Reports a history of penicillin allergy since childhood, with recent testing indicating a mild reaction. - Experienced itching in hands and feet post-testing, managed with antihistamines and steroids. - Concerned about height loss, having lost an inch since last visit, considering bone scan evaluation. - Receiving testosterone injections biweekly from an marketing assistant retail division. - Reports persistent phlegm production and occasional breathing difficulty, possibly posture-related. - Intermittent foot pain, relieved by Tylenol. Social History Review of Systems - Dermatological: Reports itching in hands and feet post-penicillin testing. - Respiratory: Reports persistent phlegm production and occasional difficulty breathing. - Musculoskeletal: Reports height loss and intermittent foot pain. Physical Exam General: Cooperative and healthy appearing Nutritional Appearance: Well nourished Orientation/consciousness: Patient oriented x3 Limitations: No limitations Head: Normal to inspection General: Appearance normal, both eyes and all related structures Neck: Normal visual inspection Chest: Normal palpation of entire chest wall Respiratory: Patient reports having trouble breathing and coughing up phlegm. Ruling Machine Feeder mentioned something about lungs being pushed up against. ormal respiratory effort Neurology: Patient oriented x3. Reports slower activity but able to function. Results - Allergy testing: Mild reaction to penicillin noted. - X-ray: Ruling Machine Feeder noted possible lung compression due to posture. Plan 1. Penicillin Allergy - Avoid penicillin due to confirmed allergy. - Manage allergic reactions with antihistamines and steroids as needed. 2. Height Loss - Consider bone scan to evaluate for osteoporosis or other causes of height loss. 3. Phlegm Production - Evaluate posture and potential impact on respiratory function. 4. Foot Pain - Symptomatic relief with Tylenol as needed. Discussion Notes The patient was advised to avoid penicillin due to confirmed allergy and to manage any allergic reactions with antihistamines and steroids as needed. A bone scan was suggested to evaluate the cause of height loss, and the potential impact of posture on respiratory function was discussed. Symptomatic relief for foot pain with Tylenol was recommended. Patient Instructions - Avoid penicillin and manage any allergic reactions with antihistamines and steroids as needed. - Consider scheduling a bone scan to evaluate height loss. - Monitor posture and its impact on breathing. - Use Tylenol for foot pain relief as needed.
[2025-03-31 10:04] VITALS: BP 110/60; PULSE 89; TEMP 36.4; O2SAT 93; BMI 23.7
--- OUTSIDE RECORDS SUMMARY | 2025-03-31 11:08 | XMS_ITS | Patient Health Record ---
Author [facility] [place] Address [address] [facility] [place] [address] Care Team Providers Care Hand Mixer Name Role Phone Angel Rosales Primary Care Provider Black, Rosa Unavailable [phone] Allergies Allergen (clinical drug ingredient) Drug/Non Drug [...] 08/30/2024 Encounters Encounter Location Date Provider Diagnosis [facility] [place] [address] [place] [address] 08/30/2024 Rosa Black Xerosis of skin L85.3 [...] [employer] [address] [place] [address] [id number] Stuart Zavala Self - patient is the insured 6 [facility] [address] [place] [address] [id number] Stuart Zavala Self - patient is the insured Medical (General) History Medical History History ICD Code Back,Hip,and Knee pain Broken bones covid-19 Hiatal hernia High Blood Pressure Osteoporosis Measles Mumps Chicken pox Surgical History Surgery Date(Month/Year) knee surgery back surgery hernia
== END 2025-03-31 10:48 | disposition home or self-care (01) ==
LOC: HO.HMCH 09:58
PROVIDERS: PCP Internal Medicine; Visit Provider Internal Medicine
DX: T78.40XA Allergy, unspecified, initial encounter (principal); F41.1 Generalized anxiety disorder; I10 Essential (primary) hypertension; M40.00 Postural kyphosis, site unspecified

== ENCOUNTER → 2025-03-31 09:57 | Outpatient (BNVA) | payer MEDICARE, BC, SELFPAY | PROVIDERS: PCP Internal Medicine; Visit Provider Internal Medicine | DX: T78.40XD Allergy, unspecified, subsequent encounter (principal); F41.1 Generalized anxiety disorder; I10 Essential (primary) hypertension; M40.00 Postural kyphosis, site unspecified | CPT/HCPCS: 99212 ==

== ENCOUNTER 2025-04-14 12:06 | Outpatient (AMB) | payer MEDICARE, BC, SELFPAY ==
[2025-04-14 12:30] VITALS: BP 106/62; PULSE 62; TEMP 36.9; O2SAT 97; BMI 24.5
--- NOTE | 2025-04-14 12:30 | AM.OFFWIN_ITS ---
Intake Vital Signs 04/14/25 12:30 Height 5 ft 2.5 in Weight 136 lb BMI 24.5 BP 106/62 Blood Pressure Location Lt brachial Position Sitting Pulse 62 Pulse Source Pulse Oximeter Temp 98.5 F Temp Source Oral Pulse Oximetry (%) 97 Oxygen Delivery Method Room Air Intake Visit Reasons: EP Throat pain, mucus, irritation for weeks Intake Note: presents with throat irritation, phlegm- reports underwent a couple endoscopy's within the last 2.5 months Patient Tobacco Use Status: Never used Tobacco Allergies Penicillins (PENICILLINS) Allergy (Unknown, Verified 04/14/25 12:34) UNK Do you need a note to return to daycare/school/sports/work: No HPI HPI Comments History of Present Illness Details History of Present Illness - The patient is a 74-year-old male pres enting with a sore throat and phlegm production. - Reports phlegm production for several months, described as clear to whitish, not green, and not associated with postnasal drip. - Denies difficulty swallowing, fever, c hills, ear pain, runny nose, congestion, chest pain, shortness of breath, and headache. - History of gallbladder surgery with st ent placement and removal, possibly contributing to throat irritation. - Diagnosed with gastroesophageal reflux disease (GERD) but has not started the prescribed medication. - He was prescribed [facility]oprazole from [facility]. - Does not smoke and has no history of s moking. - Has no dysphasia or odynophagia. He de nies abd pain, n/v/d, or constipation. Physical Exam General: Cooperative, healthy appearing, comfortable, no acute distress and well developed Ears: Hearing grossly normal bilaterally, no ear pain Nose: Normal external nose present Neck: Normal visual inspection and Yes full ROM, no lymphadenopathy noted Respiratory: Normal respiratory effort and able to speak in complete sentences. Clear to auscultation bilaterally, no chest pain or shortness of breath Cardiovascular: Regular rate and rhythm. Normal S1 and S2 GI: Normal to inspection. Soft to palpation and nontender Patient was informed and verbally consented to the use of an ambient scribe for clinic note documentation during this visit. [facility] Medical History (Updated 03/31/25 @ 10:49 by Angel Rosales MD) Kyphosis (acquired) (postural) Cough Allergies Stacia syndrome Bile peritonitis Acute gangrenous cholecystitis Osteoporosis Celiac disease Screening for colon cancer Amaurosis fugax Essential (primary) hypertension Surgical History History of ERCP Hx of cholecystectomy (09/14/24) History of endoscopy History of colonoscopy (~02/04/24) H/O right knee surgery History of excision of pilonidal cyst History of umbilical hernia repair H/O hand surgery History of tonsillectomy Family History Father No problems noted. Mother Liver problem Social History Household Members: Spouse Housing: House Are you a primary child care giver to a significant other at home: No Do you presently have visiting nurse or other home services: No Alcohol intake: current Alcohol intake frequency: holidays/special occasions only Patient Tobacco Use Status: Never used Tobacco e-Cigarette/Vaping Use: Never Used Second Hand Smoke Exposure: No service: No Current occupational status: retired Cognitive needs: No Hearing needs: Yes Vision needs: Yes (Glasses) Review of Systems Const All systems reviewed & are unremarkable except as noted in HPI and below Physical Exam Vital Signs: Last Vital Signs Temp 98.5 F 04/14/25 12:30 Pulse 62 04/14/25 12:30 BP 106/62 04/14/25 12:30 Pulse Ox 97 04/14/25 12:30 Oxygen Delivery Method Room Air 04/14/25 12:30 BMI result Body Mass Index 24.5 Results Reviewed Results Reviewed: Rapid strep is negative Assessment & Plan Assessment & Plan (1) Sore throat: Code(s): J02.9 - Acute pharyngitis, unspecified Plan Most likely strep vs viral illness vs post nasal drip vs allergies vs reflux Rapid strep in the office today and negative Plan - Consider initiating treatment for gastroesophageal reflux disease (GERD) as it may be contributing to phlegm production. - Cetrizine daily - Diet as tolerated. - Perform a strep culture to rule out bacterial infection despite low suspicion. Medications: New cetirizine 10 mg PO DAILY PRN 30 tabs 0RF allergy symptoms Coding Level of Care Code Est Pt Level 3 (34260) Diagnoses Sore throat J02.9
--- OUTSIDE RECORDS SUMMARY | 2025-04-14 12:34 | XMS_ITS | Patient Health Record ---
Author Organization [facility] [place] Address [address] [facility] [place] [address] Care Team Providers Care Supervisor Slitting And Shipping Name Role Phone Angel Rosales Primary Care Provider Black, Rosa Unavailable [phone] Allergies Allergen (clinical drug ingredient) Drug/Non Drug [...] except for between the toes Twice a day; Duration: 30 days Active Reclast 5 MG/100ML as [...] 08/30/2024 Encounters Encounter Location Date Provider Diagnosis [facility] [place] [address] [place] [address] 08/30/2024 Rosa Black Xerosis of skin L85.3 [...] Medicare National [employer] [address] [facility] [place] [address] [id number] Sally Stuart Self - patient is the insured [address] [place] [address] [address] [place] [address] [id number] Stuart Zavala Self - patient is the insured Medical (General) History Medical History History ICD Code Back,Hip,and Knee pain Broken bones covid-19 Hiatal hernia High Blood Pressure Osteoporosis Measles Mumps Chicken pox Surgical History Surgery Date(Month/Year) knee surgery back surgery hernia
== END 2025-04-14 14:03 | disposition home or self-care (01) ==
PROVIDERS: PCP Internal Medicine; Visit Provider Physician Assistant Medical
DX: J02.9 Acute pharyngitis, unspecified (principal)

== ENCOUNTER → 2025-04-14 12:06 | Outpatient (BNVA) | payer MEDICARE, BC, SELFPAY | PROVIDERS: PCP Internal Medicine; Visit Provider Physician Assistant Medical | DX: J02.9 Acute pharyngitis, unspecified (principal) | CPT/HCPCS: 99212 ==

== ENCOUNTER 2025-04-27 13:23 | Outpatient (AMB) | payer MEDICARE, BC, SELFPAY ==
--- NOTE | 2025-04-27 13:27 | A.OFFVIS_ITS ---
Vital Signs 04/27/25 13:40 Height 5 ft 2.5 in Weight 133 lb BMI 23.9 BP 106/64 Blood Pressure Location Lt brachial Position Sitting Pulse 77 Intake Visit Reasons: stich removal Intake Note: Patient is seen in office for staple removal, post cholecystectomy. Pt c/o: has a staple inside the belly button Entry Level Required: No Accompanied by: Self / Same As Patient Allergies Penicillins (PENICILLINS) Allergy (Unknown, Verified 04/14/25 12:34) UNK HPI HPI stich removal: Details: patient reports he is overall doing well, incidentally found a staple in his belly button when he was cleaning the area. States it occasionally caused some pain. States his notice some odor when she examined it after he felt the staple. Denies fever or chills, denies discharge. Still struggling to gain weight after the procedure. Has been doing some protien shakes, but states he will do these daily now. [facility] Medical History Kyphosis (acquired) (postural) Cough Allergies Stacia syndrome Bile peritonitis Acute gangrenous cholecystitis Osteoporosis Celiac disease Screening for colon cancer Amaurosis fugax Essential (primary) hypertension Surgical History History of ERCP Hx of cholecystectomy (09/14/24) History of endoscopy History of colonoscopy (~02/04/24) H/O right knee surgery History of excision of pilonidal cyst History of umbilical hernia repair H/O hand surgery History of tonsillectomy Family History Father No problems noted. Mother Liver problem Social History Household Members: Spouse Housing: House Are you a primary long term acute care registered nurse to a significant other at home: No Do you presently have visiting nurse or other home services: No Alcohol intake: current Alcohol intake frequency: holidays/special occasions only Patient Tobacco Use Status: Never used Tobacco e-Cigarette/Vaping Use: Never Used Second Hand Smoke Exposure: No service: No Current occupational status: retired Cognitive needs: No Hearing needs: Yes Vision needs: Yes (Glasses) Review of Systems Const All systems reviewed & are unremarkable except as noted in HPI and below Physical Exam Vital Signs: Last Vital Signs Pulse 77 04/27/25 13:40 BP 106/64 04/27/25 13:40 BMI result Body Mass Index 23.9 Const General: comfortable and no acute distress Orientation/consciousness: patient oriented x3 Resp Effort & Inspection: normal respiratory effort and able to speak in complete sentences GI Other: one staple jsut superior to the umbillicus, no surrounding erythema. non tender. slight odor. Moderate amount of skin in the belly button. Neuro General: patient oriented x3 Assessment & Plan Assessment & Plan (1) Removal of staple: Code(s): Z48.02 - Encounter for removal of sutures Category: Medical Plan 74 year old male s/p laparascopic converted to open cholecystectomy in september 2024 returning to the office for a staple that he found in the umbilicus after he was cleaning his belly button. He states it has caused him some pain every now and then but is currently non tender. he did note an odor when he first noticed that it was there. There was no discharge, or redness. on exam there was one staple in the umbilicus, i did note an odor however i believe this is likely related to hygiene rather than an infection therefore i will not prescribe antibiotics. I palpated for any additionally retained sin and was not able to appreciate more. I removed this staple without issue. Recommended that he keep this area clean and dry going forward. He is agreeable to this plan. We discussed return precautions including increased pain, redness, discharge or swelling. Patient will follow up as needed for any future concerns Coding Level of Care Code Est Pt Level 2 (18969) Diagnoses Removal of staple Z48.02 Time Spent (min) 25
[2025-04-27 13:40] VITALS: BP 106/64; PULSE 77; BMI 23.9
--- OUTSIDE RECORDS SUMMARY | 2025-04-27 14:12 | XMS_ITS | Patient Health Record ---
Author Organization [facility] [place] Address [address] [facility] [place] [address] Care Team Providers Care Measuring Machine Tender Name Role Phone Angel Rosales Primary Care Provider Black, Rosa Unavailable [phone] Allergies Allergen (clinical drug ingredient) Drug/Non Drug [...] 08/30/2024 Encounters Encounter Location Date Provider Diagnosis [facility] [place] [address] [place] [address] 08/30/2024 Rosa Black Xerosis of skin L85.3 [...] Medicare National [employer] [address] [facility] [place] [address] [id number] Sally Stuart Self - patient is the insured [address] [place] [address] [address] [place] [address] [id number] Stuart Zavala Self - patient is the insured Medical (General) History Medical History History ICD Code Back,Hip,and Knee pain Broken bones covid-19 Hiatal hernia High Blood Pressure Osteoporosis Measles Mumps Chicken pox Surgical History Surgery Date(Month/Year) knee surgery back surgery hernia
== END 2025-04-27 13:57 | disposition home or self-care (01) ==
LOC: HO.HGS 13:24
PROVIDERS: PCP Internal Medicine
DX: Z48.02 Encounter for removal of sutures (principal)
CPT/HCPCS: 99212

== ENCOUNTER → 2025-04-27 13:23 | Outpatient (BNVA) | payer MEDICARE, BC, SELFPAY | PROVIDERS: PCP Internal Medicine | DX: Z48.02 Encounter for removal of sutures (principal) | CPT/HCPCS: 99212 ==

== ENCOUNTER 2025-06-10 08:26 | Outpatient (REF) | payer MEDICARE, BC, SELFPAY ==
--- OUTSIDE RECORDS SUMMARY | 2025-06-08 23:59 | XMS_ITS | Continuity of Care Document ---
Author Organization [facility] Address [address] [place] [address]- Care Team Providers Care Four Roll Calender Operator Name Role Phone Connie SARMIENTO, Angel Bui Primary Care Physician Encounter [facility] Date(s): 05/09/25 - 06/08/25 [facility] [address] [place] [id number] Encounter Type: Triage Allergies, Adverse Reactions, Alerts [...] Dry Weight Start Date: 12/10/24 Status: Ordered Medication Dispense Status: Completed Quantity: 4.0 Unit: each Total Allowed Fills: 12 Fills Dispensed: 0 Indications: Testicular hypofunction; 3 CC Syringe with 22G 1 inch Syringe 3 CC Syringe with 22G 1 inch Syringe, See Instructions, # 20 each, Refills 11, Tot. Refills 11, Maintenance, Use every 2 weeks for Testosterone, 12/10/24 4:23:00 PM EST, Compound, 161.5, cm, 12/07/24 11:26:00 EST, Height, 69.9, kg, 06/25/24 13:05:00 EDT, Dry Weight Start Date: 12/10/24 Status: Ordered Medication Dispense Status: Completed Quantity: 20.0 Unit: each Total Allowed Fills: 12 Fills Dispensed: 0 Indications: Testicular hypofunction; Aspirin Low Dose 81 mg oral tablet, chewable CHEW AND SWALLOW ONE TABLET BY MOUTH EVERY DAY Start Date: 06/03/24 Status: Ordered Medication Dispense Status: Completed Total Allowed Fills: 1 Fills Dispensed: 0 atorvastatin 10 mg oral tablet TAKE ONE TABLET BY MOUTH DAILY AT BEDTIME Start Date: 06/03/24 Status: Ordered Medication Dispense Status: Completed Total Allowed Fills: 1 Fills Dispensed: 0 Citracal Maximum + D oral tablet 1 [...] Date: 06/11/24 Stop Date: 06/06/25 Status: Ordered Medication Dispense Status: Completed Quantity: 60.0 Unit: tablet Total Allowed Fills: 12 Fills Dispensed: 0 hydrochlorothiazide-telmisartan 12.5 mg-40 mg oral tablet TAKE ONE TABLET BY MOUTH EVERY DAY Start Date: 06/03/24 Status: Ordered Medication Dispense Status: Completed Total Allowed Fills: 1 Fills Dispensed: 0 LORazepam 0.5 mg oral tablet TAKE ONE TABLET BY MOUTH EVERY DAY Start Date: 06/03/24 Status: Ordered Medication Dispense Status: Completed Total Allowed Fills: 1 Fills Dispensed: 0 meloxicam 15 mg oral tablet TAKE ONE TABLET BY MOUTH EVERY DAY Start Date: 06/03/24 Status: Ordered Medication Dispense Status: Completed Total Allowed Fills: 1 Fills Dispensed: 0 pantoprazole 40 mg oral delayed release tablet TAKE ONE TABLET BY MOUTH EVERY DAY HALF AN HOUR BEFORE BREAKFAST Start Date: 06/03/24 Status: Ordered Medication Dispense Status: Completed Total Allowed Fills: 1 Fills Dispensed: 0 Testosterone Cypionate 200 mg/mL intramuscular solution See Instructions, INJECT 1 ML INTRAMUSCULARLY EVERY 14 DAYS, # 2 mL, 5 Refills, Maintenance, 06/08/25 10:13:00 AM EDT, [facility], 161.5, cm, 12/07/24 11:26:00 EST, Height, 69.9, kg,06/25/24 13:05:00 EDT, Dry Weight Start Date: 06/08/25 Status: Ordered Medication Dispense Status: Completed Quantity: 2.0 Unit: mL Total Allowed Fills: 6 Fills Dispensed: 0 Testosterone Cypionate 200 mg/mL intramuscular solution 1 [...] Date: 12/10/24 Stop Date: 05/27/25 Status: Ordered Medication Dispense Status: Completed Quantity: 2.0 Unit: mL Total Allowed Fills: 6 Fills Dispensed: 0 Patient Care team information Care Team Personnel Name: Hanh Oconnell RN Position: Arya RN Member Role: Primary Care Nurse Name: Angel Rosales MD Position: Reference Physician Member Role: PCP Address: [address] [place] [address] [place] [id number] Telecom: Care Team Related Persons Name: SURINDER CARTER Insurance Providers Guarantor name: MEGAN LUZIsaiahWm Health Plan Information #: 1 Payer: MEDICARE B Payer Identifier: EDILMA Member Number: [id number] Group Number: EDILMA Subscriber Identifier: EDILMA Relationship to Subscriber: self Coverage Type: NA Coverage Verification Date: NA Telecom: EDILMA Address: NA
--- OUTSIDE RECORDS SUMMARY | 2025-06-10 09:17 | XMS_ITS | Patient Health Record ---
Author Organization [facility] [place] Address [address] [facility] [address] Care Team Providers Care Programming Specialist Name Role Phone Angel Rosales Primary Care Provider [phone] Black, Rosa Unavailable [phone] Allergies Allergen (clinical drug ingredient) Drug/Non Drug [...] 08/30/2024 Encounters Encounter Location Date Provider Diagnosis [facility] [place] [address] [place] [address] 08/30/2024 Rosa Black Xerosis of skin L85.3 [...] Medicare National [employer] [address] [place] [address] [id number] Sally Stuart Self - patient is the insured [address] [place] [address] [address] [place] [address] [id number] Stuart Zavala Self - patient is the insured Medical (General) History Medical History History ICD Code Back,Hip,and Knee pain Broken bones covid-19 Hiatal hernia High Blood Pressure Osteoporosis Measles Mumps Chicken pox Surgical History Surgery Date(Month/Year) knee surgery back surgery hernia
[2025-06-10 10:22] LABS: Hematocrit 37.5 % (42.0-52.0); Hemoglobin 12.2 g/dl (14.0-18.0); Mean Corpuscular HGB Conc 32.5 g/dl (31.0-36.0); Mean Corpuscular Hemoglobin 31.9 pg (27.0-33.0); Mean Corpuscular Volume 97.9 fL (80.0-98.0); NRBC Abs Auto 0.000 X10*3/uL (0.0-0.012); NRBC Pct Auto 0.0 /100WBC (0.0-0.2); Platelet Count 333 X10*3/uL (160-400); Red Blood Count 3.83 X10*6/uL (4.60-5.80); White Blood Count 5.3 X10*3/uL (4.8-10.8)
[2025-06-10 11:31] LABS: Alanine Aminotransferase 62 U/L (0-40); Albumin Level 3.9 g/dL (3.5-5.0); Alkaline Phosphatase 191 U/L (39-117); Anion Gap 13 (12-20); Aspartate Amino Transferase 68 U/L (5-37); Blood Urea Nitrogen 19 mg/dL (9-16); Calcium 8.4 mg/dL (8.4-10.2); Carbon Dioxide 27 mmol/L (22-29); Chloride 106 mmol/L (96-108); Cholesterol 120 mg/dL (<200); Estimated Glomerular Filt Rate > 60; HDL Cholesterol 26 mg/dL (>40); Potassium 4.7 mmol/L (3.3-5.1); Sodium 141 mmol/L (135-145); Total Protein 6.9 g/dL (6.5-8.0); Triglycerides 57 mg/dL (<150)
[2025-06-10 11:36] LABS: Prostate Specific Antigen 4.30 ng/mL (<0.05-4.0)
[2025-06-16 17:07] LABS: Testosterone, Free 232.9 pg/mL (30.0-135.0)
== END 2025-06-10 08:27 | disposition home or self-care (01) ==
LOC: HO.HMGCLDS 08:26
PROVIDERS: PCP Internal Medicine; Visit Provider Internal Medicine Endocrinology, Diabetes & Metabolism
DX: Z12.5 Encounter for screening for malignant neoplasm of prostate (principal); Z13.6 Encounter for screening for cardiovascular disorders; E29.1 Testicular hypofunction; E55.9 Vitamin D deficiency, unspecified
CPT/HCPCS: 36415; 80053; 80061; 82306; 84153; 84402; 84403; 85027

== ENCOUNTER 2025-06-27 07:25 | Outpatient (REF) | payer MEDICARE, BC, SELFPAY ==
--- OUTSIDE RECORDS SUMMARY | 2025-06-27 07:28 | XMS_ITS | Patient Health Record ---
Author Organization [facility] [place] Address [address] [place] [address] Care Team Providers Care Mat Tester Name Role Phone Angel Rosales Primary Care Provider Black, Rosa Unavailable [phone] Allergies Allergen (clinical drug ingredient) Drug/Non Drug [...] 08/30/2024 Encounters Encounter Location Date Provider Diagnosis [facility] [place] [address] [place] [address] 08/30/2024 Rosa Black Xerosis of skin L85.3 [...] Medicare National [employer] [address] [facility] [place] [address] [id number] Sally Stuart Self - patient is the insured [address] [place] [address] [address] [place] [address] [id number] Stuart Zavala Self - patient is the insured Medical (General) History Medical History History ICD Code Back,Hip,and Knee pain Broken bones covid-19 Hiatal hernia High Blood Pressure Osteoporosis Measles Mumps Chicken pox Surgical History Surgery Date(Month/Year) knee surgery back surgery hernia
[2025-07-04 15:59] LABS: Testosterone, Free 201.2 pg/mL (30.0-135.0)
== END 2025-06-27 07:26 | disposition home or self-care (01) ==
LOC: HO.HMGCLDS 07:25
PROVIDERS: PCP Internal Medicine; Visit Provider Internal Medicine Endocrinology, Diabetes & Metabolism
DX: E29.1 Testicular hypofunction (principal)
CPT/HCPCS: 36415; 84402; 84403

== ENCOUNTER 2025-07-07 11:37 | Outpatient (REF) | payer MEDICARE, BC, SELFPAY ==
--- NOTE | ~2025-07-07 | XR_ITS ---
EXAMINATION: XR FOOT 3 OR MORE VIEWS LEFT HISTORY: M79.672 - Pain in left foot COMPARISON: There are no prior studies available for comparison. FINDINGS: Three views of the left foot are submitted. Osseous mineralization is normal. There is no fracture or dislocation. The joint spaces are preserved. There is a small plantar calcaneal spur.. There are vascular calcifications. XR/XR foot LT min 3V IMPRESSION: Small plantar calcaneal spur. Otherwise unremarkable examination of the left foot. Electronically signed by: Lopez Soria MD 07/07/2025 01:13 PM EDT
== END 2025-07-07 11:38 | disposition home or self-care (01) ==
LOC: HO.HMGCX 11:37
PROVIDERS: PCP Internal Medicine; Visit Provider Physician Assistant Medical
DX: M79.672 Pain in left foot (principal)
CPT/HCPCS: 73630; 99212

== ENCOUNTER 2025-07-07 11:37 | Outpatient (AMB) | payer MEDICARE, BC, SELFPAY ==
[2025-07-07 12:02] VITALS: BP 108/64; PULSE 70; RESP 16; TEMP 36.9; O2SAT 98; BMI 24.3
--- NOTE | 2025-07-07 12:02 | AM.OFFWIN_ITS ---
Intake Vital Signs 07/07/25 12:02 Height 5 ft 2.5 in Weight 135 lb BMI 24.3 BP 108/64 Blood Pressure Location Lt brachial Position Sitting Respiration 16 Pulse 70 Pulse Source Pulse Oximeter Temp 98.4 F Temp Source Oral Pulse Oximetry (%) 98 Oxygen Delivery Method Room Air Intake Visit Reasons: EP Left foot swelling/pain Patient Tobacco Use Status: Never used Tobacco Allergies Penicillins (PENICILLINS) Allergy (Unknown, Verified 07/07/25 12:04) UNK HPI HPI Comments History of Present Illness Details History of Present Illness - The patient is a 74-year-old male pres enting with swelling and pain of the left foot. - The patient reports the onset of pain in the left foot after getting up from the sofa early Fri, initially perceived as a cramp. - The following morning, swelling was ob served in the toe adjacent to the big toe, with worsening symptoms. - No history of trauma, open sores, or g out is reported. - Pain is noted when stepping on the dante t, but not upon touch, and there is no ankle pain. - He has not had a trauma or fall. - He has redness to the foot. - He denies fever, chills, numbness, tin gling, calf pain, knee pain or upper leg pain. - He took naproxen with some relief. Physical Exam General: Cooperative, healthy appearing, comfortable, no acute distress and well developed Orientation: Patient oriented x3 Limitations: No limitations Respiratory: Normal respiratory effort and able to speak in complete sentences. Clear to auscultation bilaterally Cardiovascular: Regular rate and rhythm. Normal S1 and S2 Skin: Swelling, redness, and warmth noted on the left lateral foot. No open wounds or abscesses noted. No rashes or lesions noted. No streaking noted. Neuro: Sensation is intact. Extremities: Swollen left foot and ankle. FROM of the left ankle and digits on the left foot. No TTP of the left lateral malleolus. No TTP of the calcaneous, plantar fasciitis, 5th metatarsal. Ambulates with a steady gait. Strength is 5/5 on the LE. Patient was informed and verbally consented to the use of an ambient scribe for clinic note documentation during this visit. [facility] Medical History Kyphosis (acquired) (postural) Cough Allergies Stacia syndrome Bile peritonitis Acute gangrenous cholecystitis Osteoporosis Celiac disease Screening for colon cancer Amaurosis fugax Essential (primary) hypertension Surgical History History of ERCP Hx of cholecystectomy (09/14/24) History of endoscopy History of colonoscopy (~02/04/24) H/O right knee surgery History of excision of pilonidal cyst History of umbilical hernia repair H/O hand surgery History of tonsillectomy Family History Father No problems noted. Mother Liver problem Social History Household Members: Spouse Housing: House Are you a primary care transitions manager to a significant other at home: No Do you presently have visiting nurse or other home services: No Alcohol intake: current Alcohol intake frequency: holidays/special occasions only Patient Tobacco Use Status: Never used Tobacco e-Cigarette/Vaping Use: Never Used Second Hand Smoke Exposure: No service: No Current occupational status: retired Cognitive needs: No Hearing needs: Yes Vision needs: Yes (Glasses) Review of Systems Const All systems reviewed & are unremarkable except as noted in HPI and below Physical Exam Vital Signs: Last Vital Signs Temp 98.4 F 07/07/25 12:02 Pulse 70 07/07/25 12:02 Resp 16 07/07/25 12:02 BP 108/64 07/07/25 12:02 Pulse Ox 98 07/07/25 12:02 Oxygen Delivery Method Room Air 07/07/25 12:02 BMI result Body Mass Index 24.3 Assessment & Plan Assessment & Plan (1) Left foot pain: Code(s): M79.672 - Pain in left foot Plan Most likely cellulitis vs gout vs fracture vs osteomyelitis? vs arthritis plan - rest, ice and elevation to the foot - will order a foot xray - naproxen as needed for pain - prednisone for 5 days - doxycycline 100 mg BID for 7 days - follow up with PCP Orders: Orders XR foot LT min 3V Today M79.672 - Pain in left foot Medications: New doxycycline hyclate 100 mg PO BID 14 tabs 0RF prednisone 40 mg (2 x 20 mg) PO DAILY 10 tabs 0RF 5 days naproxen 500 mg PO Q12H PRN 20 tabs 0RF pain 7 days Coding Level of Care Code Est Pt Level 4 (96956) Diagnoses Left foot pain M79.672
--- OUTSIDE RECORDS SUMMARY | 2025-07-07 16:28 | XMS_ITS | Patient Health Record ---
Author Organization [facility] [place] Address [address] [facility] [place] [address] Care Team Providers Care Crocheter Name Role Phone Angel Rosales Primary Care Provider [phone] Black, Rosa Unavailable [phone] Allergies Allergen (clinical drug ingredient) Drug/Non Drug [...] 08/30/2024 Encounters Encounter Location Date Provider Diagnosis [facility] [place] [address] [place] [address] 08/30/2024 Rosa Black Xerosis of skin L85.3 [...] Medicare National [employer] [address] [facility] [address] [id number] Sally Stuart Self - patient is the insured [address] [place] [address] [address] [place] [address] [id number] Stuart Zavala Self - patient is the insured Medical (General) History Medical History History ICD Code Back,Hip,and Knee pain Broken bones covid-19 Hiatal hernia High Blood Pressure Osteoporosis Measles Mumps Chicken pox Surgical History Surgery Date(Month/Year) knee surgery back surgery hernia
== END 2025-07-07 12:49 | disposition home or self-care (01) ==
PROVIDERS: PCP Internal Medicine; Visit Provider Physician Assistant Medical
DX: M79.672 Pain in left foot (principal)

== ENCOUNTER → 2025-07-07 13:02 | Outpatient (BNV) | payer MEDICARE, BC, SELFPAY | PROVIDERS: PCP Internal Medicine; Visit Provider Radiology Diagnostic Radiology | DX: M77.32 Calcaneal spur, left foot (principal) | CPT/HCPCS: 73630 ==

== ENCOUNTER 2025-07-25 08:29 | Outpatient (REF) | payer MEDICARE, BC, SELFPAY ==
--- OUTSIDE RECORDS SUMMARY | 2025-07-25 08:33 | XMS_ITS | Patient Health Record ---
Author Organization [facility] [place] Address [address] [facility] [place] [address] Care Team Providers Care Roof Tile Layer Name Role Phone Angel Rosales Primary Care Provider [phone] Black, Rosa Unavailable [phone] Allergies Allergen (clinical drug ingredient) Drug/Non Drug [...] Encounters Encounter Location Date Provider Diagnosis [facility] [place] [address] [place] [address] 08/30/2024 Rosa Black Xerosis of skin L85.3 [...] Medicare National Govt Svcs Inc [address] [place] [address] [id number] Sally Stuart Self - patient is the insured [address] [place] [address] [address] [place] [address] [id number] Stuart Zavala Self - patient is the insured Medical (General) History Medical History History ICD Code Back,Hip,and Knee pain Broken bones covid-19 Hiatal hernia High Blood Pressure Osteoporosis Measles Mumps Chicken pox Surgical History Surgery Date(Month/Year) knee surgery back surgery hernia
[2025-08-01 13:39] LABS: Testosterone, Free 150.3 pg/mL (30.0-135.0)
== END 2025-07-25 08:30 | disposition home or self-care (01) ==
LOC: HO.HMGCLDS 08:29
PROVIDERS: PCP Internal Medicine; Visit Provider Internal Medicine Endocrinology, Diabetes & Metabolism
DX: E29.1 Testicular hypofunction (principal)
CPT/HCPCS: 36415; 84402; 84403

== ENCOUNTER 2025-08-18 06:57 | Outpatient (REF) | payer MEDICARE, BC, SELFPAY ==
--- OUTSIDE RECORDS SUMMARY | 2025-08-17 23:59 | XMS_ITS | Continuity of Care Document ---
Author Organization [facility] Address [address] [place] [address]- Care Team Providers Care Territory Account Representative Name Role Phone Connie SARMIENTO, Angel Bui Primary Care Physician Encounter [facility] Date(s): 07/18/25 - 08/17/25 [facility] [address] [place] [id number] Encounter Type: Triage Allergies, Adverse Reactions, Alerts Substance Criticality Severity Reaction Reaction Severity Status penicillins Active Medications 1 ml luer lock syringe 1 ml luer lock syringe, See Instructions, # 2 each, Refills 4, Tot. Refills 4, Maintenance, To be used with Testosterone injection every 2 weeks, 07/05/25 4:09:00 PM EDT, Supply, 160, cm, 06/27/25 14:45:00 EDT, Height, 61, kg, 06/27/25 13:40:00 EDT, Dry Weight Start Date: 07/05/25 Status: Ordered Medication Dispense Status: Completed Quantity: 2.0 Unit: each Total Allowed Fills: 5 Fills Dispensed: 0 18 G needles 18 G needles, See [...] 12 Fills Dispensed: 0 Indications: Testicular hypofunction; 25 gauge 1 inch needles 25 gauge 1 inch needles, See Instructions, # 2 each, Refills 4, Tot. Refills 4, Maintenance, Use toadminister intramuscular Testosterone injection, 07/05/25 4:15:00 PM EDT, Supply, 160, cm, 06/27/25 14:45:00 EDT, Height, 61, kg, 06/27/25 13:40:00 EDT, Dry Weight Start Date: 07/05/25 Status: Ordered Medication Dispense Status: Completed Quantity: 2.0 Unit: each Total Allowed Fills: 5 Fills Dispensed: 0 Aspirin Low Dose 81 mg oral tablet, chewable CHEW AND SWALLOW ONE TABLET BY MOUTH EVERY DAY Start Date: 06/03/24 Status: Ordered Medication Dispense Status: Completed Total Allowed Fills: 1 Fills Dispensed: 0 atorvastatin 10 mg oral tablet TAKE ONE TABLET BY MOUTH DAILY AT BEDTIME Start Date: 06/03/24 Status: Ordered Medication Dispense Status: Completed Total Allowed Fills: 1 Fills Dispensed: 0 calcium (as citrate)-vitamin D 315 mg-250 intl units oral tablet 1 tablet, By Mouth, 2 times a day, # 60 tablet, 11 Refills, Maintenance, 08/03/25 11:17:00 AM EDT, [facility], 30, TAKE ONE TABLET BY MOUTH TWICE A DAY, 160, cm, 06/27/25 14:45:00 EDT, Height, 61, kg, 06/27/25 13:40:00 EDT, Dry Weight Start Date: 08/03/25 Status: Ordered Medication Dispense Status: Completed Quantity: 60.0 Unit: tablet Total Allowed Fills: 1 Fills Dispensed: 0 hydrochlorothiazide-telmisartan 12.5 mg-40 mg [...] Total Allowed Fills: 1 Fills Dispensed: 0 Reclast 5 mg/100 mL intravenous solution = 5 mg, IV Infusion, Once, 0 Refills, Maintenance, 06/27/25 1:37:00 PM EDT, Partial fill upon patient request if the prescription is for a schedule II opioid drug. Start Date: 06/27/25 Status: Ordered Medication Dispense Status: Completed Total [...] Total Allowed Fills: 6 Fills Dispensed: 0 Social History Social History Type Response Sex Sex Representation Male (finding) Patient Care team information Care Team Personnel Name: Hanh Oconnell RN Position: S RN Member Role: Primary Care Nurse Name: Prema Alonso Position: S RN Member Role: Primary Care Nurse Name: Angel Rosales MD Position: Reference Physician Member Role: PCP Address: [address] [place] [address]- Telecom: Care Team Related Persons Name: SURINDER CARTER Insurance Providers Guarantor name: MEGAN RAUL Health Plan Information #: 1 Payer: MEDICARE B Payer Identifier: EDILMA Member Number: [id number] Group Number: EDILMA Subscriber Identifier: EDILMA Relationship to Subscriber: self Coverage Type: NA Coverage Verification Date: NA Telecom: NA Address: EDILMA Health Plan Information #: 2 Payer: [facility] Payer Identifier: EDILMA Member Number: [id number] Group Number: [id number] Subscriber Identifier: EDILMA Relationship to Subscriber: self Coverage Type: Medicare Other Coverage Verification Date: EDILMA Telecom: NA Address:
--- OUTSIDE RECORDS SUMMARY | 2025-08-18 06:59 | XMS_ITS | Patient Health Record ---
[facility] Address [address] [place] [address] Care Team Providers Care Box Tender Name Role Phone Angel Rosales Primary Care Provider Black, Rosa Unavailable [phone] Allergies Allergen (clinical drug ingredient) Drug/Non Drug [...] 08/30/2024 Encounters Encounter Location Date Provider Diagnosis [facility] [place] [address] [place] [address] 08/30/2024 Rosa Black Xerosis of skin L85.3 [...] Medicare National [employer] [address] [facility] [place] [address] [id number] Sally Stuart Self - patient is the insured [address] [place] [address] [address] [place] [address] [id number] Stuart Zavala Self - patient is the insured Medical (General) History Medical History History ICD Code Back,Hip,and Knee pain Broken bones covid-19 Hiatal hernia High Blood Pressure Osteoporosis Measles Mumps Chicken pox Surgical History Surgery Date(Month/Year) knee surgery back surgery hernia
[2025-08-25 17:03] LABS: Testosterone, Free 154.1 pg/mL (30.0-135.0)
== END 2025-08-18 06:58 | disposition home or self-care (01) ==
LOC: HO.HMGCLDS 06:57
PROVIDERS: PCP Internal Medicine; Visit Provider Internal Medicine Endocrinology, Diabetes & Metabolism
DX: E29.1 Testicular hypofunction (principal)
CPT/HCPCS: 36415; 84402; 84403

== ENCOUNTER 2025-09-05 07:38 | Outpatient (REF) | payer MEDICARE, BC, SELFPAY ==
--- OUTSIDE RECORDS SUMMARY | 2025-09-02 23:59 | XMS_ITS | Continuity of Care Document ---
Author Organization [facility] Address [address] [place] [address]- Care Team Providers Care Hydrogen Power Plant Manager Name Role Phone Connie SARMIENTO, Angel Bui Primary Care Physician Encounter [facility] Date(s): 08/03/25 - 09/02/25 [facility] [address] [place] [id number] Encounter Type: Triage Allergies, Adverse Reactions, [...] Reference Physician Member Role: PCP Address: [address] [place] [address]- Telecom: Care Team Related Persons Name: SURINDER CARTER Insurance Providers Guarantor name: MEGAN RAUL Health Plan Information #: 1 Payer: MEDICARE B Payer Identifier: EDILMA Member Number: [id number] Group Number: [id number] Subscriber Identifier: EDILMA Relationship to Subscriber: self Coverage Type: NA Coverage Verification Date: NA Telecom: NA Address: [place] Health Plan Information #: 2 Payer: [facility] Payer Identifier: EDILMA Member Number: [id number] Group Number: [id number] Subscriber Identifier: EDILMA Relationship to Subscriber: self Coverage Type: Medicare Other Coverage Verification Date: EDILMA Telecom: NA Address:
--- OUTSIDE RECORDS SUMMARY | 2025-09-02 23:59 | XMS_ITS | Continuity of Care Document ---
Author Organization [facility] Address [address] [place] [address]- Care Team Providers Care Quantitative Software Engineer Name Role Phone Connie SARMIENTO, Angel Bui Primary Care Physician Encounter [facility] Date(s): 08/03/25 - 09/02/25 [facility] [address] [place] [email or web address] Encounter Type: Triage Allergies, Adverse Reactions, Alerts [...] Reference Physician Member Role: PCP Address: [address] [place] [address]- Telecom: Care Team Related Persons Name: SURINDER CARTER Insurance Providers Guarantor name: MEGAN CARTER Health Plan Information #: 1 Payer: MEDICARE B Payer Identifier: EDILMA Member Number: [id number] Group Number: [id number] Subscriber Identifier: EDILMA Relationship to Subscriber: self Coverage Type: NA Coverage Verification Date: NA Telecom: NA Address: [facility] Plan Information #: 2 Payer: [facility] Payer Identifier: EDILMA Member Number: [id number] Group Number: [id number] Subscriber Identifier: EDILMA Relationship to Subscriber: self Coverage Type: Medicare Other Coverage Verification Date: EDILMA Telecom: NA Address:
--- OUTSIDE RECORDS SUMMARY | 2025-09-05 07:41 | XMS_ITS | Patient Health Record ---
Author Organization [facility] [place] Address [address] [facility] [place] [address] Care Team Providers Care Oil Heater Installer Name Role Phone Angel Rosales Primary Care Provider [phone] Black, Rosa Unavailable [phone] Allergies Allergen (clinical drug ingredient) Drug/Non Drug [...] specify (0 point) Points 0 Interpretation Negative Plan Of Treatment No Information Insurance Providers Payer Name Payer Address Payer Phone Subscriber Number Group Number Insured Name Patient Relationship to Insured Coverage Start Date Coverage End Date Medicare National [employer] [address] [place] [address] [id number] Stuart Zavala Self - patient is the insured [address] [place] [address] [address] [place] [address] [id number] Stuart Zavala Self - patient is the insured Medical (General) History Medical History History ICD Code Back,Hip,and Knee pain Broken bones covid-19 Hiatal hernia High Blood Pressure Osteoporosis Measles Mumps Chicken pox Surgical History Surgery Date(Month/Year) knee surgery back surgery hernia
[2025-09-11 14:08] LABS: Testosterone, Free 42.1 pg/mL (30.0-135.0)
== END 2025-09-05 07:39 | disposition home or self-care (01) ==
LOC: HO.HMGCLDS 07:38
PROVIDERS: PCP Internal Medicine; Visit Provider Internal Medicine Endocrinology, Diabetes & Metabolism
DX: E29.1 Testicular hypofunction (principal)
CPT/HCPCS: 36415; 84402; 84403